=== PATIENT | female | born 1950 | race Caucasian/White ===

== ENCOUNTER 2019-03-28 09:41 | Inpatient (IN) | payer MEDICARE, BC ==
[2019-03-28] MEDS ORDERED: ENOXAPARIN SODIUM INJ 40 MG/0.4 ML DISP.SYRIN SUBCUT SCH (10:00)
[2019-03-28] MEDS ORDERED: VANCOMYCIN HCL INJ 1000 MG VIAL IV ONE (10:25)
[2019-03-28] MEDS ORDERED: AZTREONAM INJ 1 GM VIAL IV ONE (10:25)
--- NOTE | 2019-03-28 10:32 | ER Document Report ---
ED General - General Chief Complaint: Weakness Stated Complaint: WEAKNESS Time Seen by Provider: 03/28/19 10:09 Mode of Arrival: Ambulatory Information source: Patient Notes: Chief complaint: Bilateral lower leg wound History of complain:( obtained from----patient) 68 years old female who was a smoker in the past, has not seen any physicians for many many years, was steadily losing weight, and increasingly shortness of breath. 2 weeks ago was scratched her lower extremity and since then having chronic wounds over both legs associated with oozing of serosanguineous fluid. And progressive increasing lower extremity swelling. Patient denies any chest pain, headache focal weaknesses. Onset: As above Duration: Gradual Severity: Severe Quality: Unknown Context: Unknown Exacerbating factor and relieving factors: Walking REVIEW OF SYSTEMS: CONSTITUTIONAL : Denies fever, chills, or sweats. Denies recent illness. EENT: Denies eye, ear, throat, or mouth pain or symptoms. Denies nasal or sinus congestion or discharge. Denies throat, tongue, or mouth swelling or difficulty swallowing. CARDIOVASCULAR: Denies chest pain. Denies palpitations or racing or irregular heart beat. Denies ankle edema. RESPIRATORY: Denies cough, cold, GASTROINTESTINAL: Denies distention. Denies nausea, vomiting, or diarrhea. Denies blood in vomitus, stools, or per rectum. Denies black, tarry stools. Denies constipation. GENITOURINARY: Denies difficulty urinating, painful urination, burning, frequency, blood in urine, or discharge. FEMALE GENITOURINARY: Denies vaginal bleeding, heavy or abnormal periods, irregular periods. Denies vaginal discharge or odor. MUSCULOSKELETAL: D HEMATOLOGIC : Denies easy bruising or bleeding. LYMPHATIC: Denies swollen, enlarged glands. NEUROLOGICAL: Denies confusion or altered mental status. Denies passing out or loss of consciousness. Denies dizziness or lightheadedness. Denies headache. Denies weakness or paralysis or loss of use of either side. Denies problems with gait or speech. Denies sensory loss, numbness, or tingling. Denies seizures. PSYCHIATRIC: Denies anxiety or stress. Denies depression, suicidal ideation, or homicidal ideation. ALL OTHER SYSTEMS REVIEWED AND NEGATIVE. PHYSICAL EXAMINATION: GENERAL: Cachectic, mild to moderate laboring for breathing. HEAD: Atraumatic, normocephalic. EYES: Pupils equal round and reactive to light, extraocular movements intact, conjunctiva are normal. ENT: Nares patent, oropharynx clear without exudates. Moist mucous membranes. NECK: Normal range of motion, supple without lymphadenopathy LUNGS: Bilaterally decreased breath sounds, could not hear any significant wheezing or rales HEART: Regular rate and rhythm without murmurs ABDOMEN: Soft, nontender, nondistended abdomen. No guarding, no rebound. No masses appreciated. Examination of genitals-deferred Musculoskeletal: Both lower extremities are edematous 4++, with diffuse erythema, oozing ulceration on the medial side NEUROLOGICAL: Cranial nerves grossly intact. Normal speech, normal gait. Normal sensory, motor exams PSYCH: Normal mood, normal affect. SKIN: Warm, Dry, normal turgor, no rashes or lesions noted. Dictation was performed using [employer] voice recognition software TRAVEL OUTSIDE OF THE [place] IN LAST 30 DAYS: No - HPI Notes: Dictated - Related Data Allergies/Adverse Reactions: amoxicillin Allergy (Verified 03/28/19 09:50) ciprofloxacin [From Cipro] Allergy (Verified 03/28/19 09:50) Past Medical History - Social History Smoking Status: Former Smoker Cigarette use (# per day): No - Stopped smoking 4 years ago Chew tobacco use (# tins/day): No Frequency of alcohol use: Occasional Drug Abuse: None Lives with: Alone Family History: Reviewed & Not Pertinent Patient has suicidal ideation: No Patient has homicidal ideation: No Review of Systems - Review of Systems Notes: Dictated Physical Exam - Vital signs Vitals: Temp Pulse Resp BP Pulse Ox 97.7 F 94 20 178/89 H 98 03/28/19 09:51 03/28/19 09:51 03/28/19 09:51 03/28/19 09:51 03/28/19 09:51 - Notes Notes: Dictated Course - Re-evaluation Re-evalutation: 03/28/19 14:08 Patient's case was discussed with the hospitalist, he is uncomfortable admitting the patient without discussing with repairer evaporator. He requested me to speak to the repairer evaporator before he will accept the patient. 03/28/19 14:58 Patient finally was admitted to ICU after discussing with the eddy current inspector - Vital Signs Vital signs: Temp Pulse Resp BP Pulse Ox 97.8 F 94 17 148/80 H 98 03/28/19 11:01 03/28/19 09:51 03/28/19 13:01 03/28/19 13:01 03/28/19 13:01 - Laboratory Result Diagrams: 03/28/19 10:30 03/28/19 12:25 Laboratory results interpreted by me: 03/28/19 03/28/19 10:30 12:25 WBC 14.5 H RBC 3.64 L MCV 102 H MCH 35.4 H Seg Neuts % (Manual) 92 H Lymphocytes % (Manual) 4 L Abs Neuts (Manual) 13.3 H Sodium 104.6 L* Chloride 68 L Creatinine 0.23 L Glucose 136 H Calcium 8.2 L AST 91 H Albumin 3.4 L - Diagnostic Test Radiology reviewed: Reports reviewed - COPD Discharge - Discharge Clinical Impression: Hyponatremia, Hypochloremia, Severe dehydration Open wound of both legs with complication Qualifiers: Encounter type: initial encounter Qualified Code(s): S81.801A - Unspecified open wound, right lower leg, initial encounter; S81.802A - Unspecified open wound, left lower leg, initial encounter Condition: Critical Disposition: ADMITTED INPATIENT Unit Admitted: ICU
[2019-03-28 11:04] LABS: HEMOGLOBIN 12.9 g/dL (12.0-15.5); INTERNATIONAL RATION (INR) 1.03; MEAN CORPUSCULAR HEMOGLOBIN 35.4 pg (27.0-33.4); MEAN CORPUSCULAR HGB CONC 34.9 g/dL (32.0-36.0); MEAN CORPUSCULAR VOLUME 102 fl (80-97); PLATELET COUNT 324 10^3/uL (150-450); PROTHROMBIN TIME 13.5 SEC (11.4-15.4); RED BLOOD COUNT 3.64 10^6/uL (3.72-5.28); RED CELL DISTRIBUTION WIDTH 12.9 % (11.5-14.0); WHITE BLOOD COUNT 14.5 10^3/uL (4.0-10.5)
[2019-03-28 11:16] LABS: VENOUS BLOOD BASE EXCESS -0.5 mmol/L; VENOUS BLOOD HCO3 25.1 mmol/L (20-32); VENOUS BLOOD PCO2 44.7 mmHg (35-63); VENOUS BLOOD PH 7.37 (7.30-7.42)
[2019-03-28 11:28] LABS: ABSOLUTE LYMPHOCYTES# (MANUAL) 0.6 10^3/uL (0.5-4.7); ABSOLUTE MONOCYTES # (MANUAL) 0.6 10^3/uL (0.1-1.4); BASOPHILS % (MANUAL) 0 % (0-2); EOSINOPHILS % (MANUAL) 0 % (0-6); LYMPHOCYTES % (MANUAL) 4 % (13-45); MONOCYTES % (MANUAL) 4 % (3-13); SEGMENTED NEUTROPHILS % (MAN) 92 % (42-78); TOTAL CELLS COUNTED 100
[2019-03-28 11:33] LABS: PLATELET COMMENT ADEQUATE
[2019-03-28 11:35] LABS: TOXIC VACUOLATION PRESENT
[2019-03-28] MEDS ORDERED: ONDANSETRON HCL INJ/PF 4 MG/2 ML SDV IV ONE (11:47)
[2019-03-28] MEDS ORDERED: MORPHINE SULFATE 10 MG/ML INJ IV ONE ×2 (11:47→14:47)
--- NOTE | 2019-03-28 12:20 | RADIOLOGY REPORT (SQ) ---
EXAM DESCRIPTION: CHEST SINGLE VIEW COMPLETED DATE/TIME: 03/28/2019 12:08 pm REASON FOR STUDY: Shortness of breath COMPARISON: None. EXAM PARAMETERS: NUMBER OF VIEWS: One view. TECHNIQUE: Single frontal radiographic view of the chest acquired. RADIATION DOSE: NA LIMITATIONS: None. FINDINGS: LUNGS AND PLEURA: The pruning of the vasculature in the apices is suggestive of emphysema. There is no acute consolidation, pleural effusion or pneumothorax MEDIASTINUM AND HILAR STRUCTURES: No mediastinal or hilar contour abnormality. HEART AND VASCULAR STRUCTURES: No cardiomegaly. BONES: No acute findings. HARDWARE: None. OTHER: No other findings. IMPRESSION: Findings of COPD without a superimposed acute cardiopulmonary process. TECHNICAL DOCUMENTATION: JOB ID: [id number] [employer]- All Rights Reserved Reading location - IP/workstation name: [email or web address]
[2019-03-28 13:11] LABS: ALBUMIN 3.4 g/dL (3.5-5.0); ALKALINE PHOSPHATASE 65 U/L (38-126); ANION GAP 12 (5-19); ASPARTATE AMINO TRANSFERASE 91 U/L (14-36); BILIRUBIN,DIRECT 0.1 mg/dL (0.0-0.4); BLOOD UREA NITROGEN 9 mg/dL (7-20); CALCIUM 8.2 mg/dL (8.4-10.2); CARBON DIOXIDE 25 mmol/L (22-30); CHLORIDE 68 mmol/L (98-107); GLUCOSE 136 mg/dL (75-110); POTASSIUM 4.7 mmol/L (3.6-5.0); TOTAL PROTEIN 6.4 g/dL (6.3-8.2)
[2019-03-28] MEDS ORDERED: SODIUM CHLORIDE 3% 500 ML IV ONE ×2 (13:30→13:52)
[2019-03-28] MEDS ORDERED: SODIUM CHLORIDE 3% 400 ML IV ONE (14:23)
[2019-03-28 14:59] LABS: APPEARANCE,URINE SLIGHTLY-CLOUDY; BILIRUBIN,URINE NEGATIVE (NEGATIVE); COLOR,URINE YELLOW; GLUCOSE, URINE 150 mg/dL (NEGATIVE); KETONES,URINE 80 mg/dL (NEGATIVE); LEUKOCYTE ESTERASE,URINE NEGATIVE (NEGATIVE); NITRITE,URINE NEGATIVE (NEGATIVE); PROTEIN,URINE 100 mg/dL (NEGATIVE); UROBILINOGEN,URINE NEGATIVE mg/dL (<2.0)
[2019-03-28] MEDS ORDERED: MAGNESIUM HYDROXIDE SUSP 30 ML UDCUP PO PRN (15:35)
[2019-03-28] MEDS ORDERED: LEVALBUTEROL HCL NEB 1.25 MG/3 ML AMPUL NEB ONE (15:35)
[2019-03-28] MEDS ORDERED: VANCOMYCIN HCL INJ 500 MG VIAL IV SCH (16:00)
--- NOTE | 2019-03-28 16:31 | CRITICAL CARE ADMISSION REPORT ---
HPI Date:: 03/28/19 Time:: 15:00 Reason for ICU Reason:: Severe hyponatremia HPI: This patient is a 68 y/o woman who presents with a sodium of 105. She has had intermittent confusion, falls, and fatigue for 2 weeks. She has open and draining wounds on both lower legs R > L. Her sister offers that she drinks beer and practically nothing else. She is an ex-smoker and has audible wheezing consistent with COPD. No palitations. History obtained from:: Patient and sister - Diagnosis/Plan (1) Hypochloremia Is this a current diagnosis for this admission?: Yes Plan: Follows hyponatremia. Correct sodium, correct chloride (2) Hyponatremia Is this a current diagnosis for this admission?: Yes Plan: Likely due to drinking of beer and chronic dehydration. With clear lungs lung cancer less likely. Correct about 10 meq/day meaning about 2-3 days in ICU. (3) Open wound of both legs with complication Qualifiers: Encounter type: initial encounter Qualified Code(s): S81.801A - Unspecified open wound, right lower leg, initial encounter; S81.802A - Unspecified open wound, left lower leg, initial encounter Is this a current diagnosis for this admission?: Yes Plan: Cefopime and vanco and dressing changes (4) Severe dehydration Is this a current diagnosis for this admission?: Yes Plan: Hydrate with NS after sodium improves Past Medical History Past Medical History: Patient does not go to doctors. She has undiagnosed COPD, probable alcoholism and cellulitis that we know of. Medical History: None Cardiac Medical History: Reports: None Pulmonary Medical History: Reports: None Pulmonary History Note: But was a heavy smoker for years EENT Medical History: Reports: None Neurological Medical History: Reports: None Endocrine Medical History: Reports: None Renal/ Medical History: Reports: None Malignancy Medical History: Reports: None GI Medical History: Reports: None Skin History Note: Current leg cellulitis Psychiatric Medical History: Reports: None Traumatic Medical History: Reports: None Hematology: Reports: None Infectious Medical History: Reports: None Past Surgical History Past Surgical History: Reports: None Social/Family History - Social History Lives with: Family Smoking Status: Former Smoker Last Time Smoked: 6 years ago. Frequency of Alcohol Use: Heavy Amount of Alcoholic Beverages Per Day: Much beer Last Alcohol Use: 03/28/19 Hx Recreational Drug Use: No Drugs: None - Family History Family History: Reviewed & Not Pertinent - Medication/Allergies Allergies/Adverse Reactions: amoxicillin Allergy (Verified 03/28/19 09:50) ciprofloxacin [From Cipro] Allergy (Verified 03/28/19 09:50) Review of Systems Constitutional: PRESENT: as per HPI, anorexia Cardiovascular: PRESENT: as per HPI Respiratory: PRESENT: as per HPI Gastrointestinal: PRESENT: as per HPI Musculoskeletal: PRESENT: as per HPI Integumentary: PRESENT: as per HPI Neurological: PRESENT: as per HPI Psychiatric: PRESENT: as per HPI Hematologic/Lymphatic: PRESENT: as per HPI Physical Exam Vital Signs: Temp Pulse Resp BP Pulse Ox 97.8 F 94 17 161/72 H 98 03/28/19 11:01 03/28/19 09:51 03/28/19 15:00 03/28/19 15:00 03/28/19 15:00 Intake & Output 03/27/19 03/28/19 03/29/19 06:59 06:59 06:59 Weight 53.3 kg Weight/Height Weight 53.3 kg Height 5 ft 2 in General appearance: PRESENT: no acute distress, thin Head exam: PRESENT: other - Large old bruise in center of forehead Eye exam: PRESENT: EOMI Ear exam: PRESENT: normal external ear exam Mouth exam: PRESENT: dry mucosa Teeth exam: PRESENT: dental caries Respiratory exam: PRESENT: decreased breath sounds, prolonged expiratory phas, wheezes Cardiovascular exam: PRESENT: RRR, tachycardia Pulses: PRESENT: normal carotid pulses GI/Abdominal exam: PRESENT: soft Rectal exam: PRESENT: deferred Musculoskeletal exam: PRESENT: full ROM Neurological exam: PRESENT: alert, oriented to person, oriented to place, oriented to time, oriented to situation Psychiatric exam: PRESENT: flat affect Skin exam: PRESENT: erythema, vesicles Additional comments: Both legs R>L. Laboratory/Radiographs Laboratory Results: 03/28/19 10:30 03/28/19 12:25 03/28/19 03/28/19 03/28/19 10:30 10:30 10:30 WBC 14.5 H RBC 3.64 L Hgb 12.9 Hct 37.0 MCV 102 H MCH 35.4 H MCHC 34.9 RDW 12.9 Plt Count 324 Seg Neutrophils % Not Reportable VBG pH VBG pCO2 VBG HCO3 VBG Base Excess Sodium Cancelled Potassium Cancelled Chloride Cancelled Carbon Dioxide Cancelled Anion Gap Cancelled BUN Cancelled Creatinine Cancelled Est GFR ( Amer) Cancelled Est GFR (Non-Af Amer) Cancelled Glucose Cancelled Lactic Acid 1.4 Calcium Cancelled Total Bilirubin Cancelled AST Cancelled Alkaline Phosphatase Cancelled Total Protein Cancelled Albumin Cancelled Urine Color Urine Appearance Urine pH Ur Specific [place] Urine Protein Urine Glucose (UA) Urine Ketones Urine Blood Urine Nitrite Ur Leukocyte Esterase Urine WBC (Auto) Urine RBC (Auto) 03/28/19 03/28/19 03/28/19 10:30 12:25 14:20 WBC RBC Hgb Hct MCV MCH MCHC RDW Plt Count Seg Neutrophils % VBG pH 7.37 VBG pCO2 44.7 VBG HCO3 25.1 VBG Base Excess -0.5 Sodium 104.6 L* Potassium 4.7 Chloride 68 L Carbon Dioxide 25 Anion Gap 12 BUN 9 Creatinine 0.23 L Est GFR ( Amer) > 60 Est GFR (Non-Af Amer) Glucose 136 H Lactic Acid Calcium 8.2 L Total Bilirubin 1.0 AST 91 H Alkaline Phosphatase 65 Total Protein 6.4 Albumin 3.4 L Urine Color YELLOW Urine Appearance SLIGHTLY-CLOUDY Urine pH 6.0 Ur Specific [place] 1.030 Urine Protein 100 H Urine Glucose (UA) 150 H Urine Ketones 80 H Urine Blood SMALL H Urine Nitrite NEGATIVE Ur Leukocyte Esterase NEGATIVE Urine WBC (Auto) 6 Urine RBC (Auto) 7 Impressions: Chest X-Ray 03/28/19 10:27 IMPRESSION: Findings of COPD without a superimposed acute cardiopulmonary process. EKG: By Telemetry sinus tachycardia at 96. No ectopy Critical Time Critical Time (minutes): 40 -: The care of a critically ill patient is dynamic. This note represents a static moment in the admission process. orders and treatments may be given simulataneously and urgentl, and time is not outside sales representative of the treatment process. This patient requires Critical Care secondary to life threating organ or limb dysfunction. Without the need for Critical Care services, the patient is at risk for increasid mortality and morbidity.
[2019-03-28] MEDS ORDERED: ENOXAPARIN SODIUM INJ 40 MG/0.4 ML DISP.SYRIN SUBCUT ONE (17:00)
[2019-03-28] MEDS ORDERED: DIPHENHYDRAMINE HCL 50 MG CAPSULE PO ONE (18:55)
[2019-03-28] MEDS: CEFEPIME 1 GM/D5W RTU 1 GM/50 ML RTUPB IV SCH (19:01)
--- NOTE | 2019-03-28 19:42 | PDOC CONSULTATION ---
Consultation Consult Date: 03/28/19 Attending physician:: Donavon LAW Provider Consulted: Donavon LAW Consult reason:: Hyponatermia History of Present Illness Admission Date/PCP: 03/28/19 15:25 History of Present Illness: MONTEZ GREGG is a 68 year old female who has a history of smoking up until 4 years ago, drinks 4 to 5 beers a day, does not follow with any providers so there is no other history. She comes to the ER with her sister ad [id number]. She comes due to infections bilaterally in her legs, the right greater than the left. Labs were drawn and showed a sodium of 104. Patients only symptoms at the time were slight muscle weakness and feeling a little tired. Patient denied any other hyponatremia s/s. Patient denies any recent n/v or diarrhea. She has not been taking any new medications or drugs. She denies being diabetic, any increased thirst or decrease increase/decrease in urination. She denies orthopnea. Chest x-ray showed no fluid or vascular congestion in the chest. In the ER 3% saline was started at 50mL an hour per Dr. Law recommendations. Past Medical History Cardiac Medical History: Reports: None Pulmonary Medical History: Reports: None EENT Medical History: Reports: None Neurological Medical History: Reports: None Endocrine Medical History: Reports: None Complications of Diabetes: Reports: None Renal/ Medical History: Reports: None Malignancy Medical History: Reports: None GI Medical History: Reports: None Psychiatric Medical History: Reports: None Traumatic Medical History: Reports: None Infectious Medical History: Reports: None Past Surgical History Past Surgical History: Reports: None Social History Lives with: Family Smoking Status: Former Smoker Last Time Smoked: 6 years ago. Frequency of Alcohol Use: Heavy Hx Recreational Drug Use: No Drugs: None Family History Family History: DM - -prediabetes Parental Family History Reviewed: Yes Children Family History Reviewed: Yes Sibling(s) Family History Reviewed.: Yes Medication/Allergy Home Medications: Loratadine [Claritin 10 mg Tablet] 10 mg PO DAILY 03/28/19 Allergies/Adverse Reactions: amoxicillin Allergy (Verified 03/28/19 09:50) ciprofloxacin [From Cipro] Allergy (Verified 03/28/19 09:50) Review of Systems Constitutional: PRESENT: fatigue, weakness. ABSENT: anorexia, chills, fever(s), headache(s) Eyes: ABSENT: visual disturbances Nose, Mouth, and Throat: ABSENT: headache(s) Cardiovascular: PRESENT: dyspnea on exertion. ABSENT: chest pain, edema, orthropnea, palpitations Respiratory: PRESENT: cough, dyspnea. ABSENT: sputum Gastrointestinal: ABSENT: abdominal pain, constipation, diarrhea, dysphagia, nausea, vomiting Genitourinary: ABSENT: difficulty urinating, dysuria, hematuria, nocturia Musculoskeletal: PRESENT: joint swelling - -ankles, muscle weakness Neurological: PRESENT: weakness. ABSENT: confusion, dizziness, focal weakness, lack of coordination, numbness, syncope Psychiatric: ABSENT: anxiety, depression Physical Exam Vital Signs: Temp Pulse Resp BP Pulse Ox 97.8 F 94 17 138/65 H 96 03/28/19 11:01 03/28/19 09:51 03/28/19 17:00 03/28/19 17:00 03/28/19 17:00 Intake & Output 03/27/19 03/28/19 03/29/19 06:59 06:59 06:59 Weight 53.3 kg General appearance: PRESENT: cooperative, disheveled, mild distress - -due wheezing from her undiagnosed COPD. ABSENT: well-developed, well-nourished Eye exam: PRESENT: PERRLA. ABSENT: scleral icterus Mouth exam: PRESENT: dry mucosa. ABSENT: moist, neck supple Neck exam: ABSENT: JVD, tracheal deviation Respiratory exam: PRESENT: tachypnea, wheezes. ABSENT: accessory muscle use, clear to auscultation sheryl, crackles, rales, rhonchi Cardiovascular exam: PRESENT: RRR, +S1, +S2 GI/Abdominal exam: PRESENT: soft. ABSENT: tenderness Extremities exam: PRESENT: pedal edema, tenderness, other - -slight edema where the infection is on the right leg. ABSENT: +1 edema, +2 edema Musculoskeletal exam: ABSENT: normal inspection, tenderness Neurological exam: PRESENT: alert, awake, oriented to person, oriented to place, oriented to time, oriented to situation Psychiatric exam: ABSENT: anxious, depressed Skin exam: PRESENT: erythema, warm, other - -infectionious pus on the right interior portion of the leg around the ankle.. ABSENT: cyanosis, dry, intact Results Laboratory Results: 03/28/19 10:30 03/28/19 12:25 03/28/19 03/28/19 03/28/19 10:30 10:30 10:30 WBC 14.5 H RBC 3.64 L Hgb 12.9 Hct 37.0 MCV 102 H MCH 35.4 H MCHC 34.9 RDW 12.9 Plt Count 324 Seg Neutrophils % Not Reportable VBG pH VBG pCO2 VBG HCO3 VBG Base Excess Sodium Cancelled Potassium Cancelled Chloride Cancelled Carbon Dioxide Cancelled Anion Gap Cancelled BUN Cancelled Creatinine Cancelled Est GFR ( Amer) Cancelled Est GFR (Non-Af Amer) Cancelled Glucose Cancelled Lactic Acid 1.4 Calcium Cancelled Total Bilirubin Cancelled AST Cancelled Alkaline Phosphatase Cancelled Total Protein Cancelled Albumin Cancelled Urine Color Urine Appearance Urine pH Ur Specific [place] Urine Protein Urine Glucose (UA) Urine Ketones Urine Blood Urine Nitrite Ur Leukocyte Esterase Urine WBC (Auto) Urine RBC (Auto) 03/28/19 03/28/19 03/28/19 10:30 12:25 14:20 WBC RBC Hgb Hct MCV MCH MCHC RDW Plt Count Seg Neutrophils % VBG pH 7.37 VBG pCO2 44.7 VBG HCO3 25.1 VBG Base Excess -0.5 Sodium 104.6 L* Potassium 4.7 Chloride 68 L Carbon Dioxide 25 Anion Gap 12 BUN 9 Creatinine 0.23 L Est GFR ( Amer) > 60 Est GFR (Non-Af Amer) Glucose 136 H Lactic Acid Calcium 8.2 L Total Bilirubin 1.0 AST 91 H Alkaline Phosphatase 65 Total Protein 6.4 Albumin 3.4 L Urine Color YELLOW Urine Appearance SLIGHTLY-CLOUDY Urine pH 6.0 Ur Specific [place] 1.030 Urine Protein 100 H Urine Glucose (UA) 150 H Urine Ketones 80 H Urine Blood SMALL H Urine Nitrite NEGATIVE Ur Leukocyte Esterase NEGATIVE Urine WBC (Auto) 6 Urine RBC (Auto) 7 Impressions: Chest X-Ray 03/28/19 10:27 IMPRESSION: Findings of COPD without a superimposed acute cardiopulmonary process. Assessment & Plan - Diagnosis (1) Hyponatremia Is this a current diagnosis for this admission?: Yes Plan: continue with the 3% saline that was ordered. Once that is done look to retest the sodium to see how much it has improved. Aiming for 112 to 114, no more than a 10mEQ increase per 24 hours. Will look to get a serum osmolarity, urine sodium and urine osmolarity. Also will look to check sodium q6 hour over the next 24 hours. Most likely cause is from beer potomania (2) Hypochloremia Is this a current diagnosis for this admission?: Yes Plan: should improve with saline (3) Open wound of both legs with complication Qualifiers: Encounter type: initial encounter Qualified Code(s): S81.801A - Unspecified open wound, right lower leg, initial encounter; S81.802A - Unspecified open wo und, left lower leg, initial encounter Is this a current diagnosis for this admission?: Yes Plan: per critical care, no renal adjustments needed for antibiotics (4) Severe dehydration Is this a current diagnosis for this admission?: Yes Plan: continue with normal saline once sodium has been rechecked, with caution to not over correct the sodium. (5) Alcohol dependence Plan: patient may need a benzodiazepine due to the risk of alcohol withdraw since she drinks several a day for a prolonged period of time. - Notes Notes: Patient's case was discussed with Dr. Law.
[2019-03-28 21:51] LABS: ANION GAP 9 (5-19); BLOOD UREA NITROGEN 9 mg/dL (7-20); CALCIUM 8.2 mg/dL (8.4-10.2); CARBON DIOXIDE 26 mmol/L (22-30); CHLORIDE 75 mmol/L (98-107); GLUCOSE 126 mg/dL (75-110); POTASSIUM 4.1 mmol/L (3.6-5.0)
[2019-03-28] MEDS: LEVALBUTEROL HCL NEB 1.25 MG/3 ML AMPUL NEB SCH (21:58)
[2019-03-28 23:16] LABS: OSMOLALITY,URINE 805 mOsm/kg (300-900)
[2019-03-28 23:23] LABS: URINE SODIUM < 5 mmol/L (30-90)
[2019-03-28] MEDS ORDERED: NORMAL SALINE 1000 ML 1,000 ML IV PRN (23:37)
[2019-03-29] MEDS: VANCOMYCIN HCL 750 MG in DEXTROSE 5%-WATER 250 ML IV SCH ×3 (01:09→22:30)
[2019-03-29] MEDS: OXYCODONE-ACETAMINOPHEN 5-325 MG TABLET PO PRN ×3 (02:07→22:37)
[2019-03-29] MEDS: LEVALBUTEROL HCL NEB 1.25 MG/3 ML AMPUL NEB SCH ×4 (02:27→20:02)
[2019-03-29 04:18] LABS: HEMATOCRIT 33.8 % (36.0-47.0); HEMOGLOBIN 11.6 g/dL (12.0-15.5); MEAN CORPUSCULAR HEMOGLOBIN 34.9 pg (27.0-33.4); MEAN CORPUSCULAR HGB CONC 34.2 g/dL (32.0-36.0); MEAN CORPUSCULAR VOLUME 102 fl (80-97); PLATELET COUNT 262 10^3/uL (150-450); RED BLOOD COUNT 3.31 10^6/uL (3.72-5.28); RED CELL DISTRIBUTION WIDTH 12.6 % (11.5-14.0); WHITE BLOOD COUNT 18.9 10^3/uL (4.0-10.5)
[2019-03-29 04:44] LABS: ANION GAP 9 (5-19); BLOOD UREA NITROGEN 7 mg/dL (7-20); CALCIUM 7.9 mg/dL (8.4-10.2); CARBON DIOXIDE 26 mmol/L (22-30); CHLORIDE 78 mmol/L (98-107); GLUCOSE 134 mg/dL (75-110); PHOSPHORUS 2.5 mg/dL (2.5-4.5); POTASSIUM 3.8 mmol/L (3.6-5.0)
[2019-03-29 04:58] LABS: FREE T3 3.5 pg/mL (2.77-5.27); FREE T4 (FREE THYROXINE) 1.67 ng/dL (0.78-2.19)
[2019-03-29 05:12] LABS: THYROID STIMULATING HORMONE 2.93 uIU/mL (0.47-4.68)
[2019-03-29] MEDS: CEFEPIME 1 GM/D5W RTU 1 GM/50 ML RTUPB IV SCH ×2 (07:11→17:49)
[2019-03-29] MEDS: LORATADINE 10 MG TABLET PO SCH (10:09)
[2019-03-29] MEDS: ENOXAPARIN SODIUM INJ 40 MG/0.4 ML DISP.SYRIN SUBCUT SCH (10:28)
[2019-03-29 10:56] LABS: BLOOD UREA NITROGEN 5 mg/dL (7-20); CALCIUM 7.8 mg/dL (8.4-10.2); CARBON DIOXIDE 27 mmol/L (22-30); CHLORIDE 78 mmol/L (98-107); GLUCOSE 133 mg/dL (75-110); POTASSIUM 3.4 mmol/L (3.6-5.0)
[2019-03-29 10:58] LABS: ANION GAP 9 (5-19)
--- NOTE | 2019-03-29 11:21 | EKG REPORT ---
SEVERITY:- NORMAL ECG - SINUS RHYTHM : Confirmed by: Rivas Schwartz 29-Mar-2019 11:20:20
[2019-03-29 12:57] LABS: ANION GAP 9 (5-19); BLOOD UREA NITROGEN 4 mg/dL (7-20); CALCIUM 7.7 mg/dL (8.4-10.2); CARBON DIOXIDE 26 mmol/L (22-30); CHLORIDE 78 mmol/L (98-107); GLUCOSE 138 mg/dL (75-110); POTASSIUM 3.5 mmol/L (3.6-5.0)
--- NOTE | 2019-03-29 13:44 | PDOC PROGRESS REPORT ---
Subjective Progress Note for:: 03/29/19 Subjective:: Patient seems more awake and alert but having episodes of confusion. Reason For Visit: HYPONATREMIA,DEHYDRATION,CELLULITIS OF RIGHT LEG Physical Exam Vital Signs: Temp Pulse Resp BP Pulse Ox 97.1 F 97 20 133/67 H 99 03/29/19 12:00 03/29/19 12:00 03/29/19 12:00 03/29/19 12:00 03/29/19 12:00 Intake & Output 03/28/19 03/29/19 03/30/19 06:59 06:59 06:59 Intake Total 300 Balance 300 Weight 54.3 kg General appearance: PRESENT: no acute distress, cooperative Eye exam: PRESENT: EOMI, PERRLA Ear exam: PRESENT: normal external ear exam Mouth exam: PRESENT: dry mucosa Neck exam: PRESENT: full ROM Respiratory exam: PRESENT: clear to auscultation sheryl, decreased breath sounds Cardiovascular exam: PRESENT: RRR Pulses: PRESENT: normal radial pulses GI/Abdominal exam: PRESENT: soft Rectal exam: PRESENT: deferred Extremities exam: PRESENT: full ROM Additional comments: Cellulitis of legs improved, feeling a bit better Musculoskeletal exam: PRESENT: full ROM Additional comments: Still weak Neurological exam: PRESENT: alert, awake Additional comments: Occassionally confused. Psychiatric exam: PRESENT: appropriate affect Skin exam: PRESENT: normal color Results Laboratory Results: 03/29/19 03:53 03/29/19 12:19 03/28/19 03/28/19 03/28/19 14:20 14:20 21:27 WBC RBC Hgb Hct MCV MCH MCHC RDW Plt Count Sodium 109.5 L* Potassium 4.1 Chloride 75 L Carbon Dioxide 26 Anion Gap 9 BUN 9 Creatinine 0.29 L Est GFR ( Amer) > 60 Glucose 126 H Serum Osmolality Calcium 8.2 L Phosphorus Magnesium TSH Free T4 Free T3 pg/mL Urine Color YELLOW Urine Appearance SLIGHTLY-CLOUDY Urine pH 6.0 Ur Specific [place] 1.030 Urine Protein 100 H Urine Glucose (UA) 150 H Urine Ketones 80 H Urine Blood SMALL H Urine Nitrite NEGATIVE Ur Leukocyte Esterase NEGATIVE Urine WBC (Auto) 6 Urine RBC (Auto) 7 Urine Osmolality 805 03/28/19 03/29/19 03/29/19 21:27 03:53 03:53 WBC 18.9 H RBC 3.31 L Hgb 11.6 L Hct 33.8 L MCV 102 H MCH 34.9 H MCHC 34.2 RDW 12.6 Plt Count 262 Sodium 113.2 L* Potassium 3.8 Chloride 78 L Carbon Dioxide 26 Anion Gap 9 BUN 7 Creatinine 0.27 L Est GFR ( Amer) > 60 Glucose 134 H Serum Osmolality 225 L Calcium 7.9 L Phosphorus 2.5 Magnesium 1.6 TSH Free T4 Free T3 pg/mL Urine Color Urine Appearance Urine pH Ur Specific [place] Urine Protein Urine Glucose (UA) Urine Ketones Urine Blood Urine Nitrite Ur Leukocyte Esterase Urine WBC (Auto) Urine RBC (Auto) Urine Osmolality 03/29/19 03/29/19 03/29/19 03:53 10:20 12:19 WBC RBC Hgb Hct MCV MCH MCHC RDW Plt Count Sodium 113.5 L* 113.3 L* Potassium 3.4 L 3.5 L Chloride 78 L 78 L Carbon Dioxide 27 26 Anion Gap 9 9 BUN 5 L 4 L Creatinine 0.27 L 0.27 L Est GFR ( Amer) > 60 > 60 Glucose 133 H 138 H Serum Osmolality Calcium 7.8 L 7.7 L Phosphorus Magnesium TSH 2.93 Free T4 1.67 Free T3 pg/mL 3.50 Urine Color Urine Appearance Urine pH Ur Specific [place] Urine Protein Urine Glucose (UA) Urine Ketones Urine Blood Urine Nitrite Ur Leukocyte Esterase Urine WBC (Auto) Urine RBC (Auto) Urine Osmolality Impressions: Chest X-Ray 03/28/19 10:27 IMPRESSION: Findings of COPD without a superimposed acute cardiopulmonary proce ss. Assessment & Plan - Diagnosis (1) Hypochloremia Is this a current diagnosis for this admission?: Yes Plan: As sodium corrects chloride should correct. (2) Hyponatremia Is this a current diagnosis for this admission?: Yes Plan: Sodium now 113. Continue 3% saline. BMPs q6H. Correct to about 115 today. Continue no IVF (3) Open wound of both legs with complication Qualifiers: Encounter type: initial encounter Qualified Code(s): S81.801A - Unspecified open wound, right lower leg, initial encounter; S81.802A - Unspecified open wound, left lower leg, initial encounter Is this a current diagnosis for this admission?: Yes Plan: Continue antibiotics. C&S of wound. Continue dressing change. (4) Severe dehydration Is this a current diagnosis for this admission?: Yes - Time Time Spent with patient: 15-24 minutes Total Critical Time (Minutes): 20 Medications reviewed and adjusted accordingly: Yes Anticipated discharge: Home with Homehealth Within: within 72 hours
[2019-03-29] MEDS ORDERED: NORMAL SALINE 1000 ML 1,000 ML IV PRN (17:55)
--- NOTE | 2019-03-29 17:57 | PDOC PROGRESS REPORT ---
Subjective Progress Note for:: 03/29/19 Reason For Visit: Patient seen today in the ICU. Patient is awake and responsive but she has intermittent brief periods of confusion and disorientation. However she denies any history of headaches,chest pain or shortness of breath. No complaints of any focal deficits. She denies any history of fever or chills. Further history was taken. She admits to drinking at least 4-5 beers and sometimes more on a daily basis for a long period of time. She has not had any health issues for a long period of time and has had no physician visits, does not have a primary care physician nor has she visited any urgent care or ER for the last many many years. She also admits to taking 2-3 Advil's a day for various aches and pains. She does not drink any other fluids but for a little amount of coffee. Denies any recreational drugs. Labs and medications were reviewed with the miah penny.Discussions were done with the treating nurse Merary as well as the research laboratory manager Physical Exam Vital Signs: Temp Pulse Resp BP Pulse Ox 97.8 F 89 14 132/69 H 100 03/29/19 16:00 03/29/19 16:00 03/29/19 16:00 03/29/19 16:00 03/29/19 16:00 Intake & Output 03/28/19 03/29/19 03/30/19 06:59 06:59 06:59 Intake Total 300 Balance 300 Weight 54.3 kg General appearance: PRESENT: no acute distress Respiratory exam: PRESENT: clear to auscultation sheryl. ABSENT: crackles Cardiovascular exam: PRESENT: RRR, +S1, +S2 GI/Abdominal exam: PRESENT: normal bowel sounds, soft. ABSENT: organomegaly, t enderness Extremities exam: ABSENT: pedal edema Neurological exam: PRESENT: alert, altered, awake, oriented to person, oriented to place. ABSENT: oriented to time Psychiatric exam: PRESENT: appropriate affect Skin exam: PRESENT: erythema - Of both lower extremities with signs suggestive of cellulitis.. ABSENT: mottled, rash Results Laboratory Results: 03/29/19 03:53 03/29/19 12:19 03/28/19 03/28/19 03/28/19 14:20 21:27 21:27 WBC RBC Hgb Hct MCV MCH MCHC RDW Plt Count Sodium 109.5 L* Potassium 4.1 Chloride 75 L Carbon Dioxide 26 Anion Gap 9 BUN 9 Creatinine 0.29 L Est GFR ( Amer) > 60 Glucose 126 H Serum Osmolality 225 L Calcium 8.2 L Phosphorus Magnesium TSH Free T4 Free T3 pg/mL Urine Osmolality 805 03/29/19 03/29/19 03/29/19 03:53 03:53 03:53 WBC 18.9 H RBC 3.31 L Hgb 11.6 L Hct 33.8 L MCV 102 H MCH 34.9 H MCHC 34.2 RDW 12.6 Plt Count 262 Sodium 113.2 L* Potassium 3.8 Chloride 78 L Carbon Dioxide 26 Anion Gap 9 BUN 7 Creatinine 0.27 L Est GFR ( Amer) > 60 Glucose 134 H Serum Osmolality Calcium 7.9 L Phosphorus 2.5 Magnesium 1.6 TSH 2.93 Free T4 1.67 Free T3 pg/mL 3.50 Urine Osmolality 03/29/19 03/29/19 10:20 12:19 WBC RBC Hgb Hct MCV MCH MCHC RDW Plt Count Sodium 113.5 L* 113.3 L* Potassium 3.4 L 3.5 L Chloride 78 L 78 L Carbon Dioxide 27 26 Anion Gap 9 9 BUN 5 L 4 L Creatinine 0.27 L 0.27 L Est GFR ( Amer) > 60 > 60 Glucose 133 H 138 H Serum Osmolality Calcium 7.8 L 7.7 L Phosphorus Magnesium TSH Free T4 Free T3 pg/mL Urine Osmolality Impressions: Chest X-Ray 03/28/19 10:27 IMPRESSION: Findings of COPD without a superimposed acute cardiopulmonary process. Assessment & Plan - Diagnosis (2) Hyponatremia Is this a current diagnosis for this admission?: Yes Plan: Presenting sodium of 104 and now 113. Low serum osmolality with low urine sodium below 5 with a high urine osmolality. This could be a combination of features including dehydration/excessive beer intake with the possibility of underlying SIADH as well. See response to osmoles with IV fluids. Will place an order for repeating urine sodium and osmolality. Meanwhile cut back on IV fluids to 50 cc an hour because of overcorrection of sodium in the setting of malnutrition/dehydration would increase risk of CPM. Continue gentle hydration. Keep on fluid restriction of thousand cc per 24 hour orally. (3) Open wound of both legs with complication Qualifiers: Encounter type: initial encounter Qualified Code(s): S81.801A - Unspecified open wound, right lower leg, initial encounter; S81.802A - Unspecified open w ound, left lower leg, initial encounter Is this a current diagnosis for this admission?: Yes Plan: On antibiotics and being treated as cellulitis. (4) Severe dehydration Is this a current diagnosis for this admission?: Yes Plan: Continue gentle hydration. (5) Altered mental status Plan: Looks like she is going through early alcohol withdrawal. Discussed with research laboratory manager of treating her for that based on her symptoms.
[2019-03-29 18:37] LABS: ANION GAP 8 (5-19); BLOOD UREA NITROGEN 4 mg/dL (7-20); CALCIUM 7.8 mg/dL (8.4-10.2); CARBON DIOXIDE 27 mmol/L (22-30); CHLORIDE 78 mmol/L (98-107); GLUCOSE 150 mg/dL (75-110); POTASSIUM 3.4 mmol/L (3.6-5.0)
[2019-03-29] MEDS: MAGNESIUM OXIDE 400 MG TABLET PO SCH (18:46)
[2019-03-30] MEDS: LEVALBUTEROL HCL NEB 1.25 MG/3 ML AMPUL NEB SCH ×4 (02:07→20:01)
[2019-03-30] MEDS: OXYCODONE-ACETAMINOPHEN 5-325 MG TABLET PO PRN ×3 (03:38→21:30)
[2019-03-30] MEDS ORDERED: NORMAL SALINE 1000 ML 1,000 ML IV ONE (07:00)
[2019-03-30] MEDS: CEFEPIME 1 GM/D5W RTU 1 GM/50 ML RTUPB IV SCH ×2 (07:02→18:20)
[2019-03-30 07:30] LABS: ANION GAP 7 (5-19); BLOOD UREA NITROGEN 4 mg/dL (7-20); CALCIUM 7.6 mg/dL (8.4-10.2); CARBON DIOXIDE 27 mmol/L (22-30); CHLORIDE 78 mmol/L (98-107); GLUCOSE 101 mg/dL (75-110); POTASSIUM 3.3 mmol/L (3.6-5.0)
[2019-03-30] MEDS ORDERED: POTASSIUM CHLORIDE 10 MEQ CAPSULE.ER PO SCH (10:00)
[2019-03-30] MEDS: ENOXAPARIN SODIUM INJ 40 MG/0.4 ML DISP.SYRIN SUBCUT SCH (10:32)
[2019-03-30] MEDS: MAGNESIUM OXIDE 400 MG TABLET PO SCH ×2 (10:32→18:21)
[2019-03-30] MEDS: LORATADINE 10 MG TABLET PO SCH (10:33)
[2019-03-30] MEDS: LINEZOLID 600 MG TABLET PO SCH ×2 (10:33→21:31)
[2019-03-30 11:57] LABS: OSMOLALITY,URINE 470 mOsm/kg (300-900)
--- NOTE | 2019-03-30 12:11 | PDOC PROGRESS REPORT ---
Subjective Progress Note for:: 03/30/19 Reason For Visit: Patient seen this morning in the ICU.She is more awake and alert. She is able to answer appropriately point of questions unlike yesterday. She denies any acute symptoms of chest pain or shortness of breath or abdominal pains. No complaints of any fever or chills. Unable to urinate and the nurses are in the process of trying to help her and if not will have to [place] her. Labs and medications were reviewed with the patient and the staff. Current sodium today is static at 112.Urine sodium and osmolality asked yesterday was not done because she was unable to urinate. Physical Exam Vital Signs: Temp Pulse Resp BP Pulse Ox 97.9 F 95 19 156/67 H 96 03/30/19 08:00 03/30/19 10:00 03/30/19 10:00 03/30/19 10:00 03/30/19 10:00 Intake & Output 03/29/19 03/30/19 03/31/19 06:59 06:59 06:59 Intake Total 300 350 50 Output Total 0 0 Balance 300 350 50 Weight 54.3 kg 55.1 kg General appearance: PRESENT: no acute distress Respiratory exam: PRESENT: clear to auscultation sheryl. ABSENT: crackles Cardiovascular exam: PRESENT: RRR, +S1, +S2 GI/Abdominal exam: PRESENT: normal bowel sounds, soft. ABSENT: organomegaly, tenderness Extremities exam: ABSENT: pedal edema Neurological exam: PRESENT: alert, awake, oriented to person, oriented to place, oriented to time Psychiatric exam: PRESENT: appropriate affect Skin exam: PRESENT: erythema - Both lower extremities. Some better from earlier.. ABSENT: cyanosis, jaundice, mottled Results Laboratory Results: 03/29/19 03:53 03/30/19 07:03 03/29/19 03/29/19 03/30/19 12:19 18:05 07:03 Sodium 113.3 L* 113.0 L* 112.0 L* Potassium 3.5 L 3.4 L 3.3 L Chloride 78 L 78 L 78 L Carbon Dioxide 26 27 27 Anion Gap 9 8 7 BUN 4 L 4 L 4 L Creatinine 0.27 L 0.34 L 0.26 L Est GFR ( Amer) > 60 > 60 > 60 Glucose 138 H 150 H 101 Calcium 7.7 L 7.8 L 7.6 L Urine Osmolality 03/30/19 11:01 Sodium Potassium Chloride Carbon Dioxide Anion Gap BUN Creatinine Est GFR ( Amer) Glucose Calcium Urine Osmolality 470 03/28/19 14:20 Clean Catch Midstream Urine Culture - Final 6,000 col/ml Impressions: Chest X-Ray 03/28/19 10:27 IMPRESSION: Findings of COPD without a superimposed acute cardiopulmonary process. Assessment & Plan - Diagnosis (1) Hyponatremia Is this a current diagnosis for this admission?: Yes Plan: Presenting sodium of 104 and now static at 112. Follow-up on the urine osmolality and sodium when she is able to urinate. Further adjustments and treatments based on those values. In the meanwhile continue gentle hydration. Keep on fluid restriction of thousand cc per 24 hour orally. (2) Alcohol dependence Plan: Monitor for alcohol withdrawal. Looks like symptom obando she is better than yesterday. (3) Open wound of both legs with complication Qualifiers: Encounter type: initial encounter Qualified Code(s): S81.801A - Unspecified open wound, right lower leg, initial encounter; S81.802A - Unspecified open wound, left lower leg, initial encounter Is this a current diagnosis for this admission?: Yes Plan: On antibiotics and being treated as cellulitis. (4) Severe dehydration Is this a current diagnosis for this admission?: Yes Plan: Continue gentle hydration. (5) Altered mental status Plan: Improved as compared to yesterday.
[2019-03-30 12:31] LABS: URINE SODIUM < 5 mmol/L (30-90)
[2019-03-30] MEDS: POTASSIUM CHLORIDE 20 MEQ PACKET PO SCH (12:45)
--- NOTE | 2019-03-30 14:44 | PDOC PROGRESS REPORT ---
Subjective Progress Note for:: 03/30/19 Subjective:: Pt is awake, alert without complaints. Wants to get out of ICU quickly. Does complain of pain in leg when manipulated Reason For Visit: HYPONATREMIA,DEHYDRATION,CELLULITIS OF RIGHT LEG Physical Exam Vital Signs: Temp Pulse Resp BP Pulse Ox 98.0 F 99 20 134/73 H 96 03/30/19 12:00 03/30/19 14:00 03/30/19 14:08 03/30/19 14:08 03/30/19 14:08 Intake & Output 03/29/19 03/30/19 03/31/19 06:59 06:59 06:59 Intake Total 300 350 50 Output Total 0 0 Balance 300 350 50 Weight 54.3 kg 55.1 kg General appearance: PRESENT: no acute distress, cooperative Additional Comments: Bruise on forehead nearly resolved. Eye exam: PRESENT: EOMI, PERRLA Ear exam: PRESENT: normal external ear exam Mouth exam: PRESENT: dry mucosa Respiratory exam: PRESENT: clear to auscultation sheryl Cardiovascular exam: PRESENT: RRR Pulses: PRESENT: normal radial pulses Vascular exam: PRESENT: normal capillary refill GI/Abdominal exam: PRESENT: soft Rectal exam: PRESENT: deferred Additional comments: Leg wound improved with developing eschar in mid section. Swelling less. Rednesss less intense Musculoskeletal exam: PRESENT: full ROM Neurological exam: PRESENT: alert, awake, oriented to person, oriented to place, oriented to time, oriented to situation Skin exam: PRESENT: erythema Additional comments: As described in extremity exam. Results Laboratory Results: 03/29/19 03:53 03/30/19 07:03 03/29/19 03/30/19 03/30/19 18:05 07:03 11:01 Sodium 113.0 L* 112.0 L* Potassium 3.4 L 3.3 L Chloride 78 L 78 L Carbon Dioxide 27 27 Anion Gap 8 7 BUN 4 L 4 L Creatinine 0.34 L 0.26 L Est GFR ( Amer) > 60 > 60 Glucose 150 H 101 Calcium 7.8 L 7.6 L Urine Osmolality 470 03/28/19 14:20 Clean Catch Midstream Urine Culture - Final 6,000 col/ml Impressions: Chest X-Ray 03/28/19 10:27 IMPRESSION: Findings of COPD without a superimposed acute cardiopulmonary process. Assessment & Plan - Diagnosis (1) Hypochloremia Is this a current diagnosis for this admission?: Yes (2) Hyponatremia Is this a current diagnosis for this admission?: Yes Plan: Unchaged. Asymptomatic. On fluid restriction. Consider transfer out of ICU tomorrow. (3) Open wound of both legs with complication Qualifiers: Encounter type: initial encounter Qualified Code(s): S81.801A - Unspecified open wound, right lower leg, initial encounter; S81.802A - Unspecified open w ound, left lower leg, initial encounter Is this a current diagnosis for this admission?: Yes Plan: Culture preliminary showing GPC and GNR final pending. Given her low U/O and potential for renal damage, Vanco changed to PO Linezolid. May need debridement. Arterial dopplers when wounds improve. (4) Severe dehydration Is this a current diagnosis for this admission?: Yes - Time Time Spent with patient: 35 or more minutes Total Critical Time (Minutes): 35 Medications reviewed and adjusted accordingly: Yes
[2019-03-31] MEDS: NORMAL SALINE 1000 ML 1,000 ML IV PRN ×2 (00:16→21:02)
[2019-03-31] MEDS: LEVALBUTEROL HCL NEB 1.25 MG/3 ML AMPUL NEB SCH ×4 (02:11→20:41)
[2019-03-31 04:19] LABS: ANION GAP 9 (5-19); BLOOD UREA NITROGEN 3 mg/dL (7-20); CALCIUM 8.1 mg/dL (8.4-10.2); CARBON DIOXIDE 27 mmol/L (22-30); CHLORIDE 83 mmol/L (98-107); GLUCOSE 104 mg/dL (75-110); POTASSIUM 3.9 mmol/L (3.6-5.0)
[2019-03-31] MEDS: CEFEPIME 1 GM/D5W RTU 1 GM/50 ML RTUPB IV SCH ×2 (06:57→17:26)
[2019-03-31] MEDS: ENOXAPARIN SODIUM INJ 40 MG/0.4 ML DISP.SYRIN SUBCUT SCH (09:21)
--- NOTE | 2019-03-31 09:22 | PDOC PROGRESS REPORT ---
Subjective Progress Note for:: 03/31/19 Subjective:: Patient remains awake and alert. Complains of SOB. Audibly wheezing according to nursing staff. Reason For Visit: HYPONATREMIA,DEHYDRATION,CELLULITIS OF RIGHT LEG Physical Exam Vital Signs: Temp Pulse Resp BP Pulse Ox 97.8 F 100 20 148/89 H 98 03/31/19 08:00 03/31/19 08:00 03/31/19 08:00 03/31/19 08:00 03/31/19 08:00 Intake & Output 03/30/19 03/31/19 04/01/19 06:59 06:59 06:59 Intake Total 350 100 Output Total 0 1250 Balance 350 -1150 Weight 55.1 kg 57.6 kg Results Laboratory Results: 03/29/19 03:53 03/31/19 03:41 03/30/19 03/31/19 11:01 03:41 Sodium 118.9 L* Potassium 3.9 Chloride 83 L Carbon Dioxide 27 Anion Gap 9 BUN 3 L Creatinine 0.28 L Est GFR ( Amer) > 60 Glucose 104 Calcium 8.1 L Urine Osmolality 470 03/28/19 14:20 Clean Catch Midstream Urine Culture - Final 6,000 col/ml Impressions: Chest X-Ray 03/28/19 10:27 IMPRESSION: Findings of COPD without a superimposed acute cardiopulmonary process. Assessment & Plan - Diagnosis (1) Hypochloremia Is this a current diagnosis for this admission?: Yes (2) Hyponatremia Is this a current diagnosis for this admission?: Yes Plan: Improved with fluid restriction alone. No symptoms. Will continue this treatment plan. Stable clinically to be transferred but would like to see sodium get into 120s first. (3) Open wound of both legs with complication Qualifiers: Encounter type: initial encounter Qualified Code(s): S81.801A - Unspecified open wound, right lower leg, initial encounter; S81.802A - Unspecified open wound, left lower leg, initial encounter Is this a current diagnosis for this admission?: Yes Plan: Feels and looks better. To painful to get arterial dopplers yet. Continue antibiotics and dressing changes. Culture preliminary still. (4) Severe dehydration Is this a current diagnosis for this admission?: Yes Plan: Improved. On fluid restriction. Kidneys without change but muscle mass is small and may be deceiving. (5) COPD (chronic obstructive pulmonary disease) Qualifiers: COPD type: emphysema Emphysema type: centrilobular Qualified Code(s): J43.2 - Centrilobular emphysema Is this a current diagnosis for this admission?: Yes Plan: This is new to her. Stopped smoking 6 years ago. Audible wheezing this AM. Lungs clear on exam. Continue nebulizers and add prednisone. - Time Time Spent with patient: 35 or more minutes Total Critical Time (Minutes): 35 Medications reviewed and adjusted accordingly: Yes Anticipated discharge: Home Within: within 72 hours - Inpatient Certification Medical Necessity: Significant Comorbidiites Make Outpatient Treatment Too Risky, Need Close Monitoring Due to Risk of Patient Decompensation, Need for Nebulizer Therapy and Monitoring of Response
[2019-03-31] MEDS: PREDNISONE 20 MG TABLET PO SCH (09:23)
[2019-03-31] MEDS: OXYCODONE-ACETAMINOPHEN 5-325 MG TABLET PO PRN (09:23)
[2019-03-31] MEDS: LORATADINE 10 MG TABLET PO SCH (09:23)
[2019-03-31] MEDS: MAGNESIUM OXIDE 400 MG TABLET PO SCH ×2 (09:25→17:20)
[2019-03-31] MEDS: POTASSIUM CHLORIDE 20 MEQ PACKET PO SCH (09:25)
--- NOTE | 2019-03-31 13:00 | PDOC PROGRESS REPORT ---
Subjective Progress Note for:: 03/31/19 Reason For Visit: Patient seen in the ICU. She is sitting on a recliner surrounded by family members. She generally looks better from the last 2 days, that I have been watching her closely. She denies any specific complaints of chest pain or shortness of breath or fever or chills. Labs and medications were reviewed with her and her family. Her sodium is gently improved to 118 from the 112-114 of yesterday on current treatment principles. She has a reasonably good appetite and has been eating better though she is on the fluid restrictions as well. Physical Exam Vital Signs: Temp Pulse Resp BP Pulse Ox 98.6 F 102 H 14 127/63 H 97 03/31/19 12:00 03/31/19 12:00 03/31/19 12:00 03/31/19 12:00 03/31/19 12:00 Intake & Output 03/30/19 03/31/19 04/01/19 06:59 06:59 06:59 Intake Total 350 100 300 Output Total 0 1250 Balance 350 -1150 300 Weight 55.1 kg 57.6 kg General appearance: PRESENT: no acute distress Respiratory exam: PRESENT: clear to auscultation sheryl. ABSENT: crackles Cardiovascular exam: PRESENT: RRR, +S1, +S2 GI/Abdominal exam: PRESENT: normal bowel sounds, soft. ABSENT: organomegaly, tenderness Extremities exam: ABSENT: pedal edema Neurological exam: PRESENT: alert, awake, oriented to person, oriented to place, oriented to time Psychiatric exam: PRESENT: appropriate affect Results Laboratory Results: 03/29/19 03:53 03/31/19 03:41 03/31/19 03:41 Sodium 118.9 L* Potassium 3.9 Chloride 83 L Carbon Dioxide 27 Anion Gap 9 BUN 3 L Creatinine 0.28 L Est GFR ( Amer) > 60 Glucose 104 Calcium 8.1 L 03/29/19 14:02 Leg - Cellulitis Gram Stain - Final 03/28/19 14:20 Clean Catch Midstream Urine Culture - Final 6,000 col/ml Impressions: Chest X-Ray 03/28/19 10:27 IMPRESSION: Findings of COPD without a superimposed acute cardiopulmonary process. Assessment & Plan - Diagnosis (1) Hyponatremia Is this a current diagnosis for this admission?: Yes Plan: Current sodium is 118 and shows a nice and gradual increase. I would continue current treatment principles. When she gets into the 120s she could be transferred to the floor and monitored. As mentioned earlier I would not allow a rise of more than 6-8 mEq per 24 hours to prevent central pontine myelinolysis. I am off for the weekend and will be back on Wednesday. Discussed with the social services counselor. (2) Alcohol dependence Plan: Monitor for alcohol withdrawal. Looks like symptom obando she is better than yesterday. (3) Open wound of both legs with complication Qualifiers: Encounter type: initial encounter Qualified Code(s): S81.801A - Unspecified open wound, right lower leg, initial encounter; S81.802A - Unspecified open wound, left lower leg, initial encounter Is this a current diagnosis for this admission?: Yes Plan: On antibiotics and being treated as cellulitis. (4) Severe dehydration Is this a current diagnosis for this admission?: Yes Plan: Continue gentle hydration. (5) Altered mental status Plan: Looks like she is at baseline. Family happy with the progress she is making.
[2019-03-31 15:00] LABS: ANION GAP 9 (5-19); BLOOD UREA NITROGEN 3 mg/dL (7-20); CALCIUM 8.4 mg/dL (8.4-10.2); CARBON DIOXIDE 25 mmol/L (22-30); CHLORIDE 88 mmol/L (98-107); GLUCOSE 116 mg/dL (75-110)
[2019-03-31 15:11] LABS: POTASSIUM 5.2 mmol/L (3.6-5.0)
[2019-03-31] MEDS: LORAZEPAM INJ 2 MG/1 ML VIAL IV PRN (21:09)
[2019-03-31] MEDS: CEPHALEXIN 500 MG CAPSULE PO SCH (21:09)
[2019-04-01] MEDS: LEVALBUTEROL HCL NEB 1.25 MG/3 ML AMPUL NEB SCH ×4 (02:55→20:04)
[2019-04-01 04:03] LABS: ABSOLUTE LYMPHOCYTES (AUTO) 1.3 10^3/uL (0.5-4.7); ABSOLUTE MONOCYTES (AUTO) 1.5 10^3/uL (0.1-1.4); ABSOLUTE NEUT (AUTO) 7.2 10^3/uL (1.7-8.2); BASOPHILS % (AUTO) 0.3 % (0-2); EOSINOPHILS % (AUTO) 0.3 % (0-6); HEMATOCRIT 32.9 % (36.0-47.0); HEMOGLOBIN 11.2 g/dL (12.0-15.5); LYMPHOCYTES % (AUTO) 12.5 % (13-45); MEAN CORPUSCULAR HEMOGLOBIN 35.3 pg (27.0-33.4); MEAN CORPUSCULAR HGB CONC 34.1 g/dL (32.0-36.0); MEAN CORPUSCULAR VOLUME 104 fl (80-97); MONOCYTES % (AUTO) 14.8 % (3-13); PLATELET COUNT 300 10^3/uL (150-450); RED BLOOD COUNT 3.17 10^6/uL (3.72-5.28); RED CELL DISTRIBUTION WIDTH 12.9 % (11.5-14.0); SEGMENTED NEUTROPHILS % (AUTO) 72.1 % (42-78); TOTAL CELLS COUNTED % (AUTO) 100 %
[2019-04-01 04:29] LABS: ANION GAP 5 (5-19); BLOOD UREA NITROGEN 4 mg/dL (7-20); CALCIUM 8.4 mg/dL (8.4-10.2); CARBON DIOXIDE 29 mmol/L (22-30); CHLORIDE 90 mmol/L (98-107); GLUCOSE 92 mg/dL (75-110); POTASSIUM 4.4 mmol/L (3.6-5.0)
[2019-04-01] MEDS: CEFEPIME 1 GM/D5W RTU 1 GM/50 ML RTUPB IV SCH ×2 (06:30→18:13)
--- NOTE | 2019-04-01 10:09 | PDOC PROGRESS REPORT ---
Subjective Progress Note for:: 04/01/19 Subjective:: Looks and feels a bit better. Reason For Visit: HYPONATREMIA,DEHYDRATION,CELLULITIS OF RIGHT LEG Physical Exam Vital Signs: Temp Pulse Resp BP Pulse Ox 97.7 F 99 16 170/103 H 96 04/01/19 08:00 04/01/19 08:12 04/01/19 08:12 04/01/19 08:00 04/01/19 08:12 Intake & Output 03/31/19 04/01/19 04/02/19 06:59 06:59 06:59 Intake Total 100 1883 Output Total 1250 800 400 Balance -1150 1083 -400 Weight 57.6 kg 63 kg General appearance: PRESENT: no acute distress, cooperative, thin Eye exam: PRESENT: EOMI, PERRLA Ear exam: PRESENT: normal external ear exam Mouth exam: PRESENT: dry mucosa, tongue midline Neck exam: PRESENT: full ROM Respiratory exam: PRESENT: clear to auscultation sheryl Cardiovascular exam: PRESENT: irregular rhythm GI/Abdominal exam: PRESENT: soft Rectal exam: PRESENT: deferred Results Laboratory Results: 04/01/19 03:56 04/01/19 03:56 03/31/19 04/01/19 04/01/19 14:25 03:56 03:56 WBC 10.0 RBC 3.17 L Hgb 11.2 L Hct 32.9 L MCV 104 H MCH 35.3 H MCHC 34.1 RDW 12.9 Plt Count 300 Seg Neutrophils % 72.1 Sodium 122.2 L 124.1 L Potassium 5.2 H D 4.4 Chloride 88 L 90 L Carbon Dioxide 25 29 Anion Gap 9 5 BUN 3 L 4 L Creatinine 0.25 L 0.32 L Est GFR ( Amer) > 60 > 60 Glucose 116 H 92 Calcium 8.4 8.4 03/29/19 14:02 Leg - Cellulitis Gram Stain - Final Impressions: Chest X-Ray 03/28/19 10:27 IMPRESSION: Findings of COPD without a superimposed acute cardiopulmonary process. Assessment & Plan - Diagnosis (1) Hypochloremia Is this a current diagnosis for this admission?: Yes (2) Hyponatremia Is this a current diagnosis for this admission?: Yes (3) Open wound of both legs with complication Qualifiers: Encounter type: initial encounter Qualified Code(s): S81.801A - Unspecified open wound, right lower leg, initial encounter; S81.802A - Unspecified open wound, left lower leg, initial encounter Is this a current diagnosis for this admission?: Yes (4) Severe dehydration Is this a current diagnosis for this admission?: Yes (5) COPD (chronic obstructive pulmonary disease) Qualifiers: COPD type: emphysema Emphysema type: centrilobular Qualified Code(s): J43.2 - Centrilobular emphysema Is this a current diagnosis for this admission?: Yes
[2019-04-01] MEDS: MAGNESIUM OXIDE 400 MG TABLET PO SCH ×2 (10:20→18:13)
[2019-04-01] MEDS: LORATADINE 10 MG TABLET PO SCH (10:57)
[2019-04-01] MEDS: PREDNISONE 20 MG TABLET PO SCH (10:57)
[2019-04-01] MEDS: POTASSIUM CHLORIDE 20 MEQ PACKET PO SCH (10:58)
[2019-04-01] MEDS: CEPHALEXIN 500 MG CAPSULE PO SCH ×2 (10:58→21:48)
[2019-04-01] MEDS: ENOXAPARIN SODIUM INJ 40 MG/0.4 ML DISP.SYRIN SUBCUT SCH (10:59)
[2019-04-01] MEDS: OXYCODONE-ACETAMINOPHEN 5-325 MG TABLET PO PRN (13:16)
--- NOTE | 2019-04-01 20:20 | RADIOLOGY REPORT (SQ) ---
EXAM DESCRIPTION: [facility]: XR CHEST 1 VIEW CLINICAL HISTORY: 68 years Female, wheezing FINDINGS: Since 03/28/2019, lungs remain clear but somewhat hyperinflated as on prior study. Mediastinum is within normal limits for positioning. No pneumothorax or pleural effusion. IMPRESSION: 1. No acute pulmonary findings.
[2019-04-02] MEDS: LEVALBUTEROL HCL NEB 1.25 MG/3 ML AMPUL NEB SCH ×3 (02:02→14:19)
[2019-04-02] MEDS: LORAZEPAM INJ 2 MG/1 ML VIAL IV PRN (03:09)
[2019-04-02] MEDS: CEFEPIME 1 GM/D5W RTU 1 GM/50 ML RTUPB IV SCH (05:23)
[2019-04-02 06:30] LABS: ANION GAP 5 (5-19); BLOOD UREA NITROGEN 3 mg/dL (7-20); CALCIUM 8.8 mg/dL (8.4-10.2); CARBON DIOXIDE 36 mmol/L (22-30); CHLORIDE 88 mmol/L (98-107); GLUCOSE 95 mg/dL (75-110); POTASSIUM 4.1 mmol/L (3.6-5.0)
[2019-04-02] MEDS: PREDNISONE 20 MG TABLET PO SCH ×2 (10:34→17:12)
[2019-04-02] MEDS: LORATADINE 10 MG TABLET PO SCH (10:34)
[2019-04-02] MEDS: ENOXAPARIN SODIUM INJ 40 MG/0.4 ML DISP.SYRIN SUBCUT SCH ×2 (10:35→12:07)
[2019-04-02] MEDS: MAGNESIUM OXIDE 400 MG TABLET PO SCH ×2 (10:35→17:12)
[2019-04-02] MEDS: POTASSIUM CHLORIDE 20 MEQ PACKET PO SCH (10:35)
[2019-04-02] MEDS: CEPHALEXIN 500 MG CAPSULE PO SCH (10:35)
--- NOTE | 2019-04-02 12:12 | PDOC CONSULTATION ---
Consultation Consult Date: 04/02/19 Attending physician:: SHARRI FUNEZ Provider Consulted: LOU LEONARD Consult reason:: venous stasis ulcer bilat lower extremities History of Present Illness Admission Date/PCP: 03/28/19 15:25 History of Present Illness: MONTEZ GREGG is a 68 year old female with chronic venous stasis ulcers bilat lower extremities recently discharged from icu for hyponatremia and chf. now improving on the medical floor. physician noted bilat venous ulcer lower extremities and area of necrosis right medial calf no purulent drainage. Past Medical History Cardiac Medical History: Reports: None Pulmonary Medical History: Reports: None, Chronic Obstructive Pulmonary Disease (COPD) EENT Medical History: Reports: None Neurological Medical History: Reports: None Endocrine Medical History: Reports: None Renal/ Medical History: Reports: None, Other - hyponatremia Malignancy Medical History: Reports: None GI Medical History: Reports: None Psychiatric Medical History: Reports: None Traumatic Medical History: Reports: None Hematology: Reports: None Infectious Medical History: Reports: None Past Surgical History Past Surgical History: Reports: None Social History Lives with: Family Smoking Status: Former Smoker Last Time Smoked: 6 years ago. Frequency of Alcohol Use: Heavy Hx Recreational Drug Use: No Drugs: None Hx Prescription Drug Abuse: No Family History Family History: Reviewed & Not Pertinent Parental Family History Reviewed: No Children Family History Reviewed: NA Sibling(s) Family History Reviewed.: NA Medication/Allergy Home Medications: Loratadine [Claritin 10 mg Tablet] 10 mg PO DAILY 03/28/19 Allergies/Adverse Reactions: amoxicillin Allergy (Verified 03/28/19 09:50) ciprofloxacin [From Cipro] Allergy (Verified 03/28/19 09:50) Review of Systems Constitutional: PRESENT: fatigue, weakness Eyes: ABSENT: visual disturbances Ears: ABSENT: hearing changes Nose, Mouth, and Throat: ABSENT: as per HPI, headache(s), mouth pain, sore throat, vertigo, other Breasts: ABSENT: as per HPI, other Cardiovascular: ABSENT: as per HPI, chest pain, dyspnea on exertion, edema, orthropnea, palpitations, other Respiratory: ABSENT: as per HPI, cough, dyspnea, hemoptysis, sputum, other Gastrointestinal: ABSENT: as per HPI, abdominal pain, bloating, coffee ground emesis, constipation, diarrhea, dysphagia, heartburn, hematemesis, hematochezia, melena, nausea, vomiting, other Genitourinary: ABSENT: as per HPI, difficulty urinating, dysuria, hematuria, n octuria, other Musculoskeletal: ABSENT: as per HPI, back pain, deformity, joint swelling, muscle weakness, other Integumentary: PRESENT: other - chronic lymphedema both lower legs iwth chronic drainage for a few years. Neurological: ABSENT: as per HPI, abnormal gait, abnormal movements, abnormal speech, confusion, convulsions, dizziness, focal weakness, frequent falls, lack of coordination, memory loss, numbness, paresthesias, restless legs, syncope, tingling, tremor(s), vertigo, weakness, other Psychiatric: ABSENT: as per HPI, anxiety, depression, hallucinations, homidical ideation, suicidal ideation, other Endocrine: ABSENT: as per HPI, cold intolerance, flushing, heat intolerance, menstrual abnormalities, polydipsia, polyphagia, polyuria, other Physical Exam Vital Signs: Temp Pulse Resp BP Pulse Ox 98.0 F 115 H 20 176/82 H 97 04/02/19 08:00 04/02/19 08:46 04/02/19 08:46 04/02/19 08:00 04/02/19 08:46 Intake & Output 04/01/19 04/02/19 04/03/19 06:59 06:59 06:59 Intake Total 1883 1540 50 Output Total 800 1400 Balance 1083 140 50 Weight 63 kg 56.5 kg Neck exam: PRESENT: full ROM Respiratory exam: PRESENT: clear to auscultation sheryl Cardiovascular exam: PRESENT: RRR Pulses: PRESENT: +1 pedal pulses bilateral GI/Abdominal exam: PRESENT: soft Rectal exam: PRESENT: deferred Extremities exam: PRESENT: calf tenderness, +2 edema - Bilateral lower extremities exhibit venous stasis ulcers with areas of excoriation on both lower extremities with erythema but no obvious cellulitis on the right lower extremity in the medial aspect of the calf about 4 cm above the medial malleolus there is an area of about 4 cm x 6 cm wide skin necrosis. There is no evidence of any eschar separation or drainage of pus from the surrounding edges of the eschar. Musculoskeletal exam: PRESENT: full ROM Results Laboratory Results: 04/01/19 03:56 04/02/19 05:20 04/02/19 05:20 Sodium 129.2 L Potassium 4.1 Chloride 88 L Carbon Dioxide 36 H Anion Gap 5 BUN 3 L Creatinine 0.32 L Est GFR ( Amer) > 60 Glucose 95 Calcium 8.8 03/28/19 10:30 Blood Blood Culture - Final NO GROWTH IN 5 DAYS 03/29/19 14:02 Leg - Cellulitis Gram Stain - Final Impressions: Chest X-Ray 04/01/19 00:00 IMPRESSION: 1. No acute pulmonary findings. Assessment & Plan - Diagnosis (1) Open wound of both legs with complication Qualifiers: Encounter type: initial encounter Qualified Code(s): S81.801A - Unspecified open wound, right lower leg, initial encounter; S81.802A - Unspecified open wound, left lower leg, initial encounter Is this a current diagnosis for this admission?: Yes - Plan Summary Plan Summary: Impression bilateral lower extremities venous stasis ulcers some skin necrosis on the medial aspect of the right calf At this point I do not feel that debridement of the necrotic skin would aid her healing of these ulcers and in fact would necessitate an open wound and serial dressing changes. At this point I would treat the lower extremity venous stasis ulcers traditionally with Xeroform gauze and compression style stockings or odor boots that are changed little more frequently than usual because of the area of skin necrosis. Should there develop some purulence at the edges of the eschar then I would consider a debridement.
[2019-04-02] MEDS: OXYCODONE-ACETAMINOPHEN 5-325 MG TABLET PO PRN ×2 (12:20→21:02)
[2019-04-02] MEDS ORDERED: LEVOFLOXACIN 250 MG TABLET PO ONE (12:30)
[2019-04-02] MEDS ORDERED: NORMAL SALINE 500 ML IV ONE (13:30)
[2019-04-02 13:35] LABS: ARTERIAL BLOOD BASE EXCESS 9.9 mmol/L; ARTERIAL BLOOD FIO2 30%; ARTERIAL BLOOD H2CO3 1.73 mmol/L (1.05-1.35); ARTERIAL BLOOD HCO3 36.2 mmol/L (20-24); ARTERIAL BLOOD O2 SATURATION 96.9 % (94-98); ARTERIAL BLOOD PCO2 57.6 mmHg (35-45); ARTERIAL BLOOD PH 7.42 (7.35-7.45); ARTERIAL BLOOD PO2 91.8 mmHg (80-100)
--- NOTE | 2019-04-02 16:00 | PDOC PROGRESS REPORT ---
Subjective Progress Note for:: 04/02/19 Subjective:: Assumed care. Discussed case with wealth management advisor. Is a 68-year-old female with severe chronic alcohol dependence and abuse and COPD who was admitted to severe hyponatremia. She was treated with hypertonic saline in the ICU. She was also evaluated by nephrology and hyponatremia was deemed to be secondary to be reported jessica. Patient complained of significant anxiety and was medicated with Ativan last night. Upon encounter, she is a little drowsy but remains oriented to person and place. She denies chest pain or shortness of breath. She has noticeable chronic wounds on both legs which appear to be venous stasis ulcers. Reason For Visit: HYPONATREMIA,DEHYDRATION,CELLULITIS OF RIGHT LEG Physical Exam Vital Signs: Temp Pulse Resp BP Pulse Ox 98.2 F 112 H 20 153/76 H 96 04/02/19 12:00 04/02/19 14:21 04/02/19 14:21 04/02/19 12:00 04/02/19 14:21 Intake & Output 04/01/19 04/02/19 04/03/19 06:59 06:59 06:59 Intake Total 1883 1540 430 Output Total 800 1400 Balance 1083 140 430 Weight 138 lb 14.259 oz 124 lb 8.979 oz General appearance: PRESENT: no acute distress, well-developed, well-nourished Head exam: PRESENT: atraumatic, normocephalic Eye exam: PRESENT: conjunctiva pink, EOMI, PERRLA. ABSENT: scleral icterus Ear exam: PRESENT: normal external ear exam Mouth exam: PRESENT: moist, tongue midline Neck exam: ABSENT: carotid bruit, JVD, lymphadenopathy, thyromegaly Respiratory exam: PRESENT: wheezes. ABSENT: rales, rhonchi Cardiovascular exam: PRESENT: RRR. ABSENT: diastolic murmur, rubs, systolic murmur Pulses: PRESENT: normal dorsalis pedis pul GI/Abdominal exam: PRESENT: normal bowel sounds, soft. ABSENT: distended, guarding, mass, organolmegaly, rebound, tenderness Rectal exam: PRESENT: deferred Extremities exam: PRESENT: other - venous stasis ulcers on both legs Neurological exam: PRESENT: alert, awake, oriented to person, oriented to place, CN II-XII grossly intact. ABSENT: motor sensory deficit Results Laboratory Results: 04/01/19 03:56 04/02/19 05:20 04/02/19 04/02/19 05:20 12:07 Carbonic Acid 1.73 H HCO3/H2CO3 Ratio 20:1 ABG pH 7.42 ABG pCO2 57.6 H ABG pO2 91.8 ABG HCO3 36.2 H ABG O2 Saturation 96.9 ABG Base Excess 9.9 FiO2 30% Sodium 129.2 L Potassium 4.1 Chloride 88 L Carbon Dioxide 36 H Anion Gap 5 BUN 3 L Creatinine 0.32 L Est GFR ( Amer) > 60 Glucose 95 Calcium 8.8 03/28/19 12:41 Blood Blood Culture - Final NO GROWTH IN 5 DAYS 03/29/19 14:02 Leg - Cellulitis Gram Stain - Final 03/28/19 10:30 Blood Blood Culture - Final NO GROWTH IN 5 DAYS Impressions: Chest X-Ray 04/01/19 00:00 IMPRESSION: 1. No acute pulmonary findings. Assessment and Plan - Diagnosis (1) Hyponatremia Is this a current diagnosis for this admission?: Yes Plan: Improved. Deemed likely from beer potomania. She was treated with hypertonic saline in the ICU. (2) Bilateral leg ulcer Is this a current diagnosis for this admission?: Yes Plan: Will consult surgery. Wound cultures grew MSSA and Pseudomonas. Reviewed sensitivity. She says she had itching from ciprofloxacin before but did not have rashes or SOB. Will challenge with PO Levaquin to try to use monotherapy for both bacterial growth. (3) Alcohol dependence Is this a current diagnosis for this admission?: Yes Plan: Counseled on cessation. (4) COPD (chronic obstructive pulmonary disease) Qualifiers: COPD type: emphysema Emphysema type: centrilobular Qualified Code(s): J43.2 - Centrilobular emphysema Is this a current diagnosis for this admission?: Yes Plan: She has bilateral wheezes. Will add prednisone. Continue breathing treatments.
[2019-04-02] MEDS ORDERED: METOPROLOL TARTRATE PF/INJ 5 MG/5 ML SDV IV PRN (18:50)
[2019-04-02] MEDS ORDERED: METOPROLOL TARTRATE PF/INJ 5 MG/5 ML SDV IV ONE (18:53)
[2019-04-02] MEDS: IPRATROPIUM/ALBUTEROL 0.5-2.5 MG/3 ML AMPUL NEB SCH (20:30)
--- NOTE | 2019-04-03 00:50 | EKG REPORT ---
SEVERITY:- OTHERWISE NORMAL ECG - SINUS TACHYCARDIA : Confirmed by: Rivas Schwartz 03-Apr-2019 00:49:11
[2019-04-03] MEDS: IPRATROPIUM/ALBUTEROL 0.5-2.5 MG/3 ML AMPUL NEB SCH ×4 (02:46→19:51)
[2019-04-03] MEDS: LEVOFLOXACIN 500 MG/D5W RTU 500 MG/100 ML RTUPB IV SCH (09:57)
[2019-04-03] MEDS: POTASSIUM CHLORIDE 20 MEQ PACKET PO SCH (09:58)
[2019-04-03] MEDS: ENOXAPARIN SODIUM INJ 40 MG/0.4 ML DISP.SYRIN SUBCUT SCH (09:58)
[2019-04-03] MEDS: LORATADINE 10 MG TABLET PO SCH (09:58)
[2019-04-03] MEDS: MAGNESIUM OXIDE 400 MG TABLET PO SCH ×2 (09:58→17:15)
[2019-04-03] MEDS: PREDNISONE 20 MG TABLET PO SCH ×2 (10:00→17:15)
[2019-04-03] MEDS: OXYCODONE-ACETAMINOPHEN 5-325 MG TABLET PO PRN ×2 (11:12→15:12)
[2019-04-03 11:25] LABS: ANION GAP 5 (5-19); BLOOD UREA NITROGEN 5 mg/dL (7-20); CALCIUM 8.8 mg/dL (8.4-10.2); CARBON DIOXIDE 36 mmol/L (22-30); CHLORIDE 87 mmol/L (98-107); GLUCOSE 99 mg/dL (75-110); POTASSIUM 4.9 mmol/L (3.6-5.0)
--- NOTE | 2019-04-03 14:17 | PDOC PROGRESS REPORT ---
Subjective Progress Note for:: 04/03/19 Reason For Visit: Patient seen today. Generally feeling better. Reviewed notes over the weekend. She may have had some anxiety/possible alcohol withdrawal symptoms over the weekend and was appropriately treated. She currently denies any history of chest pain or shortness of breath. No history of any fever or chills. Leg wounds are healing. Labs and medications reviewed with the patient. Current sodium is 127. Physical Exam Vital Signs: Temp Pulse Resp BP Pulse Ox 99.0 F 105 H 17 134/56 H 98 04/03/19 08:44 04/03/19 14:00 04/03/19 14:00 04/03/19 08:44 04/03/19 14:00 Intake & Output 04/02/19 04/03/19 04/04/19 06:59 06:59 06:59 Intake Total 1540 1190 Output Total 1400 850 Balance 140 340 Weight 56.5 kg 55.1 kg General appearance: PRESENT: no acute distress. ABSENT: disheveled Respiratory exam: PRESENT: clear to auscultation sheryl. ABSENT: crackles Cardiovascular exam: PRESENT: RRR, +S1, +S2 GI/Abdominal exam: PRESENT: normal bowel sounds, soft. ABSENT: organomegaly, tenderness Extremities exam: ABSENT: pedal edema Neurological exam: PRESENT: alert, awake, oriented to person, oriented to place Psychiatric exam: PRESENT: appropriate affect Results Laboratory Results: 04/01/19 03:56 04/03/19 10:35 04/03/19 10:35 Sodium 127.9 L Potassium 4.9 Chloride 87 L Carbon Dioxide 36 H Anion Gap 5 BUN 5 L Creatinine 0.31 L Est GFR ( Amer) > 60 Glucose 99 Calcium 8.8 03/29/19 14:02 Leg - Cellulitis Gram Stain - Final 03/29/19 14:02 Leg - Cellulitis Wound Culture - Final Staphylococcus Aureus Pseudomonas Aeruginosa Enterococcus Casseliflavus Skin Laly 03/28/19 12:41 Blood Blood Culture - Final NO GROWTH IN 5 DAYS 03/28/19 10:30 Blood Blood Culture - Final NO GROWTH IN 5 DAYS Impressions: Chest X-Ray 04/01/19 00:00 IMPRESSION: 1. No acute pulmonary findings. Assessment & Plan - Diagnosis (1) Hyponatremia Is this a current diagnosis for this admission?: Yes Plan: Current sodium is 127. We will check for the labs and adjust medications. I am happy with the progress she has made over the weekend to get herself into the high 120s (2) Alcohol dependence Is this a current diagnosis for this admission?: Yes Plan: Monitor for alcohol withdrawal. Looks like symptom obando she is better than over the weekend. (3) Open wound of both legs with complication Qualifiers: Encounter type: initial encounter Qualified Code(s): S81.801A - Unspecified open wound, right lower leg, initial encounter; S81.802A - Unspecified open wound, left lower leg, initial encounter Is this a current diagnosis for this admission?: Yes Plan: On antibiotics and being treated as cellulitis. (4) Severe dehydration Is this a current diagnosis for this admission?: Yes Plan: Continue gentle hydration. (5) Altered mental status Plan: But for her possible alcohol withdrawal over the weekend she looks like she is almost back to her baseline.
--- NOTE | 2019-04-03 15:23 | PDOC PROGRESS REPORT ---
Subjective Progress Note for:: 04/03/19 Subjective:: Assumed care. Discussed case with mechanical project engineer. Is a 68-year-old female with severe chronic alcohol dependence and abuse and COPD who was admitted to severe hyponatremia. She was treated with hypertonic saline in the ICU. She was also evaluated by nephrology and hyponatremia was deemed to be secondary to be reported jessica. 04/02: Patient complained of significant anxiety and was medicated with Ativan last night. Upon encounter, she is a little drowsy but remains oriented to person and place. She denies chest pain or shortness of breath. She has noticeable chronic wounds on both legs which appear to be venous stasis ulcers. 04/03: No acute event overnight. No wheezing today after adding prednisone. She appears to be at her baseline mentation this morning and is AO x3. Bilateral leg wounds have been evaluated by surgery team debridement as needed at this point. Sodium is 127 today. Nephrology recommends repeating sodium and osmolarity studies tomorrow morning. If her sodium remains stable, anticipate discharge in the next 24 hours. Reason For Visit: HYPONATREMIA,DEHYDRATION,CELLULITIS OF RIGHT LEG Physical Exam Vital Signs: Temp Pulse Resp BP Pulse Ox 99.0 F 105 H 17 134/56 H 98 04/03/19 08:44 04/03/19 14:00 04/03/19 14:00 04/03/19 08:44 04/03/19 14:00 Intake & Output 04/02/19 04/03/19 04/04/19 06:59 06:59 06:59 Intake Total 1540 1190 Output Total 1400 850 Balance 140 340 Weight 124 lb 8.979 oz 121 lb 7.595 oz General appearance: PRESENT: no acute distress, well-developed, well-nourished Head exam: PRESENT: atraumatic, normocephalic Eye exam: PRESENT: conjunctiva pink, EOMI, PERRLA. ABSENT: scleral icterus Ear exam: PRESENT: normal external ear exam Mouth exam: PRESENT: moist, tongue midline Neck exam: ABSENT: carotid bruit, JVD, lymphadenopathy, thyromegaly Respiratory exam: PRESENT: clear to auscultation sheryl. ABSENT: rales, rhonchi, wheezes Cardiovascular exam: PRESENT: RRR, tachycardia. ABSENT: diastolic murmur, rubs, systolic murmur Pulses: PRESENT: normal dorsalis pedis pul GI/Abdominal exam: PRESENT: normal bowel sounds, soft. ABSENT: distended, guarding, mass, organolmegaly, rebound, tenderness Rectal exam: PRESENT: deferred Musculoskeletal exam: PRESENT: other - chronic leg wounds Neurological exam: PRESENT: alert, awake, oriented to person, oriented to place, oriented to time, oriented to situation, CN II-XII grossly intact. ABSENT: motor sensory deficit Results Laboratory Results: 04/01/19 03:56 04/03/19 10:35 04/03/19 10:35 Sodium 127.9 L Potassium 4.9 Chloride 87 L Carbon Dioxide 36 H Anion Gap 5 BUN 5 L Creatinine 0.31 L Est GFR ( Amer) > 60 Glucose 99 Calcium 8.8 03/29/19 14:02 Leg - Cellulitis Gram Stain - Final 03/29/19 14:02 Leg - Cellulitis Wound Culture - Final Staphylococcus Aureus Pseudomonas Aeruginosa Enterococcus Casseliflavus Skin Laly 03/28/19 12:41 Blood Blood Culture - Final NO GROWTH IN 5 DAYS Impressions: Chest X-Ray 04/01/19 00:00 IMPRESSION: 1. No acute pulmonary findings. Assessment and Plan - Diagnosis (1) Hyponatremia Is this a current diagnosis for this admission?: Yes Plan: Improved. Deemed likely from beer potomania. She was treated with hypertonic saline in the ICU. 04/03: She appears to be at her baseline mentation this morning and is AO x3. Sodium is 127 today. Nephrology recommends repeating sodium and osmolarity studies tomorrow morning. If her sodium remains stable, anticipate discharge in the next 24 hours. (2) Bilateral leg ulcer Is this a current diagnosis for this admission?: Yes Plan: 04/02: Wound cultures grew MSSA and Pseudomonas. Reviewed sensitivity. She says she had itching from ciprofloxacin before but did not have rashes or SOB. Will challenge with PO Levaquin to try to use monotherapy for both bacterial growth. 04/03: Bilateral leg wounds have been evaluated by surgery team debridement as needed at this point. Challenge with Levaquin was successful and she did not have any allergic reactions. (3) Alcohol dependence Is this a current diagnosis for this admission?: Yes Plan: Counseled on cessation. (4) COPD (chronic obstructive pulmonary disease) Qualifiers: COPD type: emphysema Emphysema type: centrilobular Qualified Code(s): J43.2 - Centrilobular emphysema Is this a current diagnosis for this admission?: Yes Plan: Improved after adding prednisone. Continue breathing treatments.
[2019-04-04] MEDS: IPRATROPIUM/ALBUTEROL 0.5-2.5 MG/3 ML AMPUL NEB SCH ×4 (02:18→20:34)
[2019-04-04] MEDS: OXYCODONE-ACETAMINOPHEN 5-325 MG TABLET PO PRN ×3 (06:23→16:57)
[2019-04-04 06:35] LABS: BLOOD UREA NITROGEN 6 mg/dL (7-20); CALCIUM 8.7 mg/dL (8.4-10.2); GLUCOSE 94 mg/dL (75-110); POTASSIUM 4.4 mmol/L (3.6-5.0)
[2019-04-04 06:40] LABS: CARBON DIOXIDE 32 mmol/L (22-30); CHLORIDE 93 mmol/L (98-107)
[2019-04-04 06:47] LABS: ANION GAP 5 (5-19)
[2019-04-04 09:09] LABS: ABSOLUTE BASOPHILS # (AUTO) 0.1 10^3/uL (0.0-0.2); ABSOLUTE LYMPHOCYTES (AUTO) 1.5 10^3/uL (0.5-4.7); ABSOLUTE MONOCYTES (AUTO) 1.4 10^3/uL (0.1-1.4); EOSINOPHILS % (AUTO) 0.1 % (0-6); HEMATOCRIT 30.2 % (36.0-47.0); HEMOGLOBIN 10.2 g/dL (12.0-15.5); LYMPHOCYTES % (AUTO) 16.3 % (13-45); MEAN CORPUSCULAR HEMOGLOBIN 35.2 pg (27.0-33.4); MEAN CORPUSCULAR VOLUME 104 fl (80-97); MONOCYTES % (AUTO) 15.4 % (3-13); PLATELET COUNT 331 10^3/uL (150-450); RED BLOOD COUNT 2.91 10^6/uL (3.72-5.28); RED CELL DISTRIBUTION WIDTH 13.6 % (11.5-14.0); SEGMENTED NEUTROPHILS % (AUTO) 67.2 % (42-78); TOTAL CELLS COUNTED % (AUTO) 100 %
[2019-04-04] MEDS ORDERED: LORAZEPAM 1 MG TABLET PO PRN (10:06)
[2019-04-04] MEDS: PREDNISONE 20 MG TABLET PO SCH ×2 (10:40→17:29)
[2019-04-04] MEDS: LORATADINE 10 MG TABLET PO SCH (10:40)
[2019-04-04] MEDS: LEVOFLOXACIN 500 MG/D5W RTU 500 MG/100 ML RTUPB IV SCH (10:40)
[2019-04-04] MEDS: POTASSIUM CHLORIDE 20 MEQ PACKET PO SCH (10:40)
[2019-04-04] MEDS: MAGNESIUM OXIDE 400 MG TABLET PO SCH ×2 (10:40→17:29)
[2019-04-04] MEDS: ENOXAPARIN SODIUM INJ 40 MG/0.4 ML DISP.SYRIN SUBCUT SCH (10:41)
--- NOTE | 2019-04-04 11:22 | PDOC PROGRESS REPORT ---
Subjective Progress Note for:: 04/04/19 Subjective:: 04/04/2019 patient was admitted with a sodium of 105 however today it was 129. Serum osmolality today is normal to 267 Reason For Visit: HYPONATREMIA,DEHYDRATION,CELLULITIS OF RIGHT LEG Physical Exam Vital Signs: Temp Pulse Resp BP Pulse Ox 98.6 F 114 H 16 143/64 H 96 04/04/19 07:52 04/04/19 08:21 04/04/19 08:21 04/04/19 07:52 04/04/19 08:21 Intake & Output 04/03/19 04/04/19 04/05/19 06:59 06:59 06:59 Intake Total 1190 820 Output Total 850 Balance 340 820 Weight 55.1 kg 57.7 kg General appearance: PRESENT: no acute distress, other - Sitting up in bed complaining of being weak needing another day of hospitalization to get stronger, she states she lives at home with her and son Respiratory exam: PRESENT: clear to auscultation sheryl. ABSENT: rales, rhonchi, wheezes Cardiovascular exam: PRESENT: RRR. ABSENT: diastolic murmur, rubs, systolic murmur Neurological exam: PRESENT: alert, awake, oriented to person, oriented to place, oriented to time, oriented to situation, CN II-XII grossly intact. ABSENT: motor sensory deficit Psychiatric exam: PRESENT: appropriate affect, normal mood, other - Patient showing no signs of DTs patient states she drinks 2-4 beers daily. ABSENT: homicidal ideation, suicidal ideation Results Laboratory Results: 04/04/19 05:45 04/04/19 05:45 04/03/19 04/04/19 04/04/19 10:35 05:45 05:45 WBC RBC Hgb Hct MCV MCH MCHC RDW Plt Count Seg Neutrophils % Sodium 127.9 L 129.6 L Potassium 4.9 4.4 Chloride 87 L 93 L Carbon Dioxide 36 H 32 H Anion Gap 5 5 BUN 5 L 6 L Creatinine 0.31 L 0.32 L Est GFR ( Amer) > 60 > 60 Glucose 99 94 Serum Osmolality 267 L Calcium 8.8 8.7 Urine Osmolality 04/04/19 04/04/19 05:45 06:27 WBC 9.0 RBC 2.91 L Hgb 10.2 L Hct 30.2 L MCV 104 H MCH 35.2 H MCHC 34.0 RDW 13.6 Plt Count 331 Seg Neutrophils % 67.2 Sodium Potassium Chloride Carbon Dioxide Anion Gap BUN Creatinine Est GFR ( Amer) Glucose Serum Osmolality Calcium Urine Osmolality 424 03/29/19 14:02 Leg - Cellulitis Gram Stain - Final 03/29/19 14:02 Leg - Cellulitis Wound Culture - Final Staphylococcus Aureus Pseudomonas Aeruginosa Enterococcus Casseliflavus Skin Laly Impressions: Chest X-Ray 04/01/19 00:00 IMPRESSION: 1. No acute pulmonary findings. Assessment and Plan - Diagnosis (1) Alcohol dependence Is this a current diagnosis for this admission?: Yes Plan: Counseled on cessation. 04/04/2019 patient states she drinks 2-4 beers daily. Patient states she is having no agitation or anxiety although she did upon admission. Patient has Ativan ordered as needed (2) Altered mental status Is this a current diagnosis for this admission?: Yes Plan: 04/04/2019 she is awake alert and oriented x3. She is able to carry on a conversation normally (3) Hyponatremia Is this a current diagnosis for this admission?: Yes Plan: Improved. Deemed likely from beer potomania. She was treated with hypertonic saline in the ICU. 04/03: She appears to be at her baseline mentation this morning and is AO x3. Sodium is 127 today. Nephrology recommends repeating sodium and osmolarity studies tomorrow morning. If her sodium remains stable, anticipate discharge in the next 24 hours. 04/04/2019 sodium today is 129 serum osmolality 267. Patient states she feels weak and would like 1 more day before discharge. (4) Open wound of both legs with complication Qualifiers: Encounter type: initial encounter Qualified Code(s): S81.801A - Unspecified open wound, right lower leg, initial encounter; S81.802A - Unspecified open wound, left lower leg, initial encounter Is this a current diagnosis for this admission?: Yes (5) Severe dehydration Is this a current diagnosis for this admission?: Yes Plan: 04/04/2019 sodium 129.6 potassium 4.4 BUN is 6 creatinine 0.32 glucose 94 patient is taking p.o.'s well now - Time Time Spent with patient: 35 or more minutes
--- NOTE | 2019-04-04 19:43 | PDOC PROGRESS REPORT ---
Subjective Progress Note for:: 04/04/19 Reason For Visit: Patient seen today. She is not feeling the greatest today. She is unable to quantify more. However she admits to being orthostatic especially this morning. She says she is feels very weak and deconditioned. No history to indicate any seizures. Appetite is much improved. No complaints of any fever or chills. She denies any history of chest pain or shortness of breath. Labs and medications were reviewed with her. Current sodium is 129. Continues on fluid restriction. Physical Exam Vital Signs: Temp Pulse Resp BP Pulse Ox 98.4 F 110 H 17 146/66 H 99 04/04/19 16:30 04/04/19 16:30 04/04/19 16:30 04/04/19 16:30 04/04/19 16:30 Intake & Output 04/03/19 04/04/19 04/05/19 06:59 06:59 06:59 Intake Total 1190 820 923 Output Total 850 1100 Balance 340 820 -177 Weight 55.1 kg 57.7 kg General appearance: PRESENT: no acute distress Respiratory exam: PRESENT: clear to auscultation sheryl. ABSENT: crackles Cardiovascular exam: PRESENT: RRR, +S1, +S2 GI/Abdominal exam: PRESENT: normal bowel sounds, soft. ABSENT: organomegaly, tenderness Extremities exam: ABSENT: pedal edema Neurological exam: PRESENT: alert, awake, oriented to person, oriented to place Psychiatric exam: PRESENT: appropriate affect Results Laboratory Results: 04/04/19 05:45 04/04/19 05:45 04/04/19 04/04/19 04/04/19 05:45 05:45 05:45 WBC 9.0 RBC 2.91 L Hgb 10.2 L Hct 30.2 L MCV 104 H MCH 35.2 H MCHC 34.0 RDW 13.6 Plt Count 331 Seg Neutrophils % 67.2 Sodium 129.6 L Potassium 4.4 Chloride 93 L Carbon Dioxide 32 H Anion Gap 5 BUN 6 L Creatinine 0.32 L Est GFR ( Amer) > 60 Glucose 94 Serum Osmolality 267 L Calcium 8.7 Urine Osmolality 04/04/19 06:27 WBC RBC Hgb Hct MCV MCH MCHC RDW Plt Count Seg Neutrophils % Sodium Potassium Chloride Carbon Dioxide Anion Gap BUN Creatinine Est GFR ( Amer) Glucose Serum Osmolality Calcium Urine Osmolality 424 Impressions: Chest X-Ray 04/01/19 00:00 IMPRESSION: 1. No acute pulmonary findings. Assessment & Plan - Diagnosis (1) Hyponatremia Is this a current diagnosis for this admission?: Yes Plan: Current sodium is 129. We will check for the labs and adjust medications. I am happy with the progress she has made so far.She is still dry and will restart her on IV normal saline and will have to adjust medications later. (2) Alcohol dependence Is this a current diagnosis for this admission?: Yes Plan: Monitor for alcohol withdrawal. Looks like symptom obando she is better than over the weekend. (3) Open wound of both legs with complication Qualifiers: Encounter type: initial encounter Qualified Code(s): S81.801A - Unspecified open wound, right lower leg, initial encounter; S81.802A - Unspecified open wound, left lower leg, initial encounter Is this a current diagnosis for this admission?: Yes Plan: On antibiotics and being treated as cellulitis. (4) Severe dehydration Is this a current diagnosis for this admission?: Yes Plan: Continue gentle hydration. (5) Altered mental status Is this a current diagnosis for this admission?: Yes Plan: But for her possible alcohol withdrawal over the weekend she looks like she is almost back to her baseline.
[2019-04-04 22:45] LABS: APPEARANCE,URINE CLEAR; BILIRUBIN,URINE NEGATIVE (NEGATIVE); COLOR,URINE STRAW; GLUCOSE, URINE NEGATIVE (NEGATIVE); KETONES,URINE NEGATIVE (NEGATIVE); LEUKOCYTE ESTERASE,URINE NEGATIVE (NEGATIVE); NITRITE,URINE NEGATIVE (NEGATIVE); PROTEIN,URINE NEGATIVE (NEGATIVE); URINE SPECIFIC GRAVITY 1.008; UROBILINOGEN,URINE NEGATIVE mg/dL (<2.0)
[2019-04-05] MEDS: IPRATROPIUM/ALBUTEROL 0.5-2.5 MG/3 ML AMPUL NEB SCH ×3 (02:29→13:18)
[2019-04-05] MEDS: OXYCODONE-ACETAMINOPHEN 5-325 MG TABLET PO PRN ×2 (03:26→08:54)
[2019-04-05] MEDS ORDERED: INFLUENZA QUAD (6MOS+) 2019-20 VAC 0.5 ML SYR IM ONE (08:00)
[2019-04-05 08:01] LABS: ANION GAP 9 (5-19); BLOOD UREA NITROGEN 8 mg/dL (7-20); CALCIUM 9.1 mg/dL (8.4-10.2); CARBON DIOXIDE 26 mmol/L (22-30); CHLORIDE 95 mmol/L (98-107); GLUCOSE 89 mg/dL (75-110)
--- NOTE | 2019-04-05 10:23 | PDOC PROGRESS REPORT ---
Subjective Progress Note for:: 04/05/19 Subjective:: 04/04/2019 patient was admitted with a sodium of 105 however today it was 129. Serum osmolality today is normal to 267 04-05-19 patient states that yesterday "emotional" day for her. She saw to friends that she had seen for years patient states she still feels weak and she is not ready to go home. I think some of her problems is anxiety and going to start her today on BuSpar. is in the room and he states that she needs to be "more active". Reason For Visit: HYPONATREMIA,DEHYDRATION,CELLULITIS OF RIGHT LEG Physical Exam Vital Signs: Temp Pulse Resp BP Pulse Ox 98.2 F 106 H 16 143/70 H 94 04/04/19 23:44 04/05/19 08:17 04/05/19 08:17 04/04/19 23:44 04/05/19 08:17 Intake & Output 04/04/19 04/05/19 04/06/19 06:59 06:59 06:59 Intake Total 820 923 Output Total 2300 Balance 820 -1377 Weight 57.7 kg 53.5 kg General appearance: PRESENT: no acute distress, well-developed, well-nourished Respiratory exam: PRESENT: clear to auscultation sheryl. ABSENT: rales, rhonchi, wheezes Cardiovascular exam: PRESENT: RRR. ABSENT: diastolic murmur, rubs, systolic murmur Neurological exam: PRESENT: alert, awake, oriented to person, oriented to place, oriented to time, oriented to situation, CN II-XII grossly intact. ABSENT: motor sensory deficit Psychiatric exam: PRESENT: anxious Results Laboratory Results: 04/04/19 05:45 04/05/19 06:55 04/04/19 04/05/19 22:30 06:55 Sodium 130.0 L Potassium 4.0 Chloride 95 L Carbon Dioxide 26 Anion Gap 9 BUN 8 Creatinine 0.34 L Est GFR ( Amer) > 60 Glucose 89 Calcium 9.1 Urine Color STRAW Urine Appearance CLEAR Urine pH 9.0 Ur Specific Gleason 1.008 Urine Protein NEGATIVE Urine Glucose (UA) NEGATIVE Urine Ketones NEGATIVE Urine Blood NEGATIVE Urine Nitrite NEGATIVE Ur Leukocyte Esterase NEGATIVE Urine WBC (Auto) 1 Urine RBC (Auto) 1 Impressions: Chest X-Ray 04/01/19 00:00 IMPRESSION: 1. No acute pulmonary findings. Assessment and Plan - Diagnosis (1) Alcohol dependence Is this a current diagnosis for this admission?: Yes (2) Altered mental status Is this a current diagnosis for this admission?: Yes (3) Hyponatremia Is this a current diagnosis for this admission?: Yes (4) Open wound of both legs with complication Qualifiers: Encounter type: initial encounter Qualified Code(s): S81.801A - Unspecified open wound, right lower leg, initial encounter; S81.802A - Unspecified open wound, left lower leg, initial encounter Is this a current diagnosis for this admission?: Yes (5) Severe dehydration Is this a current diagnosis for this admission?: Yes - Plan Summary Summary: 04-05-19 patient's hyponatremia is stable today sodium 130, serum osmolality was 267 urine osmolality was 424, urine sodium has gone up to 173, will DC fluid restriction. BUN of 8 creatinine 0.34. Urinalysis from yesterday was all clear The patient's anxiety will start her on BuSpar 5 mg every 12 hours discharge planning has made arrangements for her walker and other home needs. Patient will be discharged home tomorrow, was in the room today during the discussion She is currently on IV Levaquin we will change this over to 500 mg p.o. the next 7 days which will complete a 10-day course.. Patient was growing out Pseudomonas as well as staph from her wound culture on her leg - Time Time Spent with patient: 25-34 minutes
[2019-04-05] MEDS: MAGNESIUM OXIDE 400 MG TABLET PO SCH ×2 (11:33→21:10)
[2019-04-05] MEDS: PREDNISONE 20 MG TABLET PO SCH ×2 (11:33→21:10)
[2019-04-05] MEDS ORDERED: LEVOFLOXACIN 500 MG/D5W RTU 500 MG/100 ML RTUPB IV ONE (11:33)
[2019-04-05] MEDS: LORATADINE 10 MG TABLET PO SCH (11:33)
[2019-04-05] MEDS: LEVOFLOXACIN 500 MG/D5W RTU 500 MG/100 ML RTUPB IV SCH (11:34)
[2019-04-05] MEDS: ENOXAPARIN SODIUM INJ 40 MG/0.4 ML DISP.SYRIN SUBCUT SCH (11:34)
[2019-04-05] MEDS: POTASSIUM CHLORIDE 20 MEQ PACKET PO SCH (11:35)
[2019-04-05] MEDS ORDERED: ONDANSETRON 4 MG TAB.RAPDIS PO PRN (13:33)
[2019-04-05] MEDS: NORMAL SALINE 1000 ML 1,000 ML IV PRN ×2 (13:47→20:01)
[2019-04-05] MEDS: ONDANSETRON HCL INJ/PF 4 MG/2 ML SDV IV PRN (14:20)
[2019-04-05] MEDS ORDERED: DILTIAZEM HCL INJ 25 MG/5 ML VIAL IV ONE ×2 (14:30→15:15)
--- NOTE | 2019-04-05 15:03 | RADIOLOGY REPORT (SQ) ---
EXAM DESCRIPTION: CHEST SINGLE VIEW COMPLETED DATE/TIME: 04/05/2019 2:51 pm REASON FOR STUDY: SOB. CHest tightness. COMPARISON: 04/01/2019 NUMBER OF VIEWS: One view. TECHNIQUE: Single frontal radiographic view of the chest acquired. LIMITATIONS: None. FINDINGS: LUNGS AND PLEURA: There is extensive bibasilar airspace disease. This could represent pne umonia or asymmetric edema left greater than right. There is hyperexpansion. MEDIASTINUM AND HILAR STRUCTURES: No masses. Contour normal. HEART AND VASCULAR STRUCTURES: Heart size is stable there is central vascular prominence. BONES: No acute findings. HARDWARE: None in the chest. OTHER: No other significant finding. IMPRESSION: Bilateral basilar airspace disease left greater than right. Differential includes asymm etric edema in the setting of COPD versus pneumonia. TECHNICAL DOCUMENTATION: JOB ID: [id number] [employer]- All Rights Reserved Reading location - IP/workstation name: [email or web address]
--- NOTE | 2019-04-05 16:04 | PDOC PROGRESS REPORT ---
Subjective Progress Note for:: 04/05/19 Reason For Visit: Patient seen today in conjunction with Mr. oliver DAVID. Apparently she had some runs of supraventricular arrhythmias which has made her feel drained and not feeling well. She denies history of chest pains or palpitations. Labs and medications reviews shows sodium at 130 with normal potassium.Last magnesium was checked a couple of days earlier which was 1.6 Physical Exam Vital Signs: Temp Pulse Resp BP Pulse Ox 98.6 F 149 H 26 H 139/60 H 97 04/05/19 08:37 04/05/19 14:00 04/05/19 13:18 04/05/19 08:37 04/05/19 13:18 Intake & Output 04/04/19 04/05/19 04/06/19 06:59 06:59 06:59 Intake Total 820 1023 Output Total 2300 Balance 820 -1277 Weight 57.7 kg 53.5 kg General appearance: PRESENT: mild distress Respiratory exam: PRESENT: clear to auscultation sheryl. ABSENT: crackles Cardiovascular exam: PRESENT: RRR, +S1, +S2 GI/Abdominal exam: PRESENT: normal bowel sounds, soft. ABSENT: organomegaly, tenderness Results Laboratory Results: 04/04/19 05:45 04/05/19 06:55 04/04/19 04/05/19 22:30 06:55 Sodium 130.0 L Potassium 4.0 Chloride 95 L Carbon Dioxide 26 Anion Gap 9 BUN 8 Creatinine 0.34 L Est GFR ( Amer) > 60 Glucose 89 Calcium 9.1 Urine Color STRAW Urine Appearance CLEAR Urine pH 9.0 Ur Specific [place] 1.008 Urine Protein NEGATIVE Urine Glucose (UA) NEGATIVE Urine Ketones NEGATIVE Urine Blood NEGATIVE Urine Nitrite NEGATIVE Ur Leukocyte Esterase NEGATIVE Urine WBC (Auto) 1 Urine RBC (Auto) 1 Impressions: Chest X-Ray 04/05/19 00:00 IMPRESSION: Bilateral basilar airspace disease left greater than right. Differential includes asymmetric edema in the setting of COPD versus pneumonia. Assessment & Plan - Diagnosis (1) Hyponatremia Is this a current diagnosis for this admission?: Yes Plan: Current sodium 130. Continue present lines of management including gentle fluid hydration. Monitor with labs again in the morning. (2) Alcohol dependence Is this a current diagnosis for this admission?: Yes Plan: Monitor for alcohol withdrawal. Some of her symptoms could be from alcohol withdrawal. Especially check for magnesium losses.Will ask for stat magnesium. (3) Open wound of both legs with complication Qualifiers: Encounter type: initial encounter Qualified Code(s): S81.801A - Unspecified open wound, right lower leg, initial encounter; S81.802A - Unspecified open wound, left lower leg, initial encounter Is this a current diagnosis for this admission?: Yes Plan: On antibiotics and being treated as cellulitis. (4) Severe dehydration Is this a current diagnosis for this admission?: Yes Plan: Continue gentle hydration. (5) Altered mental status Is this a current diagnosis for this admission?: Yes Plan: But for her possible alcohol withdrawal over the weekend she looks like she is a lmost back to her baseline. (6) Supraventricular arrhythmia Plan: Check stat magnesium and potassium. (7) Anxiety Plan: Alcohol withdrawal may be playing a role. As per hospitalist.
[2019-04-05 16:44] LABS: POTASSIUM 5.5 mmol/L (3.6-5.0)
--- NOTE | 2019-04-05 18:58 | RADIOLOGY REPORT (SQ) ---
EXAM DESCRIPTION: CTA CHEST COMPLETED DATE/TIME: 04/05/2019 6:21 pm REASON FOR STUDY: DDimer elevated, SOB COMPARISON: None. TECHNIQUE: CT scan of the chest performed using helical scanning technique with dynamic intravenous contrast injection. Images reviewed with lung, soft tissue and bone windows. Reconstructed coronal and sagittal MPR images reviewed. Additional 3 dimensional post-processing performed to develop Maximal Intensity Projection images (ND P). All images stored on PACS. All CT scanners at this facility use dose modulation, iterative reconstruction, and/or weight based d osing when appropriate to reduce radiation dose to as low as reasonably achievable (ALARA). [facility]: Dose Right [facility]: CareDose [facility]: Dose Right [facility]: Teradose 4D [facility]: Aquapharm [employer] CONTRAST TYPE AND DOSE: Contrast/concentration: Isovue 350.00 mg/ml; Total Contrast Delivered: 49.0 ml; Total Saline Delivered: 75.0 ml Contrast bolus optimized for the pulmonary arteries. Not diagnostic for the aorta. RENAL FUNCTION: Creatinine 2.13 mg / dL RADIATION DOSE: CT Rad equipment meets quality standard of care and radiation dose reduction techniq ues were employed. CTDIvol: 3.3 - 14.3 mGy. DLP: 503 mGy-cm. . LIMITATIONS: None. FINDINGS: LUNGS AND PLEURA: The trachea and main bronchi are patent. There is mild diffuse bronchia l wall thickening with areas of subsegmental mucous plugging in the lower lobes. There is severe diffuse centrilobular and paraseptal emphysema and there are areas of consolidation i n the dependent portion of the lower lobes. There is no pneumothorax or pleural effusion. There is no pulmonary nodule or mass. AORTA AND GREAT VESSELS: No thoracic aortic aneurysm or dissection. HEART: No cardiomegaly or pericardial effusion. PULMONARY ARTERIES: No pulmonary embolus. HILAR AND MEDIASTINAL STRUCTURES: No enlarged mediastinal or hilar lymph nodes. HARDWARE: None in the chest. UPPER ABDOMEN: Geographic area of hypoattenuation along the falciform ligament is nonspecific and cou ld represent an area of hepatic steatosis. THYROID AND OTHER SOFT TISSUES: No masses or adenopathy. BONES: No acute finding. 3D MIPS: Confirm above findings. OTHER: No other finding. IMPRESSION: 1. No pulmonary embolus. 2. Areas of consolidation in the dependent portion of the lower lobes; correlate with clinical findi ngs to exclude pneumonia. COMMENT: Quality ID # [id number]: Final reports with documentation of one or more dose reduction techniques (e.g., Automated exposure control, adjustment of the mA and/or kV according to patient size, use of iterative reconstruction technique) TECHNICAL DOCUMENTATION: JOB ID: [id number] [employer]- All Rights Reserved Reading location - IP/workstation name: [email or web address]
--- NOTE | 2019-04-05 19:55 | EKG REPORT ---
SEVERITY:- DEFECTIVE ECG - SINUS TACHYCARDIA BASELINE ARTIFACT.REPEAT EKG : Confirmed by: Danii Looney MD 05-Apr-2019 19:54:28
--- NOTE | 2019-04-05 19:55 | EKG REPORT ---
SEVERITY:- ABNORMAL ECG - SINUS TACHYCARDIA NONSPECIFIC INTRAVENTRICULAR CONDUCTION DELAY CONSIDER ANTEROSEPTAL INFARCT ST DEPRESSION, PROBABLY RATE RELATED BASELINE ATRIFACT : Confirmed by: Danii Looney MD 05-Apr-2019 19:55:04
[2019-04-05] MEDS: BUSPIRONE HCL 10 MG TABLET PO SCH (21:11)
[2019-04-06] MEDS: OXYCODONE-ACETAMINOPHEN 5-325 MG TABLET PO PRN ×2 (00:32→10:50)
[2019-04-06 06:07] LABS: ANION GAP 8 (5-19); BLOOD UREA NITROGEN 13 mg/dL (7-20); CARBON DIOXIDE 29 mmol/L (22-30); CHLORIDE 96 mmol/L (98-107); GLUCOSE 94 mg/dL (75-110); POTASSIUM 5.3 mmol/L (3.6-5.0)
--- NOTE | 2019-04-06 08:39 | PDOC PROGRESS REPORT ---
Subjective Progress Note for:: 04/06/19 Subjective:: 04/06/2019-immobility Reason For Visit: HYPONATREMIA,DEHYDRATION,CELLULITIS OF RIGHT LEG Physical Exam Vital Signs: Temp Pulse Resp BP Pulse Ox 97.3 F 102 H 16 143/92 H 100 04/06/19 03:03 04/06/19 07:00 04/06/19 03:03 04/06/19 03:03 04/06/19 03:03 Intake & Output 04/05/19 04/06/19 04/07/19 06:59 06:59 06:59 Intake Total 1023 567 Output Total 2300 0 Balance -1277 567 Weight 53.5 kg 52.7 kg General appearance: PRESENT: no acute distress, well-developed, well-nourished Neck exam: ABSENT: carotid bruit, JVD, lymphadenopathy, thyromegaly Respiratory exam: PRESENT: clear to auscultation sheryl. ABSENT: rales, rhonchi, wheezes Cardiovascular exam: PRESENT: RRR. ABSENT: diastolic murmur, rubs, systolic murmur Pulses: PRESENT: +1 pedal pulses bilateral Vascular exam: PRESENT: normal capillary refill GI/Abdominal exam: PRESENT: normal bowel sounds, soft. ABSENT: distended, guarding, mass, organolmegaly, rebound, tenderness Extremities exam: PRESENT: full ROM. ABSENT: clubbing, pedal edema Neurological exam: PRESENT: alert, awake, oriented to person, oriented to place, oriented to time, oriented to situation, CN II-XII grossly intact. ABSENT: motor sensory deficit Psychiatric exam: PRESENT: appropriate affect, normal mood. ABSENT: homicidal ideation, suicidal ideation Skin exam: PRESENT: dry, intact, warm. ABSENT: cyanosis, rash Results Laboratory Results: 04/04/19 05:45 04/06/19 05:17 04/05/19 04/06/19 14:55 05:17 Sodium 132.6 L Potassium 5.5 H D 5.3 H Chloride 96 L Carbon Dioxide 29 Anion Gap 8 BUN 13 Creatinine 0.40 L Est GFR ( Amer) > 60 Glucose 94 Calcium 9.0 Magnesium 2.1 Impressions: Chest X-Ray 04/05/19 00:00 IMPRESSION: Bilateral basilar airspace disease left greater than right. Differential includes asymmetric edema in the setting of COPD versus pneumonia. Chest/Abdomen CTA 04/05/19 00:00 IMPRESSION: 1. No pulmonary embolus. 2. Areas of consolidation in the dependent portion of the lower lobes; correlate with clinical findings to exclude pneumonia. Assessment and Plan - Plan Summary Summary: 04-05-19 patient's hyponatremia is stable today sodium 130, serum osmolality was 267 urine osmolality was 424, urine sodium has gone up to 173, will DC fluid restriction. BUN of 8 creatinine 0.34. Urinalysis from yesterday was all clear The patient's anxiety will start her on BuSpar 5 mg every 12 hours discharge planning has made arrangements for her walker and other home needs. Patient will be discharged home tomorrow, was in the room today during the discussion She is currently on IV Levaquin we will change this over to 500 mg p.o. the next 7 days which will complete a 10-day course.. Patient was growing out Pseudomonas as well as staph from her wound culture on her leg 04/06/2019- Hyponatremia-stable continue to follow daily BMPs Anemia-macrocytic in nature. Will obtain iron studies and a methylmalonic acid. Make change plan of care based on future findings. Anxiety-stable continue BuSpar at this time Leg wound-patient is growing Staphylococcus aureus, pseudomonas aeruginosa, enterococcus vasseliflavus. Staph aureus and pseudomonas aeruginosa is susceptible to Levaquin which patient remains on at this time. Enterococcus vasseliflavus will initiate ampicillin 2 g IV every 8 hours. - Time Time Spent with patient: 15-24 minutes - Inpatient Certification Based on my medical assessment, after consideration of the patient's comorbidities, presenting symptoms, or acuity I expect that the services needed warrant INPATIENT care.: Yes I certify that my determination is in accordance with my understanding of Medicare's requirements for reasonable and necessary INPATIENT services [42 CFR 412.3e].: Yes Medical Necessity: Other - IV antibiotics
[2019-04-06 08:45] LABS: ABSOLUTE RETICS # 0.131 10^6/uL (0.028-0.122); RETICULOCYTE COUNT (AUTO) 3.67 % (0.66-2.85)
[2019-04-06] MEDS ORDERED: SODIUM POLYSTYRENE SULFONATE 15 GM/60 ML PO ONE (08:45)
[2019-04-06 09:25] LABS: IRON(TIBC) 65.8 ug/dL (37-170)
[2019-04-06] MEDS ORDERED: DAPTOMYCIN INJ 500 MG VIAL IV SCH (10:00)
[2019-04-06] MEDS: ENOXAPARIN SODIUM INJ 40 MG/0.4 ML DISP.SYRIN SUBCUT SCH (10:02)
[2019-04-06] MEDS: DAPTOMYCIN 500 MG in NORMAL SALINE 50 ML IV SCH (10:02)
[2019-04-06] MEDS: LEVOFLOXACIN 500 MG TABLET PO SCH (10:07)
[2019-04-06] MEDS: PREDNISONE 20 MG TABLET PO SCH ×2 (10:08→20:38)
[2019-04-06] MEDS: LORATADINE 10 MG TABLET PO SCH (10:08)
[2019-04-06] MEDS: MAGNESIUM OXIDE 400 MG TABLET PO SCH ×2 (10:09→20:38)
[2019-04-06] MEDS: BUSPIRONE HCL 10 MG TABLET PO SCH ×2 (10:09→21:17)
[2019-04-06 10:32] LABS: FOLATE 5.35 ng/mL (>2.76)
--- NOTE | 2019-04-06 12:12 | RADIOLOGY REPORT (SQ) ---
EXAM DESCRIPTION: PICC INSERTION; FLUORO/CV PLACEMENT; U/S GUIDE FOR VASCULAR ACCESS COMPLETED DATE/TIME: 04/06/2019 12:03 pm REASON FOR STUDY: Medication @home antibiotics ; IV ABX; IV ACCESS COMPARISON: Chest film 04/05/2019 FLUOROSCOPY TIME: 32 seconds 1 digital fluoroscopic and 1 ultrasound images saved to PACS. TECHNIQUE: Fluoroscopic and ultrasound guided PICC placement. LIMITATIONS: None. PROCEDURE: After written consent and assessment were obtained, the patient was brought into the fluo roscopy room and placed supine on the table. Ultrasound evaluation of potential access sites were per formed. After successfully identifying a patent left basilic vein, the left arm was prepped and drape d in a sterile fashion along with the ultrasound probe. The entry site was anesthetized with 1% lidoc tolu. A 21 gauge 7 cm needle was advanced through the skin and into the basilic vein under live ultra sound guidance. An ultrasound image was saved to PACS confirming access site. A .018 guide wire was then inserted through the needle and into the venous system. The needle was then removed and an 11 b lade scalpel was used to make a 1cm skin incision. A 5 fr peel-away sheath was advanced over the wir e and into the venous system. A measurement was then made using the existing wire and live fluoroscop ic guidance. The wire was then removed and trimmed. The PICC was advanced through the peel-away sheat h and into the venous system. The peel-away sheath was removed and the catheter was adhered to the pa tients arm with a stat lock. The catheter was then aspirated and flushed and a sterile bandage was pl aced over the access site. A fluoroscopic spot image was saved to PACS confirming the catheter tip w ithin the superior vena cava. IMPRESSION: SUCCESSFUL PLACEMENT OF A 5 FR DUAL LUMEN 40 CM PICC IN THE LEFT BASILIC VEIN. COMMENT: Patient medication list reviewed: Yes- Quality ID# 130:Eligible professional attests to doc umenting in the medical record they obtained, updated, or reviewed the patient's current medications. . Quality ID 145: Final reports for procedures using fluoroscopy that document radiation exposure gisele leydi, or exposure time and number of fluorographic images (if radiation exposure indices are not avail able) Quality ID #76: The patient was prepped and draped using maximum sterile barrier technique including cap, mask, sterile gown, sterile gloves, a large sterile sheet, hand hygiene, and 2% Chlorhexidine fo r cutaneous antisepsis. When ultrasound is used, sterile ultrasound techniques are followed requiring sterile gel and sterile probes. TECHNICAL DOCUMENTATION: JOB ID: [id number] [employer] All Rights Reserved rev-11/19 Reading location - IP/workstation name: [email or web address]
[2019-04-06] MEDS ORDERED: FUROSEMIDE INJ/PF 40 MG/4 ML SDV ONE (12:24)
[2019-04-06] MEDS ORDERED: LORAZEPAM INJ 2 MG/1 ML VIAL ONE (12:27)
[2019-04-06] MEDS ORDERED: NITROGLYCERIN 2% OINTMENT 1 GM PACKET ONE (12:30)
--- NOTE | 2019-04-06 14:14 | Progress Note ---
Provider Note Provider Note: [facility] Infectious Disease Consultation Note HPI Chart reviewed This is 68-year-old woman with multiple comorbid conditions including peripheral vascular disease with chronic venous stasis ulcers, CHF and alcohol dependence. Patient was admitted to the hospital on 03/28 due to weakness, AMS, multiple falls and fatigue for 2 weeks prior to admission. On admission she was afebrile and stable but she was found with severe hyponatremia and leukocytosis. She also had bilateral lower extremities ulcers. She was started on vancomycin and cefepime. Wound evaluation per notes demonstrated a 4 x 6 cm ulcer with necrotic tissue in the medial aspect of the right leg close to the ankle. No purulent drainage described. At that time debridement was not recommended as there was no pus. Other notes describe some purulent drainage, but not clear how the ulcer looks now. She had a superficial swab for cultures that grew MSSA, Pseudomonas and Enterococcus. She has been on levofloxacin with some improvement in the appearance of the ulcer per notes. ID consulted for antibiotic recommendations and duration of therapy. PMH: Alcohol abuse PVD COPD Allergies: Ciprofloxacin Amoxicillin Home Medications Loratadine Current Medications Buspirone HCl (Buspar 10 Mg Tablet) 5 mg PO Q12 BHAVANI Enoxaparin Sodium (Lovenox Inj 40 Mg/0.4 Ml Disp.Syrin) 40 mg SUBCUT DAILY BHAVANI Daptomycin 500 mg/ Sodium (Chloride) 50 mls @ 100 mls/hr IV DAILY BHAVANI Levofloxacin (Levaquin 500 Mg Tablet) 500 mg PO DAILY BHAVANI Loratadine (Claritin 10 Mg Tablet) 10 mg PO DAILY BHAVANI Magnesium Hydroxide (Milk Of Magnesia 30 Ml Udcup) 30 ml PO DAILYP PRN Magnesium Oxide (Mag-Ox 400 Mg Tablet) 400 mg PO BID BHAVANI Metoprolol Tartrate (Lopressor Inj/Pf 5 Mg/5 Ml Sdv) 2.5 mg IV Q6HP PRN Ondansetron HCl (Zofran Inj/Pf 4 Mg/2 Ml Sdv) 4 mg IV Q6HP PRN Oxycodone/Acetaminophen (Percocet 5-325 Mg Tablet) 1 tab PO Q4HP PRN Prednisone (Deltasone 20 Mg Tablet) 20 mg PO BID BHAVANI Sodium Chloride (Saline Flush 2.5 Ml Monoject Prefil Syrin) 2.5 ml IV Q8 BHAVANI Vital Signs: Temp Pulse Resp BP Pulse Ox 98.2 F 108 H 22 H 117/67 100 10/03/19 08:44 04/06/19 08:44 04/06/19 08:44 04/06/19 08:44 04/06/19 08:44 Intake & Output 04/05/19 04/06/19 04/07/19 06:59 06:59 06:59 Intake Total 8239 193 8751 Output Total 2300 0 Balance -6830 609 7343 Weight 53.5 kg 52.7 kg Weight/Height Weight 52.7 kg Height 5 ft 2 in Laboratories: Labs- All tests 24 hr 04/05/19 04/05/19 04/06/19 14:55 14:55 05:17 Reticulocyte # Retic Count (auto) D-Dimer 2.13 H Sodium 132.6 L Potassium 5.5 H D 5.3 H Chloride 96 L Carbon Dioxide 29 Anion Gap 8 BUN 13 Creatinine 0.40 L Est GFR ( Amer) > 60 Est GFR (MDRD) Non-Af > 60 Glucose 94 Calcium 9.0 Magnesium 2.1 Iron TIBC % Saturation Ferritin Vitamin B12 Folate 04/06/19 04/06/19 05:17 05:47 Reticulocyte # 0.131 H Retic Count (auto) 3.67 H D-Dimer Sodium Potassium Chloride Carbon Dioxide Anion Gap BUN Creatinine Est GFR ( Amer) Est GFR (MDRD) Non-Af Glucose Calcium Magnesium Iron 65.8 TIBC 256 % Saturation 26 Ferritin 271.00 H Vitamin B12 483.0 Folate 5.35 Microbiology: Blood culture - negative Wound Culture - MSSA, PSeudomonas, Enterococcus Radiology Chest X-Ray 04/05/19 00:00 IMPRESSION: Bilateral basilar airspace disease left greater than right. Differential includes asymmetric edema in the setting of COPD versus pneumonia. Chest/Abdomen CTA 04/05/19 00:00 IMPRESSION: 1. No pulmonary embolus. 2. Areas of consolidation in the dependent portion of the lower lobes; correlate with clinical findings to exclude pneumonia. Guidance Fluoroscopy 04/06/19 00:00 IMPRESSION: SUCCESSFUL PLACEMENT OF A 5 FR DUAL LUMEN 40 CM PICC IN THE LEFT BASILI Assessment and Recommendations: Patient evaluated for right leg chronic stasis ulcer secondarily infected with MSSA, Enterococcus and Pseudomonas. It is not clear the significance of this culture as it was a superficial swab. No imaging to determine how deep this infection is, but per notes it doesn't seem to be deep as there is an area of necrosis where debridement was not recommended by surgery. There has been significant clinical improvement. Patient is currently on daptomycin and levofloxacin which will cover these organisms. She has received 9 days of antibiotics which is adequate for complicated skin and soft tissue infection, however if there hasn't been resolution of cellulitis, can consider treating for 5 more days for a total of 14 days. Linezolid 600 mg po bid (would have to hold Buspar due to theoretical risk of serotonin syndrome) and levofloxacin 500 mg po daily would be an oral combination to be considered. Not clear why she was on high dose prednisone recently (if due to COPD exacerbation or another immunosuppression). This might have complicated the picture. Please call if any questions. Iram Harry MD [facility] Infectious Disease [phone]
--- NOTE | 2019-04-06 14:33 | RADIOLOGY REPORT (SQ) ---
EXAM DESCRIPTION: CHEST SINGLE VIEW COMPLETED DATE/TIME: 04/06/2019 1:45 pm REASON FOR STUDY: SOB COMPARISON: Chest films 03/28/2019, 04/01/2019 CT angio chest 04/05/2019 EXAM PARAMETERS: NUMBER OF VIEWS: One view. TECHNIQUE: Single frontal radiographic view of the chest acquired. RADIATION DOSE: NA LIMITATIONS: None. FINDINGS: LUNGS AND PLEURA: Wanda lines at both lung bases this from mild interstitial edema. Lungs are hyperlucent and hyperinflated otherwise. No pleural effusions. No alveolar perihilar sheila a. No pneumothorax. MEDIASTINUM AND HILAR STRUCTURES: No masses. Contour normal. HEART AND VASCULAR STRUCTURES: No cardiomegaly BONES: No acute findings. HARDWARE: Left-sided PICC line tip superior vena cava OTHER: No other significant finding. IMPRESSION: Wanda lines from interstitial pulmonary edema. TECHNICAL DOCUMENTATION: JOB ID: [id number] [employer]- All Rights Reserved Reading location - IP/workstation name: [email or web address]
--- NOTE | 2019-04-06 14:52 | PDOC PROGRESS REPORT ---
Subjective Progress Note for:: 04/06/19 Reason For Visit: She is not doing well today. She has had some anxiety attacks as well as some difficulty in breathing. She has had a revision of antibiotics. She has had a PICC line placed earlier today. Chest x-ray had been done and was reviewed.Currently she is sedated and is on a BiPAP. Her sister is at the bedside. Labs and medications were reviewed. Discussions were done with the treating nurse. Physical Exam Vital Signs: Temp Pulse Resp BP Pulse Ox 98.2 F 104 H 22 H 117/67 100 04/06/19 08:44 04/06/19 14:00 04/06/19 08:44 04/06/19 08:44 04/06/19 08:44 Intake & Output 04/05/19 04/06/19 04/07/19 06:59 06:59 06:59 Intake Total 5460 566 3633 Output Total 2300 0 Balance -0812 394 6812 Weight 53.5 kg 52.7 kg Exam: Patient sedated. Currently on BiPAP. Respiratory exam: PRESENT: clear to auscultation sheryl, decreased breath sounds. ABSENT: crackles Cardiovascular exam: PRESENT: RRR, +S1, +S2 GI/Abdominal exam: PRESENT: normal bowel sounds, soft. ABSENT: organomegaly, tenderness Extremities exam: PRESENT: pedal edema Neurological exam: PRESENT: altered Results Laboratory Results: 04/04/19 05:45 04/06/19 05:17 04/05/19 04/06/19 04/06/19 14:55 05:17 05:17 Retic Count (auto) 3.67 H Sodium 132.6 L Potassium 5.5 H D 5.3 H Chloride 96 L Carbon Dioxide 29 Anion Gap 8 BUN 13 Creatinine 0.40 L Est GFR ( Amer) > 60 Glucose 94 Calcium 9.0 Magnesium 2.1 Iron TIBC % Saturation Ferritin Vitamin B12 Folate 04/06/19 05:47 Retic Count (auto) Sodium Potassium Chloride Carbon Dioxide Anion Gap BUN Creatinine Est GFR ( Amer) Glucose Calcium Magnesium Iron 65.8 TIBC 256 % Saturation 26 Ferritin 271.00 H Vitamin B12 483.0 Folate 5.35 Impressions: Chest/Abdomen CTA 04/05/19 00:00 IMPRESSION: 1. No pulmonary embolus. 2. Areas of consolidation in the dependent portion of the lower lobes; correlate with clinical findings to exclude pneumonia. Chest X-Ray 04/06/19 00:00 IMPRESSION: Wanda lines from interstitial pulmonary edema. Guidance Fluoroscopy 04/06/19 00:00 IMPRESSION: SUCCESSFUL PLACEMENT OF A 5 FR DUAL LUMEN 40 CM PICC IN THE LEFT BASILIC VEIN. Interventional Vascular Procedure 04/06/19 00:00 IMPRESSION: SUCCESSFUL PLACEMENT OF A 5 FR DUAL LUMEN 40 CM PICC IN THE LEFT BASILIC VEIN. PICC Line Insertion 04/06/19 00:00 IMPRESSION: SUCCESSFUL PLACEMENT OF A 5 FR DUAL LUMEN 40 CM PICC IN THE LEFT BASILIC VEIN. Assessment & Plan - Diagnosis (1) Hyponatremia Is this a current diagnosis for this admission?: Yes Plan: From a electrolyte point of view she is doing very well as sodium today is 132. She is showing some signs of early central and peripheral fluid overload. So I am going to give her 1 dose of IV Lasix. Her IV fluids has been discontinued earlier this morning.Potassium is slightly high and so needs to be monitored. (2) Alcohol dependence Is this a current diagnosis for this admission?: Yes Plan: Wonder if some of this could be a cause of her anxiety attacks and other issues. As per hospitalist. (3) Open wound of both legs with complication Qualifiers: Encounter type: initial encounter Qualified Code(s): S81.801A - Unspecified open wound, right lower leg, initial encounter; S81.802A - Unspecified open wound, left lower leg, initial encounter Is this a current diagnosis for this admission?: Yes Plan: Polymicrobial. Revision of antibiotics has been done under the supervision of [facility] infectious disease physicians.White count has improved nicely. (4) Severe dehydration Is this a current diagnosis for this admission?: Yes Plan: Resolved. No need for further IV fluids from that point of view. (5) Altered mental status Is this a current diagnosis for this admission?: Yes Plan: As per hospitalist. (6) Supraventricular arrhythmia Plan: As per hospitalist. (7) Anxiety Plan: Alcohol withdrawal may be playing a role. As per hospitalist.
[2019-04-06] MEDS ORDERED: FUROSEMIDE INJ/PF 20 MG/2 ML SDV IV ONE (15:30)
[2019-04-06] MEDS: MORPHINE SULFATE 10 MG/ML INJ IV PRN (22:29)
[2019-04-07] MEDS: MORPHINE SULFATE 10 MG/ML INJ IV PRN ×2 (04:46→21:42)
[2019-04-07 05:55] LABS: ANION GAP 6 (5-19); BLOOD UREA NITROGEN 13 mg/dL (7-20); CALCIUM 8.4 mg/dL (8.4-10.2); CARBON DIOXIDE 36 mmol/L (22-30); CHLORIDE 91 mmol/L (98-107); GLUCOSE 89 mg/dL (75-110)
[2019-04-07 06:04] LABS: POTASSIUM 3.7 mmol/L (3.6-5.0)
--- NOTE | 2019-04-07 08:37 | PDOC PROGRESS REPORT ---
Subjective Progress Note for:: 04/07/19 Subjective:: 04/06/2019-immobility 04/07/2019-no complaints this a.m. Reason For Visit: HYPONATREMIA,DEHYDRATION,CELLULITIS OF RIGHT LEG Physical Exam Vital Signs: Temp Pulse Resp BP Pulse Ox 98.1 F 104 H 20 142/69 H 100 04/07/19 07:22 04/07/19 07:22 04/07/19 07:22 04/07/19 07:22 04/07/19 07:22 Pulse Oximeter Continuous Start: 04/06/19 17:14 Freq: RTQ4 Status: Active Protocol: Document 04/07/19 04:09 CMI (Rec: 04/07/19 04:09 CMI [email or web address]) Pulse Oximetry Assessment Oxygen Saturation (92-100) 99 Oxygen Flow Rate (L/min) 4 Oxygen Delivery Method Nasal Cannula Fraction of Inspired Oxygen (FIO2) 36 Equipment Usage Equipment in Use Continuous SpO2 Machine # 1 Intake & Output 04/06/19 04/07/19 04/08/19 06:59 06:59 06:59 Intake Total 567 1410 Output Total 0 1855 Balance 567 -445 Weight 52.7 kg 53.9 kg General appearance: PRESENT: no acute distress, well-developed, well-nourished Neck exam: ABSENT: carotid bruit, JVD, lymphadenopathy, thyromegaly Respiratory exam: PRESENT: decreased breath sounds. ABSENT: rales, rhonchi, wheezes Cardiovascular exam: PRESENT: RRR. ABSENT: diastolic murmur, rubs, systolic murmur Pulses: PRESENT: +1 pedal pulses bilateral Vascular exam: PRESENT: normal capillary refill GI/Abdominal exam: PRESENT: normal bowel sounds, soft. ABSENT: distended, guarding, mass, organolmegaly, rebound, tenderness Extremities exam: PRESENT: full ROM, other - Right lower extremity wound. ABSENT: calf tenderness, clubbing, pedal edema Neurological exam: PRESENT: alert, awake, oriented to person, oriented to place, oriented to time, oriented to situation, CN II-XII grossly intact. ABSENT: motor sensory deficit Psychiatric exam: PRESENT: appropriate affect, normal mood. ABSENT: homicidal ideation, suicidal ideation Skin exam: PRESENT: dry, intact, warm. ABSENT: cyanosis, rash Results Laboratory Results: 04/04/19 05:45 04/07/19 04:45 04/06/19 04/06/19 04/07/19 05:17 05:47 04:45 Retic Count (auto) 3.67 H Sodium 133.2 L Potassium 3.7 D Chloride 91 L Carbon Dioxide 36 H Anion Gap 6 BUN 13 Creatinine 0.40 L Est GFR ( Amer) > 60 Glucose 89 Calcium 8.4 Iron 65.8 TIBC 256 % Saturation 26 Ferritin 271.00 H Vitamin B12 483.0 Folate 5.35 Impressions: Chest/Abdomen CTA 04/05/19 00:00 IMPRESSION: 1. No pulmonary embolus. 2. Areas of consolidation in the dependent portion of the lower lobes; correlate with clinical findings to exclude pneumonia. Chest X-Ray 04/06/19 00:00 IMPRESSION: Wanda lines from interstitial pulmonary edema. Guidance Fluoroscopy 04/06/19 00:00 IMPRESSION: SUCCESSFUL PLACEMENT OF A 5 FR DUAL LUMEN 40 CM PICC IN THE LEFT BA SILIC VEIN. Interventional Vascular Procedure 04/06/19 00:00 IMPRESSION: SUCCESSFUL PLACEMENT OF A 5 FR DUAL LUMEN 40 CM PICC IN THE LEFT BASILIC VEIN. PICC Line Insertion 04/06/19 00:00 IMPRESSION: SUCCESSFUL PLACEMENT OF A 5 FR DUAL LUMEN 40 CM PICC IN THE LEFT BASILIC VEIN. Assessment and Plan - Plan Summary Summary: 04-05-19 patient's hyponatremia is stable today sodium 130, serum osmolality was 267 urine osmolality was 424, urine sodium has gone up to 173, will DC fluid restriction. BUN of 8 creatinine 0.34. Urinalysis from yesterday was all clear The patient's anxiety will start her on BuSpar 5 mg every 12 hours discharge planning has made arrangements for her walker and other home needs. Patient will be discharged home tomorrow, was in the room today during the discussion She is currently on IV Levaquin we will change this over to 500 mg p.o. the next 7 days which will complete a 10-day course.. Patient was growing out Pseudomonas as well as staph from her wound culture on her leg 04/06/2019- Hyponatremia-stable continue to follow daily BMPs Anemia-macrocytic in nature. Will obtain iron studies and a methylmalonic acid. Make change plan of care based on future findings. Anxiety-stable continue BuSpar at this time Leg wound-patient is growing Staphylococcus aureus, pseudomonas aeruginosa, enterococcus vasseliflavus. Staph aureus and pseudomonas aeruginosa is susceptible to Levaquin which patient remains on at this time. Enterococcus vasseliflavus will initiate ampicillin 2 g IV every 8 hours. 04/06/2019- Hyponatremia stable Anemia-stable awaiting iron studies Anxiety continue BuSpar at this time Leg wound-at this time patient remains on daptomycin and Levaquin. Patient is only had 2 doses of daptomycin recommendations are for a total of 14 days if wound not showing improvement. We will watch over the weekend and determine what treatment modality obesity patient at home. Recommendations per ID if goes home would be linezolid 600 g p.o. twice daily. Will follow - Time Time Spent with patient: 15-24 minutes - Inpatient Certification Based on my medical assessment, after consideration of the patient's comorbidities, presenting symptoms, or acuity I expect that the services needed warrant INPATIENT care.: Yes I certify that my determination is in accordance with my understanding of Medicare's requirements for reasonable and necessary INPATIENT services [42 CFR 412.3e].: Yes Medical Necessity: Other - IV antibiotics
[2019-04-07] MEDS: LEVOFLOXACIN 500 MG TABLET PO SCH (10:17)
[2019-04-07] MEDS: LORATADINE 10 MG TABLET PO SCH (10:17)
[2019-04-07] MEDS: PREDNISONE 20 MG TABLET PO SCH ×2 (10:17→17:13)
[2019-04-07] MEDS: MAGNESIUM OXIDE 400 MG TABLET PO SCH ×2 (10:17→17:13)
[2019-04-07] MEDS: BUSPIRONE HCL 10 MG TABLET PO SCH ×3 (10:18→21:42)
[2019-04-07] MEDS: DAPTOMYCIN 500 MG in NORMAL SALINE 50 ML IV SCH (10:18)
[2019-04-07] MEDS: ENOXAPARIN SODIUM INJ 40 MG/0.4 ML DISP.SYRIN SUBCUT SCH (10:19)
[2019-04-07] MEDS: METOPROLOL SUCCINATE 25 MG TAB.SR.24H PO SCH ×2 (13:23→22:00)
[2019-04-07 15:01] LABS: APPEARANCE,URINE SLIGHTLY-CLOUDY; BILIRUBIN,URINE NEGATIVE (NEGATIVE); COLOR,URINE YELLOW; GLUCOSE, URINE 150 mg/dL (NEGATIVE); KETONES,URINE NEGATIVE (NEGATIVE); LEUKOCYTE ESTERASE,URINE SMALL (NEGATIVE); NITRITE,URINE NEGATIVE (NEGATIVE); PROTEIN,URINE 30 mg/dL (NEGATIVE); URINE SPECIFIC GRAVITY 1.025; UROBILINOGEN,URINE NEGATIVE mg/dL (<2.0)
[2019-04-08] MEDS: LORAZEPAM INJ 2 MG/1 ML VIAL IV PRN (00:08)
[2019-04-08] MEDS: MORPHINE SULFATE 10 MG/ML INJ IV PRN ×3 (00:58→12:00)
--- NOTE | 2019-04-08 08:48 | PDOC PROGRESS REPORT ---
Subjective Progress Note for:: 04/08/19 Subjective:: 04/06/2019-immobility 04/07/2019-no complaints this a.m. 04/08/2019-patient states feeling much better this morning Reason For Visit: HYPONATREMIA,DEHYDRATION,CELLULITIS OF RIGHT LEG Physical Exam Vital Signs: Temp Pulse Resp BP Pulse Ox 98.3 F 78 17 121/63 99 04/08/19 03:11 04/08/19 03:11 04/08/19 03:11 04/08/19 03:11 04/08/19 04:00 Pulse Oximeter Continuous Start: 04/06/19 17:14 Freq: RTQ4 Status: Active Protocol: Document 04/08/19 04:00 PMU (Rec: 04/08/19 05:23 PMU [email or web address]) Pulse Oximetry Assessment Oxygen Saturation (92-100) 99 Oxygen Flow Rate (L/min) 4 Oxygen Delivery Method Nasal Cannula Fraction of Inspired Oxygen (FIO2) 36 Equipment Usage Equipment Standby Continuous SpO2 Machine # N1 Intake & Output 04/07/19 04/08/19 04/09/19 06:59 06:59 06:59 Intake Total 1410 560 Output Total 1855 425 Balance -445 135 Weight 53.9 kg 52.8 kg General appearance: PRESENT: no acute distress, well-developed, well-nourished Neck exam: ABSENT: carotid bruit, JVD, lymphadenopathy, thyromegaly Respiratory exam: PRESENT: clear to auscultation sheryl. ABSENT: rales, rhonchi, wheezes Cardiovascular exam: PRESENT: RRR. ABSENT: diastolic murmur, rubs, systolic murmur Pulses: PRESENT: normal dorsalis pedis pul Vascular exam: PRESENT: normal capillary refill GI/Abdominal exam: PRESENT: normal bowel sounds, soft. ABSENT: distended, guarding, mass, organolmegaly, rebound, tenderness Extremities exam: PRESENT: full ROM. ABSENT: calf tenderness, clubbing, pedal edema Neurological exam: PRESENT: alert, awake, oriented to person, oriented to place, oriented to time, oriented to situation, CN II-XII grossly intact. ABSENT: motor sensory deficit Psychiatric exam: PRESENT: appropriate affect, normal mood. ABSENT: homicidal ideation, suicidal ideation Skin exam: PRESENT: other - Right lower extremity wound Results Laboratory Results: 04/04/19 05:45 04/07/19 04:45 04/07/19 14:19 Urine Color YELLOW Urine Appearance SLIGHTLY-CLOUDY Urine pH 5.0 Ur Specific [place] 1.025 Urine Protein 30 H Urine Glucose (UA) 150 H Urine Ketones NEGATIVE Urine Blood LARGE H Urine Nitrite NEGATIVE Ur Leukocyte Esterase SMALL H Urine WBC (Auto) 30 Urine RBC (Auto) 36 Impressions: Chest/Abdomen CTA 04/05/19 00:00 IMPRESSION: 1. No pulmonary embolus. 2. Areas of consolidation in the dependent portion of the lower lobes; correlate with clinical findings to exclude pneumonia. Chest X-Ray 04/06/19 00:00 IMPRESSION: Wanda lines from interstitial pulmonary edema. Guidance Fluoroscopy 04/06/19 00:00 IMPRESSION: SUCCESSFUL PLACEMENT OF A 5 FR DUAL LUMEN 40 CM PICC IN THE LEFT BASILIC VEIN. Interventional Vascular Procedure 04/06/19 00:00 IMPRESSION: SUCCESSFUL PLACEMENT OF A 5 FR DUAL LUMEN 40 CM PICC IN THE LEFT BASILIC VEIN. PICC Line Insertion 04/06/19 00:00 IMPRESSION: SUCCESSFUL PLACEMENT OF A 5 FR DUAL LUMEN 40 CM PICC IN THE LEFT BASILIC VEIN. Assessment and Plan - Plan Summary Summary: 04-05-19 patient's hyponatremia is stable today sodium 130, serum osmolality was 267 urine osmolality was 424, urine sodium has gone up to 173, will DC fluid restriction. BUN of 8 creatinine 0.34. Urinalysis from yesterday was all clear The patient's anxiety will start her on BuSpar 5 mg every 12 hours discharge planning has made arrangements for her walker and other home needs. Patient will be discharged home tomorrow, was in the room today during the discussion She is currently on IV Levaquin we will change this over to 500 mg p.o. the next 7 days which will complete a 10-day course.. Patient was growing out Pseudomonas as well as staph from her wound culture on her leg 04/06/2019- Hyponatremia-stable continue to follow daily BMPs Anemia-macrocytic in nature. Will obtain iron studies and a methylmalonic acid. Make change plan of care based on future findings. Anxiety-stable continue BuSpar at this time Leg wound-patient is growing Staphylococcus aureus, pseudomonas aeruginosa, enterococcus vasseliflavus. Staph aureus and pseudomonas aeruginosa is susceptible to Levaquin which patient remains on at this time. Enterococcus vasseliflavus will initiate ampicillin 2 g IV every 8 hours. 04/07/2019- Hyponatremia stable Anemia-stable awaiting iron studies Anxiety continue BuSpar at this time Leg wound-at this time patient remains on daptomycin and Levaquin. Patient is only had 2 doses of daptomycin recommendations are for a total of 14 days if wound not showing improvement. We will watch over the weekend and determine what treatment modality obesity patient at home. Recommendations per ID if goes home would be linezolid 600 g p.o. twice daily. Will follow [id number] Anemia-iron studies return. Ferritin elevated awaiting methylmalonic acid. Leg wound continue daptomycin and Levaquin at this time. Plan is to send her home on Wednesday with linezolid 600 mg p.o. twice daily x5 days. Anxiety-continue BuSpar and Ativan as needed - Time Time Spent with patient: 15-24 minutes - Inpatient Certification Based on my medical assessment, after consideration of the patient's comorbidities, presenting symptoms, or acuity I expect that the services needed warrant INPATIENT care.: Yes I certify that my determination is in accordance with my understanding of Medicare's requirements for reasonable and necessary INPATIENT services [42 CFR 412.3e].: Yes Medical Necessity: Other - IV antibiotic
--- NOTE | 2019-04-08 09:36 | XCELERA REPORT ---
[address] [address] Lower Extremity Arterial Evaluation Name: MONTEZ GREGG Age: 68 yrs Gender: Female : 1950 Patient Status: Inpatient Patient Location: [address] [place], [place] [address]A Study Date: 04/03/2019 02:42 PM Procedure: A color flow and duplex scan of the lower extremity arteries was performed bilaterally with velocity and waveform anaylsis. Reason For Study: chronic leg ulcers Ordering Physician: SHARRI FUNEZ Performed By: Azul Tiwari Measurements and Calculations Right Left SOCIAL SCIENTIST PSV 188.6 176.8 cm/sec Prox PFA PSV -139.1 -138.8cm/sec Prox SFA PSV 146.1 154.2 cm/sec Mid SFA PSV -115.2 -125.7cm/sec Dist SFA PSV -98.5 -144.6cm/sec Prox Pop A PSV 109.4 105.5 cm/sec Dist DANNA PSV -141.8 111.9 cm/sec Dist Tia A 58.4 58.9 cm/sec PSV Fabiano Pedis PSV -47.5 -180.7cm/sec Right Side Arterial Evaluation Normal velocity and biphasic waveforms, mild spectral broadening noted from the Common Femoral artery to the infrageniculate vessels . Occluded Posterior Tibial artery. Ankle Brachial index not done due to open weeping wounds. Left Side Arterial Evaluation Normal velocity and triphasic waveforms noted in the Common Femoral artery. Biphasic, Brodened waveform with normal velocity in the Femoral to Anterior Tibial artery. Occluded Posterior Tibial. Ankle Brachial index not obtained due to edema. Interpretation Summary Mild hemodynamically significant lesions in the right lower extremity only, on duplex imaging, at rest. Moderate hemodynamically significant lesions in the left lower extremity only, on duplex imaging, at rest. Duplex findings indicating mild inflow disease on the right, likely inflow, no focal stenosis identified. Posterior Tibial occluded. Duplex findings indicating moderate disease on the left, likely Femoral, no focal stenosis identified. Posterior Tibial occluded. : SHARRI FUNEZ > Will Smith
[2019-04-08] MEDS: METOPROLOL SUCCINATE 25 MG TAB.SR.24H PO SCH ×2 (11:00→22:26)
[2019-04-08] MEDS: BUSPIRONE HCL 10 MG TABLET PO SCH ×2 (11:00→22:27)
[2019-04-08] MEDS: ENOXAPARIN SODIUM INJ 40 MG/0.4 ML DISP.SYRIN SUBCUT SCH (11:01)
[2019-04-08] MEDS: LORATADINE 10 MG TABLET PO SCH (11:01)
[2019-04-08] MEDS: MAGNESIUM OXIDE 400 MG TABLET PO SCH ×2 (11:01→18:11)
[2019-04-08] MEDS: LEVOFLOXACIN 500 MG TABLET PO SCH (11:01)
[2019-04-08] MEDS: DAPTOMYCIN 500 MG in NORMAL SALINE 50 ML IV SCH (11:01)
[2019-04-08] MEDS: PREDNISONE 20 MG TABLET PO SCH ×2 (11:01→18:11)
[2019-04-08 14:09] LABS: BLOOD UREA NITROGEN 18 mg/dL (7-20); CALCIUM 8.9 mg/dL (8.4-10.2); CHLORIDE 88 mmol/L (98-107); GLUCOSE 139 mg/dL (75-110); POTASSIUM 3.9 mmol/L (3.6-5.0)
[2019-04-08 14:27] LABS: ANION GAP 6 (5-19)
[2019-04-08 14:31] LABS: CARBON DIOXIDE 40 mmol/L (22-30)
[2019-04-08] MEDS: HYDROMORPHONE HCL INJ/PF 2 MG/ML AMPULE IV PRN ×2 (15:55→22:28)
[2019-04-09] MEDS: HYDROMORPHONE HCL INJ/PF 2 MG/ML AMPULE IV PRN ×2 (07:07→20:51)
--- NOTE | 2019-04-09 08:15 | PDOC PROGRESS REPORT ---
Subjective Progress Note for:: 04/09/19 Subjective:: 04/06/2019-immobility 04/07/2019-no complaints this a.m. 04/08/2019-patient states feeling much better this morning 04/09/2019-continues to feel improvement. Able to ambulate around the room and get out of bed. Reason For Visit: HYPONATREMIA,DEHYDRATION,CELLULITIS OF RIGHT LEG Physical Exam Vital Signs: Temp Pulse Resp BP Pulse Ox 98.0 F 77 16 126/67 H 98 04/09/19 03:13 04/09/19 03:13 04/09/19 03:13 04/09/19 03:13 04/09/19 04:28 Pulse Oximeter Continuous Start: 04/06/19 17:14 Freq: RTQ4 Status: Active Protocol: Document 04/09/19 04:28 CMI (Rec: 04/09/19 04:28 CMI [email or web address]) Pulse Oximetry Assessment Oxygen Saturation (92-100) 98 Oxygen Flow Rate (L/min) 2.5 Oxygen Delivery Method Nasal Cannula Fraction of Inspired Oxygen (FIO2) 30 Equipment Usage Equipment Standby Continuous SpO2 Machine # 1 Intake & Output 04/08/19 04/09/19 04/10/19 06:59 06:59 06:59 Intake Total 560 780 Output Total 425 500 Balance 135 280 Weight 52.8 kg 52 kg General appearance: PRESENT: no acute distress, well-developed, well-nourished Neck exam: ABSENT: carotid bruit, JVD, lymphadenopathy, thyromegaly Respiratory exam: PRESENT: clear to auscultation sheryl. ABSENT: rales, rhonchi, wheezes Cardiovascular exam: PRESENT: RRR. ABSENT: diastolic murmur, rubs, systolic murmur Pulses: PRESENT: +1 pedal pulses bilateral Vascular exam: PRESENT: normal capillary refill GI/Abdominal exam: PRESENT: normal bowel sounds, soft. ABSENT: distended, guarding, mass, organolmegaly, rebound, tenderness Extremities exam: PRESENT: full ROM. ABSENT: calf tenderness, clubbing, pedal edema Neurological exam: PRESENT: alert, awake, oriented to person, oriented to place, oriented to time, oriented to situation, CN II-XII grossly intact. ABSENT: motor sensory deficit Psychiatric exam: PRESENT: appropriate affect, normal mood. ABSENT: homicidal ideation, suicidal ideation Skin exam: PRESENT: other - Right lower extremity wound Results Laboratory Results: 04/04/19 05:45 04/08/19 13:30 04/08/19 13:30 Sodium 133.7 L Potassium 3.9 Chloride 88 L Carbon Dioxide 40 H* Anion Gap 6 BUN 18 Creatinine 0.42 L Est GFR ( Amer) > 60 Glucose 139 H Calcium 8.9 Impressions: Chest/Abdomen CTA 04/05/19 00:00 IMPRESSION: 1. No pulmonary embolus. 2. Areas of consolidation in the dependent portion of the lower lobes; co rrelate with clinical findings to exclude pneumonia. Chest X-Ray 04/06/19 00:00 IMPRESSION: Wanda lines from interstitial pulmonary edema. Guidance Fluoroscopy 04/06/19 00:00 IMPRESSION: SUCCESSFUL PLACEMENT OF A 5 FR DUAL LUMEN 40 CM PICC IN THE LEFT BASILIC VEIN. Interventional Vascular Procedure 04/06/19 00:00 IMPRESSION: SUCCESSFUL PLACEMENT OF A 5 FR DUAL LUMEN 40 CM PICC IN THE LEFT BASILIC VEIN. PICC Line Insertion 04/06/19 00:00 IMPRESSION: SUCCESSFUL PLACEMENT OF A 5 FR DUAL LUMEN 40 CM PICC IN THE LEFT BASILIC VEIN. Assessment and Plan - Plan Summary Summary: 04-05-19 patient's hyponatremia is stable today sodium 130, serum osmolality was 267 urine osmolality was 424, urine sodium has gone up to 173, will DC fluid restriction. BUN of 8 creatinine 0.34. Urinalysis from yesterday was all clear The patient's anxiety will start her on BuSpar 5 mg every 12 hours discharge planning has made arrangements for her walker and other home needs. Patient will be discharged home tomorrow, was in the room today during the discussion She is currently on IV Levaquin we will change this over to 500 mg p.o. the next 7 days which will complete a 10-day course.. Patient was growing out Pseudomonas as well as staph from her wound culture on her leg 04/06/2019- Hyponatremia-stable continue to follow daily BMPs Anemia-macrocytic in nature. Will obtain iron studies and a methylmalonic acid. Make change plan of care based on future findings. Anxiety-stable continue BuSpar at this time Leg wound-patient is growing Staphylococcus aureus, pseudomonas aeruginosa, enterococcus vasseliflavus. Staph aureus and pseudomonas aeruginosa is susceptible to Levaquin which patient remains on at this time. Enterococcus vasseliflavus will initiate ampicillin 2 g IV every 8 hours. 04/07/2019- Hyponatremia stable Anemia-stable awaiting iron studies Anxiety continue BuSpar at this time Leg wound-at this time patient remains on daptomycin and Levaquin. Patient is only had 2 doses of daptomycin recommendations are for a total of 14 days if wound not showing improvement. We will watch over the weekend and determine what treatment modality obesity patient at home. Recommendations per ID if goes home would be linezolid 600 g p.o. twice daily. Will follow [id number] Anemia-iron studies return. Ferritin elevated awaiting methylmalonic acid. Leg wound continue daptomycin and Levaquin at this time. Plan is to send her home on Wednesday with linezolid 600 mg p.o. twice daily x5 days. Anxiety-continue BuSpar and Ativan as needed 04/09/2019 Hyponatremia-stable Anemia-methylmalonic acid pending Leg wound-continue daptomycin and Levaquin. Home in a.m. with linezolid. Anxiety-continue BuSpar and Ativan as needed - Time Time Spent with patient: 15-24 minutes - Inpatient Certification Based on my medical assessment, after consideration of the patient's comorbidities, presenting symptoms, or acuity I expect that the services needed warrant INPATIENT care.: Yes I certify that my determination is in accordance with my understanding of Medicare's requirements for reasonable and necessary INPATIENT services [42 CFR 412.3e].: Yes Medical Necessity: Other - IV antibiotics
[2019-04-09] MEDS: LEVOFLOXACIN 500 MG TABLET PO SCH (09:24)
[2019-04-09] MEDS: METOPROLOL SUCCINATE 25 MG TAB.SR.24H PO SCH ×2 (09:24→23:04)
[2019-04-09] MEDS: BUSPIRONE HCL 10 MG TABLET PO SCH ×2 (09:24→23:04)
[2019-04-09] MEDS: LORATADINE 10 MG TABLET PO SCH (09:24)
[2019-04-09] MEDS: DAPTOMYCIN 500 MG in NORMAL SALINE 50 ML IV SCH (09:24)
[2019-04-09] MEDS: PREDNISONE 20 MG TABLET PO SCH ×2 (09:24→17:08)
[2019-04-09] MEDS: MAGNESIUM OXIDE 400 MG TABLET PO SCH ×2 (09:24→17:08)
[2019-04-09] MEDS: ENOXAPARIN SODIUM INJ 40 MG/0.4 ML DISP.SYRIN SUBCUT SCH (09:26)
[2019-04-09] MEDS: ONDANSETRON HCL INJ/PF 4 MG/2 ML SDV IV PRN (19:55)
[2019-04-10] MEDS: LORAZEPAM INJ 2 MG/1 ML VIAL IV PRN (01:32)
[2019-04-10] MEDS: HYDROMORPHONE HCL INJ/PF 2 MG/ML AMPULE IV PRN ×2 (01:33→08:39)
--- NOTE | 2019-04-10 08:19 | PDOC DISCHARGE SUMMARY ---
Impression - Admit/DC Date/PCP Admission Date/Primary Care Provider: 03/28/19 15:25 Discharge Date: 04/10/19 - Assessment Summary: 04-05-19 patient's hyponatremia is stable today sodium 130, serum osmolality was 267 urine osmolality was 424, urine sodium has gone up to 173, will DC fluid restriction. BUN of 8 creatinine 0.34. Urinalysis from yesterday was all clear The patient's anxiety will start her on BuSpar 5 mg every 12 hours discharge planning has made arrangements for her walker and other home needs. Patient will be discharged home tomorrow, was in the room today during the discussion She is currently on IV Levaquin we will change this over to 500 mg p.o. the next 7 days which will complete a 10-day course.. Patient was growing out Pseudomonas as well as staph from her wound culture on her leg 04/06/2019- Hyponatremia-stable continue to follow daily BMPs Anemia-macrocytic in nature. Will obtain iron studies and a methylmalonic acid. Make change plan of care based on future findings. Anxiety-stable continue BuSpar at this time Leg wound-patient is growing Staphylococcus aureus, pseudomonas aeruginosa, enterococcus vasseliflavus. Staph aureus and pseudomonas aeruginosa is suscepti ble to Levaquin which patient remains on at this time. Enterococcus vasseliflavus will initiate ampicillin 2 g IV every 8 hours. 04/07/2019- Hyponatremia stable Anemia-stable awaiting iron studies Anxiety continue BuSpar at this time Leg wound-at this time patient remains on daptomycin and Levaquin. Patient is only had 2 doses of daptomycin recommendations are for a total of 14 days if wound not showing improvement. We will watch over the weekend and determine what treatment modality obesity patient at home. Recommendations per ID if goes home would be linezolid 600 g p.o. twice daily. Will follow [id number] Anemia-iron studies return. Ferritin elevated awaiting methylmalonic acid. Leg wound continue daptomycin and Levaquin at this time. Plan is to send her home on Wednesday with linezolid 600 mg p.o. twice daily x5 days. Anxiety-continue BuSpar and Ativan as needed 04/09/2019 Hyponatremia-stable Anemia-methylmalonic acid pending Leg wound-continue daptomycin and Levaquin. Home in a.m. with linezolid. Anxiety-continue BuSpar and Ativan as needed - Additional Information Discharge Diet: As Tolerated Discharge Activity: Activity As Tolerated Prescriptions: Buspirone HCl [Buspar 10 mg Tablet] 5 mg PO Q12 #60 tablet Levofloxacin [Levaquin 500 mg Tablet] 500 mg PO DAILY #5 tablet Ondansetron HCl [Zofran 4 mg Tablet] 1 - 2 tab PO Q4H PRN #20 tablet PRN Reason: Linezolid [Zyvox 600 mg Tablet] 600 mg PO BID #10 tablet Home Medications: Loratadine [Claritin 10 mg Tablet] 10 mg PO DAILY 03/28/19 Buspirone HCl [Buspar 10 mg Tablet] 5 mg PO Q12 #60 tablet 04/10/19 Levofloxacin [Levaquin 500 mg Tablet] 500 mg PO DAILY #5 tablet 04/10/19 Linezolid [Zyvox 600 mg Tablet] 600 mg PO BID #10 tablet 04/10/19 Ondansetron HCl [Zofran 4 mg Tablet] 1 - 2 tab PO Q4H PRN #20 tablet 04/10/19 History of Present Illiness History of Present Illness: MONTEZ GREGG is a 68 year old female who presented to the ER with a sodium of 105. She has had intermittent confusion, falls and fatigue for 2 weeks. Apparently patient sits in front of TV and drinks beer daily. She is an ex- smoker and has audible wheezing with consistent with COPD on admission. Patient also has open draining wounds on bilateral extremities with right being greater than her left. Blood culture showed staph aureus, pseudomonas aeruginosa and enterococcus cassiloflavus. She was sent home on Levaquin 500 mg p.o. daily x5 more days and Zyvox 6 mg p.o. twice daily for 5 more days. Patient will follow- up with her primary care practitioner within 1 week. Patient will return to ER if she has any further concerns or complaints. Hospital Course Hospital Course: MONTEZ GREGG is a 68 year old female who presented to the ER with a sodium of 105. She has had intermittent confusion, falls and fatigue for 2 weeks. Apparently patient sits in front of TV and drinks beer daily. She is an ex- smoker and has audible wheezing with consistent with COPD on admission. Patient also has open draining wounds on bilateral extremities with right being greater than her left. Blood culture showed staph aureus, pseudomonas aeruginosa and enterococcus cassiloflavus. She was sent home on Levaquin 500 mg p.o. daily x5 more days and Zyvox 6 mg p.o. twice daily for 5 more days. Patient will follow- up with her primary care practitioner within 1 week. Patient will return to ER if she has any further concerns or complaints. Physical Exam Vital Signs: Temp Pulse Resp BP Pulse Ox 97.9 F 76 20 118/59 L 98 04/10/19 03:20 04/10/19 03:20 04/10/19 03:20 04/10/19 03:20 04/10/19 04:00 Pulse Oximeter Continuous Start: 04/06/19 17:14 Freq: RTQ4 Status: Active Protocol: Document 04/10/19 04:00 CMI (Rec: 04/10/19 04:17 [email or web address] [id number]) Pulse Oximetry Assessment Oxygen Saturation (92-100) 98 Oxygen Flow Rate (L/min) 2.5 Oxygen Delivery Method Nasal Cannula Fraction of Inspired Oxygen (FIO2) 30 Equipment Usage Equipment Standby Continuous SpO2 Machine # 1 Intake & Output 04/09/19 04/10/19 04/11/19 06:59 06:59 06:59 Intake Total 780 1212 Output Total 500 650 Balance 280 562 Weight 52 kg 53.5 kg General appearance: PRESENT: no acute distress, well-developed, well-nourished Head exam: PRESENT: atraumatic, normocephalic Eye exam: PRESENT: conjunctiva pink, EOMI, PERRLA. ABSENT: scleral icterus Ear exam: PRESENT: normal external ear exam Mouth exam: PRESENT: moist, tongue midline Neck exam: ABSENT: carotid bruit, JVD, lymphadenopathy, thyromegaly Respiratory exam: PRESENT: clear to auscultation sheryl. ABSENT: rales, rhonchi, wheezes Cardiovascular exam: PRESENT: RRR. ABSENT: diastolic murmur, rubs, systolic murmur Pulses: PRESENT: normal dorsalis pedis pul Vascular exam: PRESENT: normal capillary refill GI/Abdominal exam: PRESENT: normal bowel sounds, soft. ABSENT: distended, guarding, mass, organolmegaly, rebound, tenderness Rectal exam: PRESENT: deferred Extremities exam: PRESENT: full ROM. ABSENT: calf tenderness, clubbing, pedal edema Neurological exam: PRESENT: alert, awake, oriented to person, oriented to place, oriented to time, oriented to situation, CN II-XII grossly intact. ABSENT: motor sensory deficit Psychiatric exam: PRESENT: appropriate affect, normal mood. ABSENT: homicidal ideation, suicidal ideation Skin exam: PRESENT: dry, intact, warm, other - Bilateral leg wound with clean dry intact dressings. ABSENT: cyanosis, rash Results Laboratory Results: WBC 9.0 10^3/uL (4.0-10.5) 04/04/19 05:45 RBC 2.91 10^6/uL (3.72-5.28) L 04/04/19 05:45 Hgb 10.2 g/dL (12.0-15.5) L 04/04/19 05:45 Hct 30.2 % (36.0-47.0) L 04/04/19 05:45 MCV 104 fl (80-97) H 04/04/19 05:45 MCH 35.2 pg (27.0-33.4) H 04/04/19 05:45 MCHC 34.0 g/dL (32.0-36.0) 04/04/19 05:45 RDW 13.6 % (11.5-14.0) 04/04/19 05:45 Plt Count 331 10^3/uL (150-450) 04/04/19 05:45 Lymph % (Auto) 16.3 % (13-45) 04/04/19 05:45 Mcintosh % (Auto) 15.4 % (3-13) H 04/04/19 05:45 Eos % (Auto) 0.1 % (0-6) 04/04/19 05:45 Baso % (Auto) 1.0 % (0-2) 04/04/19 05:45 Reticulocyte # 0.131 10^6/uL (0.028-0.122) H 04/06/19 05:17 Absolute Neuts (auto) 6.0 10^3/uL (1.7-8.2) 04/04/19 05:45 Absolute Lymphs (auto) 1.5 10^3/uL (0.5-4.7) 04/04/19 05:45 Absolute Monos (auto) 1.4 10^3/uL (0.1-1.4) 04/04/19 05:45 Absolute Eos (auto) 0.0 10^3/uL (0.0-0.6) 04/04/19 05:45 Absolute Basos (auto) 0.1 10^3/uL (0.0-0.2) 04/04/19 05:45 Total Counted 100 03/28/19 10:30 Seg Neutrophils % 67.2 % (42-78) 04/04/19 05:45 Seg Neuts % (Manual) 92 % (42-78) H 03/28/19 10:30 Lymphocytes % (Manual) 4 % (13-45) L 03/28/19 10:30 Monocytes % (Manual) 4 % (3-13) 03/28/19 10:30 Eosinophils % (Manual) 0 % (0-6) 03/28/19 10:30 Basophils % (Manual) 0 % (0-2) 03/28/19 10:30 Abs Neuts (Manual) 13.3 10^3/uL (1.7-8.2) H 03/28/19 10:30 Abs Lymphs (Manual) 0.6 10^3/uL (0.5-4.7) 03/28/19 10:30 Abs Monocytes (Manual) 0.6 10^3/uL (0.1-1.4) 03/28/19 10:30 Absolute Eos (Manual) 0.0 10^3/uL (0.0-0.6) 03/28/19 10:30 Abs Basophils (Manual) 0.0 10^3/uL (0.0-0.2) 03/28/19 10:30 Toxic Vacuolation PRESENT 03/28/19 10:30 Platelet Comment ADEQUATE 03/28/19 10:30 Macrocytosis 2+ 03/28/19 10:30 Retic Count (auto) 3.67 % (0.66-2.85) H 04/06/19 05:17 PT 13.5 SEC (11.4-15.4) 03/28/19 10:30 INR 1.03 03/28/19 10:30 D-Dimer 2.13 ug/mL (0.00-0.50) H 04/05/19 14:55 Carbonic Acid 1.73 mmol/L (1.05-1.35) H 04/02/19 12:07 HCO3/H2CO3 Ratio 20:1 04/02/19 12:07 ABG pH 7.42 (7.35-7.45) 04/02/19 12:07 ABG pCO2 57.6 mmHg (35-45) H 04/02/19 12:07 ABG pO2 91.8 mmHg (80-100) 04/02/19 12:07 ABG HCO3 36.2 mmol/L (20-24) H 04/02/19 12:07 ABG Total CO2 38.0 mmol/L (21-25) H 04/02/19 12:07 ABG O2 Saturation 96.9 % (94-98) 04/02/19 12:07 ABG Base Excess 9.9 mmol/L 04/02/19 12:07 VBG pH 7.37 (7.30-7.42) 03/28/19 10:30 VBG pCO2 44.7 mmHg (35-63) 03/28/19 10:30 VBG HCO3 25.1 mmol/L (20-32) 03/28/19 10:30 VBG Base Excess -0.5 mmol/L 03/28/19 10:30 FiO2 30% 04/02/19 12:07 Sodium 133.7 mmol/L (137-145) L 04/08/19 13:30 Potassium 3.9 mmol/L (3.6-5.0) 04/08/19 13:30 Chloride 88 mmol/L (98-107) L 04/08/19 13:30 Carbon Dioxide 40 mmol/L (22-30) H* 04/08/19 13:30 Anion Gap 6 (5-19) 04/08/19 13:30 BUN 18 mg/dL (7-20) 04/08/19 13:30 Creatinine 0.42 mg/dL (0.52-1.25) L 04/08/19 13:30 Est GFR ( Amer) > 60 (>60) 04/08/19 13:30 Est GFR (Non-Af Amer) Cancelled 03/28/19 10:30 Est GFR (MDRD) Non-Af > 60 (>60) 04/08/19 13:30 Glucose 139 mg/dL (75-110) H 04/08/19 13:30 Serum Osmolality 267 mOsm/kg (275-301) L 04/04/19 05:45 Lactic Acid 1.4 mmol/L (0.7-2.1) 03/28/19 10:30 Calcium 8.9 mg/dL (8.4-10.2) 04/08/19 13:30 Phosphorus 2.5 mg/dL (2.5-4.5) 03/29/19 03:53 Magnesium 2.1 mg/dL (1.6-2.3) 04/05/19 14:55 Iron 65.8 ug/dL (37-170) 04/06/19 05:47 TIBC 256 ug/dL (250-450) 04/06/19 05:47 % Saturation 26 % 04/06/19 05:47 Ferritin 271.00 ng/mL (11.1-264.0) H 04/06/19 05:47 Total Bilirubin 1.0 mg/dL (0.2-1.3) 03/28/19 12:25 Direct Bilirubin 0.1 mg/dL (0.0-0.4) 03/28/19 12:25 Neonat Total Bilirubin Not Reportable 03/28/19 12:25 Neonat Direct Bilirubin Not Reportable 03/28/19 12:25 Neonat Indirect Bili Not Reportable 03/28/19 12:25 AST 91 U/L (14-36) H 03/28/19 12:25 ALT 33 U/L (<35) 03/28/19 12:25 Alkaline Phosphatase 65 U/L (38-126) 03/28/19 12:25 Total Protein 6.4 g/dL (6.3-8.2) 03/28/19 12:25 Albumin 3.4 g/dL (3.5-5.0) L 03/28/19 12:25 EGFR Cancelled 03/28/19 10:30 Vitamin B12 483.0 pg/mL (239-931) 04/06/19 05:47 Folate 5.35 ng/mL (>2.76) 04/06/19 05:47 TSH 2.93 uIU/mL (0.47-4.68) 03/29/19 03:53 Free T4 1.67 ng/dL (0.78-2.19) 03/29/19 03:53 Free T3 pg/mL 3.50 pg/mL (2.77-5.27) 03/29/19 03:53 Urine Color YELLOW 04/07/19 14:19 Urine Appearance SLIGHTLY-CLOUDY 04/07/19 14:19 Urine pH 5.0 (5.0-9.0) 04/07/19 14:19 Ur Specific [place] 1.025 04/07/19 14:19 Urine Protein 30 mg/dL (NEGATIVE) H 04/07/19 14:19 Urine Glucose (UA) 150 mg/dL (NEGATIVE) H 04/07/19 14:19 Urine Ketones NEGATIVE mg/dL (NEGATIVE) 04/07/19 14:19 Urine Blood LARGE (NEGATIVE) H 04/07/19 14:19 Urine Nitrite NEGATIVE (NEGATIVE) 04/07/19 14:19 Urine Bilirubin NEGATIVE (NEGATIVE) 04/07/19 14:19 Urine Urobilinogen NEGATIVE mg/dL (<2.0) 04/07/19 14:19 Ur Leukocyte Esterase SMALL (NEGATIVE) H 04/07/19 14:19 Urine WBC (Auto) 30 /HPF 04/07/19 14:19 Urine RBC (Auto) 36 /HPF 04/07/19 14:19 U Hyaline Cast (Auto) 3 /LPF 04/07/19 14:19 Urine Bacteria (Auto) TRACE /HPF 04/07/19 14:19 Squamous Epi Cells Auto 3 /HPF 04/07/19 14:19 U Non-Squamous Epis Auto 1 /HPF 04/07/19 14:19 Urine Mucus (Auto) MANY /LPF 04/07/19 14:19 Urine Osmolality 424 mOsm/kg (300-900) 04/04/19 06:27 Urine Sodium 173 mmol/L (30-90) H 04/04/19 06:27 Urine Ascorbic Acid NEGATIVE (NEGATIVE) 04/07/19 14:19 Time Trough Drawn 0957 03/30/19 09:57 Vancomycin Trough 6.0 ug/mL (5.0-20.0) 03/30/19 09:57 Impressions: Chest X-Ray 03/28/19 10:27 IMPRESSION: Findings of COPD without a superimposed acute cardiopulmonary process. Chest X-Ray 04/01/19 00:00 IMPRESSION: 1. No acute pulmonary findings. Chest X-Ray 04/05/19 00:00 IMPRESSION: Bilateral basilar airspace disease left greater than right. Differential includes asymmetric edema in the setting of COPD versus pneumonia. Chest/Abdomen CTA 04/05/19 00:00 IMPRESSION: 1. No pulmonary embolus. 2. Areas of consolidation in the dependent portion of the lower lobes; correlate with clinical findings to exclude pneumonia. Chest X-Ray 04/06/19 00:00 IMPRESSION: Wanda lines from interstitial pulmonary edema. Guidance Fluoroscopy 04/06/19 00:00 IMPRESSION: SUCCESSFUL PLACEMENT OF A 5 FR DUAL LUMEN 40 CM PICC IN THE LEFT BASILIC VEIN. Interventional Vascular Procedure 04/06/19 00:00 IMPRESSION: SUCCESSFUL PLACEMENT OF A 5 FR DUAL LUMEN 40 CM PICC IN THE LEFT BASILIC VEIN. PICC Line Insertion 04/06/19 00:00 IMPRESSION: SUCCESSFUL PLACEMENT OF A 5 FR DUAL LUMEN 40 CM PICC IN THE LEFT BASILIC VEIN. Plan Time Spent: Greater than 30 Minutes Stroke Is this a Stroke Patient?: No Acute Heart Failure - Is this a Heart Failure Patient?: No
[2019-04-10] MEDS: LEVOFLOXACIN 500 MG TABLET PO SCH (10:53)
[2019-04-10] MEDS: MAGNESIUM OXIDE 400 MG TABLET PO SCH (10:53)
[2019-04-10] MEDS: METOPROLOL SUCCINATE 25 MG TAB.SR.24H PO SCH (10:54)
[2019-04-10] MEDS: LORATADINE 10 MG TABLET PO SCH (10:55)
[2019-04-10] MEDS: BUSPIRONE HCL 10 MG TABLET PO SCH (10:55)
[2019-04-10] MEDS: PREDNISONE 20 MG TABLET PO SCH (10:55)
[2019-04-10] MEDS: ENOXAPARIN SODIUM INJ 40 MG/0.4 ML DISP.SYRIN SUBCUT SCH (10:56)
[2019-04-10] MEDS: DAPTOMYCIN 500 MG in NORMAL SALINE 50 ML IV SCH (10:56)
[2019-04-10 15:01] VITALS: BP 105/59
== END 2019-04-10 17:10 | DRG 641 ==
LOC: ER 09:41 → EH 15:25 → ICU 20:34 → 4N 04-01 16:11 → 4W 04-03 13:02 → 3W 04-05 17:03
PROVIDERS: ADMIT Anesthesiology; ATTEND Internal Medicine
PROC: 02HV33Z Insertion of Infusion Device into Superior Vena Cava, Percutaneous Approach (ICD-10-PCS; principal; 2019-04-06)
PROC: B518ZZA Fluoroscopy of Superior Vena Cava, Guidance (ICD-10-PCS; 2019-04-06)
PROC: B548ZZA Ultrasonography of Superior Vena Cava, Guidance (ICD-10-PCS; 2019-04-06)
DX: E87.1 Hypo-osmolality and hyponatremia (principal); L97.211 Non-pressure chronic ulcer of right calf limited to breakdown of skin; L97.221 Non-pressure chronic ulcer of left calf limited to breakdown of skin; I47.1 Supraventricular tachycardia; I83.012 Varicose veins of right lower extremity with ulcer of calf; I83.022 Varicose veins of left lower extremity with ulcer of calf; E86.0 Dehydration; D64.9 Anemia, unspecified; J43.2 Centrilobular emphysema; E87.8 Other disorders of electrolyte and fluid balance, not elsewhere classified; B95.61 Methicillin susceptible Staphylococcus aureus infection as the cause of diseases classified elsewhere; B96.5 Pseudomonas (aeruginosa) (mallei) (pseudomallei) as the cause of diseases classified elsewhere; B95.2 Enterococcus as the cause of diseases classified elsewhere; F10.20 Alcohol dependence, uncomplicated; Y90.9 Presence of alcohol in blood, level not specified; Z60.2 Problems related to living alone
CPT/HCPCS: 36415; 36569; 36600; 71045; 71275; 76937; 77001; 80048; 80053; 80202; 81001; 82607; 82728; 82746; 82803; 83540; 83550; 83605; 83735; 83921; 83930; 83935; 84100; 84132; 84300; 84439; 84443; 84481; 85025; 85027; 85045; 85379; 85610; 87040; 87070; 87077; 87086; 87186; 87205; 93005; 93010; 93925; 94640; 94660; 94762; 96365; 96366; 96367; 96375; 96376; 99285; J0692; J0878; J1170; J1642; J1650; J1940; J1956; J2060; J2270; J2405; J3370; J3490; J7030; J7040; J7060; J7512; J7620; S0119

== ENCOUNTER → 2019-06-26 | Outpatient (CLI) | payer MEDICARE, BC ==
[2019-06-26 12:32] LABS: ABSOLUTE BASOPHILS # (AUTO) 0.1 10^3/uL (0.0-0.2); ABSOLUTE EOSINOPHILS # (AUTO) 0.3 10^3/uL (0.0-0.6); ABSOLUTE LYMPHOCYTES (AUTO) 0.9 10^3/uL (0.5-4.7); ABSOLUTE MONOCYTES (AUTO) 1.1 10^3/uL (0.1-1.4); ABSOLUTE NEUT (AUTO) 8.7 10^3/uL (1.7-8.2); BASOPHILS % (AUTO) 0.6 % (0-2); EOSINOPHILS % (AUTO) 2.7 % (0-6); HEMATOCRIT 34.4 % (36.0-47.0); HEMOGLOBIN 11.4 g/dL (12.0-15.5); LYMPHOCYTES % (AUTO) 8.5 % (13-45); MEAN CORPUSCULAR HEMOGLOBIN 34.2 pg (27.0-33.4); MEAN CORPUSCULAR VOLUME 104 fl (80-97); MONOCYTES % (AUTO) 10.3 % (3-13); PLATELET COUNT 391 10^3/uL (150-450); RED BLOOD COUNT 3.33 10^6/uL (3.72-5.28); RED CELL DISTRIBUTION WIDTH 14.8 % (11.5-14.0); SEGMENTED NEUTROPHILS % (AUTO) 77.9 % (42-78); TOTAL CELLS COUNTED % (AUTO) 100 %; WHITE BLOOD COUNT 11.1 10^3/uL (4.0-10.5)
[2019-06-26 13:02] LABS: ALBUMIN 3.7 g/dL (3.5-5.0); ALKALINE PHOSPHATASE 80 U/L (38-126); ANION GAP 6 (5-19); ASPARTATE AMINO TRANSFERASE 24 U/L (14-36); BILIRUBIN,DIRECT 0.2 mg/dL (0.0-0.4); BILIRUBIN,TOTAL 0.3 mg/dL (0.2-1.3); BLOOD UREA NITROGEN 24 mg/dL (7-20); C-REACTIVE PROTEIN 26.4 mg/L (<10.0); CALCIUM 9.3 mg/dL (8.4-10.2); CARBON DIOXIDE 35 mmol/L (22-30); CHLORIDE 101 mmol/L (98-107); GLUCOSE 92 mg/dL (75-110); POTASSIUM 5.4 mmol/L (3.6-5.0); TOTAL PROTEIN 6.9 g/dL (6.3-8.2)
--- NOTE | 2019-06-26 13:10 | RADIOLOGY REPORT (SQ) ---
EXAM DESCRIPTION: TIBIA FIBULA RIGHT COMPLETED DATE/TIME: 06/26/2019 12:08 pm REASON FOR STUDY: NON-PRESSURE CHRONIC ULCER OF RIGHT CALF W FAT LAYER EXPOSED L97.212 NON-PRESSURE CHRONIC ULCER OF RIGHT CALF W FAT LAYER I73.9 PERIPHERAL VASCULAR DISEASE, UNSPECIFIED COMPARISON: None. NUMBER OF VIEWS: Two views. TECHNIQUE: Two radiographic images acquired of the right tibia and fibula to include the knee and an kle in at least one projection. LIMITATIONS: None. FINDINGS: MINERALIZATION: Normal. BONES: No acute fracture or dislocation. No worrisome bone lesions. SOFT TISSUES: No obvious swelling or foreign body. OTHER: No other significant finding. IMPRESSION: NEGATIVE STUDY OF THE RIGHT TIBIA AND FIBULA. NO RADIOGRAPHIC EVIDENCE OF ACUTE INJURY. TECHNICAL DOCUMENTATION: JOB ID: [id number] [employer]- All Rights Reserved Reading location - IP/workstation name: [email or web address]
[2019-06-26 13:19] LABS: ERYTHROCYTE SEDIMENTATION RATE 47 mm/hr (0-30)
== END ==
LOC: WC 11:35
PROVIDERS: ATTEND Nurse Practitioner Family
DX: I73.9 Peripheral vascular disease, unspecified (principal); L97.212 Non-pressure chronic ulcer of right calf with fat layer exposed
CPT/HCPCS: 36415; 80053; 85025; 85652; 86140

== ENCOUNTER 2019-07-06 13:58 | Inpatient (IN) | payer MEDICARE, BC ==
[2019-07-06] MEDS ORDERED: IPRATROPIUM/ALBUTEROL 0.5-2.5 MG/3 ML AMPUL NEB ONE ×2 (14:19→15:26)
[2019-07-06] MEDS ORDERED: METHYLPREDNISOLONE INJ 125 MG/2 ML SDV IV ONE (14:19)
[2019-07-06] MEDS ORDERED: MAGNESIUM SULFATE/D5W 1 GM/100 ML RTUPB IV ONE ×2 (14:19)
--- NOTE | 2019-07-06 14:21 | ER Document Report ---
ED Medical Screen (RME) - General Chief Complaint: Leg Pain Stated Complaint: OPEN SORES/LEFT LEG PAIN Time Seen by Provider: 07/06/19 14:15 Primary Care Provider: KRYSTYNA URBINA NP, [employer]ER [Primary Care Provider] - Follow up as needed TRAVEL OUTSIDE OF THE [place] IN LAST 30 DAYS: No - HPI Notes: 07/06/19 14:20 Patient is a 68-year-old female with a history of chronic right lower leg wound, hypertension, COPD (non-oxygen dependent) who presents complaining of shortness of breath and cough for the past 4 days. Her home health nurse also monitor wound reevaluated as well. No fever or chest pain. No abdominal pain. I have treated and performed a rapid initial assessment of this patient. A comprehensive ED assessment and evaluation of the patient, analysis of test results and completion of medical decision making process will be conducted by additional ED providers. PHYSICAL EXAMINATION: GENERAL: Well-appearing, well-nourished and in no acute distress. A&Ox4. Answers questions appropriately. Lungs: Wheezing bilaterally. No retractions. Diminished at the base bilaterally. - Related Data Allergies/Adverse Reactions: amoxicillin Allergy (Verified 07/06/19 14:16) ciprofloxacin [From Cipro] Allergy (Verified 07/06/19 14:16) Pruritis oxycodone [From Percocet] Adverse Reaction (Verified 07/06/19 14:16) Flushing Past Medical History Pulmonary Medical History: Reports: Hx COPD Physical Exam - Vital signs Vitals: Temp Pulse Resp BP Pulse Ox 97.5 F 99 20 141/79 H 88 L 07/06/19 14:05 07/06/19 14:05 07/06/19 14:05 07/06/19 14:05 07/06/19 14:05 Course - Vital Signs Vital signs: Temp Pulse Resp BP Pulse Ox 97.5 F 99 20 141/79 H 88 L 07/06/19 14:05 07/06/19 14:05 07/06/19 14:05 07/06/19 14:05 07/06/19 14:05 Doctor's Discharge - Discharge Referrals: KRYSTYNA URBINA NP, [employer] [Primary Care Provider] - Follow up as needed
--- NOTE | 2019-07-06 15:08 | RADIOLOGY REPORT (SQ) ---
EXAM DESCRIPTION: TIBIA FIBULA RIGHT COMPLETED DATE/TIME: 07/06/2019 2:52 pm REASON FOR STUDY: lower leg chronic wound COMPARISON: 06/26/2019 NUMBER OF VIEWS: Two views. TECHNIQUE: Two radiographic images acquired of the right tibia and fibula to include the knee and an kle in at least one projection. LIMITATIONS: None. FINDINGS: MINERALIZATION: Normal. BONES: No acute fracture or dislocation. No worrisome bone lesions. SOFT TISSUES: Skin ulcer medial aspect distal tibia. No foreign body. OTHER: No other significant finding. IMPRESSION: No evidence of osteomyelitis. TECHNICAL DOCUMENTATION: JOB ID: [id number] [employer]- All Rights Reserved Reading location - IP/workstation name: [email or web address]
[2019-07-06 15:21] LABS: ABSOLUTE BASOPHILS # (AUTO) 0.1 10^3/uL (0.0-0.2); ABSOLUTE LYMPHOCYTES (AUTO) 1.1 10^3/uL (0.5-4.7); ABSOLUTE MONOCYTES (AUTO) 1.8 10^3/uL (0.1-1.4); BASOPHILS % (AUTO) 0.5 % (0-2); EOSINOPHILS % (AUTO) 0.1 % (0-6); HEMATOCRIT 36.9 % (36.0-47.0); HEMOGLOBIN 12.4 g/dL (12.0-15.5); LYMPHOCYTES % (AUTO) 7.8 % (13-45); MEAN CORPUSCULAR HEMOGLOBIN 34.4 pg (27.0-33.4); MEAN CORPUSCULAR HGB CONC 33.6 g/dL (32.0-36.0); MEAN CORPUSCULAR VOLUME 102 fl (80-97); PLATELET COUNT 363 10^3/uL (150-450); RED BLOOD COUNT 3.61 10^6/uL (3.72-5.28); RED CELL DISTRIBUTION WIDTH 14.2 % (11.5-14.0); SEGMENTED NEUTROPHILS % (AUTO) 78.6 % (42-78); TOTAL CELLS COUNTED % (AUTO) 100 %
[2019-07-06 15:24] LABS: VENOUS BLOOD HCO3 34.4 mmol/L (20-32); VENOUS BLOOD PCO2 61.3 mmHg (35-63); VENOUS BLOOD PH 7.37 (7.30-7.42)
[2019-07-06] MEDS ORDERED: BUDESONIDE NEB 0.5 MG/2 ML AMPUL NEB ONE (15:25)
--- NOTE | 2019-07-06 15:26 | RADIOLOGY REPORT (SQ) ---
EXAM DESCRIPTION: CHEST 2 VIEWS COMPLETED DATE/TIME: 07/06/2019 2:52 pm REASON FOR STUDY: SOB COMPARISON: 04/06/2019 NUMBER OF VIEWS: Two view. TECHNIQUE: Frontal and lateral radiographic views of the chest acquired. LIMITATIONS: None. FINDINGS: LUNGS AND PLEURA: No opacities, masses or pneumothorax. No pleural effusion. Attenuated bl ood vessels and flattened hannah-diaphragms. MEDIASTINUM AND HILAR STRUCTURES: No masses. No contour abnormalities. HEART AND VASCULAR STRUCTURES: Heart normal in size and contour. No evidence for failure. BONES: No acute findings. HARDWARE: None in the chest. OTHER: No other significant finding. IMPRESSION: COPD. NO ACUTE RADIOGRAPHIC FINDING IN THE CHEST. TECHNICAL DOCUMENTATION: JOB ID: [id number] [employer]- All Rights Reserved Reading location - IP/workstation name: [email or web address]
[2019-07-06 15:42] LABS: ALBUMIN 3.5 g/dL (3.5-5.0); ALKALINE PHOSPHATASE 71 U/L (38-126); ANION GAP 10 (5-19); ASPARTATE AMINO TRANSFERASE 35 U/L (14-36); BILIRUBIN,DIRECT 0.2 mg/dL (0.0-0.4); BILIRUBIN,TOTAL 0.4 mg/dL (0.2-1.3); BLOOD UREA NITROGEN 20 mg/dL (7-20); CALCIUM 8.9 mg/dL (8.4-10.2); CARBON DIOXIDE 33 mmol/L (22-30); CHLORIDE 94 mmol/L (98-107); GLUCOSE 110 mg/dL (75-110); POTASSIUM 4.6 mmol/L (3.6-5.0)
[2019-07-06] MEDS ORDERED: NORMAL SALINE 500 ML IV ONE (15:43)
[2019-07-06] MEDS ORDERED: NORMAL SALINE 1000 ML 1,000 ML IV ONE ×2 (15:44→16:56)
[2019-07-06] MEDS ORDERED: VANCOMYCIN HCL INJ 1000 MG VIAL IV ONE (15:45)
[2019-07-06] MEDS ORDERED: LEVOFLOXACIN 750 MG/D5W RTU 750 MG/150 ML RTUPB IV ONE (15:46)
[2019-07-06] MEDS ORDERED: DIPH/PERTUSS(ACELL)/TETANUS VAC/PF 0.5 ML SYR (>=10YO) IM ONE (15:47)
[2019-07-06 15:51] LABS: NT PRO BNP 90 pg/mL (<125); TROPONIN I < 0.012 ng/mL
--- NOTE | 2019-07-06 15:55 | ER Document Report ---
ED General - General Chief Complaint: Shortness Of Breath Stated Complaint: OPEN SORES/LEFT LEG PAIN Time Seen by Provider: 07/06/19 14:15 TRAVEL OUTSIDE OF THE [place] IN LAST 30 DAYS: No - Related Data Allergies/Adverse Reactions: amoxicillin Allergy (Verified 07/06/19 14:16) ciprofloxacin [From Cipro] Allergy (Verified 07/06/19 14:16) Pruritis oxycodone [From Percocet] Adverse Reaction (Verified 07/06/19 14:16) Flushing Past Medical History - Social History Smoking Status: Former Smoker Chew tobacco use (# tins/day): No Frequency of alcohol use: None Drug Abuse: None Family History: Reviewed & Not Pertinent Patient has suicidal ideation: No Patient has homicidal ideation: No Pulmonary Medical History: Reports: Hx COPD Physical Exam - Vital signs Vitals: Temp Pulse Resp BP Pulse Ox 97.5 F 99 20 141/79 H 88 L 07/06/19 14:05 07/06/19 14:05 07/06/19 14:05 07/06/19 14:05 07/06/19 14:05 - Notes Notes: Patient presents emerged department planing of shortness of breath this been going on for several days. Nonproductive cough associated with this but no fevers chest pain nausea vomiting or abdominal pain chronic ulcer on her right leg which says is not getting any better. To be followed in wound clinic and was last seen last week Medical history is significant for hypertension COPD chronic right leg ulcer no diabetes or heart disease patient was admitted in early April for hyponatremia and a right leg ulcer that grew out Pseudomonas staph and enterococcus. She was discharged to rehab on Levaquin and Zyvox finished in mid April Social history smoker but quit. History of alcohol abuse Tetanus status unknown Review of systems pertinent positives and negatives in HPI otherwise all the sy stems were reviewed and acutely negative however unclear how reliable they are as patient seems somewhat confused PHYSICIAN EXAM -vital signs are noted triage note and note from triage reviewed GENERAL: Patient appears chronically ill. Moderate respiratory distress is not able to talk in full sentences____ HEAD: Atraumatic, normocephalic. EYES: Pupils equal round and reactive to light, extraocular movements intact, sclera anicteric, conjunctiva are normal. ENT: nares patent, oropharynx clear without exudates. Dry mucous membranes. NECK: supple without lymphadenopathy LUNGS: Decreased breath sounds throughout with some scattered wheezes and moderate respiratory distress HEART: Rapid rate regular rhythm ABDOMEN: Soft, nontender, normoactive bowel sounds. EXTREMITIES: No deformity, no edema. NEUROLOGICAL: She is awake and alert somewhat confused but can answer questions briefly but appears confused at times. She is got good motor strength throughout PSYCH: Normal mood, normal affect. SKIN: Warm, Dry, and the right lower extremity she is got a large excoriated ulcerated lesion anterior and lateral aspect of the tibia. Clear drainage from the area with some surrounding redness. Isolated lesions on the back of the leg also do not appreciate a palpable cords. Cannot palpate a pulse but she does have a Doppler pulse in the foot. She does have good movement of the foot BACK-nontender in the midline Differential diagnosis includes COPD pneumonia dehydration cellulitis sepsis Addendum I talked to the about intubation she does have a living well but the would want her intubated for an acute event advised that we will try BiPAP first Course - Re-evaluation Re-evalutation: 07/06/19 16:26 ED patient was given 1 DuoNeb treatment. Her mental status started to de teriorate she was placed on BiPAP. She became more unresponsive and labored respirations felt that patient would be indicated. Please see procedure note 07/06/19 17:21 Addendum patient was placed on the ventilator 1 dose of fentanyl and then propofol for sedation. Blood pressures been stable with good O2 sats. He was given IV fluids blood cultures were obtained he was started on Levaquin and Merrem for broad-spectrum coverage. ABGs is pending also started on propofol for sedation Medical decision making patient presents with respiratory failure underlying COPD and will need admission to the hospital have consulted the ICU doctor 07/06/19 18:01 - Vital Signs Vital signs: Temp Pulse Resp BP Pulse Ox 97.5 F 99 12 150/77 H 100 07/06/19 14:05 07/06/19 14:05 07/06/19 17:01 07/06/19 17:00 07/06/19 17:01 - Laboratory Result Diagrams: 07/06/19 14:59 07/06/19 14:59 Laboratory results interpreted by me: 07/06/19 07/06/19 07/06/19 14:59 14:59 14:59 WBC 14.0 H RBC 3.61 L MCV 102 H MCH 34.4 H RDW 14.2 H Lymph % (Auto) 7.8 L Absolute Neuts (auto) 11.0 H Absolute Monos (auto) 1.8 H Seg Neutrophils % 78.6 H VBG HCO3 34.4 H Chloride 94 L Carbon Dioxide 33 H Creatinine 0.36 L 07/06/19 17:20 Her venous ABG was 7.37 and PCO2 of 61 consistent with only very mild respiratory acidosis 07/06/19 18:01 Arterial ABGs discussed pH 7.32 PCO2 42 PO2 of 346 consistent with a mild respir atory acidosis. Patient is will have respiratory decreased O2 - Diagnostic Test Radiology reviewed: Reports reviewed Radiology results interpreted by me: 07/06/19 17:20 X-ray was read by radiology as negative. However my review the patient with some haziness in the right base 07/06/19 18:01 Repeat chest x-ray read by me shows a right lower lobe infiltrate. Endotracheal tube in place - EKG Interpretation by Me Additional EKG results interpreted by me: 07/06/19 15:55 EKG read by me shows a sinus tachycardia with some baseline artifact there is some nonspecific ST wave changes probably rate related Procedures - Intubation Orotracheal Airway evaluation: Normal anatomy Mallampati Classification: Class 3 Medications: Etomidate, Vecuronium Intubation method: Orotracheal Blade type: Other Equipment used: Glidescope ETT size: 7.0 Breath Sounds after Intubation: Equal End tidal CO2 confirmed: Yes Intubation Complications: No complications Notes: 07/06/19 16:28 Some difficulty passing a 7.5 tube so a 7 oh was used Critical Care Note - Critical Care Note Total time excluding time spent on procedures (mins): 35 Discharge - Discharge Clinical Impression: Cellulitis of right leg Respiratory failure Qualifiers: Chronicity: acute Condition: Stable Disposition: ADMITTED INPATIENT Admitting Provider: Abundio (Veneer Matcher) Unit Admitted: ICU
[2019-07-06] MEDS ORDERED: FENTANYL CITRATE INJ/PF 100 MCG/2 ML AMPUL ONE (16:01)
[2019-07-06] MEDS ORDERED: ETOMIDATE INJ/PF 20 MG/10 ML SDV IV ONE ×2 (16:05→16:14)
[2019-07-06] MEDS ORDERED: ROCURONIUM BROMIDE INJ 50 MG/5 ML VIAL IV ONE ×2 (16:14→20:40)
[2019-07-06] MEDS ORDERED: FENTANYL CITRATE INJ/PF 100 MCG/2 ML AMPUL IV ONE (16:15)
[2019-07-06] MEDS ORDERED: MEROPENEM 1 GM VIAL IV ONE (16:48)
[2019-07-06] MEDS ORDERED: ONDANSETRON HCL INJ/PF 4 MG/2 ML SDV IV PRN (17:06)
--- NOTE | 2019-07-06 17:33 | CRITICAL CARE ADMISSION REPORT ---
HPI Date:: 07/06/19 Time:: 17:00 Reason for ICU Reason:: Intubated for presumed COPD exacerbation HPI: This patient is a 68 yo woman, sick for at least a few days, who developed cough, some increased WOB and came to the ED at first for wound care to her L lower leg. Her says the wounds have been getting worse even with wound care. Admits she doesn't always do what is asked. Wound has become larger. While in the ED she became more SOB. Placed on bipap and got no better and was finally intubated. Clinicaly she looks very dehydrated, thin and nearly emaciated and older than chronological age. She has had no N/V and no hx aspiration. Not eating or drinking well. History obtained from:: , ED MD - Diagnosis/Plan (1) COPD exacerbation Is this a current diagnosis for this admission?: Yes Plan: She has a COPD pattern on CXR, wide angle to angle of [place] and states she has COPD. WIll treat with steroids, breathing treatments. (2) Acute respiratory failure Qualifiers: Respiratory failure complication: unspecified whether with hypoxia or hypercapnia Qualified Code(s): J96.00 - Acute respiratory failure, unspecified whether with hypoxia or hypercapnia Is this a current diagnosis for this admission?: Yes Plan: There is no ABG only a VBG and it seems as though her WOB is prime factor in her intubation. Hope to get extubated soon. (3) Sepsis Is this a current diagnosis for this admission?: No Plan: This has been suggested in the ED. However, she has HR 90 WBC 14. Two SIRS criteria with the confounding findings of severe dehydration. I do not believe at this time she is septic. (4) Open wound, lower leg Qualifiers: Encounter type: initial encounter Laterality: left Qualified Code(s): S81.802A - Unspecified open wound, left lower leg, initial encounter Is this a current diagnosis for this admission?: Yes Plan: She will need surgical input eventually. May need surgical debridement. Antibiotics for now. (5) Severe dehydration Is this a current diagnosis for this admission?: Yes Plan: Volume load with NS. - . Plan Summary: Treat with steroids, nebulizers and extubate hopefully soon. Past Medical History Pulmonary Medical History: Reports: Chronic Obstructive Pulmonary Disease (COPD) Social/Family History - Social History Smoking Status: Former Smoker Frequency of Alcohol Use: Heavy Hx Recreational Drug Use: No Drugs: None Hx Prescription Drug Abuse: No - Medication/Allergies Home Medications: Loratadine [Claritin 10 mg Tablet] 10 mg PO DAILY 03/28/19 Buspirone HCl [Buspar 10 mg Tablet] 5 mg PO Q12 #60 tablet 04/10/19 Levofloxacin [Levaquin 500 mg Tablet] 500 mg PO DAILY #5 tablet 04/10/19 Linezolid [Zyvox 600 mg Tablet] 600 mg PO BID #10 tablet 04/10/19 Ondansetron HCl [Zofran 4 mg Tablet] 1 - 2 tab PO Q4H PRN #20 tablet 04/10/19 Allergies/Adverse Reactions: amoxicillin Allergy (Verified 07/06/19 14:16) ciprofloxacin [From Cipro] Allergy (Verified 07/06/19 14:16) Pruritis oxycodone [From Percocet] Adverse Reaction (Verified 07/06/19 14:16) Flushing Review of Systems ROS unobtainable: Due to endotracheal tube Physical Exam Vital Signs: Temp Pulse Resp BP Pulse Ox 97.5 F 99 20 141/79 H 99 07/06/19 14:05 07/06/19 14:05 07/06/19 14:05 07/06/19 14:05 07/06/19 15:18 Intake & Output 07/05/19 07/06/19 07/07/19 06:59 06:59 06:59 Intake Total 700 Balance 700 Weight 50 kg Weight/Height Weight 50 kg Height 5 ft 2 in General appearance: PRESENT: disheveled, thin Head exam: PRESENT: atraumatic, normocephalic Eye exam: PRESENT: conjunctiva pink, EOMI, PERRLA. ABSENT: scleral icterus Ear exam: PRESENT: normal external ear exam Mouth exam: PRESENT: dry mucosa Neck exam: ABSENT: carotid bruit, JVD, lymphadenopathy, thyromegaly Respiratory exam: PRESENT: clear to auscultation sheryl, decreased breath sounds, prolonged expiratory phas Cardiovascular exam: PRESENT: tachycardia GI/Abdominal exam: PRESENT: normal bowel sounds, soft. ABSENT: distended, guarding, mass, organolmegaly, rebound, tenderness Rectal exam: PRESENT: deferred Gentrourinary exam: PRESENT: indwelling catheter Extremities exam: PRESENT: other - Lower L leg has open wound. Not draining but looks deep with some ferdinand of necrotic tissue. Neurological exam: PRESENT: other - Sedated. Tubes/Lines: PRESENT: Endotracheal Tube, Nasogastic Tube Laboratory/Radiographs Laboratory Results: 07/06/19 14:59 07/06/19 14:59 07/06/19 07/06/19 07/06/19 14:59 14:59 14:59 WBC 14.0 H RBC 3.61 L Hgb 12.4 Hct 36.9 MCV 102 H MCH 34.4 H MCHC 33.6 RDW 14.2 H Plt Count 363 Seg Neutrophils % 78.6 H VBG pH 7.37 VBG pCO2 61.3 VBG HCO3 34.4 H VBG Base Excess 7.0 Sodium 137.2 Potassium 4.6 Chloride 94 L Carbon Dioxide 33 H Anion Gap 10 BUN 20 Creatinine 0.36 L Est GFR ( Amer) > 60 Glucose 110 Calcium 8.9 Total Bilirubin 0.4 AST 35 Alkaline Phosphatase 71 Total Protein 7.0 Albumin 3.5 07/06/19 14:59 Troponin I < 0.012 NT-Pro-B Natriuret Pep 90 Impressions: Chest X-Ray 07/06/19 14:18 IMPRESSION: COPD. NO ACUTE RADIOGRAPHIC FINDING IN THE CHEST. Tibia/Fibula X-Ray 07/06/19 14:19 IMPRESSION: No evidence of osteomyelitis. All labs, radiographs, diagnostic studies and EKGs were personally reviewed: Yes In addition, reports of radiographic and diagnostic studies were read: Yes Critical Time Critical Time (minutes): 40 -: The care of a critically ill patient is dynamic. This note represents a static moment in the admission process. Orders and treatments may be given simultaneously and urgently, and time is not union contract representative of the treatment process. This patient requires Critical Care secondary to life threatening organ or limb dysfunction. Without Critical Care services, the patient is at risk for increased mortality and morbidity.
[2019-07-06 17:55] LABS: APPEARANCE,URINE CLOUDY; BILIRUBIN,URINE NEGATIVE (NEGATIVE); COLOR,URINE YELLOW; GLUCOSE, URINE >=500 mg/dL (NEGATIVE); KETONES,URINE TRACE mg/dL (NEGATIVE); PROTEIN,URINE 100 mg/dL (NEGATIVE); URINE SPECIFIC GRAVITY 1.016; UROBILINOGEN,URINE NEGATIVE mg/dL (<2.0)
[2019-07-06 17:57] LABS: ARTERIAL BLOOD BASE EXCESS -3.1 mmol/L; ARTERIAL BLOOD H2CO3 1.38 mmol/L (1.05-1.35); ARTERIAL BLOOD HCO3 23.1 mmol/L (20-24); ARTERIAL BLOOD O2 SATURATION 99.7 % (94-98); ARTERIAL BLOOD PCO2 45.8 mmHg (35-45); ARTERIAL BLOOD PH 7.32 (7.35-7.45); ARTERIAL BLOOD PO2 346.7 mmHg (80-100); ARTERIAL BLOOD TOTAL CO2 24.5 mmol/L (21-25)
[2019-07-06 18:00] LABS: ARTERIAL BLOOD FIO2 100%
[2019-07-06] MEDS: PROPOFOL 1,000 MG/100 ML INFUS..BTL IV PRN (18:04)
--- NOTE | 2019-07-06 18:06 | RADIOLOGY REPORT (SQ) ---
EXAM DESCRIPTION: CHEST SINGLE VIEW COMPLETED DATE/TIME: 07/06/2019 5:37 pm REASON FOR STUDY: bed 3 post intubation COMPARISON: 07/06/2019 0400 hours TECHNIQUE: Single frontal radiographic view of the chest acquired. NUMBER OF VIEWS: One view. LIMITATIONS: None. FINDINGS: LUNGS AND PLEURA: No pneumothorax. Right basilar patchy consolidation. No significant pl eural effusion. MEDIASTINUM AND HILAR STRUCTURES: Stable. HEART AND VASCULAR STRUCTURES: Stable. BONES: No acute findings. HARDWARE: Endotracheal tube tip overlies the lower 3rd of the trachea approximately 2 cm above the le wilma of the sofya. NG tube is present with side port overlying the body of the stomach. OTHER: No other significant finding. IMPRESSION: Right basilar patchy consolidation. Endotracheal tube tip overlies the lower 3rd of the trachea approximately 2 cm above the level of the sofya. NG tube is present with side port overlyin g the body of the stomach. TECHNICAL DOCUMENTATION: JOB ID: [id number] [id number] 2010 [employer]- All Rights Reserved Reading location - IP/workstation name: [email or web address]
[2019-07-06] MEDS ORDERED: INFLUENZA QUAD (6MOS+) 2019-20 VAC 0.5 ML SYR IM ONE (19:00)
[2019-07-06] MEDS: NORMAL SALINE 1000 ML 1,000 ML IV PRN (19:15)
--- NOTE | 2019-07-06 19:28 | EKG REPORT ---
SEVERITY:- ABNORMAL ECG - ATRIAL FLUTTER/FIBRILLATION, A-RATE 231 NONSPECIFIC T ABNORMALITIES, LATERAL LEADS : Confirmed by: Ras Meadows MD 06-Jul-2019 19:26:45
[2019-07-06] MEDS ORDERED: LEVOFLOXACIN 500 MG/D5W RTU 500 MG/100 ML RTUPB IV SCH (20:00)
[2019-07-06 20:26] LABS: HEMATOCRIT 39.1 % (36.0-47.0); HEMOGLOBIN 12.8 g/dL (12.0-15.5); MEAN CORPUSCULAR HEMOGLOBIN 33.9 pg (27.0-33.4); MEAN CORPUSCULAR HGB CONC 32.8 g/dL (32.0-36.0); MEAN CORPUSCULAR VOLUME 103 fl (80-97); PLATELET COUNT 365 10^3/uL (150-450); RED BLOOD COUNT 3.79 10^6/uL (3.72-5.28); RED CELL DISTRIBUTION WIDTH 14.8 % (11.5-14.0); WHITE BLOOD COUNT 26.7 10^3/uL (4.0-10.5)
[2019-07-06 20:32] LABS: ANION GAP 10 (5-19); BLOOD UREA NITROGEN 19 mg/dL (7-20); CARBON DIOXIDE 29 mmol/L (22-30); CHLORIDE 94 mmol/L (98-107); GLUCOSE 245 mg/dL (75-110); POTASSIUM 4.3 mmol/L (3.6-5.0)
[2019-07-06] MEDS: LINEZOLID 600 MG TABLET PO SCH (20:50)
[2019-07-06] MEDS: IPRATROPIUM/ALBUTEROL 0.5-2.5 MG/3 ML AMPUL NEB SCH (20:53)
[2019-07-06] MEDS: METHYLPREDNISOLONE INJ 40 MG/1 ML SDV IV SCH (21:13)
[2019-07-06] MEDS: FAMOTIDINE 20 MG TABLET PO SCH (21:13)
[2019-07-06] MEDS: ENOXAPARIN SODIUM INJ 30 MG/0.3 ML DISP.SYRIN SUBCUT SCH (23:50)
[2019-07-07] MEDS: DEXMEDETOMIDINE IN 0.9 % NACL 400 MCG/100 ML RTUPB IV PRN ×2 (00:44→09:07)
[2019-07-07] MEDS: PROPOFOL 1,000 MG/100 ML INFUS..BTL IV PRN (00:55)
[2019-07-07] MEDS: NORMAL SALINE 1000 ML 1,000 ML IV PRN ×2 (02:00→09:07)
[2019-07-07] MEDS: IPRATROPIUM/ALBUTEROL 0.5-2.5 MG/3 ML AMPUL NEB SCH ×4 (02:20→20:01)
[2019-07-07 04:23] LABS: HEMOGLOBIN 11.4 g/dL (12.0-15.5); MEAN CORPUSCULAR HEMOGLOBIN 33.9 pg (27.0-33.4); MEAN CORPUSCULAR HGB CONC 33.5 g/dL (32.0-36.0); MEAN CORPUSCULAR VOLUME 102 fl (80-97); PLATELET COUNT 298 10^3/uL (150-450); RED BLOOD COUNT 3.35 10^6/uL (3.72-5.28); RED CELL DISTRIBUTION WIDTH 14.4 % (11.5-14.0); WHITE BLOOD COUNT 16.5 10^3/uL (4.0-10.5)
[2019-07-07 04:39] LABS: ANION GAP 7 (5-19); BLOOD UREA NITROGEN 15 mg/dL (7-20); CALCIUM 7.7 mg/dL (8.4-10.2); CARBON DIOXIDE 27 mmol/L (22-30); CHLORIDE 99 mmol/L (98-107); GLUCOSE 164 mg/dL (75-110); POTASSIUM 4.2 mmol/L (3.6-5.0)
[2019-07-07 04:55] LABS: ABSOLUTE LYMPHOCYTES# (MANUAL) 0.3 10^3/uL (0.5-4.7); ABSOLUTE MONOCYTES # (MANUAL) 0.2 10^3/uL (0.1-1.4); BAND NEUTROPHILS % (MANUAL) 2 % (3-5); BASOPHILS % (MANUAL) 0 % (0-2); EOSINOPHILS % (MANUAL) 0 % (0-6); LYMPHOCYTES % (MANUAL) 2 % (13-45); MONOCYTES % (MANUAL) 1 % (3-13); SEGMENTED NEUTROPHILS % (MAN) 95 % (42-78); TOTAL CELLS COUNTED 100
[2019-07-07 04:56] LABS: PLATELET COMMENT ADEQUATE; RBC MORPHOLOGY COMMENT NORMO-CYTIC/CHROMIC
[2019-07-07] MEDS: LINEZOLID 600 MG TABLET PO SCH (08:34)
[2019-07-07] MEDS: METHYLPREDNISOLONE INJ 40 MG/1 ML SDV IV SCH ×2 (10:20→21:16)
[2019-07-07] MEDS: FAMOTIDINE 20 MG TABLET PO SCH (10:20)
[2019-07-07] MEDS: ENOXAPARIN SODIUM INJ 30 MG/0.3 ML DISP.SYRIN SUBCUT SCH (10:21)
--- NOTE | 2019-07-07 12:05 | PDOC CRITICAL CARE PROG REPORT ---
General Date:: 07/07/19 ICU Day:: 2 Ventilator Day:: 2 Hospital Day:: 2 Resuscitation Status: Full Code Events in the past 12 to 24 Hours:: Extubated Review of systems relevant to events:: Respiratory Reason for ICU Addmission:: Intubated for presumed COPD exacerbation - Medications: Medications reviewed and adjusted accordingly: Yes Vasopressors:: None Sedation:: None Physical Exam Vital Signs: Temp Pulse Resp BP Pulse Ox 98.8 F 69 20 118/68 94 07/07/19 10:00 07/07/19 10:00 07/07/19 10:00 07/07/19 10:00 07/07/19 10:00 Intake & Output 07/06/19 07/07/19 07/08/19 06:59 06:59 06:59 Intake Total 1834 1090 Output Total 265 75 Balance 1569 1015 Weight 53.9 kg Weight/Height Weight 53.9 kg Height 5 ft 2 in General appearance: PRESENT: no acute distress Exam: Still sleepy from propofol Eye exam: PRESENT: conjunctiva pink, EOMI, PERRLA. ABSENT: scleral icterus Ear exam: PRESENT: normal external ear exam Mouth exam: PRESENT: moist, tongue midline Respiratory exam: PRESENT: clear to auscultation sheryl, decreased breath sounds, prolonged expiratory phas Cardiovascular exam: PRESENT: RRR. ABSENT: diastolic murmur, rubs, systolic murmur GI/Abdominal exam: PRESENT: normal bowel sounds, soft. ABSENT: distended, guarding, mass, organolmegaly, rebound, tenderness Rectal exam: PRESENT: deferred Gentrourinary exam: PRESENT: indwelling catheter Extremities exam: PRESENT: full ROM, other - R leg wound clean not draining, unchanged. Neurological exam: PRESENT: altered, awake Skin exam: PRESENT: dry, intact, warm. ABSENT: cyanosis, rash Laboratory/Radiographs Laboratory Results: 07/07/19 04:04 07/07/19 04:04 07/06/19 07/06/19 07/06/19 14:59 14:59 14:59 WBC 14.0 H RBC 3.61 L Hgb 12.4 Hct 36.9 MCV 102 H MCH 34.4 H MCHC 33.6 RDW 14.2 H Plt Count 363 Seg Neutrophils % 78.6 H Carbonic Acid HCO3/H2CO3 Ratio ABG pH ABG pCO2 ABG pO2 ABG HCO3 ABG O2 Saturation ABG Base Excess VBG pH 7.37 VBG pCO2 61.3 VBG HCO3 34.4 H VBG Base Excess 7.0 FiO2 Sodium 137.2 Potassium 4.6 Chloride 94 L Carbon Dioxide 33 H Anion Gap 10 BUN 20 Creatinine 0.36 L Est GFR ( Amer) > 60 Glucose 110 Lactic Acid Calcium 8.9 Total Bilirubin 0.4 AST 35 Alkaline Phosphatase 71 Total Protein 7.0 Albumin 3.5 Triglycerides Urine Color Urine Appearance Urine pH Ur Specific [place] Urine Protein Urine Glucose (UA) Urine Ketones Urine Blood Urine RBC (Auto) 07/06/19 07/06/19 07/06/19 16:56 17:15 17:40 WBC RBC Hgb Hct MCV MCH MCHC RDW Plt Count Seg Neutrophils % Carbonic Acid 1.38 H HCO3/H2CO3 Ratio 16:1 ABG pH 7.32 L ABG pCO2 45.8 H ABG pO2 346.7 H ABG HCO3 23.1 ABG O2 Saturation 99.7 H ABG Base Excess -3.1 VBG pH VBG pCO2 VBG HCO3 VBG Base Excess FiO2 100% Sodium Potassium Chloride Carbon Dioxide Anion Gap BUN Creatinine Est GFR ( Amer) Glucose Lactic Acid 2.1 Calcium Total Bilirubin AST Alkaline Phosphatase Total Protein Albumin Triglycerides Urine Color YELLOW Urine Appearance CLOUDY Urine pH 5.0 Ur Specific [place] 1.016 Urine Protein 100 H Urine Glucose (UA) >=500 H Urine Ketones TRACE H Urine Blood NEGATIVE Urine RBC (Auto) 6 07/06/19 07/06/19 07/06/19 19:28 19:28 19:28 WBC 26.7 H RBC 3.79 Hgb 12.8 Hct 39.1 MCV 103 H MCH 33.9 H MCHC 32.8 RDW 14.8 H Plt Count 365 Seg Neutrophils % Carbonic Acid HCO3/H2CO3 Ratio ABG pH ABG pCO2 ABG pO2 ABG HCO3 ABG O2 Saturation ABG Base Excess VBG pH VBG pCO2 VBG HCO3 VBG Base Excess FiO2 Sodium 132.7 L Potassium 4.3 Chloride 94 L Carbon Dioxide 29 Anion Gap 10 BUN 19 Creatinine 0.38 L Est GFR ( Amer) > 60 Glucose 245 H Lactic Acid Calcium 8.0 L Total Bilirubin AST Alkaline Phosphatase Total Protein Albumin Triglycerides 90 Urine Color Urine Appearance Urine pH Ur Specific [place] Urine Protein Urine Glucose (UA) Urine Ketones Urine Blood Urine RBC (Auto) 07/07/19 07/07/19 04:04 04:04 WBC 16.5 H RBC 3.35 L Hgb 11.4 L Hct 34.0 L MCV 102 H MCH 33.9 H MCHC 33.5 RDW 14.4 H Plt Count 298 Seg Neutrophils % Not Reportable Carbonic Acid HCO3/H2CO3 Ratio ABG pH ABG pCO2 ABG pO2 ABG HCO3 ABG O2 Saturation ABG Base Excess VBG pH VBG pCO2 VBG HCO3 VBG Base Excess FiO2 Sodium 133.3 L Potassium 4.2 Chloride 99 Carbon Dioxide 27 Anion Gap 7 BUN 15 Creatinine 0.26 L Est GFR ( Amer) > 60 Glucose 164 H Lactic Acid Calcium 7.7 L Total Bilirubin AST Alkaline Phosphatase Total Protein Albumin Triglycerides Urine Color Urine Appearance Urine pH Ur Specific [place] Urine Protein Urine Glucose (UA) Urine Ketones Urine Blood Urine RBC (Auto) 07/06/19 14:59 Troponin I < 0.012 NT-Pro-B Natriuret Pep 90 Impressions: Chest X-Ray 07/06/19 14:18 IMPRESSION: COPD. NO ACUTE RADIOGRAPHIC FINDING IN THE CHEST. Tibia/Fibula X-Ray 07/06/19 14:19 IMPRESSION: No evidence of osteomyelitis. All labs, radiographs, diagnostic studies and EKGs were personally reviewed: Yes In addition, reports of radiographic and diagnostic studies were read: Yes Assessment and Plan - Diagnosis (1) COPD exacerbation Is this a current diagnosis for this admission?: Yes (2) Acute respiratory failure Qualifiers: Respiratory failure complication: unspecified whether with hypoxia or hypercapnia Qualified Code(s): J96.00 - Acute respiratory failure, unspecified whether with hypoxia or hypercapnia Is this a current diagnosis for this admission?: Yes Plan: Resolved (3) Sepsis Is this a current diagnosis for this admission?: No Plan: Not septic (4) Open wound, lower leg Qualifiers: Encounter type: initial encounter Laterality: left Qualified Code(s): S81.802A - Unspecified open wound, left lower leg, initial encounter Is this a current diagnosis for this admission?: Yes Plan: To get local care and surgical consult now that she is extubated. (5) Severe dehydration Is this a current diagnosis for this admission?: Yes Plan: Resolved Plan Summary: When fully awake plan to downgrade. Critical Time Critical Time (minutes): 40 Level of Care: ICU Anticipated discharge: Home Within: within 72 hours -: 1. The care of a critical patient is a dynamic process. This note is a outbound telemarketing representative synopsis but static in nature. The timeframe for treatments giv en in order is not necessarily the actual time these treatments may have been done. 2. This patient requires critical care secondary to ongoing requirements for therapy not offered or safe outside the critical care environment. Transfer to a lower level of care will result in altered life or limb morbidity and mortality. 3. Multidisciplinary rounds completed. 4. ABCDE bundle addressed.
[2019-07-07] MEDS: ACETAMINOPHEN 325 MG TABLET PO PRN (12:29)
--- NOTE | 2019-07-07 14:02 | Progress Note ---
Provider Note Provider Note: Patient is comfortable, breathing well. Needs to have surgical input to wounds. Will downgrade to medical today. Consulting Dr. Dangelo.
[2019-07-07] MEDS ORDERED: FLUOXETINE HCL 20 MG/5 ML UDCUP PO ONE (15:00)
[2019-07-07] MEDS ORDERED: HYDROCODONE/ACETAMINOPHEN 10-325 MG TABLET PO PRN (16:02)
[2019-07-07] MEDS ORDERED: HYDROCODONE/ACETAMINOPHEN 5-325 MG TABLET ONE (16:07)
[2019-07-07] MEDS ORDERED: HYDROCODONE/ACETAMINOPHEN 10-325 MG TABLET ONE (16:09)
--- NOTE | 2019-07-07 16:40 | PDOC CONSULTATION ---
Consultation Consult Date: 07/07/19 Attending physician:: LYNN CHATMAN Provider Consulted: LOU LEONARD Consult reason:: venous stasis wound rt lower ext History of Present Illness Admission Date/PCP: 07/06/19 17:07 KRYSTYNA URBINA NP History of Present Illness: MONTEZ GREGG is a 68 year old femaleT, sick for at least a few days, who developed cough, some increased WOB and came to the ED at first for wound care to her rt lower leg. Her says the wounds have been getting worse even with wound care. Admits she doesn't always do what is asked. Wound has become larger. While in the ED she became more SOB. Placed on bipap and got no better and was finally intubated. Clinicaly she was very dehydrated, thin and nearly emaciated and older than chronological age. She has had no N/V and no hx aspiration. Not eating or drinking well. She was intubated and managed in the intensive care unit. She has been suffering for this chronic right lower extremity venous stasis wound she has chronic lymphedema in both lower extremities. She was just extubated recently and Dr. Myers asked for surgical consultation for help with the lower extremity wound. She has been followed in wound clinic. The wound is been there for over a year and she has had some discussions prior with other providers regarding possible amputation to her right lower extremity. Past Medical History Pulmonary Medical History: Reports: Chronic Obstructive Pulmonary Disease (COPD) EENT Medical History: Denies: None, Cataracts, Eyes, Ears, Nose, Throat, Other Neurological Medical History: Denies: None, Hemorrhagic CVA, Ischemic CVA, Migraine, Multiple Sclerosis, Seizures, Other Endocrine Medical History: Denies: None, Diabetes Mellitus Type 1, Diabetes Mellitus Type 2, Gestational Diabetes, Hyperthyroidism, Hypothyroidism, Obesity, Other Renal/ Medical History: Denies: None, Chronic Kidney Disease, End Stage Renal Disease, Nephrolith iasis, Other Malignancy Medical History: Denies: None, Bone Cancer, Brain Cancer, Breast Cancer, Cervical Cancer, Colorectal Cancer, Leukemia, Liver Cancer, Lung Cancer, Lymphoma, Ovarian Cancer, Pancreatic Cancer, Renal (Kidney) Cancer, Skin Cancer, Other GI Medical History: Denies: None, Cirrhosis, Crohn's Disease, Diverticulitis, Gastroesophageal Reflux Disease, Hepatitis, Hiatal Hernia, Peptic Ulcer Disease, Ulcerative Colitis, Other Musculoskeltal Medical History: Denies: None, Arthritis, Fibromyalgia, Gout, Other Skin Medical History: Denies: None, Eczema, Psoriasis, Other Psychiatric Medical History: Denies: None, Alcohol Dependency, Attention Deficit Hyperactivity Disorder, Bipolar Disorder, Dementia, Depression, General Anxiety Disorder, Personality Disorder, Post Traumatic Stress Disorder, Schizoaffective Disorder, Substance Abuse, Tobacco Dependency, Other Hematology: Denies: None, Anemia, Hemophilia, Sickle Cell Disease, Bleeding Tendencies, Heparin Induced Thrombocytopenia, Neutropenia, Other Infectious Medical History: Denies: None, Clostridium Difficile, Hepatitis B, Hepatitis C, HIV, Methicillin-Resistant Staph Aureus, Vancomycin-Resistant Enterococci, Other Social History Smoking Status: Unknown if Ever Smoked Electronic Cigarette use?: No Frequency of Alcohol Use: Heavy Hx Recreational Drug Use: No Drugs: None Hx Prescription Drug Abuse: No - Advance Directive Resuscitation Status: Full Code Family History Family History: Reviewed & Not Pertinent Parental Family History Reviewed: No Children Family History Reviewed: No Sibling(s) Family History Reviewed.: No Medication/Allergy Home Medications: Clindamycin HCl [Cleocin 300 mg Capsule] 300 mg PO Q6 07/07/19 Fluoxetine HCl [Prozac] 10 mg PO DAILY 07/07/19 Gabapentin [Neurontin 100 mg Capsule] 100 mg PO TIDP PRN 07/07/19 Prednisone [Sterapred Ds] 1 pkg PO ASDIR PRN 07/07/19 Allergies/Adverse Reactions: amoxicillin Allergy (Verified 07/06/19 14:16) ciprofloxacin [From Cipro] Allergy (Verified 07/06/19 14:16) Pruritis oxycodone [From Percocet] Adverse Reaction (Verified 07/06/19 14:16) Flushing Review of Systems Constitutional: PRESENT: anorexia, fatigue, weight loss Eyes: ABSENT: as per HPI, visual disturbances, other Ears: ABSENT: hearing changes Nose, Mouth, and Throat: ABSENT: as per HPI, headache(s), mouth pain, sore throat, vertigo, other Breasts: ABSENT: as per HPI, other Cardiovascular: ABSENT: as per HPI, chest pain, dyspnea on exertion, edema, orthropnea, palpitations, other Respiratory: PRESENT: cough, dyspnea Gastrointestinal: ABSENT: as per HPI, abdominal pain, bloating, coffee ground emesis, constipation, diarrhea, dysphagia, heartburn, hematemesis, hematochezia, melena, nausea, vomiting, other Genitourinary: ABSENT: as per HPI, difficulty urinating, dysuria, hematuria, nocturia, other Musculoskeletal: ABSENT: as per HPI, back pain, deformity, joint swelling, muscle weakness, other Integumentary: PRESENT: other - Chronic lymphedema bilateral lower extremities with venous stasis ulcer in the right lower extremity below the knee extending to the ankle Neurological: ABSENT: as per HPI, abnormal gait, abnormal movements, abnormal speech, confusion, convulsions, dizziness, focal weakness, frequent falls, lack of coordination, memory loss, numbness, paresthesias, restless legs, syncope, tingling, tremor(s), vertigo, weakness, other Psychiatric: ABSENT: as per HPI, anxiety, depression, hallucinations, homidical ideation, suicidal ideation, other Endocrine: ABSENT: as per HPI, cold intolerance, flushing, heat intolerance, menstrual abnormalities, polydipsia, polyphagia, polyuria, other Allergic/Immunologic: ABSENT: as per HPI, seasonal rhinorrhea, other Physical Exam Vital Signs: Temp Pulse Resp BP Pulse Ox 98.8 F 85 20 127/70 H 100 07/07/19 12:00 07/07/19 14:10 07/07/19 14:10 07/07/19 13:55 07/07/19 14:10 Intake & Output 07/06/19 07/07/19 07/08/19 06:59 06:59 06:59 Intake Total 1934 1090 Output Total 265 130 Balance 1669 960 Weight 53.9 kg General appearance: PRESENT: cooperative, mild distress, thin Head exam: PRESENT: atraumatic Eye exam: PRESENT: EOMI Ear exam: PRESENT: normal external ear exam Mouth exam: PRESENT: moist Respiratory exam: PRESENT: decreased breath sounds Cardiovascular exam: PRESENT: RRR, tachycardia Pulses: PRESENT: +1 pedal pulses bilateral Breast: PRESENT: Normal GI/Abdominal exam: PRESENT: soft Rectal exam: PRESENT: deferred Extremities exam: PRESENT: other - Bilateral lower extremity edema now improved since her admission to the ICU the right lower extremity with large venous stasis ulcers anterior and extending to both sides for approximately 270 degrees around the calf deep ulcerations areas of healing and other areas of some mild soft tissue necrosis but no evidence of any abscess or deep tissue infection other than the skin ulcerations Musculoskeletal exam: PRESENT: ambulatory Neurological exam: PRESENT: alert, awake, oriented to person, oriented to place Psychiatric exam: PRESENT: anxious Skin exam: PRESENT: dry Results Laboratory Results: 07/07/19 04:04 07/07/19 04:04 07/06/19 07/06/19 07/06/19 16:56 17:15 17:40 WBC RBC Hgb Hct MCV MCH MCHC RDW Plt Count Seg Neutrophils % Carbonic Acid 1.38 H HCO3/H2CO3 Ratio 16:1 ABG pH 7.32 L ABG pCO2 45.8 H ABG pO2 346.7 H ABG HCO3 23.1 ABG O2 Saturation 99.7 H ABG Base Excess -3.1 FiO2 100% Sodium Potassium Chloride Carbon Dioxide Anion Gap BUN Creatinine Est GFR ( Amer) Glucose Lactic Acid 2.1 Calcium Triglycerides Urine Color YELLOW Urine Appearance CLOUDY Urine pH 5.0 Ur Specific [place] 1.016 Urine Protein 100 H Urine Glucose (UA) >=500 H Urine Ketones TRACE H Urine Blood NEGATIVE Urine RBC (Auto) 6 07/06/19 07/06/19 07/06/19 19:28 19:28 19:28 WBC 26.7 H RBC 3.79 Hgb 12.8 Hct 39.1 MCV 103 H MCH 33.9 H MCHC 32.8 RDW 14.8 H Plt Count 365 Seg Neutrophils % Carbonic Acid HCO3/H2CO3 Ratio ABG pH ABG pCO2 ABG pO2 ABG HCO3 ABG O2 Saturation ABG Base Excess FiO2 Sodium 132.7 L Potassium 4.3 Chloride 94 L Carbon Dioxide 29 Anion Gap 10 BUN 19 Creatinine 0.38 L Est GFR ( Amer) > 60 Glucose 245 H Lactic Acid Calcium 8.0 L Triglycerides 90 Urine Color Urine Appearance Urine pH Ur Specific [place] Urine Protein Urine Glucose (UA) Urine Ketones Urine Blood Urine RBC (Auto) 07/07/19 07/07/19 04:04 04:04 WBC 16.5 H RBC 3.35 L Hgb 11.4 L Hct 34.0 L MCV 102 H MCH 33.9 H MCHC 33.5 RDW 14.4 H Plt Count 298 Seg Neutrophils % Not Reportable Carbonic Acid HCO3/H2CO3 Ratio ABG pH ABG pCO2 ABG pO2 ABG HCO3 ABG O2 Saturation ABG Base Excess FiO2 Sodium 133.3 L Potassium 4.2 Chloride 99 Carbon Dioxide 27 Anion Gap 7 BUN 15 Creatinine 0.26 L Est GFR ( Amer) > 60 Glucose 164 H Lactic Acid Calcium 7.7 L Triglycerides Urine Color Urine Appearance Urine pH Ur Specific [place] Urine Protein Urine Glucose (UA) Urine Ketones Urine Blood Urine RBC (Auto) 07/06/19 14:59 Troponin I < 0.012 NT-Pro-B Natriuret Pep 90 Impressions: Chest X-Ray 07/06/19 14:18 IMPRESSION: COPD. NO ACUTE RADIOGRAPHIC FINDING IN THE CHEST. Tibia/Fibula X-Ray 07/06/19 14:19 IMPRESSION: No evidence of osteomyelitis. Assessment & Plan - Plan Summary Plan Summary: Impression is lower extremity lymphedema bilaterally with venous stasis ulcer on the right lower extremity below the knee extending to the ankle approximately 270 degrees of the lower calf is involved the lateral aspect has areas of healing and epithelialization however the medial aspect is punched out ulc erations with skin bridges. Impression is bilateral lower extremity lymphedema with venous stasis ulcer in the right lower extremity calf At this point her lymphedema has been improved since her hospital stay. We will start Unna boot treatment. And maintain control of the lymphedema. Debridement of the wound at this point will lead to large open wounds are probably it would not heal. There is no undrained pus or abscess associated with the leg wound. If the patient's nutritional status is improved and her medical status improves there could be consideration for wide debridement and immediate skin grafting however I do not think her current medical status would allow for that.
[2019-07-07] MEDS: MEROPENEM 500 MG in NORMAL SALINE 50 ML IV SCH (18:32)
[2019-07-07] MEDS ORDERED: LORAZEPAM 1 MG TABLET PO PRN (18:43)
--- NOTE | 2019-07-07 18:45 | Progress Note ---
Provider Note Provider Note: The patient is a 68-year-old female with a past medical history of COPD, anemia, severe bilateral lower extremity lymphedema and a chronic right lower extremity wound, alcohol dependence, anxiety with panic disorder who was admitted to the manager of project management service 07/06/2019 for acute respiratory failure secondary to COPD exacerbation. The patient was extubated early 07/07/2019 and has done well on supplemental oxygen by nasal cannula. She has been downgraded to the medical floor and transferred to the hospitalist service. Overnight events, vital signs, laboratory evaluation, imaging results, surgical consultation, and orders reviewed. Agree with plan of care as established by the previous provider. Patient continues on IV meropenem. Wound culture demonstrates gram-negative rods, blood cultures are negative at 24 hours. We will continue scheduled and as needed nebulizer treatments, IV Solu-Medrol, Mucinex, and pulmonary toilet for COPD exacerbation. Appreciate surgery's evaluation and recommendations; plans for Unaboot placement and outpatient follow-up. Dr. Velez does warn that the patient has significant anxiety with panic disorder. He witnessed the patient have a panic attack this morning during surgical evaluation of her wound; patient became tachycardic, hypertensive, tachypneic, hypoxic requiring brief BiPAP support. He advises that panic disorder may have precipitated her initial COPD exacerbation and intubation. We will continue patient's home dose Prozac. We will have p.o. Ativan available for wound care.
[2019-07-07] MEDS: GUAIFENESIN 600 MG TABLET.SA PO SCH (21:16)
[2019-07-08] MEDS: IBUPROFEN 400 MG TABLET PO PRN ×3 (01:31→23:45)
[2019-07-08] MEDS: IPRATROPIUM/ALBUTEROL 0.5-2.5 MG/3 ML AMPUL NEB SCH ×4 (01:32→19:25)
[2019-07-08 06:34] LABS: HEMATOCRIT 36.5 % (36.0-47.0); HEMOGLOBIN 12.1 g/dL (12.0-15.5); MEAN CORPUSCULAR HEMOGLOBIN 33.8 pg (27.0-33.4); MEAN CORPUSCULAR HGB CONC 33.1 g/dL (32.0-36.0); MEAN CORPUSCULAR VOLUME 102 fl (80-97); PLATELET COUNT 370 10^3/uL (150-450); RED BLOOD COUNT 3.57 10^6/uL (3.72-5.28); RED CELL DISTRIBUTION WIDTH 14.1 % (11.5-14.0); WHITE BLOOD COUNT 24.1 10^3/uL (4.0-10.5)
[2019-07-08 07:42] LABS: ABSOLUTE LYMPHOCYTES# (MANUAL) 0.5 10^3/uL (0.5-4.7); ABSOLUTE MONOCYTES # (MANUAL) 0.2 10^3/uL (0.1-1.4); BASOPHILS % (MANUAL) 0 % (0-2); EOSINOPHILS % (MANUAL) 0 % (0-6); LYMPHOCYTES % (MANUAL) 2 % (13-45); MONOCYTES % (MANUAL) 1 % (3-13); SEGMENTED NEUTROPHILS % (MAN) 97 % (42-78); TOTAL CELLS COUNTED 100
[2019-07-08 07:43] LABS: ANISOCYTOSIS SLIGHT; PLATELET COMMENT ADEQUATE
[2019-07-08] MEDS: FLUOXETINE HCL 20 MG/5 ML UDCUP PO SCH (09:22)
[2019-07-08] MEDS: GUAIFENESIN 600 MG TABLET.SA PO SCH ×2 (09:22→21:33)
[2019-07-08] MEDS: ENOXAPARIN SODIUM INJ 30 MG/0.3 ML DISP.SYRIN SUBCUT SCH (09:22)
[2019-07-08] MEDS: METHYLPREDNISOLONE INJ 40 MG/1 ML SDV IV SCH (09:22)
--- NOTE | 2019-07-08 15:38 | PDOC PROGRESS REPORT ---
Subjective Progress Note for:: 07/08/19 Subjective:: The patient is a 68-year-old female with a past medical history of COPD, anemia, severe bilateral lower extremity lymphedema and a chronic right lower extremity wound, alcohol dependence, anxiety with panic disorder who was admitted to the community program assistant service 07/06/2019 for acute respiratory failure secondary to COPD exacerbation. The patient was extubated early 07/07/2019 and has done well on supplemental oxygen by nasal cannula. The patient was seen on morning rounds. She was found lying in bed, comfortably, on room air. She is not home O2 dependent. She reports she is feeling much better today; decreased dyspnea and productive cough. Has not yet been ambulatory. She does have continued discomfort to her right lower extremity. She tells me that she is set up with the wound care clinic in [place]; first appointment next week. She is uncertain whether or not she wants to follow-up with [facility] for Unna boot as was recommended by Dr. Dangelo. She tells me she will discuss this with her and let me know. Otherwise, she denies fever, chills, chest pain, palpitations, orthopnea, abdominal pain, nausea vomiting and diarrhea. She has no other questions or concerns at this time. No concerns per nursing. Reason For Visit: SEPSIS, COPD EXACERBATION, INTUBATED Physical Exam Vital Signs: Temp Pulse Resp BP Pulse Ox 98.4 F 115 H 16 140/73 H 95 07/08/19 12:06 07/08/19 14:05 07/08/19 14:05 07/08/19 12:06 07/08/19 14:05 Intake & Output 07/07/19 07/08/19 07/09/19 06:59 06:59 06:59 Intake Total 1934 2190 360 Output Total 265 530 Balance 1669 1660 360 Weight 53.9 kg 56.2 kg General appearance: PRESENT: no acute distress, cooperative, well-developed, well-nourished Head exam: PRESENT: atraumatic, normocephalic Eye exam: PRESENT: conjunctiva pink, EOMI, PERRLA. ABSENT: scleral icterus Ear exam: PRESENT: normal external ear exam Mouth exam: PRESENT: moist, tongue midline Respiratory exam: PRESENT: clear to auscultation sheryl, symmetrical, unlabored, other - Supplemental oxygen via nasal cannula. ABSENT: rales, rhonchi, wheezes Cardiovascular exam: PRESENT: RRR, +S1, +S2. ABSENT: diastolic murmur, rubs, systolic murmur Vascular exam: PRESENT: normal capillary refill GI/Abdominal exam: PRESENT: normal bowel sounds, soft. ABSENT: distended, guarding, mass, organolmegaly, rebound, tenderness Rectal exam: PRESENT: deferred Extremities exam: PRESENT: full ROM, +2 edema - BLE. ABSENT: calf tenderness, clubbing, pedal edema Neurological exam: PRESENT: alert, awake, oriented to person, oriented to place, oriented to time, oriented to situation, CN II-XII grossly intact. ABSENT: mot or sensory deficit Psychiatric exam: PRESENT: appropriate affect, normal mood. ABSENT: homicidal ideation, suicidal ideation Skin exam: PRESENT: dry, warm, other - Chronic wound to right lower extremity; Ric wrap in place. ABSENT: cyanosis, intact, rash Results Laboratory Results: 07/08/19 05:42 07/07/19 04:04 07/08/19 05:42 WBC 24.1 H RBC 3.57 L Hgb 12.1 Hct 36.5 MCV 102 H MCH 33.8 H MCHC 33.1 RDW 14.1 H Plt Count 370 Seg Neutrophils % Not Reportable 07/06/19 17:15 Mccarthy Catheter Urine Culture - Final NO GROWTH 2 DAYS 07/06/19 15:45 Leg - Right Gram Stain - Final 07/06/19 14:59 Troponin I < 0.012 NT-Pro-B Natriuret Pep 90 Impressions: Chest X-Ray 07/06/19 14:18 IMPRESSION: COPD. NO ACUTE RADIOGRAPHIC FINDING IN THE CHEST. Tibia/Fibula X-Ray 07/06/19 14:19 IMPRESSION: No evidence of osteomyelitis. Assessment and Plan - Diagnosis (1) COPD exacerbation Is this a current diagnosis for this admission?: Yes Plan: The patient is admitted to the medical floor on continuous cardiac telemetry. She is provided supplemental oxygen as needed to maintain saturations greater than 89%. Have asked nurses to attempt weaning. Patient is not home O2 dependent. She is provided scheduled and as needed nebulizer treatments. We will begin weaning IV Solu-Medrol today. Mucinex twice daily. Pulmonary toilet. (2) Acute respiratory failure Qualifiers: Respiratory failure complication: unspecified whether with hypoxia or hypercapnia Qualified Code(s): J96.00 - Acute respiratory failure, unspecified whether with hypoxia or hypercapnia Is this a current diagnosis for this admission?: Yes Plan: Significantly improved. Patient has been extubated; now stable on supplemental oxygen by nasal cannula. Treatment of COPD exacerbation as above. (3) Open wound, lower leg Qualifiers: Encounter type: initial encounter Laterality: left Qualified Code(s): S81.802A - Unspecified open wound, left lower leg, initial encounter Is this a current diagnosis for this admission?: Yes Plan: Surgery has been consulted; recommends Unna boot placement. Blood cultures are negative at 24 hours. Wound culture shows Pseudomonas, gram-positive cocci in clusters. Will adjust antibiotics when sensitivities result. We will continue IV meropenem. Wound care per surgery's recommendations. (4) Sepsis Is this a current diagnosis for this admission?: No Plan: Resolved. (5) Anxiety Is this a current diagnosis for this admission?: Yes Plan: PRN Ativan for wound care and dressing changes. Continue home dose Prozac. - Time Time Spent with patient: 15-24 minutes Medications reviewed and adjusted accordingly: Yes Anticipated discharge: Home with Homehealth Within: within 48 hours
[2019-07-08] MEDS: MEROPENEM 500 MG in NORMAL SALINE 50 ML IV SCH (17:14)
[2019-07-08] MEDS ORDERED: METHYLPREDNISOLONE INJ 40 MG/1 ML SDV IV SCH (22:00)
[2019-07-09] MEDS: IPRATROPIUM/ALBUTEROL 0.5-2.5 MG/3 ML AMPUL NEB SCH ×3 (01:59→15:03)
[2019-07-09 06:05] LABS: HEMATOCRIT 33.5 % (36.0-47.0); MEAN CORPUSCULAR HEMOGLOBIN 33.5 pg (27.0-33.4); MEAN CORPUSCULAR HGB CONC 32.8 g/dL (32.0-36.0); MEAN CORPUSCULAR VOLUME 102 fl (80-97); PLATELET COUNT 360 10^3/uL (150-450); RED BLOOD COUNT 3.27 10^6/uL (3.72-5.28); RED CELL DISTRIBUTION WIDTH 14.7 % (11.5-14.0); WHITE BLOOD COUNT 21.1 10^3/uL (4.0-10.5)
[2019-07-09 07:04] LABS: ABSOLUTE LYMPHOCYTES# (MANUAL) 1.1 10^3/uL (0.5-4.7); ABSOLUTE MONOCYTES # (MANUAL) 1.3 10^3/uL (0.1-1.4); BASOPHILS % (MANUAL) 0 % (0-2); EOSINOPHILS % (MANUAL) 0 % (0-6); LYMPHOCYTES % (MANUAL) 5 % (13-45); MONOCYTES % (MANUAL) 6 % (3-13); SEGMENTED NEUTROPHILS % (MAN) 89 % (42-78); TOTAL CELLS COUNTED 100
[2019-07-09 07:11] LABS: ANISOCYTOSIS SLIGHT; OVALOCYTES 2+; POIKILOCYTOSIS SLIGHT
[2019-07-09 07:12] LABS: PLATELET COMMENT ADEQUATE; SCHISTOCYTES SLIGHT; TEAR DROP CELLS SLIGHT
[2019-07-09] MEDS: GUAIFENESIN 600 MG TABLET.SA PO SCH ×2 (11:19→21:34)
[2019-07-09] MEDS: ENOXAPARIN SODIUM INJ 30 MG/0.3 ML DISP.SYRIN SUBCUT SCH (11:19)
[2019-07-09] MEDS: PREDNISONE 20 MG TABLET PO SCH (11:19)
[2019-07-09] MEDS: FLUOXETINE HCL 20 MG/5 ML UDCUP PO SCH (11:20)
[2019-07-09] MEDS: LORAZEPAM 1 MG TABLET PO PRN (13:16)
[2019-07-09] MEDS ORDERED: LORAZEPAM INJ 2 MG/1 ML VIAL IV ONE (13:19)
[2019-07-09] MEDS ORDERED: LORAZEPAM INJ 2 MG/1 ML VIAL ONE (13:22)
[2019-07-09] MEDS: ALBUTEROL SULFATE 0.083% NEB 2.5 MG/3 ML AMPUL NEB PRN (13:30)
[2019-07-09 15:06] LABS: ARTERIAL BLOOD BASE EXCESS 4.1 mmol/L; ARTERIAL BLOOD FIO2 2L; ARTERIAL BLOOD H2CO3 1.89 mmol/L (1.05-1.35); ARTERIAL BLOOD PCO2 62.9 mmHg (35-45); ARTERIAL BLOOD PH 7.33 (7.35-7.45); ARTERIAL BLOOD PO2 61.1 mmHg (80-100)
--- NOTE | 2019-07-09 16:09 | RADIOLOGY REPORT (SQ) ---
EXAM DESCRIPTION: CHEST SINGLE VIEW COMPLETED DATE/TIME: 07/09/2019 3:49 pm REASON FOR STUDY: tachypnea COMPARISON: AP chest 07/06/2019, AP chest 04/06/2019 EXAM PARAMETERS: NUMBER OF VIEWS: One view. TECHNIQUE: Single frontal radiographic view of the chest acquired. RADIATION DOSE: NA LIMITATIONS: None. FINDINGS: LUNGS AND PLEURA: Upper lobes are hyperlucent and hyperinflated from obstructive disease. In the mid and lower lungs bilaterally there is diffuse airspace disease worrisome for pulmonary sheila a. No pneumothorax. No pleural effusion. MEDIASTINUM AND HILAR STRUCTURES: No masses. Contour normal. HEART AND VASCULAR STRUCTURES: No cardiomegaly BONES: No acute findings. HARDWARE: None in the chest. OTHER: No other significant finding. IMPRESSION: Pulmonary edema superimposed on end-stage obstructive lung disease. TECHNICAL DOCUMENTATION: JOB ID: [id number] [employer]- All Rights Reserved Reading location - IP/workstation name: [email or web address]
--- NOTE | 2019-07-09 16:59 | PDOC PROGRESS REPORT ---
Subjective Progress Note for:: 07/09/19 Subjective:: The patient is a 68-year-old female with a past medical history of COPD, anemia, severe bilateral lower extremity lymphedema and a chronic right lower extremity wound, alcohol dependence, anxiety with panic disorder who was admitted to the platform beater service 07/06/2019 for acute respiratory failure secondary to COPD exacerbation. The patient was extubated early 07/07/2019 and has done well on supplemental oxygen by nasal cannula. The patient was seen on morning rounds. She was found sitting up in bed, comfortably, on room air. She is not home O2 dependent. She reports she is feeling much better today; decreased dyspnea and productive cough. Patient reports that she wants to keep her previously established wound care appointment in [place]. She is looking forward to possible discharge today or tomorrow. Otherwise, she denies fever, chills, chest pain, palpitations, orthopnea, abdominal pain, nausea vomiting and diarrhea. She has no other questions or concerns at this time. This afternoon, nursing reports increased RR, HR, HTN, and anxiety. Unresp onsive to prn anxiety medications. ABG revealed acute on chronic respiratory acidosis with hypercapnia and hypoxia. Chest x-ray demonstrated pulmonary edema. She is placed on BiPAP and is administered IV furosemide. Patient is now resting comfortably. Reason For Visit: SEPSIS, COPD EXACERBATION, INTUBATED Physical Exam Vital Signs: Temp Pulse Resp BP Pulse Ox 97.6 F 116 H 28 H 150/81 H 99 07/09/19 15:30 07/09/19 15:30 07/09/19 15:30 07/09/19 15:30 07/09/19 15:30 Intake & Output 07/08/19 07/09/19 07/10/19 06:59 06:59 06:59 Intake Total 2190 1250 360 Output Total 530 500 Balance 1660 750 360 Weight 56.2 kg 56.4 kg General appearance: PRESENT: no acute distress, cooperative, well-developed, well-nourished Head exam: PRESENT: atraumatic, normocephalic Eye exam: PRESENT: conjunctiva pink, EOMI, PERRLA. ABSENT: scleral icterus Ear exam: PRESENT: normal external ear exam Mouth exam: PRESENT: moist, tongue midline Neck exam: ABSENT: carotid bruit, JVD, lymphadenopathy, thyromegaly Respiratory exam: PRESENT: prolonged expiratory phas, rhonchi, symmetrical, unlabored, other - supplemental oxygen via NC. ABSENT: rales, wheezes Cardiovascular exam: PRESENT: RRR, +S1, +S2. ABSENT: diastolic murmur, rubs, systolic murmur Pulses: PRESENT: normal dorsalis pedis pul Vascular exam: PRESENT: normal capillary refill GI/Abdominal exam: PRESENT: normal bowel sounds, soft. ABSENT: distended, guarding, mass, organolmegaly, rebound, tenderness Rectal exam: PRESENT: deferred Extremities exam: PRESENT: full ROM, +2 edema - BLE. ABSENT: calf tenderness, clubbing, pedal edema Neurological exam: PRESENT: alert, awake, oriented to person, oriented to place, oriented to time, oriented to situation, CN II-XII grossly intact. ABSENT: motor sensory deficit Psychiatric exam: PRESENT: appropriate affect, normal mood. ABSENT: homicidal ideation, suicidal ideation Skin exam: PRESENT: dry, intact, warm. ABSENT: cyanosis, rash Results Laboratory Results: 07/09/19 05:29 07/07/19 04:04 07/09/19 07/09/19 05:29 14:49 WBC 21.1 H RBC 3.27 L Hgb 11.0 L Hct 33.5 L MCV 102 H MCH 33.5 H MCHC 32.8 RDW 14.7 H Plt Count 360 Seg Neutrophils % Not Reportable Carbonic Acid 1.89 H HCO3/H2CO3 Ratio 16:1 ABG pH 7.33 L ABG pCO2 62.9 H ABG pO2 61.1 L ABG HCO3 32.0 H ABG O2 Saturation 89.0 L ABG Base Excess 4.1 FiO2 2L 07/06/19 15:45 Leg - Right Gram Stain - Final 07/06/19 15:45 Leg - Right Wound Culture - Final Pseudomonas Aeruginosa Mrsa (Meth Resis Staph Aureus) Skin Laly 07/06/19 14:59 Troponin I < 0.012 NT-Pro-B Natriuret Pep 90 Impressions: Tibia/Fibula X-Ray 07/06/19 14:19 IMPRESSION: No evidence of osteomyelitis. Chest X-Ray 07/09/19 00:00 IMPRESSION: Pulmonary edema superimposed on end-stage obstructive lung disease. Assessment and Plan - Diagnosis (1) COPD exacerbation Is this a current diagnosis for this admission?: Yes Plan: The patient is admitted to the medical floor on continuous cardiac telemetry. CXR shows pulmonary edema. ABG shows respiratory acidosis with hypercapnia and hypoxia. She is provided supplemental oxygen as needed to maintain saturations greater than 89%. BiPAP as needed She is provided scheduled and as needed nebulizer treatments. Transition to p.o. prednisone. Mucinex twice daily. Pulmonary toilet. (2) Acute respiratory failure Qualifiers: Respiratory failure complication: unspecified whether with hypoxia or hypercapnia Qualified Code(s): J96.00 - Acute respiratory failure, unspecified whether with hypoxia or hypercapnia Is this a current diagnosis for this admission?: Yes Plan: Reoccurred today r/t pulmonary edema. Improved with IV furosemide 20 mg x1 and BiPAP Treatment of COPD exacerbation as above. (3) Open wound, lower leg Qualifiers: Encounter type: initial encounter Laterality: left Qualified Code(s): S81.802A - Unspecified open wound, left lower leg, initial encounter Is this a current diagnosis for this admission?: Yes Plan: Surgery has been consulted; recommends Unna boot placement. Blood cultures are negative at 48 hours. Wound culture shows Pseudomonas, and MRSA Discontinue meropenem. Start p.o. linezolid x5 days Wound care per surgery's recommendations. Outpatient follow-up with wound care clinic. (4) Sepsis Is this a current diagnosis for this admission?: No Plan: Resolved. (5) Anxiety Is this a current diagnosis for this admission?: Yes Plan: PRN Ativan for wound care and dressing changes. Continue home dose Prozac. - Time Time Spent with patient: 35 or more minutes Medications reviewed and adjusted accordingly: Yes Anticipated discharge: Home Within: within 48 hours
[2019-07-09] MEDS ORDERED: FUROSEMIDE INJ/PF 20 MG/2 ML SDV IV ONE (17:15)
[2019-07-09] MEDS: LINEZOLID 600 MG TABLET PO SCH (21:34)
[2019-07-09] MEDS: IBUPROFEN 400 MG TABLET PO PRN (23:48)
[2019-07-10] MEDS: IPRATROPIUM/ALBUTEROL 0.5-2.5 MG/3 ML AMPUL NEB SCH ×4 (00:40→23:41)
[2019-07-10 06:01] LABS: HEMATOCRIT 34.4 % (36.0-47.0); HEMOGLOBIN 11.6 g/dL (12.0-15.5); MEAN CORPUSCULAR HEMOGLOBIN 34.3 pg (27.0-33.4); MEAN CORPUSCULAR HGB CONC 33.8 g/dL (32.0-36.0); MEAN CORPUSCULAR VOLUME 101 fl (80-97); PLATELET COUNT 382 10^3/uL (150-450); RED CELL DISTRIBUTION WIDTH 14.6 % (11.5-14.0); WHITE BLOOD COUNT 16.8 10^3/uL (4.0-10.5)
[2019-07-10 06:21] LABS: BLOOD UREA NITROGEN 19 mg/dL (7-20); CALCIUM 8.5 mg/dL (8.4-10.2); GLUCOSE 89 mg/dL (75-110)
[2019-07-10 06:27] LABS: CARBON DIOXIDE 38 mmol/L (22-30); CHLORIDE 94 mmol/L (98-107)
[2019-07-10 06:40] LABS: ANION GAP 4 (5-19)
[2019-07-10] MEDS: GUAIFENESIN 600 MG TABLET.SA PO SCH ×2 (09:12→22:20)
[2019-07-10] MEDS: PREDNISONE 20 MG TABLET PO SCH (09:12)
[2019-07-10] MEDS: LINEZOLID 600 MG TABLET PO SCH ×2 (09:12→23:38)
[2019-07-10] MEDS: ENOXAPARIN SODIUM INJ 30 MG/0.3 ML DISP.SYRIN SUBCUT SCH (09:13)
--- NOTE | 2019-07-10 14:34 | PDOC PROGRESS REPORT ---
Subjective Progress Note for:: 07/10/19 Subjective:: The patient is a 68-year-old female with a past medical history of COPD, anemia, severe bilateral lower extremity lymphedema and a chronic right lower extremity wound, alcohol dependence, anxiety with panic disorder who was admitted to the food and beverage controller service 07/06/2019 for acute respiratory failure secondary to COPD exacerbation. The patient was extubated early 07/07/2019 and has done well on supplemental oxygen by nasal cannula. The patient was seen on morning rounds. She was found resting up in bed, comfortably, supplemental oxygen by nasal cannula. She reports that she wore the BiPAP overnight and feels like she rested well. However, she continues to have significant fatigue, slight wheezing, and a nonproductive cough. She is not established with a cafeteria table attendant. Does not have home O2 or CPAP/BiPAP She denies fever, chills, chest pain, palpitations, orthopnea, abdominal pain, nausea vomiting and diarrhea. She has no other questions or concerns at this time. No concerns per nursing Reason For Visit: SEPSIS, COPD EXACERBATION, INTUBATED Physical Exam Vital Signs: Temp Pulse Resp BP Pulse Ox 98.7 F 107 H 22 H 153/68 H 93 07/10/19 09:07 07/10/19 09:07 07/10/19 09:07 07/10/19 09:07 07/10/19 09:07 Intake & Output 07/09/19 07/10/19 07/11/19 06:59 06:59 06:59 Intake Total 1250 480 240 Output Total 500 400 Balance 750 480 -160 Weight 56.4 kg 52.2 kg 52.2 kg General appearance: PRESENT: no acute distress, cooperative, well-developed, well-nourished Head exam: PRESENT: atraumatic, normocephalic Eye exam: PRESENT: conjunctiva pink, EOMI, PERRLA. ABSENT: scleral icterus Ear exam: PRESENT: normal external ear exam Mouth exam: PRESENT: moist, tongue midline Respiratory exam: PRESENT: symmetrical, unlabored, wheezes - Scant, other - Supplemental oxygen via nasal cannula. ABSENT: rales, rhonchi Cardiovascular exam: PRESENT: RRR. ABSENT: diastolic murmur, rubs, systolic murmur Vascular exam: PRESENT: normal capillary refill GI/Abdominal exam: PRESENT: normal bowel sounds, soft. ABSENT: distended, guarding, mass, organolmegaly, rebound, tenderness Rectal exam: PRESENT: deferred Extremities exam: PRESENT: full ROM. ABSENT: calf tenderness, clubbing, pedal edema Neurological exam: PRESENT: alert, awake, oriented to person, oriented to place, oriented to time, oriented to situation, CN II-XII grossly intact. ABSENT: motor sensory deficit Psychiatric exam: PRESENT: anxious, appropriate affect, normal mood. ABSENT: homicidal ideation, suicidal ideation Skin exam: PRESENT: dry, warm. ABSENT: cyanosis, rash Results Laboratory Results: 07/10/19 05:32 07/10/19 05:32 07/09/19 07/10/19 07/10/19 14:49 05:32 05:32 WBC 16.8 H RBC 3.40 L Hgb 11.6 L Hct 34.4 L MCV 101 H MCH 34.3 H MCHC 33.8 RDW 14.6 H Plt Count 382 Carbonic Acid 1.89 H HCO3/H2CO3 Ratio 16:1 ABG pH 7.33 L ABG pCO2 62.9 H ABG pO2 61.1 L ABG HCO3 32.0 H ABG O2 Saturation 89.0 L ABG Base Excess 4.1 FiO2 2L Sodium 136.0 L Potassium 4.0 Chloride 94 L Carbon Dioxide 38 H Anion Gap 4 L BUN 19 Creatinine 0.38 L Est GFR ( Amer) > 60 Glucose 89 Calcium 8.5 07/06/19 15:45 Leg - Right Gram Stain - Final 07/06/19 15:45 Leg - Right Wound Culture - Final Pseudomonas Aeruginosa Mrsa (Meth Resis Staph Aureus) Skin Laly 07/06/19 14:59 Troponin I < 0.012 NT-Pro-B Natriuret Pep 90 Impressions: Tibia/Fibula X-Ray 07/06/19 14:19 IMPRESSION: No evidence of osteomyelitis. Chest X-Ray 07/09/19 00:00 IMPRESSION: Pulmonary edema superimposed on end-stage obstructive lung disease. Assessment and Plan - Diagnosis (1) COPD exacerbation Is this a current diagnosis for this admission?: Yes Plan: Improved today; off BiPAP, continues on NC. Scant wheezing bilaterally. The patient is admitted to the medical floor on continuous cardiac telemetry. CXR showed pulmonary edema. ABG showed respiratory acidosis with hypercapnia and hypoxia. She is provided supplemental oxygen as needed to maintain saturations greater than 89%. BiPAP as needed She is provided scheduled and as needed nebulizer treatments. Continue p.o. prednisone. Mucinex twice daily. Pulmonary toilet. (2) Acute respiratory failure Qualifiers: Respiratory failure complication: unspecified whether with hypoxia or hypercapnia Qualified Code(s): J96.00 - Acute respiratory failure, unspecified whether with hypoxia or hypercapnia Is this a current diagnosis for this admission?: Yes Plan: Reoccurred yesterday r/t pulmonary edema. Improved with IV furosemide 20 mg x1 and BiPAP Treatment of COPD exacerbation as above. (3) Open wound, lower leg Qualifiers: Encounter type: initial encounter Laterality: left Qualified Code(s): S81.802A - Unspecified open wound, left lower leg, initial encounter Is this a current diagnosis for this admission?: Yes Plan: Surgery has been consulted; recommends Unna boot placement. Blood cultures are negative at 48 hours. Wound culture shows Pseudomonas, and MRSA Discontinue meropenem. Start p.o. linezolid x5 days; Day #2 Wound care per surgery's recommendations. Outpatient follow-up with wound care clinic. (4) Sepsis Is this a current diagnosis for this admission?: No Plan: Resolved. (5) Anxiety Is this a current diagnosis for this admission?: Yes Plan: PRN Ativan for wound care and dressing changes. Continue home dose Prozac. Start twice daily BuSpar
[2019-07-10] MEDS: ACETAMINOPHEN 325 MG TABLET PO PRN ×2 (15:25→22:20)
[2019-07-10] MEDS: GABAPENTIN 100 MG CAPSULE PO PRN (15:25)
[2019-07-10] MEDS: ALBUTEROL SULFATE 0.083% NEB 2.5 MG/3 ML AMPUL NEB PRN (19:21)
[2019-07-10] MEDS: IBUPROFEN 400 MG TABLET PO PRN (20:15)
[2019-07-10] MEDS: BUSPIRONE HCL 10 MG TABLET PO SCH (22:20)
[2019-07-10] MEDS ORDERED: LINEZOLID 600 MG TABLET ONE (22:50)
[2019-07-11] MEDS: IBUPROFEN 400 MG TABLET PO PRN ×3 (05:46→19:54)
[2019-07-11] MEDS: GABAPENTIN 100 MG CAPSULE PO PRN ×2 (05:47→21:19)
[2019-07-11 07:25] LABS: HEMATOCRIT 36.9 % (36.0-47.0); HEMOGLOBIN 12.3 g/dL (12.0-15.5); MEAN CORPUSCULAR HEMOGLOBIN 33.7 pg (27.0-33.4); MEAN CORPUSCULAR HGB CONC 33.4 g/dL (32.0-36.0); MEAN CORPUSCULAR VOLUME 101 fl (80-97); PLATELET COUNT 502 10^3/uL (150-450); RED BLOOD COUNT 3.65 10^6/uL (3.72-5.28); RED CELL DISTRIBUTION WIDTH 14.2 % (11.5-14.0)
[2019-07-11] MEDS: IPRATROPIUM/ALBUTEROL 0.5-2.5 MG/3 ML AMPUL NEB SCH ×3 (07:49→23:52)
[2019-07-11 07:50] LABS: ANION GAP 6 (5-19); BLOOD UREA NITROGEN 15 mg/dL (7-20); CALCIUM 8.7 mg/dL (8.4-10.2); CARBON DIOXIDE 36 mmol/L (22-30); CHLORIDE 89 mmol/L (98-107); GLUCOSE 82 mg/dL (75-110); POTASSIUM 4.3 mmol/L (3.6-5.0)
[2019-07-11] MEDS: ENOXAPARIN SODIUM INJ 30 MG/0.3 ML DISP.SYRIN SUBCUT SCH (10:39)
[2019-07-11] MEDS: PREDNISONE 20 MG TABLET PO SCH (10:40)
[2019-07-11] MEDS: ACETAMINOPHEN 325 MG TABLET PO PRN ×2 (10:41→17:10)
[2019-07-11] MEDS: GUAIFENESIN 600 MG TABLET.SA PO SCH ×2 (10:41→21:09)
[2019-07-11] MEDS: BUSPIRONE HCL 10 MG TABLET PO SCH ×2 (10:41→21:09)
[2019-07-11] MEDS: LINEZOLID 600 MG TABLET PO SCH ×2 (10:44→21:09)
[2019-07-11] MEDS: FUROSEMIDE 20 MG TABLET PO SCH (12:16)
--- NOTE | 2019-07-11 19:41 | PDOC PROGRESS REPORT ---
Subjective Progress Note for:: 07/11/19 Subjective:: 68-year-old white female here for severe COPD exacerbation and right foot wound. Has some mild right foot pain around her wounds but overall she states this is getting better. States her breathing is still quite difficult and is very slow to improve. Reason For Visit: SEPSIS, COPD EXACERBATION, INTUBATED Physical Exam Vital Signs: Temp Pulse Resp BP Pulse Ox 98.4 F 105 H 18 151/81 H 99 07/11/19 16:00 07/11/19 16:00 07/11/19 16:00 07/11/19 16:00 07/11/19 16:00 Intake & Output 07/10/19 07/11/19 07/12/19 06:59 06:59 06:59 Intake Total 269 405 3690 Output Total 400 600 Balance 480 -160 628 Weight 52.2 kg 52.2 kg General appearance: PRESENT: no acute distress, cooperative Head exam: PRESENT: atraumatic, normocephalic Eye exam: PRESENT: conjunctiva pink Mouth exam: PRESENT: moist Respiratory exam: PRESENT: crackles - mild, decreased breath sounds. ABSENT: accessory muscle use Cardiovascular exam: PRESENT: RRR, +S1, +S2 GI/Abdominal exam: PRESENT: normal bowel sounds, soft. ABSENT: tenderness Extremities exam: PRESENT: tenderness Neurological exam: PRESENT: alert, awake, oriented to person, oriented to place, oriented to time, oriented to situation Psychiatric exam: PRESENT: appropriate affect, normal mood Skin exam: PRESENT: other - Ulcerations along medial right ankle and lower leg Results Laboratory Results: 07/11/19 05:38 07/11/19 05:38 07/11/19 07/11/19 05:38 05:38 WBC 15.0 H RBC 3.65 L Hgb 12.3 Hct 36.9 MCV 101 H MCH 33.7 H MCHC 33.4 RDW 14.2 H Plt Count 502 H Sodium 131.1 L Potassium 4.3 Chloride 89 L Carbon Dioxide 36 H Anion Gap 6 BUN 15 Creatinine 0.38 L Est GFR ( Amer) > 60 Glucose 82 Calcium 8.7 07/06/19 16:56 Blood Blood Culture - Final NO GROWTH IN 5 DAYS 07/06/19 14:59 Troponin I < 0.012 NT-Pro-B Natriuret Pep 90 Impressions: Tibia/Fibula X-Ray 07/06/19 14:19 IMPRESSION: No evidence of osteomyelitis. Chest X-Ray 07/09/19 00:00 IMPRESSION: Pulmonary edema superimposed on end-stage obstructive lung disease. Assessment and Plan - Diagnosis (1) Acute respiratory failure Qualifiers: Respiratory failure complication: unspecified whether with hypoxia or hype rcapnia Qualified Code(s): J96.00 - Acute respiratory failure, unspecified whether with hypoxia or hypercapnia Is this a current diagnosis for this admission?: Yes Plan: Reoccurred yesterday r/t pulmonary edema. Improved with IV furosemide 20 mg x1 and BiPAP Treatment of COPD exacerbation as above. 07/11: Appears to be quite slow to improve though patient states her breathing is somewhat less labored. Continue breathing treatments, bronchial hygiene, and sinus parameter. IV Lasix given which patient states notably improved her edema today. (2) COPD exacerbation Is this a current diagnosis for this admission?: Yes Plan: Improved today; off BiPAP, continues on NC. Scant wheezing bilaterally. The patient is admitted to the medical floor on continuous cardiac telemetry. CXR showed pulmonary edema. ABG showed respiratory acidosis with hypercapnia and hypoxia. She is provided supplemental oxygen as needed to maintain saturations greater than 89%. BiPAP as needed She is provided scheduled and as needed nebulizer treatments. Continue p.o. prednisone. Mucinex twice daily. Pulmonary toilet. 07/11: Still slowly improving requiring supplemental oxygen. Continue pulmonary support as above. Mucolytics. (3) Cellulitis of right leg Is this a current diagnosis for this admission?: Yes Plan: Highly suspect this wound might be pyoderma gangrenosum given the progression in appearance. Recommended the patient and her that they follow-up with a bomb technician after discharge. May benefit from a biopsy. (4) Respiratory failure Qualifiers: Chronicity: acute Respiratory failure complication: hypoxia Qualified Code(s): J96.01 - Acute respiratory failure with hypoxia Is this a current diagnosis for this admission?: Yes (5) Sepsis Qualifiers: Sepsis type: sepsis due to unspecified organism Sepsis acute organ dysfunction status: with acute organ dysfunction Severe sepsis acute organ dysfunction type: acute respiratory failure Acute respiratory failure type: with hypoxia Severe sepsis shock status: without septic shock Qualified Code(s): A41.9 - Sepsis, unspecified organism; R65.20 - Severe sepsis without septic shock; J96.01 - Acute respiratory failure with hypoxia Is this a current diagnosis for this admission?: No Plan: Resolved. (6) Anxiety Is this a current diagnosis for this admission?: Yes Plan: PRN Ativan for wound care and dressing changes. Continue home dose Prozac. Start twice daily BuSpar 07/11: Continue psychiatric medications. Seems stable today. (7) COPD (chronic obstructive pulmonary disease) Qualifiers: COPD type: emphysema Emphysema type: centrilobular Qualified Code(s): J43.2 - Centrilobular emphysema Is this a current diagnosis for this admission?: Yes - Time Time Spent with patient: 25-34 minutes - Inpatient Certification I certify that my determination is in accordance with my understanding of Medicare's requirements for reasonable and necessary INPATIENT services [42 CFR 412.3e].: Yes Medical Necessity: Need Close Monitoring Due to Risk of Patient Decompensation
[2019-07-12] MEDS: IBUPROFEN 400 MG TABLET PO PRN ×3 (03:56→23:29)
[2019-07-12] MEDS: IPRATROPIUM/ALBUTEROL 0.5-2.5 MG/3 ML AMPUL NEB SCH ×3 (08:42→23:36)
[2019-07-12] MEDS: GABAPENTIN 100 MG CAPSULE PO PRN ×2 (08:58→18:36)
[2019-07-12] MEDS ORDERED: LEVOFLOXACIN 500 MG TABLET PO SCH (12:00)
[2019-07-12] MEDS: GUAIFENESIN 600 MG TABLET.SA PO SCH ×2 (12:59→21:47)
[2019-07-12] MEDS: PREDNISONE 20 MG TABLET PO SCH (12:59)
[2019-07-12] MEDS: BUSPIRONE HCL 10 MG TABLET PO SCH ×2 (12:59→21:47)
[2019-07-12] MEDS: FUROSEMIDE 20 MG TABLET PO SCH (12:59)
[2019-07-12] MEDS: LINEZOLID 600 MG TABLET PO SCH ×2 (13:00→23:29)
[2019-07-12] MEDS: ENOXAPARIN SODIUM INJ 30 MG/0.3 ML DISP.SYRIN SUBCUT SCH (13:00)
[2019-07-12] MEDS ORDERED: MEROPENEM 1 GM VIAL IV SCH (14:00)
[2019-07-12] MEDS: MEROPENEM 1 GM in NORMAL SALINE 50 ML IV SCH ×2 (14:22→21:47)
--- NOTE | 2019-07-12 15:08 | PDOC PROGRESS REPORT ---
Subjective Progress Note for:: 07/12/19 Subjective:: 68-year-old white female here for severe COPD exacerbation and right foot wound. Has some mild right foot pain around her wounds but overall she states this is getting better. States her breathing is still quite difficult and is very slow to improve. 07/12: Very slow to improve from a respiratory standpoint. She is also extremely weak and seems to be debilitated at this point, very likely would be a good candidate for SNF. She would like PT nikki, stating she has benefited from SNF in the past. She states she has been referred to [facility] but was unable to go to her appointment due to current admission. Discussed with her that she would be potentially a very good candidate for hyperbaric treatment for her nonhealing ulcers of her legs. She denies any fever/chills/chest pain/nausea/vomiting/abdominal pain. Reason For Visit: SEPSIS, COPD EXACERBATION, INTUBATED Physical Exam Vital Signs: Temp Pulse Resp BP Pulse Ox 98.3 F 108 H 18 119/57 L 98 07/12/19 11:36 07/12/19 14:00 07/12/19 11:36 07/12/19 11:36 07/12/19 11:36 Intake & Output 07/11/19 07/12/19 07/13/19 06:59 06:59 06:59 Intake Total 240 1658 540 Output Total 400 600 Balance -160 1058 540 Weight 52.2 kg 52.5 kg General appearance: PRESENT: no acute distress, well-developed, well-nourished Head exam: PRESENT: atraumatic, normocephalic Eye exam: PRESENT: conjunctiva pink Respiratory exam: PRESENT: crackles - Mild, unlabored. ABSENT: rhonchi, wheezes Cardiovascular exam: PRESENT: RRR. ABSENT: diastolic murmur, rubs, systolic murmur GI/Abdominal exam: PRESENT: normal bowel sounds, soft. ABSENT: distended, guarding, mass, organolmegaly, rebound, tenderness Neurological exam: PRESENT: alert, awake Psychiatric exam: PRESENT: appropriate affect, normal mood Skin exam: PRESENT: intact, normal color, warm Results Laboratory Results: 07/11/19 05:38 07/11/19 05:38 07/06/19 19:28 Blood Blood Culture - Final NO GROWTH IN 5 DAYS 07/06/19 16:56 Blood Blood Culture - Final NO GROWTH IN 5 DAYS 07/06/19 14:59 Troponin I < 0.012 NT-Pro-B Natriuret Pep 90 Impressions: Tibia/Fibula X-Ray 07/06/19 14:19 IMPRESSION: No evidence of osteomyelitis. Chest X-Ray 07/09/19 00:00 IMPRESSION: Pulmonary edema superimposed on end-stage obstructive lung disease. Assessment and Plan - Diagnosis (1) Acute respiratory failure Qualifiers: Respiratory failure complication: unspecified whether with hypoxia or hypercapnia Qualified Code(s): J96.00 - Acute respiratory failure, unspecified whether with hypoxia or hypercapnia Is this a current diagnosis for this admission?: Yes (2) COPD exacerbation Is this a current diagnosis for this admission?: Yes Plan: Improved today; off BiPAP, continues on NC. Scant wheezing bilaterally. The patient is admitted to the medical floor on continuous cardiac telemetry. CXR showed pulmonary edema. ABG showed respiratory acidosis with hypercapnia and hypoxia. She is provided supplemental oxygen as needed to maintain saturations greater than 89%. BiPAP as needed She is provided scheduled and as needed nebulizer treatments. Continue p.o. prednisone. Mucinex twice daily. Pulmonary toilet. 07/11: Still slowly improving requiring supplemental oxygen. Continue pulmonary support as above. Mucolytics. Prednisone taper DuoNeb's Bronchial hygiene Very slow to improve Wean oxygen to goal of 89 to 94% (3) Cellulitis of right leg Is this a current diagnosis for this admission?: Yes Plan: Highly suspect this wound might be pyoderma gangrenosum given the progression in appearance. Recommended the patient and her that they follow-up with a trimmer meat after discharge. May benefit from a biopsy. Suspect pyoderma gangrenosum Needs dermatology follow-up outpatient Has follow-up appointment with [facility], recommend she be evaluated for hyperbarics Wound culture has grown Pseudomonas and MRSA Was on Merrem earlier in the admission but this was discontinued for unknown reason; restarted this, no biotic options as she allergic to penicillins and fluoroquinolones which I personally confirmed with patient (she has severe itching and tongue swelling with these) Consulted ID for antibiotic recommendations, suspect patient will need PICC line and long-term IV antibiotics outpatient (4) Respiratory failure Qualifiers: Chronicity: acute Respiratory failure complication: hypoxia Qualified Code(s): J96.01 - Acute respiratory failure with hypoxia Is this a current diagnosis for this admission?: Yes (5) Sepsis Qualifiers: Sepsis type: sepsis due to unspecified organism Sepsis acute organ dysfunction status: with acute organ dysfunction Severe sepsis acute organ dysfunction type: acute respiratory failure Acute respiratory failure type: with hypoxia Severe sepsis shock status: without septic shock Qualified Code(s): A41.9 - Sepsis, unspecified organism; R65.20 - Severe sepsis without septic shock; J96.01 - Acute respiratory failure with hypoxia Is this a current diagnosis for this admission?: No (6) Anxiety Is this a current diagnosis for this admission?: Yes (7) COPD (chronic obstructive pulmonary disease) Qualifiers: COPD type: emphysema Emphysema type: centrilobular Qualified Code(s): J43.2 - Centrilobular emphysema Is this a current diagnosis for this admission?: Yes - Time Time Spent with patient: 15-24 minutes Within: within 48 hours - Inpatient Certification Medical Necessity: Need for IV Antibiotics
[2019-07-12] MEDS: ACETAMINOPHEN 325 MG TABLET PO PRN (19:41)
--- NOTE | 2019-07-12 20:24 | Progress Note ---
Provider Note Provider Note: [facility] ID Telephone Advice Consultation: Chart reviewed. This is a 68-year-old woman with COPD and venous insufficiency with chronic lymphedema and stasis ulcers x 3 years who was admitted on 07/06 due to worsening shortness of breath and cough. She didn't respond to BiPAP initially for which she required intubation. She was extubated next day. She was evaluated by surgery for her lower extremities ulcers. Unna boot was recommended but not surgical debridement due to the extent of the wounds. There was a suspicion for pyoderma gangrenosum as well. She has been afebrile, leukocytosis improved - although she has been receiving steroids. A superficial wound culture was positive for skin jacklyn, MRSA and Pseudomonas. ID consulted for recommendations. PMH: COPD Venous Stasis - dermatitis with ulcers Anxiety Disorder Allergies: amoxicillin Allergy (Verified 07/06/19 14:16) ciprofloxacin [From Cipro] Allergy (Verified 07/06/19 14:16) Pruritis oxycodone [From Percocet] Adverse Reaction (Verified 07/06/19 14:16) Flushing Medications: Fluoxetine HCl [Prozac] 10 mg PO DAILY 07/07/19 Gabapentin [Neurontin 100 mg Capsule] 100 mg PO TIDP PRN 07/07/19 Vital Signs: Temp Pulse Resp BP Pulse Ox 98.4 F 96 18 140/84 H 95 07/12/19 16:00 07/12/19 16:22 07/12/19 16:22 07/12/19 16:00 07/12/19 16:22 Intake & Output 07/11/19 07/12/19 07/13/19 06:59 06:59 06:59 Intake Total 240 1658 830 Output Total 400 600 Balance -160 1058 830 Weight 52.2 kg 52.5 kg Weight/Height Weight 52.5 kg Height 5 ft 2 in Laboratories: 07/11/19 05:38 07/11/19 05:38 MCV 101 fl (80-97) H 07/11/19 05:38 MCH 33.7 pg (27.0-33.4) H 07/11/19 05:38 MCHC 33.4 g/dL (32.0-36.0) 07/11/19 05:38 RDW 14.2 % (11.5-14.0) H 07/11/19 05:38 Seg Neutrophils % Not Reportable 07/09/19 05:29 Carbonic Acid 1.89 mmol/L (1.05-1.35) H 07/09/19 14:49 HCO3/H2CO3 Ratio 16:1 07/09/19 14:49 ABG pH 7.33 (7.35-7.45) L 07/09/19 14:49 ABG pCO2 62.9 mmHg (35-45) H 07/09/19 14:49 ABG pO2 61.1 mmHg (80-100) L 07/09/19 14:49 ABG HCO3 32.0 mmol/L (20-24) H 07/09/19 14:49 ABG O2 Saturation 89.0 % (94-98) L 07/09/19 14:49 ABG Base Excess 4.1 mmol/L 07/09/19 14:49 VBG pH 7.37 (7.30-7.42) 07/06/19 14:59 VBG pCO2 61.3 mmHg (35-63) 07/06/19 14:59 VBG HCO3 34.4 mmol/L (20-32) H 07/06/19 14:59 VBG Base Excess 7.0 mmol/L 07/06/19 14:59 FiO2 2L 07/09/19 14:49 Chloride 89 mmol/L (98-107) L 07/11/19 05:38 Carbon Dioxide 36 mmol/L (22-30) H 07/11/19 05:38 Anion Gap 6 (5-19) 07/11/19 05:38 Est GFR ( Amer) > 60 (>60) 07/11/19 05:38 Glucose 82 mg/dL (75-110) 07/11/19 05:38 Lactic Acid 2.1 mmol/L (0.7-2.1) 07/06/19 16:56 Calcium 8.7 mg/dL (8.4-10.2) 07/11/19 05:38 Total Bilirubin 0.4 mg/dL (0.2-1.3) 07/06/19 14:59 AST 35 U/L (14-36) 07/06/19 14:59 Alkaline Phosphatase 71 U/L (38-126) 07/06/19 14:59 Total Protein 7.0 g/dL (6.3-8.2) 07/06/19 14:59 Albumin 3.5 g/dL (3.5-5.0) 07/06/19 14:59 Triglycerides 90 mg/dL (<150) 07/06/19 19:28 Urine Color YELLOW 07/06/19 17:15 Urine Appearance CLOUDY 07/06/19 17:15 Urine pH 5.0 (5.0-9.0) 07/06/19 17:15 Ur Specific [place] 1.016 07/06/19 17:15 Urine Protein 100 mg/dL (NEGATIVE) H 07/06/19 17:15 Urine Glucose (UA) >=500 mg/dL (NEGATIVE) H 07/06/19 17:15 Urine Ketones TRACE mg/dL (NEGATIVE) H 07/06/19 17:15 Urine Blood NEGATIVE (NEGATIVE) 07/06/19 17:15 Urine RBC (Auto) 6 /HPF 07/06/19 17:15 07/06/19 14:59 Troponin I < 0.012 NT-Pro-B Natriuret Pep 90 Microbiology: 07/06/19 19:28 Blood Blood Culture - Final NO GROWTH IN 5 DAYS 07/06/19 16:56 Blood Blood Culture - Final NO GROWTH IN 5 DAYS 07/06/19 Wound Culture Pseudomonas, MRSA Radiology: Tibia/Fibula X-Ray 07/06/19 14:19 IMPRESSION: No evidence of osteomyelitis. Chest X-Ray 07/09/19 00:00 IMPRESSION: Pulmonary edema superimposed on end-stage obstructive lung disease. Assessment and Recommendations: Patient admitted with COPD exacerbation and respiratory failure - resolved. She has venous insufficiency with chronic ulcers x 3 years, non compliant. She gets wound care, but again, non compliant. There are concerns of pyoderma gangrenosum, which if it's the case, surgery is contraindicated due to pathergy. Superficial swab from the wound culture grew mixed skin jacklyn with MRSA and Pseudomonas. These can be colonizers or contaminants in a superficial swab culture. She would need deep tissue cultures if this was infection. Without dermatology evaluation for biopsy it is really difficult to diagnose and differentiate if PG or polymicrobial infection. For this reason, will not recommend a long course of antibiotics. X ray didn't show bony changes suggestive of osteomyelitis. A total course of 7-10 days total is recommended. She already has had at least 5 days, will recommend up to 5 more days. After completion of therapy, should see a resistor winder for biopsy and determine if PG. If not, debridement of infected tissue/wound care would be recommended. Due to comorbidities and nutritional status, these are difficult to heal. Meropenem or cefepime + vancomycin or cefepime + Bactrim DS BID as linezolid may increase the risk of serotonin syndrome. Five more days recommended. Please call if questions. Iram Harry MD [facility] ID [phone]
[2019-07-13] MEDS: GABAPENTIN 100 MG CAPSULE PO PRN ×2 (06:51→17:10)
[2019-07-13] MEDS: MEROPENEM 1 GM in NORMAL SALINE 50 ML IV SCH (06:51)
[2019-07-13] MEDS: IPRATROPIUM/ALBUTEROL 0.5-2.5 MG/3 ML AMPUL NEB SCH ×2 (07:07→16:58)
[2019-07-13] MEDS ORDERED: CEFEPIME 2 GM/D5W RTU 2 GM/50 ML RTUPB IV SCH (10:00)
[2019-07-13] MEDS: SULFAMETHOXAZOLE/TRIMETHOPRIM 800-160 MG TABLET PO SCH ×2 (10:16→21:10)
[2019-07-13] MEDS: FUROSEMIDE 20 MG TABLET PO SCH (10:17)
[2019-07-13] MEDS: PREDNISONE 20 MG TABLET PO SCH (10:17)
[2019-07-13] MEDS: GUAIFENESIN 600 MG TABLET.SA PO SCH ×2 (10:17→21:10)
[2019-07-13] MEDS: BUSPIRONE HCL 10 MG TABLET PO SCH ×2 (10:17→21:10)
[2019-07-13] MEDS: ENOXAPARIN SODIUM INJ 30 MG/0.3 ML DISP.SYRIN SUBCUT SCH (10:17)
[2019-07-13] MEDS: CEFEPIME HCL 2 GM in DEXTROSE 5%-WATER 50 ML IV SCH ×2 (10:18→21:09)
[2019-07-13 11:06] LABS: ANION GAP 5 (5-19); BLOOD UREA NITROGEN 21 mg/dL (7-20); CALCIUM 9.3 mg/dL (8.4-10.2); CARBON DIOXIDE 38 mmol/L (22-30); CHLORIDE 92 mmol/L (98-107); GLUCOSE 101 mg/dL (75-110); POTASSIUM 4.5 mmol/L (3.6-5.0)
[2019-07-13] MEDS: IBUPROFEN 400 MG TABLET PO PRN ×2 (11:18→20:19)
--- NOTE | 2019-07-13 15:52 | PDOC PROGRESS REPORT ---
Subjective Progress Note for:: 07/13/19 Subjective:: 68-year-old white female here for severe COPD exacerbation and right foot wound. Has some mild right foot pain around her wounds but overall she states this is getting better. States her breathing is still quite difficult and is very slow to improve. 07/12: Very slow to improve from a respiratory standpoint. She is also extremely weak and seems to be debilitated at this point, very likely would be a good candidate for SNF. She would like PT nikki, stating she has benefited from SNF in the past. She states she has been referred to [facility] but was unable to go to her appointment due to current admission. Discussed with her that she would be potentially a very good candidate for hyperbaric treatment for her nonhealing ulcers of her legs. She denies any fever/chills/chest pain/nausea/vomiting/abdominal pain. 07/13: Breathing seems to be coming along nicely and patient is becoming more ambulatory. Physical therapy consulted to see her today. Infectious disease reviewed her chart and made recommendations to change antibiotics to cefepime and Bactrim to avoid serotonin syndrome given patient takes antidepressants at home. Discussed with social work patient will need IV antibiotics and a PICC line. No new complaints other than ongoing RLE pain per patient Reason For Visit: SEPSIS, COPD EXACERBATION, INTUBATED Physical Exam Vital Signs: Temp Pulse Resp BP Pulse Ox 98.7 F 114 H 18 135/51 H 99 07/13/19 11:18 07/13/19 11:18 07/13/19 11:18 07/13/19 11:18 07/13/19 11:18 Intake & Output 07/12/19 07/13/19 07/14/19 06:59 06:59 06:59 Intake Total 1658 1500 50 Output Total 600 Balance 1058 1500 50 Weight 52.5 kg 52.3 kg General appearance: PRESENT: no acute distress, well-developed, well-nourished Head exam: PRESENT: atraumatic, normocephalic Eye exam: PRESENT: conjunctiva pink Respiratory exam: PRESENT: wheezes - Scant. ABSENT: crackles, rales, rhonchi Cardiovascular exam: PRESENT: RRR. ABSENT: diastolic murmur, rubs, systolic murmur GI/Abdominal exam: PRESENT: normal bowel sounds, soft. ABSENT: distended, guarding, mass, organolmegaly, rebound, tenderness Musculoskeletal exam: PRESENT: ambulatory Neurological exam: PRESENT: alert, awake Psychiatric exam: PRESENT: appropriate affect, normal mood Skin exam: PRESENT: warm, other - Acute and chronic ulcers of RLE essentially unchanged from before, some mild serosanguineous drainage onto bandages but not much Results Laboratory Results: 07/11/19 05:38 07/13/19 10:27 07/13/19 10:27 Sodium 134.8 L Potassium 4.5 Chloride 92 L Carbon Dioxide 38 H Anion Gap 5 BUN 21 H Creatinine 0.45 L Est GFR ( Amer) > 60 Glucose 101 Calcium 9.3 07/06/19 14:59 Troponin I < 0.012 NT-Pro-B Natriuret Pep 90 Impressions: Tibia/Fibula X-Ray 07/06/19 14:19 IMPRESSION: No evidence of osteomyelitis. Chest X-Ray 07/09/19 00:00 IMPRESSION: Pulmonary edema superimposed on end-stage obstructive lung disease. Assessment and Plan - Diagnosis (1) Acute respiratory failure Qualifiers: Respiratory failure complication: unspecified whether with hypoxia or hypercapnia Qualified Code(s): J96.00 - Acute respiratory failure, unspecified whether with hypoxia or hypercapnia Is this a current diagnosis for this admission?: Yes Plan: Reoccurred yesterday r/t pulmonary edema. Improved with IV furosemide 20 mg x1 and BiPAP Treatment of COPD exacerbation as above. 07/11: Appears to be quite slow to improve though patient states her breathing is somewhat less labored. Continue breathing treatments, bronchial hygiene, and sinus parameter. IV Lasix given which patient states notably improved her edema today. Resolving gradually, RN to continue downward titration of supplemental oxygen until this is off completely if possible (2) COPD exacerbation Is this a current diagnosis for this admission?: Yes Plan: Improved today; off BiPAP, continues on NC. Scant wheezing bilaterally. The patient is admitted to the medical floor on continuous cardiac telemetry. CXR showed pulmonary edema. ABG showed respiratory acidosis with hypercapnia and hypoxia. She is provided supplemental oxygen as needed to maintain saturations greater than 89%. BiPAP as needed She is provided scheduled and as needed nebulizer treatments. Continue p.o. prednisone. Mucinex twice daily. Pulmonary toilet. 07/11: Still slowly improving requiring supplemental oxygen. Continue pulmonary support as above. Mucolytics. Prednisone taper DuoNeb's Bronchial hygiene Gradually improving Wean oxygen to goal of 89 to 94% (3) Cellulitis of right leg Is this a current diagnosis for this admission?: Yes Plan: Highly suspect this wound might be pyoderma gangrenosum given the progression in appearance. Recommended the patient and her that they follow-up with a netting weaver after discharge. May benefit from a biopsy. Suspect pyoderma gangrenosum Needs dermatology follow-up outpatient Discussed the case with local wound care videotape sales representative who stated patient has been noncompliant with oral antibiotics because she was concerned about side effects and they stated she does not meet criteria for hyperbaric treatment at this time Wound culture has grown Pseudomonas and MRSA Was on Merrem earlier in the admission but this was discontinued for unknown reason; restarted this, no biotic options as she allergic to penicillins and fluoroquinolones which I personally confirmed with patient (she has severe itching and tongue swelling with these) Consulted ID for antibiotic recommendations, suspect patient will need PICC line and long-term IV antibiotics outpatient; they recommended IV cefepime and oral Bactrim for 5 additional days from 07/13/2019 (4) Respiratory failure Qualifiers: Chronicity: acute Respiratory failure complication: hypoxia Qualified Code(s): J96.01 - Acute respiratory failure with hypoxia Is this a current diagnosis for this admission?: Yes (5) Sepsis Qualifiers: Sepsis type: sepsis due to unspecified organism Sepsis acute organ dysfunction status: with acute organ dysfunction Severe sepsis acute organ dysfunction type: acute respiratory failure Acute respiratory failure type: with hypoxia Severe sepsis shock status: without septic shock Qualified Code(s): A41.9 - Sepsis, unspecified organism; R65.20 - Severe sepsis without septic shock; J96.01 - Acute respiratory failure with hypoxia Is this a current diagnosis for this admission?: No (6) Anxiety Is this a current diagnosis for this admission?: Yes Plan: PRN Ativan for wound care and dressing changes. Continue home dose Prozac. Start twice daily BuSpar 07/11: Continue psychiatric medications. Seems stable today. There is speculation that patient may continue to abuse alcohol at home as she initially denied this year. Counseled her extensively on the risks of continuing alcohol abuse. (7) COPD (chronic obstructive pulmonary disease) Qualifiers: COPD type: emphysema Emphysema type: centrilobular Qualified Code(s): J43.2 - Centrilobular emphysema Is this a current diagnosis for this admission?: Yes - Time Time Spent with patient: 25-34 minutes - Inpatient Certification Medical Necessity: Need for IV Antibiotics
[2019-07-13] MEDS: ACETAMINOPHEN 325 MG TABLET PO PRN (17:10)
[2019-07-14] MEDS: IPRATROPIUM/ALBUTEROL 0.5-2.5 MG/3 ML AMPUL NEB SCH ×3 (00:58→17:11)
[2019-07-14] MEDS: GABAPENTIN 100 MG CAPSULE PO PRN (01:55)
[2019-07-14] MEDS: IBUPROFEN 400 MG TABLET PO PRN ×2 (04:47→15:54)
[2019-07-14] MEDS: PREDNISONE 20 MG TABLET PO SCH (09:31)
[2019-07-14] MEDS: METOPROLOL TARTRATE 25 MG TABLET PO SCH ×2 (09:31→23:06)
[2019-07-14] MEDS: GUAIFENESIN 600 MG TABLET.SA PO SCH ×2 (09:31→22:30)
[2019-07-14] MEDS: SULFAMETHOXAZOLE/TRIMETHOPRIM 800-160 MG TABLET PO SCH ×2 (09:32→22:58)
[2019-07-14] MEDS: BUSPIRONE HCL 10 MG TABLET PO SCH ×2 (09:32→22:58)
[2019-07-14] MEDS: FUROSEMIDE 20 MG TABLET PO SCH (09:32)
[2019-07-14] MEDS: CEFEPIME HCL 2 GM in DEXTROSE 5%-WATER 50 ML IV SCH ×2 (09:33→22:50)
[2019-07-14] MEDS: ENOXAPARIN SODIUM INJ 30 MG/0.3 ML DISP.SYRIN SUBCUT SCH (09:33)
[2019-07-14] MEDS: GABAPENTIN 100 MG CAPSULE PO SCH ×2 (15:54→22:50)
--- NOTE | 2019-07-14 17:02 | RADIOLOGY REPORT (SQ) ---
EXAM DESCRIPTION: PICC INSERTION; FLUORO/CV PLACEMENT; U/S GUIDE FOR VASCULAR ACCESS COMPLETED DATE/TIME: 07/14/2019 2:52 pm REASON FOR STUDY: IV abx; IV ABX COMPARISON: None. FLUOROSCOPY TIME: 0.59 seconds. 2 images submitted to PACS. TECHNIQUE: Refer to the Procedure. LIMITATIONS: None. PROCEDURE: The procedure, risks, benefits, and alternatives were discussed with the patient in the p reprocedural area, and all questions were answered. Informed consent was obtained verbally and in wri ting. The patient was then brought to the procedural suite, positioned supine on the fluoroscopy table, and a time-out was performed. At first the left upper extremity was evaluated with ultrasound and the brachial vein was found to be patent and compressible. The left upper extremity was then prepped and draped with 2% chlorhexidine utilizing standard sterile technique. After the skin over the brachial vein was anesthetized with 1% lidocaine, ultrasound guidance was used to access the vessel with a 21-gauge needle - a sonographic i mage was stored for documentation. A 0.018 inch guidewire was then inserted through the needle and ad vanced under fluoroscopic guidance into the SVC. After that, the needle was exchanged over the guidew lynette for a peel-away sheath. A 5 Lithuanian double -lumen PICC was then cut to the appropriate length of 3 5 cm, inserted through the sheath and advanced under fluoroscopic guidance into the SVC. After that, the peel-away sheath was removed and a fluoroscopic image of the chest was obtained to confirm proper position of the catheter tip within SVC. The lumens of the PICC were then aspirated, flushed with sterile saline and heparinized. At the end of the procedure the PICC was secured in place and a sterile dressing applied over it. The patient tolerated the procedure well without immediate complication. At the end of the procedure the patient's condition was unchanged from the preprocedural baseline. No IV conscious sedation was administered. Physiologic monitoring was provided before, during, and after the procedure. Documentation of [id number] time performing proceduralist spent monitoring the patient: 15 minutes. IMPRESSION: Successful placement of a 5 Lithuanian double lumen PICC via the left brachial vein utilizin g fluoroscopic and sonographic guidance. COMMENT: Patient medication list reviewed: Yes- Quality ID# [id number]:Eligible professional attests to doc umenting in the medical record they obtained, updated, or reviewed the patient's current medications. . Quality ID 145: Final reports for procedures using fluoroscopy that document radiation exposure gisele leydi, or exposure time and number of fluorographic images (if radiation exposure indices are not avail able) Quality ID #[id number]: The patient was prepped and draped using maximum sterile barrier technique including cap, mask, sterile gown, sterile gloves, a large sterile sheet, hand hygiene, and 2% Chlorhexidine fo r cutaneous antisepsis. When ultrasound is used, sterile ultrasound techniques are followed requiring sterile gel and sterile probes. TECHNICAL DOCUMENTATION: JOB ID: [id number] [employer]- All Rights Reserved rev Reading location - IP/workstation name: [email or web address]
--- NOTE | 2019-07-14 17:59 | PDOC PROGRESS REPORT ---
Subjective Progress Note for:: 07/14/19 Subjective:: 68-year-old white female here for severe COPD exacerbation and right foot wound. Has some mild right foot pain around her wounds but overall she states this is getting better. States her breathing is still quite difficult and is very slow to improve. 07/12: Very slow to improve from a respiratory standpoint. She is also extremely weak and seems to be debilitated at this point, very likely would be a good candidate for SNF. She would like PT nikki, stating she has benefited from SNF in the past. She states she has been referred to [place] [facility] but was unable to go to her appointment due to current admission. Discussed with her that she would be potentially a very good candidate for hyperbaric treatment for her nonhealing ulcers of her legs. She denies any fever/chills/chest pain/nausea/vomiting/abdominal pain. 07/13: Breathing seems to be coming along nicely and patient is becoming more ambulatory. Physical therapy consulted to see her today. Infectious disease reviewed her chart and made recommendations to change antibiotics to cefepime and Bactrim to avoid serotonin syndrome given patient takes antidepressants at home. Discussed with social work patient will need IV antibiotics and a PICC line. No new complaints other than ongoing RLE pain per patient Reason For Visit: SEPSIS, COPD EXACERBATION, INTUBATED Physical Exam Vital Signs: Temp Pulse Resp BP Pulse Ox 98.2 F 106 H 18 134/68 H 95 07/14/19 16:27 07/14/19 17:11 07/14/19 17:11 07/14/19 16:27 07/14/19 17:11 Intake & Output 07/13/19 07/14/19 07/15/19 06:59 06:59 06:59 Intake Total 1500 1430 50 Balance 1500 1430 50 Weight 52.3 kg 52.8 kg 52.8 kg General appearance: PRESENT: no acute distress, well-developed, well-nourished Head exam: PRESENT: atraumatic, normocephalic Eye exam: PRESENT: conjunctiva pink Mouth exam: PRESENT: moist Respiratory exam: PRESENT: clear to auscultation sheryl. ABSENT: rales, rhonchi, wheezes Cardiovascular exam: PRESENT: RRR. ABSENT: diastolic murmur, rubs, systolic murmur GI/Abdominal exam: PRESENT: normal bowel sounds, soft. ABSENT: distended, guarding, mass, organolmegaly, rebound, tenderness Musculoskeletal exam: PRESENT: ambulatory Neurological exam: PRESENT: alert, awake Psychiatric exam: PRESENT: appropriate affect, normal mood Skin exam: PRESENT: dry, intact, warm Results Laboratory Results: 07/11/19 05:38 07/13/19 10:27 07/06/19 14:59 Troponin I < 0.012 NT-Pro-B Natriuret Pep 90 Impressions: Tibia/Fibula X-Ray 07/06/19 14:19 IMPRESSION: No evidence of osteomyelitis. Chest X-Ray 07/09/19 00:00 IMPRESSION: Pulmonary edema superimposed on end-stage obstructive lung disease. Guidance Fluoroscopy 07/14/19 00:00 IMPRESSION: Successful placement of a 5 Malian double lumen PICC via the left brachial vein utilizing fluoroscopic and sonographic guidance. Interventional Vascular Procedure 07/14/19 00:00 IMPRESSION: Successful placement of a 5 Malian double lumen PICC via the left brachial vein utilizing fluoroscopic and sonographic guidance. PICC Line Insertion 07/14/19 00:00 IMPRESSION: Successful placement of a 5 Malian double lumen PICC via the left brachial vein utilizing fluoroscopic and sonographic guidance. Assessment and Plan - Diagnosis (1) Cellulitis of right leg Is this a current diagnosis for this admission?: Yes Plan: Highly suspect this wound might be pyoderma gangrenosum given the progression in appearance. Recommended the patient and her that they follow-up with a packer dried beef after discharge. May benefit from a biopsy. Suspect pyoderma gangrenosum Needs dermatology follow-up outpatient Discussed the case with local wound care school admissions representative who stated patient has been noncompliant with oral antibiotics because she was concerned about side effects and they stated she does not meet criteria for hyperbaric treatment at this time Wound culture has grown Pseudomonas and MRSA Was on Merrem earlier in the admission but this was discontinued for unknown reason; restarted this, no biotic options as she allergic to penicillins and fluoroquinolones which I personally confirmed with patient (she has severe itching and tongue swelling with these) Consulted ID for antibiotic recommendations, suspect patient will need PICC line and long-term IV antibiotics outpatient; they recommended IV cefepime and oral Bactrim for 5 additional days from 07/13/2019 Spoke with ID again on 07/14 and discussed the fact that patient had missed a few days of pseudomonal coverage for unknown reason. They recommended patient getting another 7 days of both cefepime and Bactrim to complete the course. PICC line placed 07/14 (2) Acute respiratory failure Qualifiers: Respiratory failure complication: unspecified whether with hypoxia or hypercapnia Qualified Code(s): J96.00 - Acute respiratory failure, unspecified whether with hypoxia or hypercapnia Is this a current diagnosis for this admission?: Yes (3) COPD exacerbation Is this a current diagnosis for this admission?: Yes (4) Respiratory failure Qualifiers: Chronicity: acute Respiratory failure complication: hypoxia Qualified Code(s): J96.01 - Acute respiratory failure with hypoxia Is this a current diagnosis for this admission?: Yes (5) Sepsis Qualifiers: Sepsis type: sepsis due to unspecified organism Sepsis acute organ dysfunction status: with acute organ dysfunction Severe sepsis acute organ dysfunction type: acute respiratory failure Acute respiratory failure type: with hypoxia Severe sepsis shock status: without septic shock Qualified Code(s): A41.9 - Sepsis, unspecified organism; R65.20 - Severe sepsis without septic shock; J96.01 - Acute respiratory failure with hypoxia Is this a current diagnosis for this admission?: No (6) Anxiety Is this a current diagnosis for this admission?: Yes Plan: PRN Ativan for wound care and dressing changes. Continue home dose Prozac. Start twice daily BuSpar 07/11: Continue psychiatric medications. Seems stable today. There is speculation that patient may continue to abuse alcohol at home as she initially denied this year. Counseled her extensively on the risks of continuing alcohol abuse. Added metoprolol to help with anxiety induced tachycardia (7) COPD (chronic obstructive pulmonary disease) Qualifiers: COPD type: emphysema Emphysema type: centrilobular Qualified Code(s): J43.2 - Centrilobular emphysema Is this a current diagnosis for this admission?: Yes (8) Neuropathic pain Is this a current diagnosis for this admission?: Yes Plan: Scheduled gabapentin - Time Time Spent with patient: 25-34 minutes - Inpatient Certification Medical Necessity: Need for IV Antibiotics
[2019-07-14] MEDS: ACETAMINOPHEN 325 MG TABLET PO PRN (23:05)
[2019-07-15] MEDS: IPRATROPIUM/ALBUTEROL 0.5-2.5 MG/3 ML AMPUL NEB SCH ×3 (00:49→15:43)
[2019-07-15] MEDS: GABAPENTIN 100 MG CAPSULE PO PRN (06:44)
[2019-07-15] MEDS: IBUPROFEN 400 MG TABLET PO PRN ×3 (06:50→22:34)
[2019-07-15] MEDS: GABAPENTIN 100 MG CAPSULE PO SCH ×3 (08:35→21:02)
[2019-07-15] MEDS ORDERED: VITAMIN B COMPLEX TABLET PO ONE (09:00)
[2019-07-15] MEDS: BUSPIRONE HCL 10 MG TABLET PO SCH ×2 (10:09→21:03)
[2019-07-15] MEDS: FUROSEMIDE 20 MG TABLET PO SCH (10:09)
[2019-07-15] MEDS: ENOXAPARIN SODIUM INJ 30 MG/0.3 ML DISP.SYRIN SUBCUT SCH (10:09)
[2019-07-15] MEDS: CEFEPIME HCL 2 GM in DEXTROSE 5%-WATER 50 ML IV SCH ×2 (10:09→21:05)
[2019-07-15] MEDS: METOPROLOL TARTRATE 25 MG TABLET PO SCH ×2 (10:09→21:03)
[2019-07-15] MEDS: GUAIFENESIN 600 MG TABLET.SA PO SCH ×2 (10:09→21:03)
[2019-07-15] MEDS: PREDNISONE 20 MG TABLET PO SCH (10:09)
[2019-07-15] MEDS: SULFAMETHOXAZOLE/TRIMETHOPRIM 800-160 MG TABLET PO SCH ×2 (10:09→21:04)
--- NOTE | 2019-07-15 13:30 | PDOC PROGRESS REPORT ---
Subjective Subjective:: 68-year-old white female here for severe COPD exacerbation and right foot wound. Has some mild right foot pain around her wounds but overall she states this is getting better. States her breathing is still quite difficult and is very slow to improve. 07/12: Very slow to improve from a respiratory standpoint. She is also extremely weak and seems to be debilitated at this point, very likely would be a good candidate for SNF. She would like PT eval, stating she has benefited from SNF in the past. She states she has been referred to [place] [facility] but was unable to go to her appointment due to current admission. Discussed with her that she would be potentially a very good candidate for hyperbaric treatment for her nonhealing ulcers of her legs. She denies any fever/chills/chest pain/nausea/vomiting/abdominal pain. 07/13: Breathing seems to be coming along nicely and patient is becoming more ambulatory. Physical therapy consulted to see her today. Infectious disease reviewed her chart and made recommendations to change antibiotics to cefepime and Bactrim to avoid serotonin syndrome given patient takes antidepressants at home. Discussed with social work patient will need IV antibiotics and a PICC line. No new complaints other than ongoing RLE pain per patient 07/15: Patient notes her pain is significantly less and she is breathing well off of supplemental oxygen as of this morning. Her IV antibiotics are being arranged by social work and she already has her PICC line in place. No new complaints. Reason For Visit: SEPSIS, COPD EXACERBATION, INTUBATED Physical Exam Vital Signs: Temp Pulse Resp BP Pulse Ox 97.9 F 106 H 18 129/52 H 95 07/15/19 08:21 07/15/19 08:24 07/15/19 08:24 07/15/19 08:21 07/15/19 08:24 Intake & Output 07/14/19 07/15/19 07/16/19 06:59 06:59 06:59 Intake Total 1430 1240 50 Balance 1430 1240 50 Weight 52.8 kg 52.6 kg General appearance: PRESENT: no acute distress, well-developed, well-nourished Head exam: PRESENT: atraumatic, normocephalic Eye exam: PRESENT: conjunctiva pink Mouth exam: PRESENT: moist Respiratory exam: PRESENT: clear to auscultation shreyl. ABSENT: rales, rhonchi, wheezes Cardiovascular exam: PRESENT: RRR. ABSENT: diastolic murmur, rubs, systolic murmur GI/Abdominal exam: PRESENT: normal bowel sounds, soft. ABSENT: distended, g uarding, mass, organolmegaly, rebound, tenderness Psychiatric exam: PRESENT: appropriate affect, normal mood Skin exam: PRESENT: dry, warm, other - Chronic leg wounds healing, edema seems to be a bit less today Results Laboratory Results: 07/11/19 05:38 07/13/19 10:27 07/06/19 14:59 Troponin I < 0.012 NT-Pro-B Natriuret Pep 90 Impressions: Tibia/Fibula X-Ray 07/06/19 14:19 IMPRESSION: No evidence of osteomyelitis. Chest X-Ray 07/09/19 00:00 IMPRESSION: Pulmonary edema superimposed on end-stage obstructive lung disease. Guidance Fluoroscopy 07/14/19 00:00 IMPRESSION: Successful placement of a 5 Ecuadorean double lumen PICC via the left brachial vein utilizing fluoroscopic and sonographic guidance. Interventional Vascular Procedure 07/14/19 00:00 IMPRESSION: Successful placement of a 5 Ecuadorean double lumen PICC via the left brachial vein utilizing fluoroscopic and sonographic guidance. PICC Line Insertion 07/14/19 00:00 IMPRESSION: Successful placement of a 5 Ecuadorean double lumen PICC via the left brachial vein utilizing fluoroscopic and sonographic guidance. Assessment and Plan - Diagnosis (1) Cellulitis of right leg Is this a current diagnosis for this admission?: Yes Plan: Highly suspect this wound might be pyoderma gangrenosum given the progression in appearance. Recommended the patient and her that they follow-up with a licensed marine engineer after discharge. May benefit from a biopsy. Suspect pyoderma gangrenosum Needs dermatology follow-up outpatient Discussed the case with local wound care administrative representative who stated patient has been noncompliant with oral antibiotics because she was concerned about side effects and they stated she does not meet criteria for hyperbaric treatment at this time Wound culture has grown Pseudomonas and MRSA Was on Merrem earlier in the admission but this was discontinued for unknown reason; restarted this, no biotic options as she allergic to penicillins and fluoroquinolones which I personally confirmed with patient (she has severe itching and tongue swelling with these) Consulted ID for antibiotic recommendations, suspect patient will need PICC line and long-term IV antibiotics outpatient; they recommended IV cefepime and oral Bactrim for 5 additional days from 07/13/2019 Spoke with ID again on 07/14 and discussed the fact that patient had missed a few days of pseudomonal coverage for unknown reason. They recommended patient getting another 7 days of both cefepime and Bactrim to complete the course. PICC line placed 07/14 Will need home IV antibiotics arranged by social work end date will be 07/20 (2) Acute respiratory failure Qualifiers: Respiratory failure complication: unspecified whether with hypoxia or hypercapnia Qualified Code(s): J96.00 - Acute respiratory failure, unspecified whether with hypoxia or hypercapnia Is this a current diagnosis for this admission?: Yes Plan: Reoccurred yesterday r/t pulmonary edema. Improved with IV furosemide 20 mg x1 and BiPAP Treatment of COPD exacerbation as above. 07/11: Appears to be quite slow to improve though patient states her breathing is somewhat less labored. Continue breathing treatments, bronchial hygiene, and sinus parameter. IV Lasix given which patient states notably improved her edema today. Resolving gradually, RN to continue downward titration of supplemental oxygen until this is off completely if possible Weaned completely off supplemental oxygen as of 07/15 (3) COPD exacerbation Is this a current diagnosis for this admission?: Yes (4) Respiratory failure Qualifiers: Chronicity: acute Respiratory failure complication: hypoxia Qualified Code(s): J96.01 - Acute respiratory failure with hypoxia Is this a current diagnosis for this admission?: Yes (5) Sepsis Qualifiers: Sepsis type: sepsis due to unspecified organism Sepsis acute organ dysfunction status: with acute organ dysfunction Severe sepsis acute organ dysfunction type: acute respiratory failure Acute respiratory failure type: with hypoxia Severe sepsis shock status: without septic shock Qualified Code(s): A41.9 - Sepsis, unspecified organism; R65.20 - Severe sepsis without septic shock; J96.01 - Acute respiratory failure with hypoxia Is this a current diagnosis for this admission?: No (6) Anxiety Is this a current diagnosis for this admission?: Yes (7) COPD (chronic obstructive pulmonary disease) Qualifiers: COPD type: emphysema Emphysema type: centrilobular Qualified Code(s): J43.2 - Centrilobular emphysema Is this a current diagnosis for this admission?: Yes (8) Neuropathic pain Is this a current diagnosis for this admission?: Yes Plan: Scheduled gabapentin - Time Time Spent with patient: 15-24 minutes Anticipated discharge: Home with Homehealth Within: within 48 hours
[2019-07-15] MEDS: ACETAMINOPHEN 325 MG TABLET PO PRN ×2 (15:01→21:02)
[2019-07-16] MEDS: LORAZEPAM 1 MG TABLET PO PRN ×3 (00:30→22:32)
[2019-07-16] MEDS: IPRATROPIUM/ALBUTEROL 0.5-2.5 MG/3 ML AMPUL NEB SCH ×3 (00:57→17:28)
[2019-07-16] MEDS: GABAPENTIN 100 MG CAPSULE PO SCH ×3 (05:19→22:31)
[2019-07-16] MEDS: IBUPROFEN 400 MG TABLET PO PRN ×2 (05:19→20:02)
[2019-07-16] MEDS: CEFEPIME HCL 2 GM in DEXTROSE 5%-WATER 50 ML IV SCH ×2 (10:18→22:30)
[2019-07-16] MEDS: PREDNISONE 20 MG TABLET PO SCH (10:19)
[2019-07-16] MEDS: ENOXAPARIN SODIUM INJ 30 MG/0.3 ML DISP.SYRIN SUBCUT SCH (10:19)
[2019-07-16] MEDS: GUAIFENESIN 600 MG TABLET.SA PO SCH ×2 (10:19→22:31)
[2019-07-16] MEDS: SULFAMETHOXAZOLE/TRIMETHOPRIM 800-160 MG TABLET PO SCH ×2 (10:19→22:32)
[2019-07-16] MEDS: FUROSEMIDE 20 MG TABLET PO SCH (10:19)
[2019-07-16] MEDS: BUSPIRONE HCL 10 MG TABLET PO SCH ×2 (10:19→22:31)
[2019-07-16] MEDS: METOPROLOL TARTRATE 25 MG TABLET PO SCH ×2 (10:19→22:32)
[2019-07-16] MEDS ORDERED: LORAZEPAM 1 MG TABLET PO PRN (11:43)
--- NOTE | 2019-07-16 14:51 | PDOC PROGRESS REPORT ---
Subjective Subjective:: 68-year-old white female here for severe COPD exacerbation and right foot wound. Has some mild right foot pain around her wounds but overall she states this is getting better. States her breathing is still quite difficult and is very slow to improve. 07/12: Very slow to improve from a respiratory standpoint. She is also extremely weak and seems to be debilitated at this point, very likely would be a good candidate for SNF. She would like PT nikki, stating she has benefited from SNF in the past. She states she has been referred [facility] but was unable to go to her appointment due to current admission. Discussed with her that she would be potentially a very good candidate for hyperbaric treatment for her nonhealing ulcers of her legs. She denies any fever/chills/chest pain/nausea/vomiting/abdominal pain. 07/13: Breathing seems to be coming along nicely and patient is becoming more ambulatory. Physical therapy consulted to see her today. Infectious disease reviewed her chart and made recommendations to change antibiotics to cefepime and Bactrim to avoid serotonin syndrome given patient takes antidepressants at home. Discussed with social work patient will need IV antibiotics and a PICC line. No new complaints other than ongoing RLE pain per patient 07/15: Patient notes her pain is significantly less and she is breathing well off of supplemental oxygen as of this morning. Her IV antibiotics are being arranged by social work and she already has her PICC line in place. No new complaints. 07/16: Completely off supplemental oxygen again as this was started overnight when she became briefly short of breath but her saturations were normal. Pain intermittently worse but overall improved per patient. No new complaints, just waiting on IV antibiotics for home health to be set up this week. Reason For Visit: SEPSIS, COPD EXACERBATION, INTUBATED Physical Exam Vital Signs: Temp Pulse Resp BP Pulse Ox 98.3 F 96 18 135/64 H 93 07/16/19 13:00 07/16/19 13:00 07/16/19 13:00 07/16/19 13:07/16/19 13:00 Intake & Output 07/15/19 07/16/19 07/17/19 06:59 06:59 06:59 Intake Total 1240 820 50 Output Total 800 Balance 1240 20 50 Weight 52.6 kg General appearance: PRESENT: no acute distress, well-developed, well-nourished Eye exam: PRESENT: conjunctiva pink Mouth exam: PRESENT: moist Respiratory exam: PRESENT: clear to auscultation sheryl. ABSENT: rales, rhonchi, wheezes Cardiovascular exam: PRESENT: RRR. ABSENT: diastolic murmur, rubs, systolic murmur GI/Abdominal exam: PRESENT: normal bowel sounds, soft. ABSENT: distended, guarding, mass, organolmegaly, rebound, tenderness Extremities exam: PRESENT: other - Wound is gradually healing, mild drainage on bandages Musculoskeletal exam: PRESENT: ambulatory Neurological exam: PRESENT: alert, awake Psychiatric exam: PRESENT: appropriate affect, normal mood Skin exam: PRESENT: dry, intact, warm Results Laboratory Results: 07/11/19 05:38 07/13/19 10:27 07/06/19 14:59 Troponin I < 0.012 NT-Pro-B Natriuret Pep 90 Impressions: Tibia/Fibula X-Ray 07/06/19 14:19 IMPRESSION: No evidence of osteomyelitis. Chest X-Ray 07/09/19 00:00 IMPRESSION: Pulmonary edema superimposed on end-stage obstructive lung disease. Guidance Fluoroscopy 07/14/19 00:00 IMPRESSION: Successful placement of a 5 Canadian double lumen PICC via the left brachial vein utilizing fluoroscopic and sonographic guidance. Interventional Vascular Procedure 07/14/19 00:00 IMPRESSION: Successful placement of a 5 Canadian double lumen PICC via the left brachial vein utilizing fluoroscopic and sonographic guidance. PICC Line Insertion 07/14/19 00:00 IMPRESSION: Successful placement of a 5 Canadian double lumen PICC via the left brachial vein utilizing fluoroscopic and sonographic guidance. Assessment and Plan - Diagnosis (1) Cellulitis of right leg Is this a current diagnosis for this admission?: Yes Plan: Highly suspect this wound might be pyoderma gangrenosum given the progression in appearance. Recommended the patient and her that they follow-up with a gasfitter after discharge. May benefit from a biopsy. Suspect pyoderma gangrenosum Needs dermatology follow-up outpatient Discussed the case with local wound care guest services representative who stated patient has been noncompliant with oral antibiotics because she was concerned about side effects and they stated she does not meet criteria for hyperbaric treatment at this time Wound culture has grown Pseudomonas and MRSA Was on Merrem earlier in the admission but this was discontinued for unknown reason; restarted this, no biotic options as she allergic to penicillins and fluoroquinolones which I personally confirmed with patient (she has severe itching and tongue swelling with these) Consulted ID for antibiotic recommendations, suspect patient will need PICC line and long-term IV antibiotics outpatient; they recommended IV cefepime and oral Bactrim for 5 additional days from 07/13/2019 Spoke with ID again on 07/14 and discussed the fact that patient had missed a few days of pseudomonal coverage for unknown reason. They recommended patient getting another 7 days of both cefepime and Bactrim to complete the course. PICC line placed 07/14 Will need home IV antibiotics arranged by social work end date will be 07/20 Social work will be arranging home antibiotics this week and patient can be discharged at that point (2) Acute respiratory failure Qualifiers: Respiratory failure complication: unspecified whether with hypoxia or hypercapnia Qualified Code(s): J96.00 - Acute respiratory failure, unspecified whether with hypoxia or hypercapnia Is this a current diagnosis for this admission?: Yes (3) COPD exacerbation Is this a current diagnosis for this admission?: Yes (4) Respiratory failure Qualifiers: Chronicity: acute Respiratory failure complication: hypoxia Qualified Code(s): J96.01 - Acute respiratory failure with hypoxia Is this a current diagnosis for this admission?: Yes (5) Sepsis Qualifiers: Sepsis type: sepsis due to unspecified organism Sepsis acute organ dysfunction status: with acute organ dysfunction Severe sepsis acute organ dysfunction type: acute respiratory failure Acute respiratory failure type: with hypoxia Severe sepsis shock status: without septic shock Qualified Code(s): A41.9 - Sepsis, unspecified organism; R65.20 - Severe sepsis without septic shock; J96.01 - Acute respiratory failure with hypoxia Is this a current diagnosis for this admission?: No (6) Anxiety Is this a current diagnosis for this admission?: Yes (7) COPD (chronic obstructive pulmonary disease) Qualifiers: COPD type: emphysema Emphysema type: centrilobular Qualified Code(s): J43.2 - Centrilobular emphysema Is this a current diagnosis for this admission?: Yes (8) Neuropathic pain Is this a current diagnosis for this admission?: Yes - Time Time Spent with patient: 15-24 minutes Anticipated discharge: Home Within: within 48 hours - Await IV antibiotics being set up for home health by social work
[2019-07-16] MEDS: ACETAMINOPHEN 325 MG TABLET PO PRN (22:31)
[2019-07-17] MEDS: IPRATROPIUM/ALBUTEROL 0.5-2.5 MG/3 ML AMPUL NEB SCH ×3 (00:50→15:44)
[2019-07-17] MEDS: GABAPENTIN 100 MG CAPSULE PO SCH ×3 (05:22→22:05)
[2019-07-17] MEDS: IBUPROFEN 400 MG TABLET PO PRN (05:22)
[2019-07-17] MEDS: FUROSEMIDE 20 MG TABLET PO SCH (09:28)
[2019-07-17] MEDS: CEFEPIME HCL 2 GM in DEXTROSE 5%-WATER 50 ML IV SCH ×2 (09:29→22:07)
[2019-07-17] MEDS: SULFAMETHOXAZOLE/TRIMETHOPRIM 800-160 MG TABLET PO SCH ×2 (09:29→22:05)
[2019-07-17] MEDS: ENOXAPARIN SODIUM INJ 30 MG/0.3 ML DISP.SYRIN SUBCUT SCH (09:29)
[2019-07-17] MEDS: METOPROLOL TARTRATE 25 MG TABLET PO SCH ×2 (09:29→22:05)
[2019-07-17] MEDS: BUSPIRONE HCL 10 MG TABLET PO SCH ×2 (09:29→22:07)
[2019-07-17] MEDS: GUAIFENESIN 600 MG TABLET.SA PO SCH ×2 (09:37→22:07)
[2019-07-17 10:54] LABS: ANION GAP 9 (5-19); BLOOD UREA NITROGEN 32 mg/dL (7-20); CALCIUM 9.3 mg/dL (8.4-10.2); CARBON DIOXIDE 30 mmol/L (22-30); CHLORIDE 92 mmol/L (98-107); GLUCOSE 110 mg/dL (75-110); POTASSIUM 4.4 mmol/L (3.6-5.0)
[2019-07-17 10:58] LABS: ABSOLUTE BASOPHILS # (AUTO) 0.1 10^3/uL (0.0-0.2); ABSOLUTE LYMPHOCYTES (AUTO) 2.2 10^3/uL (0.5-4.7); ABSOLUTE MONOCYTES (AUTO) 1.7 10^3/uL (0.1-1.4); ABSOLUTE NEUT (AUTO) 13.2 10^3/uL (1.7-8.2); BASOPHILS % (AUTO) 0.5 % (0-2); EOSINOPHILS % (AUTO) 0.3 % (0-6); HEMATOCRIT 35.7 % (36.0-47.0); HEMOGLOBIN 11.8 g/dL (12.0-15.5); LYMPHOCYTES % (AUTO) 12.6 % (13-45); MEAN CORPUSCULAR HEMOGLOBIN 33.9 pg (27.0-33.4); MEAN CORPUSCULAR HGB CONC 33.2 g/dL (32.0-36.0); MEAN CORPUSCULAR VOLUME 102 fl (80-97); MONOCYTES % (AUTO) 9.9 % (3-13); PLATELET COUNT 269 10^3/uL (150-450); RED BLOOD COUNT 3.48 10^6/uL (3.72-5.28); RED CELL DISTRIBUTION WIDTH 15.2 % (11.5-14.0); SEGMENTED NEUTROPHILS % (AUTO) 76.7 % (42-78); TOTAL CELLS COUNTED % (AUTO) 100 %; WHITE BLOOD COUNT 17.2 10^3/uL (4.0-10.5)
--- NOTE | 2019-07-17 12:58 | PDOC DISCHARGE SUMMARY ---
Impression - Admit/DC Date/PCP Admission Date/Primary Care Provider: 07/06/19 17:07 KRYSTYNA URBINA NP Discharge Date: 07/17/19 - Discharge Diagnosis (1) Acute respiratory failure Is this a current diagnosis for this admission?: Yes (2) COPD exacerbation Is this a current diagnosis for this admission?: Yes (3) Infected open wound Is this a current diagnosis for this admission?: Yes (4) Cellulitis of right leg Is this a current diagnosis for this admission?: Yes (5) Sepsis Is this a current diagnosis for this admission?: Yes (6) Anxiety Is this a current diagnosis for this admission?: Yes - Assessment Summary: Patient initially presented in poor state with complaints of numbness of breath and worsening lower extremity wound. Patient was found to have significant work of breathing in the emergency department requiring intubation. Patient was subsequently taken to the ICU and on mechanical ventilation. Patient's acute respiratory failure was thought to be secondary to COPD exacerbation. Of note, patient has not been officially diagnosed with COPD as she does not had a pulmonary function test both upon admission, she was presumed to have COPD given her significance smoking history and noted physical examination findings. Patient was later extubated in the ICU and required BiPAP occasionally due to tachypnea. Per prior documentation, it was also believed anxiety was playing a role as well and patient's tachypnea. Patient was subsequently started on buspirone to augment the Prozac which she was already on. She was later transferred to the medical floor under hospitalist service where she was continued on treatment for COPD exacerbation with frequent nebulizer treatments and steroids. Patient symptoms have continued to improve significantly. Given that patient has been on high dose of steroids for over 10 days now, I will discharge patient with prednisone taper. I will also discharge patient with albuterol inhalers and budesonide inhalers and urged patient to follow-up with her primary care provider to have an official pulmonary function test to see if she truly does have underlying COPD. Bernie hospitalization, patient was also noted to have infected lower extremity wound involving her right leg. Wound cultures grew Pseudomonas and MRSA. Given patient's multiple allergies, there was no tolerable oral antibiotics for Pseudomonas coverage and patient had to be treated with IV antibiotics. She was treated initially with vancomycin and cefepime. PICC line was placed after consultation with infectious disease, and patient is to complete antibiotic therapy on 07/20/2019. Vancomycin has been discontinued and patient is on Bactrim for MRSA coverage I will continue cefepime 2 g every 12 hours on serial 07/20/19 after which the PICC line will be removed. discharge planner has set patient up for home infusions. - Additional Information Resuscitation Status: Full Code Discharge Diet: Regular Discharge Activity: Activity As Tolerated, Balance Activity w/Rest, Keep Legs Elevated Referrals: [place], PHYSICIAN [Other] (PT'S HAS MADE A FOLLOW UP IN [place] ) [facility] [Outside] [facility] [Outside] Prescriptions: Buspirone HCl [Buspar 10 mg Tablet] 10 mg PO Q12 30 Days tablet Prednisone [Deltasone 5 mg Tablet] 5 mg PO BID #40 tablet Cefepime 2 gm/D5w RTU [Maxipime RTU 2 gm-D5w 50 ml Premix Bag] 2 gm IV Q12 3 Days #6 rtupb Guaifenesin [Mucinex Sr 600 mg Tablet.sa] 600 mg PO Q12 #14 tablet.sa Albuterol Sulfate [Proair Digihaler] 90 mcg IH QIDP PRN #2 inhaler PRN Reason: Budesonide [Pulmicort 90 mcg Flexhaler] 1 inh IH DAILY #2 inhaler Sulfamethoxazole/Trimethoprim [Septra-Ds 800-160 mg Tablet] 1 tab PO Q12 3 Days tablet Home Medications: Fluoxetine HCl [Prozac] 10 mg PO DAILY 07/07/19 Gabapentin [Neurontin 100 mg Capsule] 100 mg PO TIDP PRN 07/07/19 Guaifenesin [Mucinex Sr 600 mg Tablet.sa] 600 mg PO Q12 #14 tablet.sa 07/09/19 Albuterol Sulfate [Proair Digihaler] 90 mcg IH QIDP PRN #2 inhaler 07/17/19 Budesonide [Pulmicort 90 mcg Flexhaler] 1 inh IH DAILY #2 inhaler 07/17/19 Buspirone HCl [Buspar 10 mg Tablet] 10 mg PO Q12 30 Days tablet 07/17/19 Cefepime 2 gm/D5w RTU [Maxipime RTU 2 gm-D5w 50 ml Premix Bag] 2 gm IV Q12 3 Days #6 rtupb 07/17/19 Prednisone [Deltasone 5 mg Tablet] 5 mg PO BID #40 tablet 07/17/19 Sulfamethoxazole/Trimethoprim [Septra-Ds 800-160 mg Tablet] 1 tab PO Q12 3 Days tablet 07/17/19 History of Present Illiness History of Present Illness: MONTEZ GREGG is a 68 year old female, sick for at least a few days, who developed cough, some increased WOB and came to the ED at first for wound care to her L lower leg. Her says the wounds have been getting worse even with wound care. Admits she doesn't always do what is asked. Wound has become larger. While in the ED she became more SOB. Placed on bipap and got no better and was finally intubated. Clinicaly she looks very dehydrated, thin and nearly emaciated and older than chronological age. She has had no N/V and no hx aspiration. Not eating or drinking well. Physical Exam Vital Signs: Temp Pulse Resp BP Pulse Ox 98.1 F 108 H 16 150/67 H 94 07/17/19 08:00 07/17/19 08:23 07/17/19 08:23 07/17/19 08:00 07/17/19 08:23 Intake & Output 07/16/19 07/17/19 07/18/19 06:59 06:59 06:59 Intake Total 820 100 50 Output Total 800 Balance 20 100 50 General appearance: PRESENT: no acute distress, cooperative Respiratory exam: PRESENT: clear to auscultation sheryl Cardiovascular exam: PRESENT: +S1, +S2 GI/Abdominal exam: PRESENT: soft. ABSENT: rebound, rigid, tenderness Neurological exam: PRESENT: alert, awake, oriented to person, oriented to place, oriented to time, oriented to situation Results Laboratory Results: WBC 17.2 10^3/uL (4.0-10.5) H 07/17/19 09:58 RBC 3.48 10^6/uL (3.72-5.28) L 07/17/19 09:58 Hgb 11.8 g/dL (12.0-15.5) L 07/17/19 09:58 Hct 35.7 % (36.0-47.0) L 07/17/19 09:58 MCV 102 fl (80-97) H 07/17/19 09:58 MCH 33.9 pg (27.0-33.4) H 07/17/19 09:58 MCHC 33.2 g/dL (32.0-36.0) 07/17/19 09:58 RDW 15.2 % (11.5-14.0) H 07/17/19 09:58 Plt Count 269 10^3/uL (150-450) 07/17/19 09:58 Lymph % (Auto) 12.6 % (13-45) L 07/17/19 09:58 Wilkin % (Auto) 9.9 % (3-13) 07/17/19 09:58 Eos % (Auto) 0.3 % (0-6) 07/17/19 09:58 Baso % (Auto) 0.5 % (0-2) 07/17/19 09:58 Absolute Neuts (auto) 13.2 10^3/uL (1.7-8.2) H 07/17/19 09:58 Absolute Lymphs (auto) 2.2 10^3/uL (0.5-4.7) 07/17/19 09:58 Absolute Monos (auto) 1.7 10^3/uL (0.1-1.4) H 07/17/19 09:58 Absolute Eos (auto) 0.0 10^3/uL (0.0-0.6) 07/17/19 09:58 Absolute Basos (auto) 0.1 10^3/uL (0.0-0.2) 07/17/19 09:58 Total Counted 100 07/09/19 05:29 Seg Neutrophils % 76.7 % (42-78) 07/17/19 09:58 Seg Neuts % (Manual) 89 % (42-78) H 07/09/19 05:29 Band Neutrophils % 2 % (3-5) L 07/07/19 04:04 Lymphocytes % (Manual) 5 % (13-45) L 07/09/19 05:29 Monocytes % (Manual) 6 % (3-13) 07/09/19 05:29 Eosinophils % (Manual) 0 % (0-6) 07/09/19 05:29 Basophils % (Manual) 0 % (0-2) 07/09/19 05:29 Abs Neuts (Manual) 18.8 10^3/uL (1.7-8.2) H 07/09/19 05:29 Abs Lymphs (Manual) 1.1 10^3/uL (0.5-4.7) 07/09/19 05:29 Abs Monocytes (Manual) 1.3 10^3/uL (0.1-1.4) 07/09/19 05:29 Absolute Eos (Manual) 0.0 10^3/uL (0.0-0.6) 07/09/19 05:29 Abs Basophils (Manual) 0.0 10^3/uL (0.0-0.2) 07/09/19 05:29 Platelet Comment ADEQUATE 07/09/19 05:29 Poikilocytosis SLIGHT 07/09/19 05:29 Anisocytosis SLIGHT 07/09/19 05:29 Macrocytosis 1+ 07/08/19 05:42 Tear Drop Cells SLIGHT 07/09/19 05:29 Ovalocytes 2+ 07/09/19 05:29 Schistocytes SLIGHT 07/09/19 05:29 RBC Morph Comment NORMO-CYTIC/CHROMIC 07/07/19 04:04 Carbonic Acid 1.89 mmol/L (1.05-1.35) H 07/09/19 14:49 HCO3/H2CO3 Ratio 16:1 07/09/19 14:49 ABG pH 7.33 (7.35-7.45) L 07/09/19 14:49 ABG pCO2 62.9 mmHg (35-45) H 07/09/19 14:49 ABG pO2 61.1 mmHg (80-100) L 07/09/19 14:49 ABG HCO3 32.0 mmol/L (20-24) H 07/09/19 14:49 ABG Total CO2 34.0 mmol/L (21-25) H 07/09/19 14:49 ABG O2 Saturation 89.0 % (94-98) L 07/09/19 14:49 ABG Base Excess 4.1 mmol/L 07/09/19 14:49 VBG pH 7.37 (7.30-7.42) 07/06/19 14:59 VBG pCO2 61.3 mmHg (35-63) 07/06/19 14:59 VBG HCO3 34.4 mmol/L (20-32) H 07/06/19 14:59 VBG Base Excess 7.0 mmol/L 07/06/19 14:59 FiO2 2L 07/09/19 14:49 Sodium 131.3 mmol/L (137-145) L 07/17/19 09:58 Potassium 4.4 mmol/L (3.6-5.0) 07/17/19 09:58 Chloride 92 mmol/L (98-107) L 07/17/19 09:58 Carbon Dioxide 30 mmol/L (22-30) 07/17/19 09:58 Anion Gap 9 (5-19) 07/17/19 09:58 BUN 32 mg/dL (7-20) H 07/17/19 09:58 Creatinine 0.39 mg/dL (0.52-1.25) L 07/17/19 09:58 Est GFR ( Amer) > 60 (>60) 07/17/19 09:58 Est GFR (MDRD) Non-Af > 60 (>60) 07/17/19 09:58 Glucose 110 mg/dL (75-110) 07/17/19 09:58 POC Glucose 158 mg/dL (70-110) H 07/07/19 11:40 Lactic Acid 2.1 mmol/L (0.7-2.1) 07/06/19 16:56 Calcium 9.3 mg/dL (8.4-10.2) 07/17/19 09:58 Total Bilirubin 0.4 mg/dL (0.2-1.3) 07/06/19 14:59 Direct Bilirubin 0.2 mg/dL (0.0-0.4) 07/06/19 14:59 Neonat Total Bilirubin Not Reportable 07/06/19 14:59 Neonat Direct Bilirubin Not Reportable 07/06/19 14:59 Neonat Indirect Bili Not Reportable 07/06/19 14:59 AST 35 U/L (14-36) 07/06/19 14:59 ALT 22 U/L (<35) 07/06/19 14:59 Alkaline Phosphatase 71 U/L (38-126) 07/06/19 14:59 Troponin I < 0.012 ng/mL 07/06/19 14:59 NT-Pro-B Natriuret Pep 90 pg/mL (<125) 07/06/19 14:59 Total Protein 7.0 g/dL (6.3-8.2) 07/06/19 14:59 Albumin 3.5 g/dL (3.5-5.0) 07/06/19 14:59 Triglycerides 90 mg/dL (<150) 07/06/19 19:28 Urine Color YELLOW 07/06/19 17:15 Urine Appearance CLOUDY 07/06/19 17:15 Urine pH 5.0 (5.0-9.0) 07/06/19 17:15 Ur Specific [place] 1.016 07/06/19 17:15 Urine Protein 100 mg/dL (NEGATIVE) H 07/06/19 17:15 Urine Glucose (UA) >=500 mg/dL (NEGATIVE) H 07/06/19 17:15 Urine Ketones TRACE mg/dL (NEGATIVE) H 07/06/19 17:15 Urine Blood NEGATIVE (NEGATIVE) 07/06/19 17:15 Urine Nitrite (Reflex) NEGATIVE (NEGATIVE) 07/06/19 17:15 Urine Bilirubin NEGATIVE (NEGATIVE) 07/06/19 17:15 Urine Urobilinogen NEGATIVE mg/dL (<2.0) 07/06/19 17:15 Leukocyte Esterase Rfl NEGATIVE (NEGATIVE) 07/06/19 17:15 Urine RBC (Auto) 6 /HPF 07/06/19 17:15 U Hyaline Cast (Auto) 111 /LPF 07/06/19 17:15 Urine WBC (Reflex) 11 /HPF 07/06/19 17:15 Squamous Epi Cells Auto 2 /HPF 07/06/19 17:15 Urine Mucus (Auto) OCC /LPF 07/06/19 17:15 Urine Ascorbic Acid 40 (NEGATIVE) H 07/06/19 17:15 07/06/19 14:59 Troponin I < 0.012 NT-Pro-B Natriuret Pep 90 Impressions: Chest X-Ray 07/06/19 00:00 IMPRESSION: Right basilar patchy consolidation. Endotracheal tube tip overlies the lower 3rd of the trachea approximately 2 cm above the level of the sofya. NG tube is present with side port overlying the body of the stomach. Chest X-Ray 07/06/19 14:18 IMPRESSION: COPD. NO ACUTE RADIOGRAPHIC FINDING IN THE CHEST. Tibia/Fibula X-Ray 07/06/19 14:19 IMPRESSION: No evidence of osteomyelitis. Chest X-Ray 07/09/19 00:00 IMPRESSION: Pulmonary edema superimposed on end-stage obstructive lung disease. Guidance Fluoroscopy 07/14/19 00:00 IMPRESSION: Successful placement of a 5 Somal[place] double lumen PICC via the left brachial vein utilizing fluoroscopic and sonographic guidance. Interventional Vascular Procedure 07/14/19 00:00 IMPRESSION: Successful placement of a 5 Somali double lumen PICC via the left brachial vein utilizing fluoroscopic and sonographic guidance. PICC Line Insertion 07/14/19 00:00 IMPRESSION: Successful placement of a 5 Somali double lumen PICC via the left brachial vein utilizing fluoroscopic and sonographic guidance. Plan Time Spent: Greater than 30 Minutes Stroke Is this a Stroke Patient?: No Acute Heart Failure - Is this a Heart Failure Patient?: No
[2019-07-17] MEDS: LORAZEPAM 1 MG TABLET PO PRN (22:05)
[2019-07-18] MEDS: IPRATROPIUM/ALBUTEROL 0.5-2.5 MG/3 ML AMPUL NEB SCH ×2 (00:59→09:01)
[2019-07-18] MEDS: GABAPENTIN 100 MG CAPSULE PO SCH (06:38)
[2019-07-18] MEDS: FUROSEMIDE 20 MG TABLET PO SCH (09:53)
[2019-07-18] MEDS: SULFAMETHOXAZOLE/TRIMETHOPRIM 800-160 MG TABLET PO SCH (09:53)
[2019-07-18] MEDS: CEFEPIME HCL 2 GM in DEXTROSE 5%-WATER 50 ML IV SCH (09:53)
[2019-07-18] MEDS: METOPROLOL TARTRATE 25 MG TABLET PO SCH (09:54)
[2019-07-18] MEDS: BUSPIRONE HCL 10 MG TABLET PO SCH (09:54)
[2019-07-18] MEDS: GUAIFENESIN 600 MG TABLET.SA PO SCH (09:54)
[2019-07-18] MEDS: ENOXAPARIN SODIUM INJ 30 MG/0.3 ML DISP.SYRIN SUBCUT SCH (09:54)
[2019-07-18 13:04] VITALS: BP 118/56
== END 2019-07-18 14:21 | disposition home health service (06) | DRG 871 ==
LOC: ER 13:58 → EH 17:07 → ICU 18:35 → 4N 07-07 18:05
PROVIDERS: ADMIT Anesthesiology; ATTEND Anesthesiology
PROC: 5A1935Z Respiratory Ventilation, Less than 24 Consecutive Hours (ICD-10-PCS; principal; 2019-07-06)
PROC: 0BH17EZ Insertion of Endotracheal Airway into Trachea, Via Natural or Artificial Opening (ICD-10-PCS; 2019-07-06)
PROC: 02HV33Z Insertion of Infusion Device into Superior Vena Cava, Percutaneous Approach (ICD-10-PCS; 2019-07-14)
PROC: B5181ZA Fluoroscopy of Superior Vena Cava using Low Osmolar Contrast, Guidance (ICD-10-PCS; 2019-07-14)
PROC: B548ZZA Ultrasonography of Superior Vena Cava, Guidance (ICD-10-PCS; 2019-07-14)
DX: A41.9 Sepsis, unspecified organism (principal); J96.01 Acute respiratory failure with hypoxia; L03.115 Cellulitis of right lower limb; I83.212 Varicose veins of right lower extremity with both ulcer of calf and inflammation; F10.280 Alcohol dependence with alcohol-induced anxiety disorder; L88 Pyoderma gangrenosum; I10 Essential (primary) hypertension; R65.20 Severe sepsis without septic shock; F41.9 Anxiety disorder, unspecified; B96.5 Pseudomonas (aeruginosa) (mallei) (pseudomallei) as the cause of diseases classified elsewhere; B95.62 Methicillin resistant Staphylococcus aureus infection as the cause of diseases classified elsewhere; F41.0 Panic disorder [episodic paroxysmal anxiety]; J43.2 Centrilobular emphysema; E86.0 Dehydration; M79.2 Neuralgia and neuritis, unspecified; Z88.6 Allergy status to analgesic agent; Z88.1 Allergy status to other antibiotic agents; Z88.3 Allergy status to other anti-infective agents; Z87.891 Personal history of nicotine dependence; Z79.899 Other long term (current) drug therapy; Z91.19 Patient's noncompliance with other medical treatment and regimen
CPT/HCPCS: 36415; 36569; 36600; 51702; 71045; 71046; 76937; 77001; 80048; 80053; 81001; 82803; 82962; 83605; 83880; 84478; 84484; 85025; 85027; 87040; 87070; 87077; 87086; 87186; 87205; 93005; 93010; 94002; 94003; 94640; 94660; 94667; 94799; 96361; 96365; 96375; 96376; 99291; A4315; J0692; J1642; J1650; J1940; J1956; J2060; J2185; J2405; J2704; J2920; J2930; J3010; J3370; J3475; J3490; J7030; J7040; J7060; J7512; J7620

== ENCOUNTER 2019-08-01 11:51 | Inpatient (IN) | payer MEDICARE, BC ==
--- NOTE | 2019-08-01 12:53 | ER Document Report ---
ED Medical Screen (RME) - General Chief Complaint: Leg Swelling Stated Complaint: RIGHT LEG PAIN Time Seen by Provider: 08/01/19 12:45 Primary Care Provider: KRYSTYNA URBINA HYDRAULIC BULL RIVETER OPERATOR, HYDRAULIC BULL RIVETER OPERATOR [Primary Care Provider] - Follow up as needed TRAVEL OUTSIDE OF THE [place] IN LAST 30 DAYS: No - HPI Notes: 08/01/19 12:50 68-year-old female presents to the emergency room from the wound care clinic for an infection to her right lower extremity from a venous stasis ulcer, blood cultures grew MRSA and Pseudomonas for the wound culture so they sent her to the emergency room for further evaluation. pt was admitted on 07/06/2019 and discharged on 07/19/2019 [facility] for her right lower extremity wound. Patient has been managed at wound center since that time. Patient did bring her wound culture report along with susceptibility of antibiotics. Denies any chest pain shortness of breath nausea vomiting diarrhea. Denies any fevers or chills patient does have an elevated heart rate of 122 I have greeted and performed a rapid initial assessment of this patient. A comprehensive ED assessment and evaluation of the patient, analysis of test results and completion of the medical decision making process will be conducted by additional ED providers. PHYSICAL EXAMINATION: GENERAL: Well-appearing, well-nourished and in no acute distress. HEAD: Atraumatic, normocephalic. EYES: Pupils equal round extraocular movements intact, conjunctiva are normal. NECK: Normal range of motion CV: s1, s2 regular LUNGS: No respiratory distress Musculoskeletal: Normal range of motion. Bilateral lower extremities with erythema induration swelling with ulceration to right lower extremity NEUROLOGICAL: Normal speech, normal gait. SKIN: Warm, Dry, normal turgor, no rashes or lesions noted. 08/01/19 12:53 - Related Data Allergies/Adverse Reactions: amoxicillin Allergy (Verified 07/06/19 14:16) ciprofloxacin [From Cipro] Allergy (Verified 07/06/19 14:16) Pruritis oxycodone [From Percocet] Adverse Reaction (Verified 07/06/19 14:16) Flushing Past Medical History Pulmonary Medical History: Reports: Hx COPD Neurological Medical History: Denies: Hx Migraine, Hx Seizures Endocrine Medical History: Denies: Hx Diabetes Mellitus Type 1, Hx Diabetes Mellitus Type 2, Hx Hyperthyroidism, Hx Hypothyroidism Renal/ Medical History: Denies: Hx End Stage Renal Disease Malignancy Medical History: Denies: Hx Bone Cancer, Hx Brain Cancer, Hx Breast Cancer, Hx Cervical Cancer, Hx Colorectal Cancer, Hx Leukemia, Hx Liver Cancer, Hx Lung Cancer, Hx Lymphoma, Hx Ovarian Cancer, Hx Pancreatic Cancer, Hx Renal (Kidney) Cancer, Hx Skin Cancer GI Medical History: Denies: Hx Cirrhosis, Hx Crohn's Disease, Hx Diverticulitis, Hx Gastroesophageal Reflux Disease, Hx Hepatitis, Hx Hiatal Hernia, Hx Ulcer ative Colitis Musculoskeltal Medical History: Denies Hx Arthritis, Denies Hx Fibromyalgia, Denies Hx Gout Skin Medical History: Denies Hx Eczema, Denies Hx Psoriasis Psychiatric Medical History: Denies: Hx Attention Deficit Hyperactivity Disorder, Hx Bipolar Disorder, Hx Dementia, Hx Depression, Hx Personality Disorder, Hx Post Traumatic Stress Disorder, Hx Schizoaffective Disorder Infectious Medical History: Denies: Hx C-Diff, Hx Hepatitis, Hx HIV, Hx MRSA, Hx VRE Physical Exam - Vital signs Vitals: Temp Pulse Resp BP Pulse Ox 98.2 F 122 H 18 160/67 H 94 08/01/19 12:30 08/01/19 12:30 08/01/19 12:30 08/01/19 12:30 08/01/19 12:30 Course - Vital Signs Vital signs: Temp Pulse Resp BP Pulse Ox 98.2 F 122 H 18 160/67 H 94 08/01/19 12:30 08/01/19 12:30 08/01/19 12:30 08/01/19 12:30 08/01/19 12:30 Doctor's Discharge - Discharge Referrals: KRYSTYNA URBINA HYDRAULIC BULL RIVETER OPERATOR, HYDRAULIC BULL RIVETER OPERATOR [Primary Care Provider] - Follow up as needed
[2019-08-01 13:48] LABS: ABSOLUTE BASOPHILS # (AUTO) 0.1 10^3/uL (0.0-0.2); ABSOLUTE EOSINOPHILS # (AUTO) 0.2 10^3/uL (0.0-0.6); ABSOLUTE LYMPHOCYTES (AUTO) 0.8 10^3/uL (0.5-4.7); ABSOLUTE MONOCYTES (AUTO) 1.7 10^3/uL (0.1-1.4); ABSOLUTE NEUT (AUTO) 8.8 10^3/uL (1.7-8.2); BASOPHILS % (AUTO) 0.6 % (0-2); HEMATOCRIT 35.3 % (36.0-47.0); HEMOGLOBIN 11.7 g/dL (12.0-15.5); LYMPHOCYTES % (AUTO) 6.8 % (13-45); MEAN CORPUSCULAR HEMOGLOBIN 34.4 pg (27.0-33.4); MEAN CORPUSCULAR HGB CONC 33.3 g/dL (32.0-36.0); MEAN CORPUSCULAR VOLUME 103 fl (80-97); MONOCYTES % (AUTO) 14.6 % (3-13); PLATELET COUNT 438 10^3/uL (150-450); RED BLOOD COUNT 3.42 10^6/uL (3.72-5.28); RED CELL DISTRIBUTION WIDTH 15.1 % (11.5-14.0); TOTAL CELLS COUNTED % (AUTO) 100 %; WHITE BLOOD COUNT 11.5 10^3/uL (4.0-10.5)
[2019-08-01] MEDS ORDERED: CEFTRIAXONE 1 GM/D5W RTU 1 GM/50 ML RTUPB IV ONE (14:00)
[2019-08-01 14:09] LABS: ALBUMIN 3.6 g/dL (3.5-5.0); ALKALINE PHOSPHATASE 79 U/L (38-126); ANION GAP 9 (5-19); ASPARTATE AMINO TRANSFERASE 25 U/L (14-36); BILIRUBIN,DIRECT 0.3 mg/dL (0.0-0.4); BILIRUBIN,TOTAL 0.3 mg/dL (0.2-1.3); BLOOD UREA NITROGEN 16 mg/dL (7-20); CALCIUM 9.9 mg/dL (8.4-10.2); CARBON DIOXIDE 34 mmol/L (22-30); CHLORIDE 100 mmol/L (98-107); GLUCOSE 100 mg/dL (75-110); POTASSIUM 4.1 mmol/L (3.6-5.0); TOTAL PROTEIN 6.9 g/dL (6.3-8.2)
--- NOTE | 2019-08-01 14:33 | ER Document Report ---
ED General - General Chief Complaint: Wound Infection Stated Complaint: RIGHT LEG PAIN Time Seen by Provider: 08/01/19 12:45 TRAVEL OUTSIDE OF THE [place] IN LAST 30 DAYS: No - HPI Notes: 68-year-old female with history of COPD, venous stasis to bilateral legs with ulceration, bilateral lymphedema to the emergency department with with complaints of progressively worsening venous stasis ulcer over the weekend to the right lower leg. She was most recently admitted to the hospital on July 06, for COPD exasperation that required intubation and right leg infection from this venous stasis ulcer. She improved with her COPD over her course of admission and was placed on vancomycin and cefepime for her wound because it grew Pseudomonas and staph aureus. She had a PICC line until July 20 and was receiving 2 g of cefepime through it. She states that she had had some relief of her pain and the wound seemed to be stable until this Wednesday. She states she was seen by wound care nurse and had new meshlike dressing placed to it and after that her leg started to get much worse. She states that her pain is uncontrollable and the wound seems to be getting worse. She states it started to drain a little bit more. She denies any fevers or chills. She states that the swelling and redness to her lower legs have gotten worse. She does not have an ulceration to her left lower extremity but it has started to weep somewhat. She states that she had wound cultures done by her wound care nurse and it grew out Pseudomonas and staph aureus again. She was sent here from wound clinic for further management of these wounds. She also reports feeling short of breath. She states that she feels like this is her normal COPD and anxiety acting up. Patient last ate at 830 this morning. - Related Data Allergies/Adverse Reactions: amoxicillin Allergy (Verified 07/06/19 14:16) ciprofloxacin [From Cipro] Allergy (Verified 07/06/19 14:16) Pruritis oxycodone [From Percocet] Adverse Reaction (Verified 07/06/19 14:16) [place] Home Medications: gabapentin, ibuprofen, pulmicort, albuterol inh Past Medical History - General Information source: Patient, Relative - Significant other - Social History Smoking Status: Former Smoker Chew tobacco use (# tins/day): No Frequency of alcohol use: None Drug Abuse: None Lives with: Spouse/Significant other Family History: Reviewed & Not Pertinent Patient has suicidal ideation: No Patient has homicidal ideation: No Pulmonary Medical History: Reports: Hx COPD Neurological Medical History: Denies: Hx Migraine, Hx Seizures Endocrine Medical History: Denies: Hx Diabetes Mellitus Type 1, Hx Diabetes Mellitus Type 2, Hx Hyperthyroidism, Hx Hypothyroidism Renal/ Medical History: Denies: Hx End Stage Renal Disease Malignancy Medical History: Denies: Hx Bone Cancer, Hx Brain Cancer, Hx Breast Cancer, Hx Cervical Cancer, Hx Colorectal Cancer, Hx Leukemia, Hx Liver Cancer, Hx Lung Cancer, Hx Lymphoma, Hx Ovarian Cancer, Hx Pancreatic Cancer, Hx Renal (Kidney) Cancer, Hx Skin Cancer GI Medical History: Denies: Hx Cirrhosis, Hx Crohn's Disease, Hx Diverticulitis, Hx Gastroesophageal Reflux Disease, Hx Hepatitis, Hx Hiatal Hernia, Hx Ulcerative Colitis Musculoskeletal Medical History: Denies Hx Arthritis, Denies Hx Fibromyalgia, Denies Hx Gout Skin Medical History: Denies Hx Eczema, Denies Hx Psoriasis Psychiatric Medical History: Denies: Hx Attention Deficit Hyperactivity Disorder, Hx Bipolar Disorder, Hx Dementia, Hx Depression, Hx Personality Disorder, Hx Post Traumatic Stress Disorder, Hx Schizoaffective Disorder Infectious Medical History: Denies: Hx C-Diff, Hx Hepatitis, Hx HIV, Hx MRSA, Hx VRE Review of Systems - Review of Systems Constitutional: denies: Chills, Fever EENT: No symptoms reported Cardiovascular: denies: Chest pain, Palpitations, Dyspnea, Syncope, Dizziness, Lightheaded Respiratory: See HPI, Short of breath. denies: Cough Gastrointestinal: denies: Abdominal pain, Diarrhea, Nausea, Vomiting Genitourinary: No symptoms reported Female Genitourinary: No symptoms reported Musculoskeletal: See HPI, Joint pain, Leg swelling Skin: Other - Venous stasis ulcer that is getting worse to the right lower extremity Hematologic/Lymphatic: No symptoms reported Neurological/Psychological: No symptoms reported -: Yes All other systems reviewed and negative Physical Exam - Vital signs Vitals: Temp Pulse Resp BP Pulse Ox 98.2 F 122 H 18 160/67 H 94 08/01/19 12:30 08/01/19 12:30 08/01/19 12:30 08/01/19 12:30 08/01/19 12:30 - General General appearance: Appears well, Alert In distress: None - HEENT Head: Normocephalic, Atraumatic Eyes: Normal Pupils: PERRL Ears: Normal External canal: Normal Tympanic membrane: Normal Sinus: Normal Nasal: Normal Mucous membranes: Normal Pharynx: Normal. No: Potential airway comprom. Neck: Normal, Supple. No: Lymphadenopathy, Meningismus - Respiratory Respiratory status: No respiratory distress. No: Tachypnea Chest status: Nontender. No: Accessory muscle use Breath sounds: Normal. No: Rales, Rhonchi, Wheezing Chest palpation: Normal - Cardiovascular Rhythm: Tachycardia Heart sounds: Normal auscultation Murmur: No - Abdominal Inspection: Normal Distension: No distension Bowel sounds: Normal Tenderness: Nontender Organomegaly: No organomegaly - Back Back: Normal, Nontender - Extremities Notes: To the left lower extremity there is edema and erythema. There is slight weeping of the leg but there is no ulceration. To the right lower extremity there is also edema and erythema that goes up to the level of the upper calf. There is a significant venous stasis ulcer to the ankle and mid calf Course - Re-evaluation Re-evalutation: Discussed patient with Dr. Conteh, ER attending. He agrees with plan for admission for the patient. Spoke with brit Red. He feels like this is a more surgical situation and he would like for me to admit to surgery. Spoke with Dr. Engel, general surgeon. He will come down and evaluate the patient and then we will reconvene. Spoke with Dr. Engel, surgeon. He has seen the patient. He feels like her COPD is too severe for patient to tolerate any sort of surgery. He also states that he would only do minimal debridement on the leg. He feels like the patient is most suited to come in to the hospitalist service. I went and reevaluated the patient she is not wheezing but she does have decreased breath sounds throughout. I ordered a breathing treatment and chest x-ray. Spoke with brit Red. Advised him of my conversation with our surgeon. He states that he will follow-up with her surgeon and come and see the patient. Hospitalist came and saw the patient. He would like to speak further with the surgeon. Hospitalist will call me back once they have a plan for which service the patient will be admitted on. Made my current ER attending, Dr. Mauricio aware of the situation. Hospitalist called me back and stated that her surgeon felt like the patient may need repeat tertiary care because of the severity of her COPD. However is not really known exactly what the severity of her COPD and whether or not anesthesia would feel comfortable taking care of her. I spoke with anesthesiology about the patient and they state that they would be happy to see the patient but would likely need a pulmonology consult. We do not have a pulling unit operator on currently. I then involve Dr. Mauricio, my ER attending. He spoke with the hospitalist as well as the anesthesiologist and as we were having conversations with them we f ound that the surgeon had decided to admit the patient. I called Dr. Engel to clarify and indeed he is planning to admit the patient. He states that the patient has declined transfer at this point. I advised him that I had been having a conversation with anesthesiology and he states he would like for me to place a consult for them. I also advised our anesthesiologist Dr. Eugene that I was putting in the consult. Patient will be admitted to the hospital under surgical service. - Vital Signs Vital signs: Temp Pulse Resp BP Pulse Ox 98.2 F 122 H 23 H 162/71 H 99 08/01/19 12:30 08/01/19 12:30 08/01/19 17:01 08/01/19 17:00 08/01/19 17:01 - Laboratory Result Diagrams: 08/01/19 13:34 08/01/19 13:34 Laboratory results interpreted by me: 08/01/19 08/01/19 13:34 13:34 WBC 11.5 H RBC 3.42 L Hgb 11.7 L Hct 35.3 L MCV 103 H MCH 34.4 H RDW 15.1 H Lymph % (Auto) 6.8 L Harney % (Auto) 14.6 H Absolute Neuts (auto) 8.8 H Absolute Monos (auto) 1.7 H Carbon Dioxide 34 H Creatinine 0.39 L - Diagnostic Test Radiology reviewed: Image reviewed, Reports reviewed Discharge - Discharge Clinical Impression: Infected stasis ulcer of right lower extremity COPD (chronic obstructive pulmonary disease) Qualifiers: COPD type: emphysema Emphysema type: centrilobular Qualified Code(s): J43.2 - Centrilobular emphysema Condition: Stable Disposition: ADMITTED INPATIENT Admitting Provider: Surgicalist - Dr. Engel Unit Admitted: Surgical Floor
[2019-08-01] MEDS ORDERED: MORPHINE SULFATE 10 MG/ML INJ IV ONE ×2 (14:53→15:56)
[2019-08-01] MEDS ORDERED: NORMAL SALINE 1000 ML 1,000 ML IV ONE ×2 (14:54→18:15)
[2019-08-01] MEDS ORDERED: VANCOMYCIN HCL INJ 1000 MG VIAL IV ONE (15:10)
[2019-08-01 15:29] LABS: NT PRO BNP 98 pg/mL (<125)
[2019-08-01 15:33] LABS: TROPONIN I < 0.012 ng/mL
--- NOTE | 2019-08-01 15:54 | RADIOLOGY REPORT (SQ) ---
EXAM DESCRIPTION: TIB FIB BILAT 2 VIEWS COMPLETED DATE/TIME: 08/01/2019 3:34 pm REASON FOR STUDY: wound COMPARISON: None. NUMBER OF VIEWS: Four views. TECHNIQUE: Two radiographic images acquired of the right and left tibia and fibula to include the kn ee and ankle in at least one projection. LIMITATIONS: None. FINDINGS: MINERALIZATION: Normal. BONES: No acute fracture or dislocation. No worrisome bone lesions. SOFT TISSUES: Skin wounds distal right tibia. OTHER: No other significant finding. IMPRESSION: No evidence of osteomyelitis. TECHNICAL DOCUMENTATION: JOB ID: [id number] [employer]- All Rights Reserved Reading location - IP/workstation name: [email or web address]
[2019-08-01] MEDS ORDERED: IPRATROPIUM/ALBUTEROL 0.5-2.5 MG/3 ML AMPUL NEB ONE (16:41)
[2019-08-01 17:02] LABS: APPEARANCE,URINE SLIGHTLY-CLOUDY; BILIRUBIN,URINE NEGATIVE (NEGATIVE); COLOR,URINE YELLOW; GLUCOSE, URINE NEGATIVE (NEGATIVE); KETONES,URINE NEGATIVE (NEGATIVE); LEUKOCYTE ESTERASE,URINE NEGATIVE (NEGATIVE); NITRITE,URINE NEGATIVE (NEGATIVE); PROTEIN,URINE NEGATIVE (NEGATIVE); URINE SPECIFIC GRAVITY 1.011; UROBILINOGEN,URINE NEGATIVE mg/dL (<2.0)
--- NOTE | 2019-08-01 18:01 | PDOC CONSULTATION ---
Consultation Consult Date: 08/01/19 Provider Consulted: DESHAWN HOLCOMB Consult reason:: Evaluate right lower leg ulcers History of Present Illness Admission Date/PCP: KRYSTYNA URBINA NP Patient complains of: Widening right leg wounds and shortness of breath History of Present Illness: MONTEZ GREGG is a 68 year old female with severe COPD presenting with severe dyspnea on exertion. Patient also has a history of severe right leg venous stasis ulcers with superimposed infection growing out MRSA and Pseudomonas in the past. Patient had been treated with long-term antibiotic therapy which was recently discontinued with worsening of her wounds. She has also undergone numerous outpatient debridements. Past Medical History Pulmonary Medical History: Reports: Chronic Obstructive Pulmonary Disease (COPD) Neurological Medical History: Denies: Migraine, Seizures Endocrine Medical History: Denies: Diabetes Mellitus Type 1, Diabetes Mellitus Type 2, Hyperthyroidism, Hypothyroidism Renal/ Medical History: Denies: End Stage Renal Disease Malignancy Medical History: Denies: Bone Cancer, Brain Cancer, Breast Cancer, Cervical Cancer, Colorectal Cancer, Leukemia, Liver Cancer, Lung Cancer, Lymphoma, Ovarian Cancer, [place] creatic Cancer, Renal (Kidney) Cancer, Skin Cancer GI Medical History: Denies: Cirrhosis, Crohn's Disease, Diverticulitis, Gastroesophageal Reflux Disease, Hepatitis, Hiatal Hernia, Ulcerative Colitis Musculoskeltal Medical History: Denies: Arthritis, Fibromyalgia, Gout Skin Medical History: Denies: Eczema, Psoriasis Psychiatric Medical History: Denies: Attention Deficit Hyperactivity Disorder, Bipolar Disorder, Dementia, Depression, Personality Disorder, Post Traumatic Stress Disorder, Schizoaffective Disorder Hematology: Denies: Anemia, Hemophilia, Sickle Cell Disease, Bleeding Tendencies, Heparin Induced Thrombocytopenia, Neutropenia Infectious Medical History: Denies: Clostridium Difficile, HIV, Methicillin-Resistant Staph Aureus, Vancomycin-Resistant Enterococci Past Surgical History Past Surgical History: Reports: Appendectomy, Section - x2, Hysterectomy Social History Lives with: Spouse/Significant other Smoking Status: Former Smoker Electronic Cigarette use?: No Frequency of Alcohol Use: Heavy - Has quit at least in the last month. Hx Recreational Drug Use: No Drugs: None Hx Prescription Drug Abuse: No Family History Family History: Reviewed & Not Pertinent Parental Family History Reviewed: Yes - Heart disease Children Family History Reviewed: Yes Sibling(s) Family History Reviewed.: Yes Medication/Allergy Home Medications: Acetaminophen [Acetaminophen Extra Strength] 1,000 mg PO Q4HP PRN 08/01/19 Budesonide [Pulmicort 90 mcg Flexhaler] 1 puff IH DAILY 08/01/19 Gabapentin [Neurontin 100 mg Capsule] 100 mg PO Q8 08/01/19 Ibuprofen [Motrin 800 mg Tablet] 800 mg PO Q8HP PRN 08/01/19 Allergies/Adverse Reactions: amoxicillin Allergy (Verified 07/06/19 14:16) ciprofloxacin [From Cipro] Allergy (Verified 07/06/19 14:16) Pruritis oxycodone [From Percocet] Adverse Reaction (Verified 07/06/19 14:16) [place] Review of Systems All systems: reviewed and no additional remarkable complaints except as stated Respiratory: PRESENT: cough, dyspnea Neurological: PRESENT: as per HPI Physical Exam Vital Signs: Temp Pulse Resp BP Pulse Ox 98.2 F 122 H 23 H 162/71 H 99 08/01/19 12:30 08/01/19 12:30 08/01/19 17:01 08/01/19 17:00 08/01/19 17:01 Intake & Output 07/31/19 08/01/19 08/02/19 06:59 06:59 06:59 Intake Total 1037 Balance 1037 Weight 56.699 kg General appearance: PRESENT: mild distress - Short of breath Eye exam: PRESENT: conjunctiva pink Respiratory exam: PRESENT: other - Very shallow air movement. Unable to hear breath sounds in either lung clearly Cardiovascular exam: PRESENT: tachycardia Extremities exam: PRESENT: other - Left leg with diffuse swelling and weepiness but no deep-seated ulcers. Right leg with diffuse swelling with erythema with a deep-seated nearly circumferential ulcers that are full-thickness with intervening bridges of skin. Very small amounts of dark tissue. No fluctuance. Generalized weepiness. Neurological exam: PRESENT: alert, awake Psychiatric exam: PRESENT: appropriate affect Results Laboratory Results: 08/01/19 13:34 08/01/19 13:34 08/01/19 08/01/19 08/01/19 13:34 13:34 13:34 WBC 11.5 H RBC 3.42 L Hgb 11.7 L Hct 35.3 L MCV 103 H MCH 34.4 H MCHC 33.3 RDW 15.1 H Plt Count 438 Seg Neutrophils % 76.0 Sodium 142.5 Potassium 4.1 Chloride 100 Carbon Dioxide 34 H Anion Gap 9 BUN 16 Creatinine 0.39 L Est GFR ( Amer) > 60 Glucose 100 Lactic Acid 1.0 Calcium 9.9 Total Bilirubin 0.3 AST 25 Alkaline Phosphatase 79 Total Protein 6.9 Albumin 3.6 Urine Color Urine Appearance Urine pH Ur Specific E[place] Urine Protein Urine Glucose (UA) Urine Ketones Urine Blood Urine Nitrite Ur Leukocyte Esterase Urine WBC (Auto) Urine RBC (Auto) 08/01/19 16:20 WBC RBC Hgb Hct MCV MCH MCHC RDW Plt Count Seg Neutrophils % Sodium Potassium Chloride Carbon Dioxide Anion Gap BUN Creatinine Est GFR ( Amer) Glucose Lactic Acid Calcium Total Bilirubin AST Alkaline Phosphatase Total Protein Albumin Urine Color YELLOW Urine Appearance SLIGHTLY-CLOUDY Urine pH 5.0 Ur Specific [place] 1.011 Urine Protein NEGATIVE Urine Glucose (UA) NEGATIVE Urine Ketones NEGATIVE Urine Blood NEGATIVE Urine Nitrite NEGATIVE Ur Leukocyte Esterase NEGATIVE Urine WBC (Auto) 5 Urine RBC (Auto) 1 08/01/19 13:34 Troponin I < 0.012 NT-Pro-B Natriuret Pep 98 Impressions: Tibia/Fibula X-Ray 08/01/19 15:01 IMPRESSION: No evidence of osteomyelitis. Assessment & Plan - Diagnosis (1) Venous stasis ulcer Qualifiers: Venous stasis ulcer site: other part of lower leg Laterality: right Non- pressure ulcer stage: with fat layer exposed Is this a current diagnosis for this admission?: Yes Plan: Bilateral venous stasis disease with severe right venous stasis ulcers that are full-thickness with significant skin loss nearly circumferentially with a super imposed MRSA and Pseudomonas infection. Prognosis of healing the right leg ulcers is poor. Debridement of the scant amount of necrotic tissue would be of limited benefit to this patient. Recommend admission to medical service for antibiotics to cover Pseudomonas and MRSA. Will do acetic acid dressing changes to her wound. We will try to elevate her leg but she has a tough time elevating her leg due to her shortness of breath. Her COPD is severe and certainly needs treatment.
--- NOTE | 2019-08-01 18:08 | RADIOLOGY REPORT (SQ) ---
EXAM DESCRIPTION: CHEST SINGLE VIEW COMPLETED DATE/TIME: 08/01/2019 5:50 pm REASON FOR STUDY: SOB COMPARISON: Chest films 07/09/2019, 07/06/2019 EXAM PARAMETERS: NUMBER OF VIEWS: One view. TECHNIQUE: Single frontal radiographic view of the chest acquired. RADIATION DOSE: NA LIMITATIONS: None. FINDINGS: LUNGS AND PLEURA: Lungs are hyperinflated and hyperlucent from obstructive disease. Few Wanda lines at both lung bases indicating mild interstitial edema. No pleural effusions. No pneumothorax. MEDIASTINUM AND HILAR STRUCTURES: No masses. Contour normal. HEART AND VASCULAR STRUCTURES: No cardiomegaly BONES: No acute findings. HARDWARE: None in the chest. OTHER: No other significant finding. IMPRESSION: Obstructive lung disease Few Wanda lines at both lung bases worrisome for mild fluid overload or congestive failure TECHNICAL DOCUMENTATION: JOB ID: [id number] [employer]- All Rights Reserved Reading location - IP/workstation name: [email or web address]
[2019-08-01] MEDS ORDERED: KETOROLAC TROMETHAMINE INJ/PF 30 MG/1 ML SDV IV ONE (18:15)
[2019-08-01] MEDS ORDERED: ACETIC ACID 3% SOLN 473 ML TOP SCH (18:30)
--- NOTE | 2019-08-01 18:36 | PDOC CONSULTATION ---
Consultation Consult Date: 08/01/19 Attending physician:: AMBER CHICAS Provider Consulted: STEFFANY LIMON Consult reason:: venous wound RLE, hx of COPD History of Present Illness Admission Date/PCP: KRYSTYNA URBINA NP Patient complains of: right leg pain History of Present Illness: MONTEZ GREGG is a 68 year old female with a history of COPD and lower extremity wounds who presents to the hospital with complaints of worsening pain in her right leg at the site of her venous wounds. Patient has been going to the wound clinic for management of her wound is outpatient. Of note patient was recently admitted to the hospital for COPD exacerbation as well as severe lower extremity venous wounds infection and required IV antibiotics. Wound at that time grew Pseudomonas and she was subsequently discharged to finish off about 3 more days of IV cefepime which she did. Of notes her pain has been getting worse over the past few days and she presents now for evaluation. In the ER, patient was noted to be in a lot of pain from her wound was seen to have wound infection. Recent wound culture from the wound clinic grew MRSA and Pseudom onas. Surgery consulted regarding admission but referring to hospitalist service given patient's history of COPD. Of note, patient states that her breathing has not worsened since discharge and that though she occasionally has SOB especially when she gets anxious, that her level of dyspnea is only very mild and no changes from her typical baseline. Past Medical History Pulmonary Medical History: Reports: Chronic Obstructive Pulmonary Disease (COPD) Neurological Medical History: Denies: Migraine, Seizures Endocrine Medical History: Denies: Diabetes Mellitus Type 1, Diabetes Mellitus Type 2, Hyperthyroidism, Hypothyroidism Renal/ Medical History: Denies: End Stage Renal Disease Malignancy Medical History: Denies: Bone Cancer, Brain Cancer, Breast Cancer, Cervical Cancer, Colorectal Cancer, Leukemia, Liver Cancer, Lung Cancer, Lymphoma, Ovarian Cancer, Pancreatic Cancer, Renal (Kidney) Cancer, Skin Cancer GI Medical History: Denies: Cirrhosis, Crohn's Disease, Diverticulitis, Gastroesophageal Reflux Disease, Hepatitis, Hiatal Hernia, Ulcerative Colitis Musculoskeltal Medical History: Denies: Arthritis, Fibromyalgia, Gout Skin Medical History: Denies: Eczema, Psoriasis Psychiatric Medical History: Denies: Attention Deficit Hyperactivity Disorder, Bipolar Disorder, Dementia, Depression, Personality Disorder, Post Traumatic Stress Disorder, Schizoaffective Disorder Hematology: Denies: Anemia, Hemophilia, Sickle Cell Disease, Bleeding Tendencies, Heparin Induced Thrombocytopenia, Neutropenia Infectious Medical History: Denies: Clostridium Difficile, HIV, Methicillin-Resistant Staph Aureus, Vancomycin-Resistant Enterococci Past Surgical History Past Surgical History: Reports: Appendectomy, Section - x2, Hysterectomy Social History Lives with: Spouse/Significant other Smoking Status: Former Smoker Electronic Cigarette use?: No Frequency of Alcohol Use: Heavy - Has quit at least in the last month. Hx Recreational Drug Use: No Drugs: None Hx Prescription Drug Abuse: No Family History Family History: Hypertension Parental Family History Reviewed: Yes Children Family History Reviewed: NA Sibling(s) Family History Reviewed.: NA Medication/Allergy Home Medications: Acetaminophen [Acetaminophen Extra Strength] 1,000 mg PO Q4HP PRN 08/01/19 Budesonide [Pulmicort 90 mcg Flexhaler] 1 puff IH DAILY 08/01/19 Gabapentin [Neurontin 100 mg Capsule] 100 mg PO Q8 08/01/19 Ibuprofen [Motrin 800 mg Tablet] 800 mg PO Q8HP PRN 08/01/19 Allergies/Adverse Reactions: amoxicillin Allergy (Verified 07/06/19 14:16) ciprofloxacin [From Cipro] Allergy (Verified 07/06/19 14:16) Pruritis oxycodone [From Percocet] Adverse Reaction (Verified 07/06/19 14:16) Flushing Review of Systems Constitutional: PRESENT: fatigue. ABSENT: fever(s) Eyes: ABSENT: visual disturbances Nose, Mouth, and Throat: ABSENT: headache(s) Cardiovascular: ABSENT: chest pain Respiratory: PRESENT: dyspnea - States that her dyspnea is on baseline and has not felt any worsening of shortness of breath.. ABSENT: cough Gastrointestinal: ABSENT: abdominal pain Musculoskeletal: ABSENT: back pain Integumentary: ABSENT: diaphoresis Neurological: ABSENT: confusion Physical Exam Vital Signs: Temp Pulse Resp BP Pulse Ox 98.2 F 122 H 23 H 162/71 H 99 08/01/19 12:30 08/01/19 12:30 08/01/19 17:01 08/01/19 17:00 08/01/19 17:01 Intake & Output 07/31/19 08/01/19 08/02/19 06:59 06:59 06:59 Intake Total 1037 Balance 1037 Weight 56.699 kg General appearance: PRESENT: no acute distress, cooperative Neck exam: ABSENT: JVD Respiratory exam: PRESENT: clear to auscultation sheryl, decreased breath sounds, prolonged expiratory phas, symmetrical, unlabored. ABSENT: rhonchi, tachypnea, wheezes Cardiovascular exam: PRESENT: +S1, +S2, tachycardia. ABSENT: RRR GI/Abdominal exam: PRESENT: soft. ABSENT: rebound, rigid, tenderness Extremities exam: PRESENT: other - Large venous wound in the right lower extremity extending to the bone with purulence Results Laboratory Results: 08/01/19 13:34 08/01/19 13:34 08/01/19 08/01/19 08/01/19 13:34 13:34 13:34 WBC 11.5 H RBC 3.42 L Hgb 11.7 L Hct 35.3 L MCV 103 H MCH 34.4 H MCHC 33.3 RDW 15.1 H Plt Count 438 Seg Neutrophils % 76.0 Sodium 142.5 Potassium 4.1 Chloride 100 Carbon Dioxide 34 H Anion Gap 9 BUN 16 Creatinine 0.39 L Est GFR ( Amer) > 60 Glucose 100 Lactic Acid 1.0 Calcium 9.9 Total Bilirubin 0.3 AST 25 Alkaline Phosphatase 79 Total Protein 6.9 Albumin 3.6 Urine Color Urine Appearance Urine pH Ur Specific [place] Urine Protein Urine Glucose (UA) Urine Ketones Urine Blood Urine Nitrite Ur Leukocyte Esterase Urine WBC (Auto) Urine RBC (Auto) 08/01/19 16:20 WBC RBC Hgb Hct MCV MCH MCHC RDW Plt Count Seg Neutrophils % Sodium Potassium Chloride Carbon Dioxide Anion Gap BUN Creatinine Est GFR ( Amer) Glucose Lactic Acid Calcium Total Bilirubin AST Alkaline Phosphatase Total Protein Albumin Urine Color YELLOW Urine Appearance SLIGHTLY-CLOUDY Urine pH 5.0 Ur Specific [place] 1.011 Urine Protein NEGATIVE Urine Glucose (UA) NEGATIVE Urine Ketones NEGATIVE Urine Blood NEGATIVE Urine Nitrite NEGATIVE Ur Leukocyte Esterase NEGATIVE Urine WBC (Auto) 5 Urine RBC (Auto) 1 08/01/19 13:34 Troponin I < 0.012 NT-Pro-B Natriuret Pep 98 Impressions: Tibia/Fibula X-Ray 08/01/19 15:01 IMPRESSION: No evidence of osteomyelitis. Chest X-Ray 08/01/19 17:38 IMPRESSION: Obstructive lung disease Few Wanda lines at both lung bases worrisome for mild fluid overload or congestive failure Assessment and Plan - Diagnosis (1) Infected open wound Is this a current diagnosis for this admission?: Yes Plan: Patient has a raging infected RLE venous wound involving a very large area in the leg and with noted purulence and pain with leukocytosis Prior wound cx have shown MRSA and Pseudomonas and apparently patient was jiust at the wound clinic outside town and had repeat culture of the wound which showed MRSA and Pseudomonas which has persisted despite receiving IV abx for several days on last admission and even being discharged on IV abx for a few more days. I have discussed with Dr Engel who states that debridement will be only of limited benefit and that Patient's wound will likely require amputation if anesthesia is ok with performing this given underlying COPD and that it may benefit patient being transferred to tertiary facility for possible amputation and where plastic surgery will be available. Of note, patient has significant COPD but it is at baseline and she is not in acute exacerbation, CXR is clear and no active wheezing just chronic decreased breath sounds. Would defer to Surgery regarding need for transfer to tertiary institute or otherwise admitting to Surgicalist service for management of raging RLE venous wound. (2) COPD (chronic obstructive pulmonary disease) Qualifiers: COPD type: emphysema Emphysema type: centrilobular Qualified Code(s): J43.2 - Centrilobular emphysema Is this a current diagnosis for this admission?: Yes Plan: COPD at baseline and not in acute exacerbation. Patient is w/o active wheeze and spo2 on room air was in the low 90s on admi ssion which is ok for COPD. cxr neg C/w prn nebs and ICS (3) Anxiety Is this a current diagnosis for this admission?: Yes - Time Time Spent with patient: 35 or more minutes
--- NOTE | 2019-08-01 18:44 | PDOC H&P ---
History of Present Illness Admission Date/PCP: KRYSTYNA URBINA NP Patient complains of: Shortness of breath and nonhealing right leg wound. History of Present Illness: MONTEZ GREGG is a 68 year old female with severe COPD presenting with severe dyspnea on exertion. Patient also has a history of severe right leg venous stasis ulcers with superimposed infection growing out MRSA and Pseudomonas in the past. Patient had been treated with long-term antibiotic therapy which was recently discontinued with worsening of her wounds. She has also undergone numerous outpatient debridements. Past Medical History Pulmonary Medical History: Reports: Chronic Obstructive Pulmonary Disease (COPD) Neurological Medical History: Denies: Migraine, Seizures Endocrine Medical History: Denies: Diabetes Mellitus Type 1, Diabetes Mellitus Type 2, Hyperthyroidism, Hypothyroidism Renal/ Medical History: Denies: End Stage Renal Disease Malignancy Medical History: Denies: Bone Cancer, Brain Cancer, Breast Cancer, Cervical Cancer, Colorectal Cancer, Leukemia, Liver Cancer, Lung Cancer, Lymphoma, Ovarian Cancer, Pancreatic Cancer, Renal (Kidney) Cancer, Skin Cancer GI Medical History: Denies: Cirrhosis, Crohn's Disease, Diverticulitis, Gastroesophageal Reflux Disease, Hepatitis, Hiatal Hernia, Ulcerative Colitis Musculoskeltal Medical History: Denies: Arthritis, Fibromyalgia, Gout Skin Medical History: Denies: Eczema, Psoriasis Psychiatric Medical History: Denies: Attention Deficit Hyperactivity Disorder, Bipolar Disorder, Dementia, Depression, Personality Disorder, Post Traumatic Stress Disorder, Schizoaff ective Disorder Hematology: Denies: Anemia, Hemophilia, Sickle Cell Disease, Bleeding Tendencies, Heparin Induced Thrombocytopenia, Neutropenia Infectious Medical History: Denies: Clostridium Difficile, HIV, Methicillin-Resistant Staph Aureus, [place] ncomycin-Resistant Enterococci Past Surgical History Past Surgical History: Reports: Appendectomy, Section - x2, Hysterectomy Social History Lives with: Spouse/Significant other Smoking Status: Former Smoker Electronic Cigarette use?: No Frequency of Alcohol Use: Heavy - Has quit at least in the last month. Hx Recreational Drug Use: No Drugs: None Hx Prescription Drug Abuse: No Family History Family History: Reviewed & Not Pertinent Parental Family History Reviewed: Yes Children Family History Reviewed: Yes Sibling(s) Family History Reviewed.: Yes Medication/Allergy Home Medications: Acetaminophen [Acetaminophen Extra Strength] 1,000 mg PO Q4HP PRN 08/01/19 Budesonide [Pulmicort 90 mcg Flexhaler] 1 puff IH DAILY 08/01/19 Gabapentin [Neurontin 100 mg Capsule] 100 mg PO Q8 08/01/19 Ibuprofen [Motrin 800 mg Tablet] 800 mg PO Q8HP PRN 08/01/19 Allergies/Adverse Reactions: amoxicillin Allergy (Verified 07/06/19 14:16) ciprofloxacin [From Cipro] Allergy (Verified 07/06/19 14:16) Pruritis oxycodone [From Percocet] Adverse Reaction (Verified 07/06/19 14:16) Flushing Physical Exam Vital Signs: Temp Pulse Resp BP Pulse Ox 98.2 F 122 H 23 H 162/71 H 99 08/01/19 12:30 08/01/19 12:30 08/01/19 17:01 08/01/19 17:00 08/01/19 17:01 Intake & Output 07/31/19 08/01/19 08/02/19 06:59 06:59 06:59 Intake Total 1037 Balance 1037 Weight 56.699 kg General appearance: PRESENT: mild distress - Short of breath Respiratory exam: PRESENT: other - Minimal breath sounds heard bilaterally. Cardiovascular exam: PRESENT: tachycardia GI/Abdominal exam: PRESENT: other - Soft, nondistended, nontender to palpation. Ventral hernia that is easily reducible. Extremities exam: PRESENT: other - Bilateral lower extremity diffuse edema with skin thickening with weepiness of the left leg. Right leg with much more severe disease with nearly circumferential skin ulcers with full-thickness skin loss with bridging thickened viable skin. Scant amount of dark scattered tissue. Neurological exam: PRESENT: alert, awake Psychiatric exam: PRESENT: appropriate affect Results Laboratory Results: 08/01/19 13:34 08/01/19 13:34 08/01/19 08/01/19 08/01/19 13:34 13:34 13:34 WBC 11.5 H RBC 3.42 L Hgb 11.7 L Hct 35.3 L MCV 103 H MCH 34.4 H MCHC 33.3 RDW 15.1 H Plt Count 438 Seg Neutrophils % 76.0 Sodium 142.5 Potassium 4.1 Chloride 100 Carbon Dioxide 34 H Anion Gap 9 BUN 16 Creatinine 0.39 L Est GFR ( Amer) > 60 Glucose 100 Lactic Acid 1.0 Calcium 9.9 Total Bilirubin 0.3 AST 25 Alkaline Phosphatase 79 Total Protein 6.9 Albumin 3.6 Urine Color Urine Appearance Urine pH Ur Specific [place] Urine Protein Urine Glucose (UA) Urine Ketones Urine Blood Urine Nitrite Ur Leukocyte Esterase Urine WBC (Auto) Urine RBC (Auto) 08/01/19 16:20 WBC RBC Hgb Hct MCV MCH MCHC RDW Plt Count Seg Neutrophils % Sodium Potassium Chloride Carbon Dioxide Anion Gap BUN Creatinine Est GFR ( Amer) Glucose Lactic Acid Calcium Total Bilirubin AST Alkaline Phosphatase Total Protein Albumin Urine Color YELLOW Urine Appearance SLIGHTLY-CLOUDY Urine pH 5.0 Ur Specific [place] 1.011 Urine Protein NEGATIVE Urine Glucose (UA) NEGATIVE Urine Ketones NEGATIVE Urine Blood NEGATIVE Urine Nitrite NEGATIVE Ur Leukocyte Esterase NEGATIVE Urine WBC (Auto) 5 Urine RBC (Auto) 1 08/01/19 13:34 Troponin I < 0.012 NT-Pro-B Natriuret Pep 98 Impressions: Tibia/Fibula X-Ray 08/01/19 15:01 IMPRESSION: No evidence of osteomyelitis. Chest X-Ray 08/01/19 17:38 IMPRESSION: Obstructive lung disease Few Wanda lines at both lung bases worrisome for mild fluid overload or congestive failure Assessment & Plan - Diagnosis (1) Venous stasis ulcer Is this a current diagnosis for this admission?: Yes Plan: Bilateral venous stasis disease with severe right venous stasis ulcers that are full-thickness with significant skin loss nearly circumferentially with a superimposed MRSA and Pseudomonas infection. Prognosis of healing the right leg ulcers is poor. Debridement of the scant amount of necrotic tissue would be of limited benefit to this patient. I had recommended admission to the medical service for IV antibiotics and leg elevation and acetic acid dressing changes along with management of her severe COPD however hospitalist has refused to admit the patient to medicine. He recommended commercial lines manager as a consult. In further discussing this patient with him, with the prognosis being so poor to heal these wounds despite prior admissions and close follow-up at wound care center, patient may benefit from transfer to a tertiary care center with pulmonary expertise and specialty anesthesia expertise along with plastic surgery. I think the only way to heal these wounds would be an extensive debridement with split-thickness skin graft but I think even that would be unlikely to salvage her leg. She may very well need a amputation but I feel that this needs to be done at a tertiary care center in light of her severe pulmonary disease. I have discussed with the patient transfer to a tertiary care center but she is undecided. Therefore I will admit the patient to start the above-mentioned conservative treatments.
[2019-08-01] MEDS ORDERED: NORMAL SALINE 1000 ML 1,000 ML IV PRN (18:55)
[2019-08-01] MEDS: GABAPENTIN 100 MG CAPSULE PO SCH (21:39)
[2019-08-01] MEDS: ENOXAPARIN SODIUM INJ 40 MG/0.4 ML DISP.SYRIN SUBCUT SCH (21:39)
[2019-08-01] MEDS: CEFEPIME 1 GM/D5W RTU 1 GM/50 ML RTUPB IV SCH (21:40)
[2019-08-02] MEDS: MORPHINE SULFATE 10 MG/ML INJ IV PRN ×2 (01:57→06:38)
[2019-08-02] MEDS: GABAPENTIN 100 MG CAPSULE PO SCH ×2 (05:27→14:25)
[2019-08-02] MEDS: IPRATROPIUM/ALBUTEROL 0.5-2.5 MG/3 ML AMPUL NEB PRN ×2 (05:32→15:15)
[2019-08-02] MEDS ORDERED: VANCOMYCIN HCL 1,250 MG in DEXTROSE 5%-WATER 250 ML IV SCH (08:00)
[2019-08-02] MEDS ORDERED: FLUOXETINE HCL 20 MG CAPSULE PO SCH (10:00)
[2019-08-02] MEDS ORDERED: VANCOMYCIN HCL INJ 1000 MG VIAL IV SCH (10:00)
[2019-08-02] MEDS ORDERED: BUDESONIDE IH SCH (10:00)
[2019-08-02] MEDS ORDERED: FLUTICASONE/VILANTEROL 200-25 MCG/DOSE IH SCH (10:00)
[2019-08-02] MEDS ORDERED: BUSPIRONE HCL 10 MG TABLET PO SCH (10:00)
--- NOTE | 2019-08-02 10:14 | PDOC PROGRESS REPORT ---
Subjective Progress Note for:: 08/02/19 Subjective:: This is a 68-year-old female with severe right lower extremity venous stasis ulcers. There is circumferential ulceration, that is full-thickness, to the bone and fascia of the leg. She has grown MRSA and Pseudomonas from the wound. There is devitalized, necrotic tissue present circumferentially on the leg. The patient reports severe pain in the leg. She reports that she cannot wear compression due to the pain in the leg. She denies chest pain, shortness of breath, fevers, chills, nausea, vomiting, orthostasis, dizziness, headache. Reason For Visit: FULL-THICKNESS VENOUS STATIS ULCERS,COPD Physical Exam Vital Signs: Temp Pulse Resp BP Pulse Ox 98.1 F 105 H 15 131/64 H 96 08/02/19 06:00 08/02/19 09:15 08/02/19 09:15 08/02/19 08:01 08/02/19 09:15 Intake & Output 08/01/19 08/02/19 08/03/19 06:59 06:59 06:59 Intake Total 2087 250 Balance 2087 250 Weight 56.699 kg General appearance: PRESENT: mild distress - Right lower extremity pain Head exam: PRESENT: atraumatic, normocephalic Eye exam: PRESENT: PERRLA. ABSENT: scleral icterus Mouth exam: PRESENT: moist, neck supple Neck exam: ABSENT: meningismus, tenderness, thyromegaly, tracheal deviation Respiratory exam: PRESENT: unlabored. ABSENT: chest wall tenderness Cardiovascular exam: ABSENT: tachycardia GI/Abdominal exam: PRESENT: soft. ABSENT: distended, tenderness Rectal exam: PRESENT: deferred Extremities exam: ABSENT: clubbing Neurological exam: PRESENT: alert, awake, oriented to person, oriented to place, oriented to time, oriented to situation, CN II-XII grossly intact. ABSENT: motor sensory deficit Psychiatric exam: PRESENT: agitated, anxious. ABSENT: depressed Focused psych exam: ABSENT: delusional Skin exam: PRESENT: erythema, other - Full-thickness necrosis of the skin of the distal right lower extremity, with with exposed bone and fascia. Of skin remain in the right lower extremity necrotic/nonviable areas. The ulceration is severe and circumferential. Results Laboratory Results: 08/01/19 13:34 08/01/19 13:34 08/01/19 08/01/1920 13:34 13:34 13:34 WBC 11.5 H RBC 3.42 L Hgb 11.7 L Hct 35.3 L MCV 103 H MCH 34.4 H MCHC 33.3 RDW 15.1 H Plt Count 438 Seg Neutrophils % 76.0 Sodium 142.5 Potassium 4.1 Chloride 100 Carbon Dioxide 34 H Anion Gap 9 BUN 16 Creatinine 0.39 L Est GFR ( Amer) > 60 Glucose 100 Lactic Acid 1.0 Calcium 9.9 Total Bilirubin 0.3 AST 25 Alkaline Phosphatase 79 Total Protein 6.9 Albumin 3.6 Urine Color Urine Appearance Urine pH Ur Specific [place] Urine Protein Urine Glucose (UA) Urine Ketones Urine Blood Urine Nitrite Ur Leukocyte Esterase Urine WBC (Auto) Urine RBC (Auto) 08/01/19 16:20 WBC RBC Hgb Hct MCV MCH MCHC RDW Plt Count Seg Neutrophils % Sodium Potassium Chloride Carbon Dioxide Anion Gap BUN Creatinine Est GFR ( Amer) Glucose Lactic Acid Calcium Total Bilirubin AST Alkaline Phosphatase Total Protein Albumin Urine Color YELLOW Urine Appearance SLIGHTLY-CLOUDY Urine pH 5.0 Ur Specific [place] 1.011 Urine Protein NEGATIVE Urine Glucose (UA) NEGATIVE Urine Ketones NEGATIVE Urine Blood NEGATIVE Urine Nitrite NEGATIVE Ur Leukocyte Esterase NEGATIVE Urine WBC (Auto) 5 Urine RBC (Auto) 1 08/01/19 13:34 Troponin I < 0.012 NT-Pro-B Natriuret Pep 98 Impressions: Tibia/Fibula X-Ray 08/01/19 15:01 IMPRESSION: No evidence of osteomyelitis. Chest X-Ray 08/01/19 17:38 IMPRESSION: Obstructive lung disease Few Wanda lines at both lung bases worrisome for mild fluid overload or congestive failure Assessment & Plan - Diagnosis (1) Venous stasis ulcer Qualifiers: Venous stasis ulcer site: other part of lower leg Laterality: right Non-p ressure ulcer stage: with fat layer exposed Is this a current diagnosis for this admission?: Yes - Time Time Spent with patient: Less than 15 minutes - Plan Summary Plan Summary: This is a 68-year-old female with severe, circumferential venous stasis ulcers of the right lower extremity. They are full-thickness, with areas of ongoing infection/necrosis. Unfortunately, at this institution we do not have vascular surgery or reconstructive plastic surgery. The only intervention that I can offer her is amputation, which would likely be at the level above the knee. The patient is not willing to accept this. The patient has requested transfer to a tertiary care facility for evaluation by vascular and plastic surgery. This is reasonable. I will attempt to facilitate this if possible. I have spoken with the hospital in [facility] [place], and they have refused to accept her in transfer. I have also spoken with [facility] in [facility]. They will discuss the case with a physician and call me back.
[2019-08-02] MEDS: CEFEPIME 1 GM/D5W RTU 1 GM/50 ML RTUPB IV SCH (10:24)
[2019-08-02] MEDS: ENOXAPARIN SODIUM INJ 40 MG/0.4 ML DISP.SYRIN SUBCUT SCH (10:24)
--- NOTE | 2019-08-02 14:19 | Progress Note ---
Provider Note Provider Note: This is a 68-year-old female with severe venous stasis ulcers to the right lower extremity. I have discussed the case with a Dr. Isidro Lopez at [facility]. He has agreed to accept the patient in transfer, as soon as a bed is available. I have relayed this information to the patient. The patient was set to have a PICC line placed today, however she has refused PICC line placement. We will continue with medical therapy until transfer is possible. Continue intravenous antibiotics and pain medication. Continue with lower extremity elevation for now.
--- NOTE | 2019-08-02 14:24 | EKG REPORT ---
SEVERITY:- ABNORMAL ECG - SINUS TACHYCARDIA : Confirmed by: Rivas Schwartz 02-Aug-2019 14:23:57
--- NOTE | 2019-08-02 15:59 | PDOC PROGRESS REPORT ---
Subjective Progress Note for:: 08/02/19 Subjective:: Patient seen and evaluated by me this morning. Patient endorsed 1 peroxisomal of shortness of breath when she felt anxious. Says she felt better after the breathing treatment and that it had resolved at the time of my encounter. Denies any chest pain, fever or chills. States that pain in her leg is still present but more tolerable. Reason For Visit: FULL-THICKNESS VENOUS STATIS ULCERS,COPD Physical Exam Vital Signs: Temp Pulse Resp BP Pulse Ox 98.1 F 105 H 15 131/64 H 96 08/02/19 06:00 08/02/19 09:15 08/02/19 09:15 08/02/19 08:01 08/02/19 09:15 Intake & Output 08/01/19 08/02/19 08/03/19 06:59 06:59 06:59 Intake Total 2087 300 Balance 2087 300 Weight 56.699 kg General appearance: PRESENT: no acute distress, cooperative Neck exam: ABSENT: JVD Respiratory exam: PRESENT: clear to auscultation sheryl, decreased breath sounds, unlabored. ABSENT: tachypnea, wheezes Cardiovascular exam: PRESENT: +S1, +S2, tachycardia. ABSENT: irregular rhythm GI/Abdominal exam: PRESENT: normal bowel sounds, soft. ABSENT: rebound, rigid, tenderness Musculoskeletal exam: PRESENT: other - Right lower extremity wound and clean dressing. Significant redness surrounding both lower extremities. Neurological exam: PRESENT: alert, awake, oriented to person, oriented to place, oriented to time Results Laboratory Results: 08/01/19 13:34 08/01/19 13:34 08/01/19 16:20 Urine Color YELLOW Urine Appearance SLIGHTLY-CLOUDY Urine pH 5.0 Ur Specific [place] 1.011 Urine Protein NEGATIVE Urine Glucose (UA) NEGATIVE Urine Ketones NEGATIVE Urine Blood NEGATIVE Urine Nitrite NEGATIVE Ur Leukocyte Esterase NEGATIVE Urine WBC (Auto) 5 Urine RBC (Auto) 1 08/01/19 13:34 Troponin I < 0.012 NT-Pro-B Natriuret Pep 98 Impressions: Tibia/Fibula X-Ray 08/01/19 15:01 IMPRESSION: No evidence of osteomyelitis. Chest X-Ray 08/01/19 17:38 IMPRESSION: Obstructive lung disease Few Wanda lines at both lung bases worrisome for mild fluid overload or congestive failure Assessment and Plan - Diagnosis (1) Infected open wound Is this a current diagnosis for this admission?: Yes Plan: As history of MRSA and Pseudomonas on prior wound culture Surgery planning on transfer to [facility] for evaluation by vascular and plastic surgery. Agree with antibiotic regimen of vancomycin and cefepime for MRSA and Pseudomonas coverage (2) COPD (chronic obstructive pulmonary disease) Qualifiers: COPD type: emphysema Emphysema type: centrilobular Qualified Code(s): J43.2 - Centrilobular emphysema Is this a current diagnosis for this admission?: Yes Plan: COPD at baseline and not in acute exacerbation. Patient is w/o active wheeze and spo2 on room air was in the low 90s on admission which is ok for COPD. cxr neg C/w prn nebs and Breo Ellipta (3) Anxiety Is this a current diagnosis for this admission?: Yes Plan: Patient's is agreeable to having her antianxiety medications resumed. I have dose resumed patient's buspirone and fluoxetine which she was discharged with on last admission. - Plan Summary Summary: I will continue to follow - Time Time Spent with patient: 15-24 minutes
--- NOTE | 2019-08-02 16:37 | PDOC DISCHARGE SUMMARY ---
General - Admit/Disc Date/PCP Admission Date/Primary Care Provider: 08/01/19 18:55 KRYSTYNA URBINA NP Discharge Date: 08/02/19 - Discharge Diagnosis Final Diagnosis: Severe venous stasis ulcers. Large amount of tissue loss of the right lower extremity. - Assessment Summary: This is a 68-year-old female admitted with severe venous stasis ulcers, with a large amount of skin necrosis and exposed bone/muscle. Patient has evidence of ongoing infection and necrosis. She has severe venous stasis, and intolerance to compression. Patient has been seen by wound care clinics in [place] and [place] as an outpatient. Patient was admitted for intravenous antibiotics and possible debridement. The patient has severe tissue loss in the right lower extremity. I do not believe that general surgery has any intervention to offer her, aside from amputation. The patient has vehemently refused amputation. I believe the patient would benefit from a vascular surgery and plastic surgery evaluation to manage the wound and plan for future interventions. I personally spoke with Dr. Isidro Lopez at [facility] who has accepted the patient in transfer. The patient now has a bed, and will be transferred. Further treatment and care per [facility]. - Additional Information Resuscitation Status: Full Code Discharge Diet: As Tolerated Discharge Activity: Balance Activity w/Rest Referrals: KRYSTYNA URBINA NP, COMIC WRITER [Primary Care Provider] - Follow up as needed Home Medications: Acetaminophen [Acetaminophen Extra Strength] 1,000 mg PO Q4HP PRN 08/01/19 Budesonide [Pulmicort 90 mcg Flexhaler] 1 puff IH DAILY 08/01/19 Ibuprofen [Motrin 800 mg Tablet] 800 mg PO Q8HP PRN 08/01/19 Vancomycin HCl [Vancocin Inj 1000 mg Vial] 1,250 mg IV DAILY@0800 vial 08/02/19 History of Present Illiness History of Present Illness: MONTEZ GREGG is a 68 year old female Physical Exam Vital Signs: Temp Pulse Resp BP Pulse Ox 98.1 F 105 H 15 131/64 H 96 08/02/19 06:00 08/02/19 09:15 08/02/19 09:15 08/02/19 08:01 08/02/19 09:15 Intake & Output 08/01/19 08/02/19 08/03/19 06:59 06:59 06:59 Intake Total 2087 300 Balance 2087 300 Weight 56.699 kg Results Laboratory Results: WBC 11.5 10^3/uL (4.0-10.5) H 08/01/19 13:34 RBC 3.42 10^6/uL (3.72-5.28) L 08/01/19 13:34 Hgb 11.7 g/dL (12.0-15.5) L 08/01/19 13:34 Hct 35.3 % (36.0-47.0) L 08/01/19 13:34 MCV 103 fl (80-97) H 08/01/19 13:34 MCH 34.4 pg (27.0-33.4) H 08/01/19 13:34 MCHC 33.3 g/dL (32.0-36.0) 08/01/19 13:34 RDW 15.1 % (11.5-14.0) H 08/01/19 13:34 Plt Count 438 10^3/uL (150-450) 08/01/19 13:34 Lymph % (Auto) 6.8 % (13-45) L 08/01/19 13:34 [place] % (Auto) 14.6 % (3-13) H 08/01/19 13:34 Eos % (Auto) 2.0 % (0-6) 08/01/19 13:34 Baso % (Auto) 0.6 % (0-2) 08/01/19 13:34 Absolute Neuts (auto) 8.8 10^3/uL (1.7-8.2) H 08/01/19 13:34 Absolute Lymphs (auto) 0.8 10^3/uL (0.5-4.7) 08/01/19 13:34 Absolute Monos (auto) 1.7 10^3/uL (0.1-1.4) H 08/01/19 13:34 Absolute Eos (auto) 0.2 10^3/uL (0.0-0.6) 08/01/19 13:34 Absolute Basos (auto) 0.1 10^3/uL (0.0-0.2) 08/01/19 13:34 Seg Neutrophils % 76.0 % (42-78) 08/01/19 13:34 Sodium 142.5 mmol/L (137-145) 08/01/19 13:34 Potassium 4.1 mmol/L (3.6-5.0) 08/01/19 13:34 Chloride 100 mmol/L (98-107) 08/01/19 13:34 Carbon Dioxide 34 mmol/L (22-30) H 08/01/19 13:34 Anion Gap 9 (5-19) 08/01/19 13:34 BUN 16 mg/dL (7-20) 08/01/19 13:34 Creatinine 0.39 mg/dL (0.52-1.25) L 08/01/19 13:34 Est GFR ( Amer) > 60 (>60) 08/01/19 13:34 Est GFR (MDRD) Non-Af > 60 (>60) 08/01/19 13:34 Glucose 100 mg/dL (75-110) 08/01/19 13:34 Lactic Acid 1.0 mmol/L (0.7-2.1) 08/01/19 13:34 Calcium 9.9 mg/dL (8.4-10.2) 08/01/19 13:34 Total Bilirubin 0.3 mg/dL (0.2-1.3) 08/01/19 13:34 Direct Bilirubin 0.3 mg/dL (0.0-0.4) 08/01/19 13:34 Neonat Total Bilirubin Not Reportable 08/01/19 13:34 Neonat Direct Bilirubin Not Reportable 08/01/19 13:34 Neonat Indirect Bili Not Reportable 08/01/19 13:34 AST 25 U/L (14-36) 08/01/19 13:34 ALT 19 U/L (<35) 08/01/19 13:34 Alkaline Phosphatase 79 U/L (38-126) 08/01/19 13:34 Troponin I < 0.012 ng/mL 08/01/19 13:34 NT-Pro-B Natriuret Pep 98 pg/mL (<125) 08/01/19 13:34 Total Protein 6.9 g/dL (6.3-8.2) 08/01/19 13:34 Albumin 3.6 g/dL (3.5-5.0) 08/01/19 13:34 Urine Color YELLOW 08/01/19 16:20 Urine Appearance SLIGHTLY-CLOUDY 08/01/19 16:20 Urine pH 5.0 (5.0-9.0) 08/01/19 16:20 Ur Specific [place] 1.011 08/01/19 16:20 Urine Protein NEGATIVE mg/dL (NEGATIVE) 08/01/19 16:20 Urine Glucose (UA) NEGATIVE mg/dL (NEGATIVE) 08/01/19 16:20 Urine Ketones NEGATIVE mg/dL (NEGATIVE) 08/01/19 16:20 Urine Blood NEGATIVE (NEGATIVE) 08/01/19 16:20 Urine Nitrite NEGATIVE (NEGATIVE) 08/01/19 16:20 Urine Bilirubin NEGATIVE (NEGATIVE) 08/01/19 16:20 Urine Urobilinogen NEGATIVE mg/dL (<2.0) 08/01/19 16:20 Ur Leukocyte Esterase NEGATIVE (NEGATIVE) 08/01/19 16:20 Urine WBC (Auto) 5 /HPF 08/01/19 16:20 Urine RBC (Auto) 1 /HPF 08/01/19 16:20 U Hyaline Cast (Auto) 1 /LPF 08/01/19 16:20 Squamous Epi Cells Auto <1 /HPF 08/01/19 16:20 Urine Mucus (Auto) RARE /LPF 08/01/19 16:20 Urine Ascorbic Acid NEGATIVE (NEGATIVE) 08/01/19 16:20 08/01/19 13:34 Troponin I < 0.012 NT-Pro-B Natriuret Pep 98 Impressions: Tibia/Fibula X-Ray 08/01/19 15:01 IMPRESSION: No evidence of osteomyelitis. Chest X-Ray 08/01/19 17:38 IMPRESSION: Obstructive lung disease Few Wanda lines at both lung bases worrisome for mild fluid overload or congestive failure
[2019-08-02 17:36] VITALS: BP 144/55
--- NOTE | 2019-08-02 20:40 | RADIOLOGY REPORT (SQ) ---
EXAM DESCRIPTION: US EXTREMITY VEINS BILATERAL COMPLETED DATE/TME: 08/01/2019 12:49 CLINICAL HISTORY: 68 years, Female, BLE with erythema, swelling COMPARISON: None. TECHNIQUE: Axial 2-D grayscale images of both lower extremities were acquired. Doppler was utilized. LIMITATIONS: None. FINDINGS: Bilateral common femoral, superficial femoral, femoral, popliteal, posterior tibial, peroneal, greater saphenous, and small saphenous veins demonstrate normal compressibility, phasicity, and augmentation. Limited assessment of the superficial soft tissues reveals mild soft tissue swelling about the bilateral calfs. IMPRESSION: No evidence of deep or superficial venous thrombosis within either lower extremity. copyright 2010 [employer]- All Rights Reserved
[2019-08-03] MEDS ORDERED: FLUOXETINE HCL 20 MG/5 ML UDCUP PO SCH (10:00)
== END 2019-08-02 21:15 | disposition short-term general hospital (02) | DRG 300 ==
LOC: ER 11:51 → EH 18:55 → 5 08-02 16:40
PROVIDERS: ADMIT Surgery; ATTEND Surgery
DX: I83.019 Varicose veins of right lower extremity with ulcer of unspecified site (principal); L97.912 Non-pressure chronic ulcer of unspecified part of right lower leg with fat layer exposed; L97.929 Non-pressure chronic ulcer of unspecified part of left lower leg with unspecified severity; I87.8 Other specified disorders of veins; J43.2 Centrilobular emphysema; Z86.14 Personal history of Methicillin resistant Staphylococcus aureus infection
CPT/HCPCS: 36415; 71045; 80053; 81001; 83605; 83880; 84484; 85025; 87040; 93005; 93010; 93970; 96365; 99285; J0692; J0696; J1650; J1885; J2270; J3370; J3490; J7030; J7060; J7620

== ENCOUNTER 2020-07-03 21:20 | Inpatient (IN) | payer MEDICARE, BC ==
[2020-07-03] MEDS ORDERED: IPRATROPIUM/ALBUTEROL 0.5-2.5 MG/3 ML AMPUL NEB ONE ×2 (21:35)
[2020-07-03] MEDS ORDERED: NORMAL SALINE 1000 ML 1,000 ML IV ONE (21:44)
[2020-07-03 21:56] LABS: ABSOLUTE BASOPHILS # (AUTO) 0.2 10^3/uL (0.0-0.2); ABSOLUTE EOSINOPHILS # (AUTO) 0.2 10^3/uL (0.0-0.6); ABSOLUTE LYMPHOCYTES (AUTO) 2.7 10^3/uL (0.5-4.7); ABSOLUTE MONOCYTES (AUTO) 1.3 10^3/uL (0.1-1.4); ABSOLUTE NEUT (AUTO) 9.2 10^3/uL (1.7-8.2); BASOPHILS % (AUTO) 1.3 % (0-2); EOSINOPHILS % (AUTO) 1.2 % (0-6); HEMATOCRIT 39.8 % (36.0-47.0); HEMOGLOBIN 13.2 g/dL (12.0-15.5); LYMPHOCYTES % (AUTO) 19.9 % (13-45); MEAN CORPUSCULAR HEMOGLOBIN 33.3 pg (27.0-33.4); MEAN CORPUSCULAR HGB CONC 33.3 g/dL (32.0-36.0); MEAN CORPUSCULAR VOLUME 100 fl (80-97); MONOCYTES % (AUTO) 9.7 % (3-13); PLATELET COUNT 422 10^3/uL (150-450); RED BLOOD COUNT 3.97 10^6/uL (3.72-5.28); RED CELL DISTRIBUTION WIDTH 13.9 % (11.5-14.0); SEGMENTED NEUTROPHILS % (AUTO) 67.9 % (42-78); TOTAL CELLS COUNTED % (AUTO) 100 %; WHITE BLOOD COUNT 13.5 10^3/uL (4.0-10.5)
--- NOTE | 2020-07-03 22:11 | RADIOLOGY REPORT (SQ) ---
EXAM DESCRIPTION: XR CHEST 1 VIEW COMPLETED DATE/TME: 07/03/2020 21:46 CLINICAL HISTORY: 69 years, Female, respiratory distress COMPARISON: Chest x-ray 08/01/2019 TECHNIQUE: Upright portable chest x-ray FINDINGS: Borderline heart size. Mildly ectatic aorta. No suspicious mediastinal widening. Advanced underlying emphysema. Acute bilateral mostly lower lobe groundglass infiltrates in additional pleural effusions. IMPRESSION: 1. Underlying emphysema. 2. Suspected superimposed pulmonary edema. Infection less likely but not excluded.
[2020-07-03 22:28] LABS: ALBUMIN 3.9 g/dL (3.5-5.0); ALKALINE PHOSPHATASE 153 U/L (38-126); ANION GAP 7 (5-19); ASPARTATE AMINO TRANSFERASE 46 U/L (14-36); BILIRUBIN,DIRECT 0.1 mg/dL (0.0-0.4); BILIRUBIN,TOTAL 0.3 mg/dL (0.2-1.3); BLOOD UREA NITROGEN 17 mg/dL (7-20); CALCIUM 8.5 mg/dL (8.4-10.2); CARBON DIOXIDE 28 mmol/L (22-30); CHLORIDE 91 mmol/L (98-107); CREATINE KINASE 99 U/L (30-135); GLUCOSE 342 mg/dL (75-110); POTASSIUM 4.9 mmol/L (3.6-5.0); TOTAL PROTEIN 7.2 g/dL (6.3-8.2)
--- NOTE | 2020-07-04 00:08 | ER Document Report ---
ED Respiratory Problem - General Chief Complaint: Respiratory Distress Stated Complaint: COPD EXACERBATION Time Seen by Provider: 07/03/20 21:33 TRAVEL OUTSIDE OF THE [place] IN LAST 30 DAYS: No - HPI Notes: Patient is a 69-year-old female with a past medical history of COPD and right lower extremity venous ulcer status post debridement who presents with respiratory distress. Patient was in respiratory distress throughout the day according to her . When EMS arrived, she was in significant distress. They gave her IV Solu-Medrol and then the patient pulled out her IV. They placed an IO in her left lower extremity. They gave her 2 nebulizer treatments. Patient was placed on BiPAP immediately upon arrival. She was tachypneic and in significant distress. History is limited due to patient presentation. - Related Data Allergies/Adverse Reactions: amoxicillin Allergy (Verified 07/06/19 14:16) ciprofloxacin [From Cipro] Allergy (Verified 07/06/19 14:16) Pruritis oxycodone [From Percocet] Adverse Reaction (Verified 07/06/19 14:16) [place] Past Medical History - General Information source: Patient, Relative, Emergency Med Personnel - Social History Smoking Status: Former Smoker Chew tobacco use (# tins/day): No Frequency of alcohol use: None Family History: Hypertension Patient has homicidal ideation: No Pulmonary Medical History: Reports: Hx COPD Neurological Medical History: Denies: Hx Migraine, Hx Seizures Endocrine Medical History: Denies: Hx Diabetes Mellitus Type 1, Hx Diabetes Mellitus Type 2, Hx Hyperthyroidism, Hx Hypothyroidism Renal/ Medical History: Denies: Hx End Stage Renal Disease Malignancy Medical History: Denies: Hx Bone Cancer, Hx Brain Cancer, Hx Breast Cancer, Hx Cervical Cancer, Hx Colorectal Cancer, Hx Leukemia, Hx Liver Cancer, Hx Lung Cancer, Hx Lymphoma, Hx Ovarian Cancer, Hx Pancreatic Cancer, Hx Renal (Kidney) Cancer, Hx Skin Cancer GI Medical History: Denies: Hx Cirrhosis, Hx Crohn's Disease, Hx Diverticulitis, Hx Gastroesophageal Reflux Disease, Hx Hepatitis, Hx Hiatal Hernia, Hx Ulcerative Colitis Musculoskeletal Medical History: Denies Hx Arthritis, Denies Hx Fibromyalgia, Denies Hx Gout Skin Medical History: Denies Hx Eczema, Denies Hx Psoriasis Psychiatric Medical History: Denies: Hx Attention Deficit Hyperactivity Disorder, Hx Bipolar Disorder, Hx Dementia, Hx Depression, Hx Personality Disorder, Hx Post Traumatic Stress Disorder, Hx Schizoaffective Disorder Infectious Medical History: Denies: Hx C-Diff, Hx Hepatitis, Hx HIV, Hx MRSA, Hx VRE Past Surgical History: Reports: Hx Appendectomy, Hx Section - x2, Hx Hysterectomy Review of Systems - Review of Systems Notes: CONSTITUTIONAL: No fever RESPIRATORY: Wheezing and shortness of breath. -: Yes ROS unobtainable due to patient's medical condition Physical Exam - Vital signs Vitals: Resp BP Pulse Ox 26 H 188/152 H 84 L 07/03/20 21:20 07/03/20 21:20 07/03/20 21:20 - General In distress: Severe Notes: VITAL SIGNS: Tachycardic. GENERAL: In acute respiratory distress. HEAD: Normal with no signs of head trauma. EYES: Conjunctiva normal, no discharge. EARS: Hearing grossly intact. NOSE: Normal. NECK: Normal range of motion CHEST: Diminished lung sounds bilaterally. Wheezing present. CARDIAC: Regular rate and rhythm. S1 and S2, without murmurs, gallops, or rubs. VASCULAR: No Edema. ABDOMEN: Normal and soft with no tenderness MUSCULOSKELETAL: No edema. IO in the left lower extremity. NEUROLOGICAL: Oriented to name. PSYCHIATRIC: Unable to assess. Course - Re-evaluation Re-evalutation: 07/04/20 00:08 Patient was in significant distress upon arrival. I did consider intubation but patient has improved on BiPAP. She is now resting comfortably. I am awaiting a rapid Covid test. Patient refused ABG after first attempt. I will reorder her VBG instead. We were able to titrate down her BiPAP and her oxygen requirements. She is doing much better. Her Covid test was negative. I did cover her with Rocephin and azithromycin as her x-ray was concerning for possible developing pneumonia. Patient will be admitted to the hospitalist. 07/04/20 00:19 07/04/20 05:30 - Vital Signs Vital signs: Temp Pulse Resp BP Pulse Ox 99.1 F 15 105/74 100 07/04/20 04:31 07/04/20 04:31 07/04/20 04:31 07/04/20 04:31 - Laboratory Results Result Diagrams: 07/03/20 21:30 07/03/20 21:30 Laboratory Results Interpreted: 07/03/20 07/03/20 07/03/20 21:30 21:30 21:30 WBC 13.5 H MCV 100 H Absolute Neuts (auto) 9.2 H Sodium 126.3 L Chloride 91 L Glucose 342 H AST 46 H Alkaline Phosphatase 153 H NT-Pro-B Natriuret Pep 294 H Critical Laboratory Results Reviewed: No Critical Results - Radiology Results Critical Radiology Results Reviewed: No Critical Results - EKG Interpretation by Me EKG shows normal: Sinus rhythm Rate: Tachycardia Rhythm: NSR When compared to previous EKG there are: Previous EKG unavailable Additional EKG results interpreted by me: 07/04/20 00:20 Sinus tachycardia at a rate of 135. No acute ST changes. No previous EKG immediately available for comparison. QTc 438. Critical Care Note - Critical Care Note Total time excluding time spent on procedures (mins): 60 Comments: Upon my evaluation, this patient had a high probability of imminent or life- threatening deterioration due to acute respiratory distress, which required my direct attention, dimension, and personal management. I have personally provided 60 minutes of critical care time. Time includes review of laboratory data, radiology results, discussion with consultants, and monitoring for potential decompensation. Interventions were performed as documented above. Discharge - Discharge Clinical Impression: COPD exacerbation Acute respiratory failure Qualifiers: Respiratory failure complication: unspecified whether with hypoxia or hypercapnia Qualified Code(s): J96.00 - Acute respiratory failure, unspecified whether with hypoxia or hypercapnia Community acquired pneumonia Qualifiers: Laterality: unspecified laterality Qualified Code(s): J18.9 - Pneumonia, unspecified organism Condition: Serious Disposition: ADMITTED INPATIENT [facility]
[2020-07-04] MEDS ORDERED: AZITHROMYCIN INJ 500 MG VIAL IV ONE (03:19)
[2020-07-04] MEDS ORDERED: CEFTRIAXONE 1 GM/D5W RTU 1 GM/50 ML RTUPB IV ONE (03:21)
[2020-07-04] MEDS ORDERED: PROMETHAZINE HCL INJ 25 MG/1 ML VIAL IV PRN (04:36)
[2020-07-04] MEDS ORDERED: ACETAMINOPHEN 325 MG TABLET PO PRN (04:36)
--- NOTE | 2020-07-04 05:03 | PDOC H&P ---
History of Present Illness Admission Date/PCP: 07/04/20 04:06 Patient complains of: shortness of breath History of Present Illness: MONTEZ GREGG is a 69 year old female with history of COPD and venous stasis ulcers status post multiple surgeries in the past now presents with 1 day duration of acute worsening of shortness of breath. Patient states that she has been using albuterol inhaler multiple times in the past few days has not been helpful. Patient also reports that she has been having bilateral leg swelling and orthopnea stating that she sleeps at night on a recliner due to worsening of shortness of breath when lying down. She also bilateral leg swelling for more than a year. When patient was evaluated she was in respiratory distress and she was given Solu-Medrol, breathing treatment and was placed on a BiPAP. Patient was reported to be very agitated and removed her IV lines during transfer and intraosseous line was obtained by EMS in route to the hospital. After arrival patient was continued on a BiPAP and settings were changed from FiO2 of 100% to 60 and she continued to do well. She also reported interval improvement after receiving steroid and breathing treatment. She denies any fever, chills, nausea, vomiting, chest pain, palpitation, dizziness, or any change in her bowel or urinary habit. Past Medical History Pulmonary Medical History: Reports: Chronic Obstructive Pulmonary Disease (COPD) Neurological Medical History: Denies: Migraine, Seizures Endocrine Medical History: Denies: Diabetes Mellitus Type 1, Diabetes Mellitus Type 2, Hyperthyroidism, Hypothyroidism Renal/ Medical History: Denies: End Stage Renal Disease Malignancy Medical History: Denies: Bone Cancer, Brain Cancer, Breast Cancer, Cervical Cancer, Colorectal Cancer, Leukemia, Liver Cancer, Lung Cancer, Lymphoma, Ovarian Cancer, Pancreatic Cancer, Renal (Kidney) Cancer, Skin Cancer GI Medical History: Denies: Cirrhosis, Crohn's Disease, Diverticulitis, Gastroesophageal Reflux Disease, Hepatitis, Hiatal Hernia, Ulcerative Colitis Musculoskeltal Medical History: Denies: Arthritis, Fibromyalgia, Gout Skin Medical History: Denies: Eczema, Psoriasis Psychiatric Medical History: Denies: Attention Deficit Hyperactivity Disorder, Bipolar Disorder, Dementia, Depression, Personality Disorder, Post Traumatic Stress Disorder, Schizoaffective Disorder Hematology: Denies: Anemia, Hemophilia, Sickle Cell Disease, Bleeding Tendencies, Heparin Induced Thrombocytopenia, Neutropenia Infectious Medical History: Denies: Clostridium Difficile, HIV, Methicillin-Resistant Staph Aureus, Vancomycin-Resistant Enterococci Past Surgical History Past Surgical History: Reports: Appendectomy, Section - x2, Hysterectomy Social History Information Source: Patient Lives with: Family Smoking Status: Former Smoker Electronic Cigarette use?: No Frequency of Alcohol Use: Heavy - Has quit at least in the last month. Hx Recreational Drug Use: No Drugs: None Hx Prescription Drug Abuse: No - Advance Directive Resuscitation Status: Full Code Family History Family History: Hypertension Parental Family History Reviewed: Yes Children Family History Reviewed: Yes Sibling(s) Family History Reviewed.: Yes Medication/Allergy Home Medications: Acetaminophen [Acetaminophen Extra Strength] 1,000 mg PO Q4HP PRN 08/01/19 Budesonide [Pulmicort 90 mcg Flexhaler] 1 puff IH DAILY 08/01/19 Ibuprofen [Motrin 800 mg Tablet] 800 mg PO Q8HP PRN 08/01/19 Vancomycin HCl [Vancocin Inj 1000 mg Vial] 1,250 mg IV DAILY@0800 vial 08/02/19 Allergies/Adverse Reactions: amoxicillin Allergy (Verified 07/06/19 14:16) ciprofloxacin [From Cipro] Allergy (Verified 07/06/19 14:16) Pruritis oxycodone [From Percocet] Adverse Reaction (Verified 07/06/19 14:16) Flushing Review of Systems Constitutional: ABSENT: chills, fever(s), headache(s), weight gain, weight loss Eyes: ABSENT: visual disturbances Ears: ABSENT: hearing changes Nose, Mouth, and Throat: ABSENT: headache(s), mouth pain, sore throat Cardiovascular: PRESENT: as per HPI, dyspnea on exertion, edema, orthropnea. ABSENT: chest pain, palpitations Respiratory: PRESENT: as per HPI Gastrointestinal: ABSENT: abdominal pain, constipation, diarrhea, hematemesis, hematochezia, nausea, vomiting Genitourinary: ABSENT: dysuria, hematuria Musculoskeletal: ABSENT: joint swelling Integumentary: ABSENT: rash, wounds Neurological: ABSENT: abnormal gait, abnormal speech, confusion, dizziness, focal weakness, syncope Psychiatric: ABSENT: anxiety, depression, homidical ideation, suicidal ideation Endocrine: ABSENT: cold intolerance, heat intolerance, polydipsia, polyuria Hematologic/Lymphatic: ABSENT: easy bleeding, easy bruising Physical Exam Vital Signs: Temp Pulse Resp BP Pulse Ox 99.1 F 15 105/74 100 07/04/20 04:31 07/04/20 04:31 07/04/20 04:31 07/04/20 04:31 Intake & Output 07/02/20 07/03/20 07/04/20 06:59 06:59 06:59 Intake Total 1000 Balance 1000 Weight 68.6 kg Additional comments: GENERAL APPEARANCE: Alert and oriented x3, breathing comfortably on BiPAP HEENT: Normocephalic and atraumatic. No scleral icterus. Moist oral mucosa NECK: Supple. No lymphadenopathy or tenderness. No carotid bruit. No JVD CHEST: Symmetric. Nontender to palpation. LUNGS: good air entry bilaterally. Has wheezing bilaterally HEART: Regular rate and rhythm with normal S1 and S2. No murmurs, gallops, or rubs. ABDOMEN: soft, active bowel sounds, no direct or rebound tenderness. No organomegaly detected. EXTREMITIES: No cyanosis, clubbing. Has bilateral lower extremity edema. MUSCULOSKELETAL: There is deformity at the right lower extremity around her ankle due to surgery for venous stasis ulcers PSYCHIATRIC: Recent and remote memory is intact. Appropriate mood and affect. SKIN: Warm, dry, and well perfused. No lesions or rashes are noted. NEUROLOGIC: No focal sensory or motor deficits are noted. Results Laboratory Results: 07/03/20 21:30 07/03/20 21:30 07/03/20 07/03/20 07/04/20 21:30 21:30 04:13 WBC 13.5 H RBC 3.97 Hgb 13.2 Hct 39.8 MCV 100 H MCH 33.3 MCHC 33.3 RDW 13.9 Plt Count 422 Seg Neutrophils % 67.9 VBG pH Cancelled VBG pCO2 Cancelled VBG HCO3 Cancelled VBG Base Excess Cancelled Sodium 126.3 L Potassium 4.9 Chloride 91 L Carbon Dioxide 28 Anion Gap 7 BUN 17 Creatinine 0.56 Est GFR ( Amer) > 60 Glucose 342 H Calcium 8.5 Total Bilirubin 0.3 AST 46 H Alkaline Phosphatase 153 H Total Protein 7.2 Albumin 3.9 07/03/20 07/03/20 07/03/20 21:30 21:30 21:30 Creatine Kinase 99 Troponin I 0.030 NT-Pro-B Natriuret Pep 294 H Impressions: Chest X-Ray 07/03/20 21:36 IMPRESSION: 1. Underlying emphysema. 2. Suspected superimposed pulmonary edema. Infection less likely but not excluded. Assessment and Plan - Diagnosis (1) Acute respiratory failure with hypoxia Is this a current diagnosis for this admission?: Yes Plan: Patient presents in acute respiratory distress With slight improvement of symptoms after being given steroids, breathing treatment by EMS Chest x-ray shows underlying emphysematous change and possible pulmonary edema COVID-19 test was negative Obtain venous blood gas Continue Solu-Medrol, breathing treatment with DuoNeb Placed her on ceftriaxone and azithromycin Currently on BiPAP with a setting of IPAP 12, EPAP 6, FiO2 of 60% We will continue up titrating down and try to wean her off of BiPAP and transition to intranasal oxygen (2) COPD exacerbation Is this a current diagnosis for this admission?: Yes Plan: Patient with a known history of COPD, Presents with acute respiratory distress Physical exam was significant for wheezing Continue Solu-Medrol, DuoNeb, antibiotic Currently on BiPAP Follow-up with [facility] (3) New onset of congestive heart failure Is this a current diagnosis for this admission?: Yes Plan: Patient reports longstanding bilateral lower extremity swelling which is partly attributed to venous stasis She also has a history of orthopnea and x-ray shows some features of pulmonary vascular congestion in addition to emphysematous changes No JVD was detected on physical exam BNP was borderline elevated echocardiogram pending (4) Hyponatremia Is this a current diagnosis for this admission?: Yes Plan: Serum sodium was 126, corrected for hyperglycemia is 130 We will continue gentle hydration Monitor electrolytes (5) Venous stasis ulcer Qualifiers: Venous stasis ulcer site: other part of lower leg Laterality: right Non- pressure ulcer stage: with fat layer exposed Is this a current diagnosis for this admission?: Yes Plan: Patient multiple surgeries on the right lower extremity Currently has no clear sign of infection Elevate legs, may consider compression stockings (6) Type 2 diabetes mellitus with hyperglycemia Is this a current diagnosis for this admission?: Yes Plan: Serum sodium was 342 on presentation Steroid use may be contributing to hyperglycemia Placed patient on diabetic diet On sliding scale insulin, hypoglycemia protocol and Accu-Cheks - Time Time Spent with patient: 35 or more minutes Total Critical Time (Minutes): 45 Medications reviewed and adjusted accordingly: Yes Anticipated Discharge Disposition: Home, Self Care Anticipated Discharge Timeframe: within 72 hours - Inpatient Certification Based on my medical assessment, after consideration of the patient's comorbidities, presenting symptoms, or acuity I expect that the services needed warrant INPATIENT care.: Yes I certify that my determination is in accordance with my understanding of Medicare's requirements for reasonable and necessary INPATIENT services [42 CFR 412.3e].: Yes Medical Necessity: Significant Comorbidiites Make Outpatient Treatment Too Risky, Need Close Monitoring Due to Risk of Patient Decompensation, Need for IV Antibiotics, Risk of Complication if Not Cared For in Hospital Post Hospital Care: D/C or Transfer Summary
[2020-07-04] MEDS: METHYLPREDNISOLONE INJ 40 MG/1 ML SDV IV SCH ×2 (06:17→17:35)
[2020-07-04 07:04] LABS: HEMATOCRIT 35.9 % (36.0-47.0); HEMOGLOBIN 12.1 g/dL (12.0-15.5); MEAN CORPUSCULAR HGB CONC 33.6 g/dL (32.0-36.0); MEAN CORPUSCULAR VOLUME 98 fl (80-97); PLATELET COUNT 302 10^3/uL (150-450); RED BLOOD COUNT 3.65 10^6/uL (3.72-5.28); RED CELL DISTRIBUTION WIDTH 13.5 % (11.5-14.0); WHITE BLOOD COUNT 16.1 10^3/uL (4.0-10.5)
[2020-07-04 07:04] LABS: VENOUS BLOOD BASE EXCESS -0.4 mmol/L; VENOUS BLOOD HCO3 25.9 mmol/L (20-32); VENOUS BLOOD PCO2 49.4 mmHg (35-63); VENOUS BLOOD PH 7.34 (7.30-7.42)
[2020-07-04 07:23] LABS: ANION GAP 11 (5-19); BLOOD UREA NITROGEN 17 mg/dL (7-20); CARBON DIOXIDE 24 mmol/L (22-30); CHLORIDE 94 mmol/L (98-107); GLUCOSE 146 mg/dL (75-110); POTASSIUM 5.6 mmol/L (3.6-5.0)
[2020-07-04] MEDS: IPRATROPIUM/ALBUTEROL 0.5-2.5 MG/3 ML AMPUL NEB SCH ×3 (07:39→21:11)
[2020-07-04 08:42] LABS: ABSOLUTE MONOCYTES # (MANUAL) 0.3 10^3/uL (0.1-1.4); BASOPHILS % (MANUAL) 0 % (0-2); EOSINOPHILS % (MANUAL) 0 % (0-6); LYMPHOCYTES % (MANUAL) 0 % (13-45); MONOCYTES % (MANUAL) 2 % (3-13); SEGMENTED NEUTROPHILS % (MAN) 98 % (42-78); TOTAL CELLS COUNTED 100
[2020-07-04 08:43] LABS: PLATELET COMMENT ADEQUATE; RBC MORPHOLOGY COMMENT NORMO-CYTIC/CHROMIC
[2020-07-04] MEDS ORDERED: GLUCAGON,HUMAN RECOMB 1 MG INJ IM PRN (09:46)
[2020-07-04] MEDS ORDERED: DEXTROSE 50%-WATER 25 GM/50 ML DISP.SYRIN IV PRN ×2 (09:46)
[2020-07-04] MEDS ORDERED: DEXTROSE 40% GEL 15 GM TUBE PO PRN ×2 (09:46)
--- NOTE | 2020-07-04 11:44 | XCELERA REPORT ---
[address] [address] Transthoracic Echocardiogram Report Name: MONTEZ GREGG Age: 69 yrs Gender: Female : 1950 Patient Status: Inpatient Patient Location: [place] [address]^A Study Date: 07/04/2020 09:03 AM History: CHF Height: 62 in Weight: 151 lb BSA: 1.7 m2 Procedure: A complete two-dimensional transthoracic echocardiogram was performed (2D, M-mode, spectral and color flow Doppler). The study was technically adequate with some images being suboptimal in quality. Reason For Study: Stable congestive heart failure Previous Evaluation: No previous studies were available. History: CHF. Ordering Physician: RADHA LORENZ Performed By: Anne Nick Interpretation Summary Left ventricular systolic function is low normal. The Ejection Fraction estimate is 50-55% The right ventricle is normal in size and function. There is a trace amount of mitral regurgitation There is no aortic valve stenosis There is a trace amount of tricuspid regurgitation There is mild pulmonary hypertension by echo There is no pericardial effusion. MMode/2D Measurements & Calculations RVDd: 1.9 cm LVIDd: 4.0 cm FS: 28.2 % Ao root diam: 2.4 cm IVSd: 0.93 cm LVIDs: 2.9 cm EDV(Teich): Ao root area: LVPWd: 0.91 cm 68.8 ml 4.6 cm2 ESV(Teich): 31.0 ml EF(Teich): 55.0 % EDV(MOD-sp4): SV(MOD-sp4): 50.6 ml 25.5 ml ESV(MOD-sp4): 25.1 ml EF(MOD-sp4): 50.4 % Doppler Measurements & Calculations MV E max wilma: MV dec slope: Ao V2 max: LV V1 max P.3 cm/sec 146.1 cm/sec 6.5 mmHg MV A max wilma: 970.2 cm/sec2 Ao max PG: LV V1 mean P.7 cm/sec MV dec time: 8.5 mmHg 3.1 mmHg 0.09 sec MV E/A: 0.61 Ao V2 mean: LV V1 max: 104.7 cm/sec 127.2 cm/sec Ao mean PG: LV V1 mean: 4.9 mmHg 81.4 cm/sec Ao V2 VTI: 26.3 cm LV V1 VTI: 21.4 cm PA V2 max: TR max wilma: 91.6 cm/sec 283.1 cm/sec PA max P.4 mmHg TR max P.1 mmHg Left Ventricle The left ventricle is normal in size. There is borderline concentric left ventricular hypertrophy. Left ventricular systolic function is low normal. The Ejection Fraction estimate is 50-55%. Doppler measurements suggest impaired left ventricular relaxation, which is associated with grade I/IV or mild diastolic dysfunction. Regional wall motion abnormalities cannot be excluded due to limited visualization. Right Ventricle The right ventricle is normal in size and function. Atria The right atrium is normal. The left atrial size is normal. The interatrial septum is intact with no evidence for an atrial septal defect. Mitral Valve The mitral valve leaflets appear thickened, but open well. There is no evidence of mitral valve prolapse. There is no mitral valve stenosis. There is a trace amount of mitral regurgitation. Aortic Valve The aortic valve is not well visualized secondary to technical limitations. The aortic valve opens well. There is no aortic valve stenosis. No aortic regurgitation is present. Tricuspid Valve The tricuspid valve is normal in structure and function. There is no tricuspid stenosis. There is a trace amount of tricuspid regurgitation. Right ventricular systolic pressure is estimated to be elevated at 30-40mmHg. There is mild pulmonary hypertension by echo. Pulmonic Valve The pulmonic valve is not well visualized. There is no pulmonic valvular stenosis. There is a trace or physiologic amount of pulmonic regurgitation. Great Vessels The aortic root is normal size. The inferior vena cava was not well visualized. Effusions There is no pericardial effusion. : RADHA LORENZ Anil
--- NOTE | 2020-07-04 11:50 | EKG REPORT ---
SEVERITY:- ABNORMAL ECG - SINUS TACHYCARDIA PROBABLE LEFT ATRIAL ABNORMALITY LEFT AXIS DEVIATION CONSIDER ANTEROSEPTAL INFARCT REPOL ABNRM SUGGESTS ISCHEMIA, LATERAL LEADS : Confirmed by: Lazaro Lewis MD 04-Jul-2020 11:49:41
[2020-07-04] MEDS: ENOXAPARIN SODIUM INJ 40 MG/0.4 ML DISP.SYRIN SUBCUT SCH (12:23)
[2020-07-04] MEDS: FAMOTIDINE 20 MG TABLET PO SCH ×2 (12:23→22:20)
[2020-07-04] MEDS: INSULIN LISPRO 100 UNIT/ML 3 ML VIAL SUBCUT SCH ×3 (12:24→22:07)
--- NOTE | 2020-07-04 12:27 | Progress Note ---
Provider Note Provider Note: Patient seen and evaluated by me. Please see H&P by overnight physician for full details of admission. Briefly, patient admitted for severe COPD exacerbation requiring BiPAP treatment. Patient gradually improving with nebulizer treatments and steroids. She reports using albuterol rescue inhaler approximately every 4 hours every single day for the past several months in addition to her Pulmicort daily. We will switch her to Trelegy instead. Likely she would greatly benefit from a long-acting beta agonist.
[2020-07-04] MEDS: FLUTICASONE/UMECLIDIN/VILANTER 100-62.5-25 MCG/DOSE IH SCH (16:18)
[2020-07-04] MEDS: CEFTRIAXONE 1 GM/D5W RTU 1 GM/50 ML RTUPB IV SCH (23:20)
[2020-07-05] MEDS: AZITHROMYCIN 500 MG in DEXTROSE 5%-WATER 250 ML IV SCH ×2 (01:07→21:09)
[2020-07-05] MEDS: IPRATROPIUM/ALBUTEROL 0.5-2.5 MG/3 ML AMPUL NEB SCH ×4 (02:20→20:55)
[2020-07-05] MEDS: METHYLPREDNISOLONE INJ 40 MG/1 ML SDV IV SCH ×2 (06:38→18:11)
[2020-07-05] MEDS: ENOXAPARIN SODIUM INJ 40 MG/0.4 ML DISP.SYRIN SUBCUT SCH (09:13)
[2020-07-05] MEDS: FAMOTIDINE 20 MG TABLET PO SCH ×2 (09:13→21:08)
[2020-07-05] MEDS: FLUTICASONE/UMECLIDIN/VILANTER 100-62.5-25 MCG/DOSE IH SCH (09:14)
[2020-07-05 12:08] LABS: HEMATOCRIT 34.1 % (36.0-47.0); HEMOGLOBIN 11.5 g/dL (12.0-15.5); MEAN CORPUSCULAR HEMOGLOBIN 33.1 pg (27.0-33.4); MEAN CORPUSCULAR HGB CONC 33.8 g/dL (32.0-36.0); MEAN CORPUSCULAR VOLUME 98 fl (80-97); PLATELET COUNT 262 10^3/uL (150-450); RED BLOOD COUNT 3.49 10^6/uL (3.72-5.28); RED CELL DISTRIBUTION WIDTH 13.6 % (11.5-14.0); WHITE BLOOD COUNT 14.3 10^3/uL (4.0-10.5)
[2020-07-05 12:32] LABS: ABSOLUTE LYMPHOCYTES# (MANUAL) 0.7 10^3/uL (0.5-4.7); ABSOLUTE MONOCYTES # (MANUAL) 0.6 10^3/uL (0.1-1.4); BASOPHILS % (MANUAL) 0 % (0-2); EOSINOPHILS % (MANUAL) 0 % (0-6); LYMPHOCYTES % (MANUAL) 4 % (13-45); MONOCYTES % (MANUAL) 4 % (3-13); SEGMENTED NEUTROPHILS % (MAN) 91 % (42-78); TOTAL CELLS COUNTED 100
[2020-07-05 12:34] LABS: ANION GAP 10 (5-19); BLOOD UREA NITROGEN 15 mg/dL (7-20); CARBON DIOXIDE 24 mmol/L (22-30); CHLORIDE 93 mmol/L (98-107); GLUCOSE 137 mg/dL (75-110); PLATELET COMMENT ADEQUATE; POLYCHROMASIA SLIGHT; POTASSIUM 5.2 mmol/L (3.6-5.0)
[2020-07-05] MEDS: INSULIN LISPRO 100 UNIT/ML 3 ML VIAL SUBCUT SCH ×3 (18:07→21:10)
[2020-07-05] MEDS ORDERED: ALBUTEROL SULFATE HFA (90 MCG/PUFF) 8 GM MDI (1 MDI/ER DISP) IH PRN (19:15)
--- NOTE | 2020-07-05 19:29 | PDOC PROGRESS REPORT ---
Subjective Subjective:: Per Previous Physician: "MONTEZ GREGG is a 69 year old female with history of COPD and venous stasis ulcers status post multiple surgeries in the past now presents with 1 day duration of acute worsening of shortness of breath. Patient states that she has been using albuterol inhaler multiple times in the past few days has not been helpful. Patient also reports that she has been having bilateral leg swelling and orthopnea stating that she sleeps at night on a recliner due to worsening of shortness of breath when lying down. She also bilateral leg swelling for more than a year. When patient was evaluated she was in respiratory distress and she was given Solu-Medrol, breathing treatment and was placed on a BiPAP. Patient was reported to be very agitated and removed her IV lines during transfer and intraosseous line was obtained by EMS in route to the hospital. After arrival patient was continued on a BiPAP and settings were changed from FiO2 of 100% to 60 and she continued to do well. She also reported interval improvement after receiving steroid and breathing treatment. She denies any fever, chills, nausea, vomiting, chest pain, palpitation, dizziness, or any change in her bowel or urinary habit." 07/04/2020 Patient seen and evaluated by me. Please see H&P by overnight physician for full details of admission. Briefly, patient admitted for severe COPD exacerbation requiring BiPAP treatmen t. Patient gradually improving with nebulizer treatments and steroids. She reports using albuterol rescue inhaler approximately every 4 hours every single day for the past several months in addition to her Pulmicort daily. We will switch her to Trelegy instead. Likely she would greatly benefit from a long- acting beta agonist. 07/05/2020 Patient is feeling much better today and is now off BiPAP and we are weaning supplemental oxygen as able. We have switched her to Trelegy inhaler and this s eems to be doing very well for her. She must have follow-up with a revenue stamp cutter and PCP at discharge. She is continued on steroids. Echocardiogram showed stage I diastolic CHF which is chronic. Blood cultures are negative. She still has persistently elevated potassium and worsening hyponatremia. Her blood pressure is also notably elevated and I have started her on nifedipine. Most likely, her SSRI is causing hyponatremia and I have stopped this. It is also possible she has SIADH from underlying lung cancer although CTPA last year did not show any masses or PE. She may benefit from a follow-up CT chest in the future if this does not improve after holding SSRI. I will start her on sodium chloride tablets as well. It is possible she has adrenal insufficiency possibly from hypoaldosteronism and I have checked an Bjorn/renin ratio as well as an a.m. cortisol. All this will need further work- up. Reason For Visit: ACUTE HYPOXIC AND HYPERCAPNIC RESPIRATORY FAILURE, Physical Exam Vital Signs: Temp Pulse Resp BP Pulse Ox 98.0 F 108 H 17 193/81 H 93 07/05/20 16:40 07/05/20 16:40 07/05/20 16:40 07/05/20 16:40 07/05/20 16:40 Intake & Output 07/04/20 07/05/20 07/06/20 06:59 06:59 06:59 Intake Total 1050 410 476 Output Total 1375 775 Balance 1050 -965 -299 Weight 68.6 kg 70.9 kg Exam: General appearance: PRESENT: no acute distress, well-developed, well-nourished, frail-appearing elderly white female, anxious Head exam: PRESENT: atraumatic, normocephalic Eye exam: PRESENT: conjunctiva pink. ABSENT: scleral icterus Mouth exam: PRESENT: moist Respiratory exam: PRESENT: clear to auscultation sheryl. ABSENT: rales, rhonchi, wheezes Cardiovascular exam: PRESENT: RRR. ABSENT: diastolic murmur, rubs, systolic murmur GI/Abdominal exam: PRESENT: normal bowel sounds, soft. ABSENT: distended, guarding, mass, organolmegaly, rebound, tenderness Neurological exam: PRESENT: alert, awake, oriented to person, oriented to place, oriented to time, oriented to situation Psychiatric exam: PRESENT: appropriate affect, normal mood Skin exam: PRESENT: dry, intact, warm Results Laboratory Results: 07/05/20 11:36 07/05/20 11:36 07/05/20 07/05/20 11:36 11:36 WBC 14.3 H RBC 3.49 L Hgb 11.5 L Hct 34.1 L MCV 98 H MCH 33.1 MCHC 33.8 RDW 13.6 Plt Count 262 Seg Neutrophils % Not Reportable Sodium 126.8 L Potassium 5.2 H Chloride 93 L Carbon Dioxide 24 Anion Gap 10 BUN 15 Creatinine 0.35 L Est GFR ( Amer) > 60 Glucose 137 H Calcium 9.0 07/03/20 07/03/20 07/03/20 21:30 21:30 21:30 Creatine Kinase 99 Troponin I 0.030 NT-Pro-B Natriuret Pep 294 H 07/04/20 06:41 Creatine Kinase Troponin I 0.677 NT-Pro-B Natriuret Pep Impressions: Chest X-Ray 07/03/20 21:36 IMPRESSION: 1. Underlying emphysema. 2. Suspected superimposed pulmonary edema. Infection less likely but not excluded. Assessment and Plan - Diagnosis (1) Hyperkalemia Is this a current diagnosis for this admission?: Yes (2) Acute respiratory failure Qualifiers: Respiratory failure complication: unspecified whether with hypoxia or hypercapnia Qualified Code(s): J96.00 - Acute respiratory failure, unspecified whether with hypoxia or hypercapnia Is this a current diagnosis for this admission?: Yes (3) Acute respiratory failure with hypoxia Is this a current diagnosis for this admission?: Yes (4) COPD exacerbation Is this a current diagnosis for this admission?: Yes (5) Community acquired pneumonia Qualifiers: Laterality: unspecified laterality Qualified Code(s): J18.9 - Pneumonia, unspecified organism Is this a current diagnosis for this admission?: Yes (6) New onset of congestive heart failure Is this a current diagnosis for this admission?: Yes (7) Type 2 diabetes mellitus with hyperglycemia Is this a current diagnosis for this admission?: Yes (8) COPD (chronic obstructive pulmonary disease) Qualifiers: COPD type: emphysema Emphysema type: centrilobular Qualified Code(s): J43.2 - Centrilobular emphysema Is this a current diagnosis for this admission?: Yes (9) Hyponatremia Is this a current diagnosis for this admission?: Yes - Plan Summary Summary: (1) Acute respiratory failure with hypoxia Is this a current diagnosis for this admission?: Yes Plan: Per Previous Physician: "Patient presents in acute respiratory distress With slight improvement of symptoms after being given steroids, breathing treatment by EMS Chest x-ray shows underlying emphysematous change and possible pulmonary edema COVID-19 test was negative Obtain venous blood gas Continue Solu-Medrol, breathing treatment with DuoNeb Placed her on ceftriaxone and azithromycin Currently on BiPAP with a setting of IPAP 12, EPAP 6, FiO2 of 60% We will continue up titrating down and try to wean her off of BiPAP and transition to intranasal oxygen" Slowly resolving to baseline -acute COPD exacerbation -Supplemental O2 to maintain sat of 89-94% -duonebs -steroids -abx indicated only if concomitant pneumonia is also suspected -bronchial hygiene -consider pumonary rehab referral at [place] -no smoking (2) COPD exacerbation Is this a current diagnosis for this admission?: Yes Plan: Per Previous Physician: "Patient with a known history of COPD, Presents with acute respiratory distress Physical exam was significant for wheezing Continue Solu-Medrol, DuoNeb, antibiotic Currently on BiPAP Follow-up with [facility]" Replaced Pulmicort with trilogypatient states she was using albuterol rescue inhaler every 4 hours every single day for many weeks Needs follow-up with pulmonology (3) New onset of congestive heart failure Is this a current diagnosis for this admission?: Yes Plan: Per Previous Physician: "Patient reports longstanding bilateral lower extremity swelling which is partly attributed to venous stasis She also has a history of orthopnea and x-ray shows some features of pulmonary vascular congestion in addition to emphysematous changes No JVD was detected on physical exam BNP was borderline elevated echocardiogram pending" Echo showed good EF, mild diastolic dysfunction, normal systolic function (4) Hyponatremia Is this a current diagnosis for this admission?: Yes Plan: Per Previous Physician: "Serum sodium was 126, corrected for hyperglycemia is 130 We will continue gentle hydration Monitor electrolytes" Unclear etiology Possible due to SSRI, with this drug Start on sodium bicarbonate Possible SIADH due to underlying lung cancer, may need follow-up CT scan although previous CT did not show masses Possible hypoaldosteronism which is also causing hyperkalemia, renal/Bjorn ratio in a.m. cortisol ordered (5) Venous stasis ulcer Qualifiers: Venous stasis ulcer site: other part of lower leg Laterality: right Non- pressure ulcer stage: with fat layer exposed Is this a current diagnosis for this admission?: Yes Plan: Per Previous Physician: "Patient multiple surgeries on the right lower extremity Currently has no clear sign of infection Elevate legs, may consider compression stockings" Legs appear healed to baseline (6) Type 2 diabetes mellitus with hyperglycemia Is this a current diagnosis for this admission?: Yes Plan: Per Previous Physician: "Serum sodium was 342 on presentation Steroid use may be contributing to hyperglycemia Placed patient on diabetic diet On sliding scale insulin, hypoglycemia protocol and Accu-Cheks" - Time Time Spent with patient: 35 or more minutes Medications reviewed and adjusted accordingly: Yes Anticipated Discharge Disposition: Home, Self Care Anticipated Discharge Timeframe: within 48 hours - Inpatient Certification Based on my medical assessment, after consideration of the patient's comorbidities, presenting symptoms, or acuity I expect that the services needed warrant INPATIENT care.: Yes I certify that my determination is in accordance with my understanding of Medicare's requirements for reasonable and necessary INPATIENT services [42 CFR 412.3e].: Yes Medical Necessity: Significant Comorbidiites Make Outpatient Treatment Too Risky, Need Close Monitoring Due to Risk of Patient Decompensation, Need for Nebulizer Therapy and Monitoring of Response, Risk of Complication if Not Cared For in Hospital, Risk of Diagnosis Which Will Require Inpatient Eval/Care/Monitoring
[2020-07-05] MEDS ORDERED: NIFEDIPINE 30 MG TAB.ER.24 PO ONE (20:00)
[2020-07-05] MEDS: CEFTRIAXONE 1 GM/D5W RTU 1 GM/50 ML RTUPB IV SCH (21:08)
[2020-07-05] MEDS: SODIUM BICARBONATE 650 MG TABLET PO SCH (21:08)
[2020-07-06] MEDS: IPRATROPIUM/ALBUTEROL 0.5-2.5 MG/3 ML AMPUL NEB SCH ×4 (01:58→19:34)
[2020-07-06 04:43] LABS: ABSOLUTE LYMPHOCYTES (AUTO) 1.2 10^3/uL (0.5-4.7); ABSOLUTE NEUT (AUTO) 10.4 10^3/uL (1.7-8.2); BASOPHILS % (AUTO) 0.2 % (0-2); HEMATOCRIT 32.4 % (36.0-47.0); HEMOGLOBIN 10.9 g/dL (12.0-15.5); LYMPHOCYTES % (AUTO) 9.3 % (13-45); MEAN CORPUSCULAR HEMOGLOBIN 32.6 pg (27.0-33.4); MEAN CORPUSCULAR HGB CONC 33.6 g/dL (32.0-36.0); MEAN CORPUSCULAR VOLUME 97 fl (80-97); PLATELET COUNT 277 10^3/uL (150-450); RED BLOOD COUNT 3.35 10^6/uL (3.72-5.28); RED CELL DISTRIBUTION WIDTH 13.5 % (11.5-14.0); SEGMENTED NEUTROPHILS % (AUTO) 82.5 % (42-78); TOTAL CELLS COUNTED % (AUTO) 100 %; WHITE BLOOD COUNT 12.6 10^3/uL (4.0-10.5)
[2020-07-06 05:08] LABS: ANION GAP 6 (5-19); BLOOD UREA NITROGEN 14 mg/dL (7-20); CALCIUM 8.7 mg/dL (8.4-10.2); CARBON DIOXIDE 28 mmol/L (22-30); CHLORIDE 89 mmol/L (98-107); GLUCOSE 126 mg/dL (75-110); POTASSIUM 4.4 mmol/L (3.6-5.0)
[2020-07-06] MEDS: METHYLPREDNISOLONE INJ 40 MG/1 ML SDV IV SCH ×2 (06:38→17:42)
[2020-07-06] MEDS ORDERED: ALBUTEROL SULFATE HFA (90 MCG/PUFF) 8 GM MDI IH PRN (08:03)
[2020-07-06] MEDS: INSULIN LISPRO 100 UNIT/ML 3 ML VIAL SUBCUT SCH ×2 (08:19→12:09)
[2020-07-06] MEDS ORDERED: FLUOXETINE HCL 10 MG PO SCH (10:00)
[2020-07-06] MEDS ORDERED: BUDESONIDE 90 MCG IH SCH (10:00)
[2020-07-06] MEDS ORDERED: NIFEDIPINE 30 MG TAB.ER.24 PO SCH (10:00)
[2020-07-06] MEDS: FAMOTIDINE 20 MG TABLET PO SCH ×2 (10:08→22:31)
[2020-07-06] MEDS: SODIUM BICARBONATE 650 MG TABLET PO SCH ×2 (10:09→22:31)
[2020-07-06] MEDS: ENOXAPARIN SODIUM INJ 40 MG/0.4 ML DISP.SYRIN SUBCUT SCH (10:09)
[2020-07-06] MEDS: FUROSEMIDE INJ/PF 40 MG/4 ML SDV IV SCH ×2 (10:14→16:25)
[2020-07-06] MEDS: FLUTICASONE/UMECLIDIN/VILANTER 100-62.5-25 MCG/DOSE IH SCH (10:20)
--- NOTE | 2020-07-06 20:35 | PDOC PROGRESS REPORT ---
Subjective Date:: 07/06/20 Subjective:: NAEO. Breathing improved. Reason For Visit: ACUTE HYPOXIC AND HYPERCAPNIC RESPIRATORY FAILURE, Physical Exam Vital Signs: Temp Pulse Resp BP Pulse Ox 98.2 F 109 H 16 138/79 H 91 L 07/06/20 16:23 07/06/20 19:36 07/06/20 19:36 07/06/20 16:23 07/06/20 19:36 Intake & Output 07/05/20 07/06/20 07/07/20 06:59 06:59 06:59 Intake Total 660 1296 536 Output Total 1371 3359 8347 Balance -819 -967 -5285 Weight 70.9 kg 69.1 kg General appearance: PRESENT: no acute distress, cooperative Eye exam: ABSENT: scleral icterus Mouth exam: PRESENT: moist Throat exam: ABSENT: post pharyngeal erythema Neck exam: PRESENT: JVD Respiratory exam: PRESENT: crackles, tachypnea Cardiovascular exam: PRESENT: RRR GI/Abdominal exam: PRESENT: normal bowel sounds, soft. ABSENT: tenderness Gentrourinary exam: PRESENT: indwelling catheter Extremities exam: PRESENT: +2 edema Neurological exam: PRESENT: alert, awake, oriented to person, oriented to place, oriented to time, oriented to situation Psychiatric exam: PRESENT: appropriate affect Skin exam: ABSENT: jaundice Results Laboratory Results: 07/06/20 04:07 07/06/20 04:07 07/06/20 07/06/20 04:07 04:07 WBC 12.6 H RBC 3.35 L Hgb 10.9 L Hct 32.4 L MCV 97 MCH 32.6 MCHC 33.6 RDW 13.5 Plt Count 277 Seg Neutrophils % 82.5 H Sodium 123.1 L Potassium 4.4 Chloride 89 L Carbon Dioxide 28 Anion Gap 6 BUN 14 Creatinine 0.34 L Est GFR ( Amer) > 60 Glucose 126 H Calcium 8.7 07/03/20 07/03/20 07/03/20 21:30 21:30 21:30 Creatine Kinase 99 Troponin I 0.030 NT-Pro-B Natriuret Pep 294 H 07/04/20 06:41 Creatine Kinase Troponin I 0.677 NT-Pro-B Natriuret Pep Impressions: Chest X-Ray 07/03/20 21:36 IMPRESSION: 1. Underlying emphysema. 2. Suspected superimposed pulmonary edema. Infection less likely but not excluded. Assessment and Plan - Diagnosis (1) Acute respiratory failure with hypoxia Is this a current diagnosis for this admission?: Yes (2) COPD exacerbation Is this a current diagnosis for this admission?: Yes (3) Community acquired pneumonia Qualifiers: Laterality: unspecified laterality Qualified Code(s): J18.9 - Pneumonia, unspecified organism Is this a current diagnosis for this admission?: Yes (4) New onset of congestive heart failure Is this a current diagnosis for this admission?: Yes (5) Bilateral leg ulcer Is this a current diagnosis for this admission?: Yes (6) Hyponatremia Is this a current diagnosis for this admission?: Yes (7) Generalized weakness Is this a current diagnosis for this admission?: Yes (8) Frequent falls Is this a current diagnosis for this admission?: Yes - Plan Summary Summary: MONTEZ GREGG is a 69 year old female with history of COPD who presented with progressively worsening of SOB, CORDERO, BLE edema and orthopnea. On presentation, she was in respiratory distress and was given Solu-Medrol, breathing treatment and was placed on BiPAP. Patient was reported to be very agitated and removed her IV lines during transfer and intraosseous line was obtained by EMS in route to the hospital. After arrival patient was continued on BiPAP and settings were changed from FiO2 of 100% to 60 and she continued to do well. She also reported interval improvement after receiving steroid and breathing treatments. She denies any fever, chills, nausea, vomiting, chest pain, palpitation, dizziness, or any change in her bowel or urinary habit. Acute respiratory failure with hypoxia: improving -Chest x-ray showed emphysematous change and pulmonary edema -COVID-19 test was negative -acute COPD exacerbation -Supplemental O2 to maintain sat of 89-94% -duonebs -steroids -abx indicated only if concomitant pneumonia is also suspected -bronchial hygiene -consider pumonary rehab referral at [place] -no smoking COPD exacerbation -Continue Solu-Medrol, DuoNeb, antibiotic Replaced Pulmicort with trilogypatient states she was using albuterol rescue inhaler every 4 hours every single day for many weeks Needs follow-up with pulmonology New onset of congestive heart failure -TTE showed good EF, mild diastolic dysfunction, normal systolic function -Mccarthy catheter placed for strict I/O, will need to remove soon Hypervolemic Hyponatremia -anticipate improvement with diuresis RLE s/p multiple prior surgeries and a skin graft - elevate legs Generalized Weakness -OOB to chair daily -PT -fall precautions - Time Time Spent with patient: 35 or more minutes Anticipated Discharge Disposition: Home with Home Health Anticipated Discharge Timeframe: within 48 hours
[2020-07-06] MEDS: CEFTRIAXONE 1 GM/D5W RTU 1 GM/50 ML RTUPB IV SCH (22:13)
[2020-07-06] MEDS: AZITHROMYCIN 500 MG in DEXTROSE 5%-WATER 250 ML IV SCH (22:45)
[2020-07-07] MEDS: IPRATROPIUM/ALBUTEROL 0.5-2.5 MG/3 ML AMPUL NEB SCH ×4 (01:48→21:00)
[2020-07-07] MEDS: METHYLPREDNISOLONE INJ 40 MG/1 ML SDV IV SCH (05:00)
[2020-07-07 05:02] LABS: ABSOLUTE BASOPHILS # (AUTO) 0.1 10^3/uL (0.0-0.2); ABSOLUTE LYMPHOCYTES (AUTO) 1.2 10^3/uL (0.5-4.7); ABSOLUTE MONOCYTES (AUTO) 1.5 10^3/uL (0.1-1.4); ABSOLUTE NEUT (AUTO) 10.9 10^3/uL (1.7-8.2); BASOPHILS % (AUTO) 0.8 % (0-2); HEMATOCRIT 33.9 % (36.0-47.0); HEMOGLOBIN 11.5 g/dL (12.0-15.5); LYMPHOCYTES % (AUTO) 8.9 % (13-45); MEAN CORPUSCULAR HEMOGLOBIN 32.7 pg (27.0-33.4); MEAN CORPUSCULAR HGB CONC 33.8 g/dL (32.0-36.0); MEAN CORPUSCULAR VOLUME 97 fl (80-97); MONOCYTES % (AUTO) 10.7 % (3-13); PLATELET COUNT 345 10^3/uL (150-450); RED BLOOD COUNT 3.51 10^6/uL (3.72-5.28); RED CELL DISTRIBUTION WIDTH 13.4 % (11.5-14.0); SEGMENTED NEUTROPHILS % (AUTO) 79.6 % (42-78); TOTAL CELLS COUNTED % (AUTO) 100 %; WHITE BLOOD COUNT 13.7 10^3/uL (4.0-10.5)
[2020-07-07 05:24] LABS: ANION GAP 8 (5-19); BLOOD UREA NITROGEN 20 mg/dL (7-20); CARBON DIOXIDE 30 mmol/L (22-30); CHLORIDE 88 mmol/L (98-107); GLUCOSE 121 mg/dL (75-110); POTASSIUM 4.5 mmol/L (3.6-5.0)
[2020-07-07] MEDS: SODIUM BICARBONATE 650 MG TABLET PO SCH ×2 (10:09→21:48)
[2020-07-07] MEDS: AMLODIPINE BESYLATE 10 MG TABLET PO SCH (10:09)
[2020-07-07] MEDS: PREDNISONE 20 MG TABLET PO SCH (10:09)
[2020-07-07] MEDS: FUROSEMIDE 40 MG TABLET PO SCH (10:09)
[2020-07-07] MEDS: ENOXAPARIN SODIUM INJ 40 MG/0.4 ML DISP.SYRIN SUBCUT SCH (10:10)
[2020-07-07] MEDS: FLUTICASONE/UMECLIDIN/VILANTER 100-62.5-25 MCG/DOSE IH SCH (10:11)
[2020-07-07] MEDS ORDERED: METOLAZONE 2.5 MG TABLET PO ONE (10:30)
--- NOTE | 2020-07-07 19:19 | PDOC PROGRESS REPORT ---
Subjective Date:: 07/07/20 Subjective:: NAEO. Breathing is improving and she has been weaned off O2, although she still becomes very SOB with minimal exertion. Reason For Visit: ACUTE HYPOXIC AND HYPERCAPNIC RESPIRATORY FAILURE, Physical Exam Vital Signs: Temp Pulse Resp BP Pulse Ox 97.4 F 100 16 146/77 H 98 07/07/20 12:08 07/07/20 15:00 07/07/20 15:00 07/07/20 12:08 07/07/20 15:00 Intake & Output 07/06/20 07/07/20 07/08/20 06:59 06:59 06:59 Intake Total 1296 836 Output Total 7107 3092 Balance -658 -4443 Weight 69.1 kg 69.1 kg General appearance: PRESENT: no acute distress, cooperative Eye exam: ABSENT: scleral icterus Mouth exam: PRESENT: moist Throat exam: ABSENT: post pharyngeal erythema Neck exam: PRESENT: JVD Respiratory exam: PRESENT: crackles, rhonchi, tachypnea, wheezes Cardiovascular exam: PRESENT: tachycardia GI/Abdominal exam: PRESENT: normal bowel sounds, soft. ABSENT: tenderness Rectal exam: PRESENT: deferred Extremities exam: PRESENT: +1 edema Neurological exam: PRESENT: alert, awake, oriented to person, oriented to place, oriented to time, oriented to situation Psychiatric exam: PRESENT: appropriate affect Skin exam: ABSENT: jaundice, rash Results Laboratory Results: 07/07/20 04:31 07/07/20 04:31 07/07/20 07/07/20 04:31 04:31 WBC 13.7 H RBC 3.51 L Hgb 11.5 L Hct 33.9 L MCV 97 MCH 32.7 MCHC 33.8 RDW 13.4 Plt Count 345 Seg Neutrophils % 79.6 H Sodium 126.2 L Potassium 4.5 Chloride 88 L Carbon Dioxide 30 Anion Gap 8 BUN 20 Creatinine 0.37 L Est GFR ( Amer) > 60 Glucose 121 H Calcium 9.0 Magnesium 1.8 07/03/20 07/03/20 07/03/20 21:30 21:30 21:30 Creatine Kinase 99 Troponin I 0.030 NT-Pro-B Natriuret Pep 294 H 07/04/20 06:41 Creatine Kinase Troponin I 0.677 NT-Pro-B Natriuret Pep Impressions: Chest X-Ray 07/03/20 21:36 IMPRESSION: 1. Underlying emphysema. 2. Suspected superimposed pulmonary edema. Infection less likely but not excluded. Assessment and Plan - Diagnosis (1) Acute respiratory failure with hypoxia Is this a current diagnosis for this admission?: Yes (2) COPD exacerbation Is this a current diagnosis for this admission?: Yes (3) Community acquired pneumonia Qualifiers: Laterality: unspecified laterality Qualified Code(s): J18.9 - Pneumonia, unspecified organism Is this a current diagnosis for this admission?: Yes (4) New onset of congestive heart failure Is this a current diagnosis for this admission?: Yes (5) Bilateral leg ulcer Is this a current diagnosis for this admission?: Yes (6) Hyponatremia Is this a current diagnosis for this admission?: Yes (7) Generalized weakness Is this a current diagnosis for this admission?: Yes (8) Frequent falls Is this a current diagnosis for this admission?: Yes - Plan Summary Summary: MONTEZ GREGG is a 69 year old female with history of COPD who presented with progressively worsening of SOB, CORDERO, BLE edema and orthopnea. On presentation, she was in respiratory distress and was given Solu-Medrol, breathing treatment and was placed on BiPAP. Patient was reported to be very agitated and removed her IV lines during transfer and intraosseous line was obtained by EMS in route to the hospital. After arrival patient was continued on BiPAP and settings were changed from FiO2 of 100% to 60% and she continued to do well. She also reported interval improvement after receiving steroid and breathing treatments. She denies any fever, chills, nausea, vomiting, chest pain, palpitation, dizziness, or any change in her bowel or urinary habit. Acute respiratory failure with hypoxia: improving. She is now saturating well on RA, although she feels subjectively very SOB when minimal exertion, even just talking. Will perform ambulatory saturation tomorrow with PT to figure out if she needs home oxygen therapy. -Chest x-ray showed emphysematous change and pulmonary edema -COVID-19 test was negative -duonemarisabel -smoking cessation counseling provided COPD exacerbation -steroids x5 days (07/04 to 07/08) -ceftriaxone x5 days (07/03 to 07/08) -Continue DuoNebs (patient requests Rx on discharge) Replaced Pulmicort with Trelegy inhaler as patient states she was using albuterol rescue inhaler every 4 hours every single day for many weeks -she will need outpatient follow-up with pulmonology on discharge Acute Diastolic CHF: new diagnosis this admission. -TTE showed good EF, mild diastolic dysfunction -continue diuresis with Lasix 40 mg PO daily now that she has lost IV access -received a single dose of metolazone 2.5 mg PO on 07/07 -Mccarthy catheter placed for strict I/O on admission, will DC today -daily weight -low sodium diet -heart failure education -she will need outpatient cardiology follow up on discharge Hypervolemic Hyponatremia: sodium is improving with diuresis -recheck BMP tomorrow Leukocytosis: improving. Likely due to steroid use this admission as she remains on antibiotic therapy. -recheck CBC tomorrow RLE s/p multiple prior surgeries and a skin graft -elevate legs Generalized Weakness -OOB to chair daily -PT daily -fall precautions Dispo: likely discharge home with tomorrow - Time Time Spent with patient: 35 or more minutes Anticipated Discharge Disposition: Home with Home Health Anticipated Discharge Timeframe: within 24 hours
[2020-07-07] MEDS ORDERED: CEFTRIAXONE 1 GM/D5W RTU 1 GM/50 ML RTUPB IV SCH (19:30)
[2020-07-07] MEDS ORDERED: CEFPODOXIME 200 MG TABLET PO ONE (23:05)
[2020-07-07] MEDS: CEFPODOXIME 200 MG TABLET PO SCH (23:15)
[2020-07-08] MEDS: IPRATROPIUM/ALBUTEROL 0.5-2.5 MG/3 ML AMPUL NEB SCH ×3 (01:47→13:14)
[2020-07-08 05:46] LABS: HEMATOCRIT 36.8 % (36.0-47.0); HEMOGLOBIN 12.4 g/dL (12.0-15.5); MEAN CORPUSCULAR HEMOGLOBIN 32.6 pg (27.0-33.4); MEAN CORPUSCULAR HGB CONC 33.7 g/dL (32.0-36.0); MEAN CORPUSCULAR VOLUME 97 fl (80-97); PLATELET COUNT 379 10^3/uL (150-450); RED BLOOD COUNT 3.81 10^6/uL (3.72-5.28); RED CELL DISTRIBUTION WIDTH 13.5 % (11.5-14.0); WHITE BLOOD COUNT 16.3 10^3/uL (4.0-10.5)
[2020-07-08 06:04] LABS: ANION GAP 12 (5-19); BLOOD UREA NITROGEN 23 mg/dL (7-20); CALCIUM 9.2 mg/dL (8.4-10.2); CARBON DIOXIDE 27 mmol/L (22-30); CHLORIDE 88 mmol/L (98-107); GLUCOSE 90 mg/dL (75-110); POTASSIUM 3.7 mmol/L (3.6-5.0)
[2020-07-08 06:22] LABS: ABSOLUTE LYMPHOCYTES# (MANUAL) 4.9 10^3/uL (0.5-4.7); ABSOLUTE MONOCYTES # (MANUAL) 1.8 10^3/uL (0.1-1.4); ANISOCYTOSIS SLIGHT; BASOPHILS % (MANUAL) 0 % (0-2); EOSINOPHILS % (MANUAL) 0 % (0-6); LYMPHOCYTES % (MANUAL) 28 % (13-45); MONOCYTES % (MANUAL) 11 % (3-13); PLATELET COMMENT ADEQUATE; POLYCHROMASIA SLIGHT; SEGMENTED NEUTROPHILS % (MAN) 59 % (42-78); TOTAL CELLS COUNTED 100
[2020-07-08] MEDS: ENOXAPARIN SODIUM INJ 40 MG/0.4 ML DISP.SYRIN SUBCUT SCH (10:20)
[2020-07-08] MEDS: SODIUM BICARBONATE 650 MG TABLET PO SCH (10:20)
[2020-07-08] MEDS: FUROSEMIDE 40 MG TABLET PO SCH (10:20)
[2020-07-08] MEDS: AMLODIPINE BESYLATE 10 MG TABLET PO SCH (10:20)
[2020-07-08] MEDS: CEFPODOXIME 200 MG TABLET PO SCH (10:20)
[2020-07-08] MEDS: FLUTICASONE/UMECLIDIN/VILANTER 100-62.5-25 MCG/DOSE IH SCH (10:21)
[2020-07-08] MEDS: PREDNISONE 20 MG TABLET PO SCH (10:21)
[2020-07-08 13:12] VITALS: BP 144/76
--- NOTE | 2020-07-09 17:10 | PDOC DISCHARGE SUMMARY ---
Impression - Admit/DC Date/PCP Admission Date/Primary Care Provider: 07/04/20 04:06 Discharge Date: 07/08/20 - Assessment Summary: MONTEZ GREGG is a 69 year old female with history of COPD who presented with progressively worsening of SOB, CORDERO, BLE edema and orthopnea. On presentation, she was in respiratory distress and was given Solu-Medrol, breathing treatment and was placed on BiPAP. Patient was reported to be very agitated and removed her IV lines during transfer and intraosseous line was obtained by EMS in route to the hospital. After arrival patient was continued on BiPAP and settings were changed from FiO2 of 100% to 60% and she continued to do well. She also reported interval improvement after receiving steroid and breathing treatments. She denies any fever, chills, nausea, vomiting, chest pain, palpitation, dizziness, or any change in her bowel or urinary habit. Acute respiratory failure with hypoxia: improving. She is now saturating well on RA, although she feels subjectively very SOB when minimal exertion, even just talking. Will perform ambulatory saturation tomorrow with PT to figure out if she needs home oxygen therapy. -Chest x-ray showed emphysematous change and pulmonary edema -COVID-19 test was negative -duonebs -smoking cessation counseling provided COPD exacerbation -steroids x5 days (07/04 to 07/08) -ceftriaxone x5 days (07/03 to 07/08) -Continue DuoNebs (patient requests Rx on discharge) Replaced Pulmicort with Trelegy inhaler as patient states she was using albuterol rescue inhaler every 4 hours every single day for many weeks -she will need outpatient follow-up with pulmonology on discharge Acute Diastolic CHF: new diagnosis this admission. -TTE showed good EF, mild diastolic dysfunction -continue diuresis with Lasix 40 mg PO daily now that she has lost IV access -received a single dose of metolazone 2.5 mg PO on 07/07 -Mccarthy catheter placed for strict I/O on admission, will DC today -daily weight -low sodium diet -heart failure education -she will need outpatient cardiology follow up on discharge Hypervolemic Hyponatremia: sodium is improving with diuresis -recheck BMP tomorrow Leukocytosis: improving. Likely due to steroid use this admission as she remains on antibiotic therapy. -recheck CBC tomorrow RLE s/p multiple prior surgeries and a skin graft -elevate legs Generalized Weakness -OOB to chair daily -PT daily -fall precautions Dispo: likely discharge home with HH tomorrow - Additional Information Resuscitation Status: Full Code Discharge Diet: Regular Discharge Activity: Activity As Tolerated, Balance Activity w/Rest, Weigh Daily Referrals: [facility] [Provider Group] - 07/19/20 9:45 am MEET TRUONG MD [ACTIVE STAFF] - 07/17/20 3:00 pm Prescriptions: Ipratropium/Albuterol Sulfate [Duoneb 3 ml Ampul] 3 ml NEB RTQ6 5 Days #20 vial.neb Furosemide [Lasix 40 mg Tablet] 40 mg PO DAILY 7 Days #7 tablet Amlodipine Besylate [Norvasc 10 mg Tablet] 10 mg PO DAILY 30 Days #30 tablet Fluticasone/Umeclidin/Vilanter [Trelegy 100-62.5-25 Mcg Ellipta 14 Dose/Dpi] 14 inh IH DAILY #1 inhaler Home Medications: Albuterol Sulfate [Proair HFA Inhalation Aerosol 8.5 gm MDI] 2 puff IH Q4HP PRN 07/04/20 Fluoxetine HCl 10 mg PO DAILY 07/04/20 Fluticasone/Umeclidin/Vilanter [Trelegy 100-62.5-25 Mcg Ellipta 14 Dose/Dpi] 14 inh IH DAILY #1 inhaler 07/06/20 Amlodipine Besylate [Norvasc 10 mg Tablet] 10 mg PO DAILY 30 Days #30 tablet 07/08/20 Furosemide [Lasix 40 mg Tablet] 40 mg PO DAILY 7 Days #7 tablet 07/08/20 Ipratropium/Albuterol Sulfate [Duoneb 3 ml Ampul] 3 ml NEB RTQ6 5 Days #20 vial.neb 07/08/20 History of Present Illiness History of Present Illness: MONTEZ GREGG is a 69 year old female, with history of COPD and venous stasis ulcers status post multiple surgeries in the past now presents with 1 day duration of acute worsening of shortness of breath. Patient states that she has been using albuterol inhaler multiple times in the past few days has not been helpful. Patient also reports that she has been having bilateral leg swelling and orthopnea stating that she sleeps at night on a recliner due to worsening of shortness of breath when lying down. She also bilateral leg swelling for more than a year. When patient was evaluated she was in respiratory distress and she was given Solu-Medrol, breathing treatment and was placed on a BiPAP. Patient was reported to be very agitated and removed her IV lines during transfer and intraosseous line was obtained by EMS in route to the hospital. After arrival patient was continued on a BiPAP and settings were changed from FiO2 of 100% to 60 and she continued to do well. She also reported interval improvement after receiving steroid and breathing treatment. She denies any fever, chills, nausea, vomiting, chest pain, palpitation, dizziness, or any change in her bowel or urinary habit. Hospital Course Hospital Course: MONTEZ GREGG is a 69 year old female with history of COPD who presented with progressively worsening of SOB, CORDERO, BLE edema and orthopnea. On presentation, she was in respiratory distress and was given Solu-Medrol, breathing treatment and was placed on BiPAP. Patient was reported to be very agitated and removed her IV lines during transfer and intraosseous line was obtained by EMS in route to the hospital. After arrival patient was continued on BiPAP and settings were changed from FiO2 of 100% to 60% and she continued to do well. She also reported interval improvement after receiving steroid and breathing treatments. She denies any fever, chills, nausea, vomiting, chest pain, palpitation, dizziness, or any change in her bowel or urinary habit. She improved with steroids, abx and duonebs. She did not require any home O2 and was discharged on Trelegy, duoneb and 7 days of lasix. Physical Exam Vital Signs: Temp Pulse Resp BP Pulse Ox 98.0 F 111 H 14 144/76 H 91 L 07/08/20 13:10 07/08/20 14:00 07/08/20 13:14 07/08/20 13:10 07/08/20 13:14 Intake & Output 07/08/20 07/09/20 07/10/20 06:59 06:59 06:59 Intake Total 720 Output Total 600 Balance 120 Weight 68.6 kg General appearance: PRESENT: no acute distress, cooperative Head exam: PRESENT: atraumatic, normocephalic Eye exam: PRESENT: EOMI, PERRLA Mouth exam: PRESENT: moist Neck exam: PRESENT: full ROM Respiratory exam: PRESENT: decreased breath sounds, symmetrical, unlabored Cardiovascular exam: PRESENT: RRR, +S1, +S2 GI/Abdominal exam: PRESENT: normal bowel sounds, soft. ABSENT: rebound, tenderness Extremities exam: PRESENT: full ROM Musculoskeletal exam: PRESENT: full ROM Neurological exam: PRESENT: alert, awake, oriented to person, oriented to place, oriented to time, oriented to situation Psychiatric exam: PRESENT: normal mood Skin exam: PRESENT: normal color Results Laboratory Results: WBC 16.3 10^3/uL (4.0-10.5) H 07/08/20 05:03 RBC 3.81 10^6/uL (3.72-5.28) 07/08/20 05:03 Hgb 12.4 g/dL (12.0-15.5) 07/08/20 05:03 Hct 36.8 % (36.0-47.0) 07/08/20 05:03 MCV 97 fl (80-97) 07/08/20 05:03 MCH 32.6 pg (27.0-33.4) 07/08/20 05:03 MCHC 33.7 g/dL (32.0-36.0) 07/08/20 05:03 RDW 13.5 % (11.5-14.0) 07/08/20 05:03 Plt Count 379 10^3/uL (150-450) 07/08/20 05:03 Lymph % (Auto) Not Reportable 07/08/20 05:03 [place] % (Auto) Not Reportable 07/08/20 05:03 Eos % (Auto) Not Reportable 07/08/20 05:03 Baso % (Auto) Not Reportable 07/08/20 05:03 Absolute Neuts (auto) Not Reportable 07/08/20 05:03 Absolute Lymphs (auto) Not Reportable 07/08/20 05:03 Absolute Monos (auto) Not Reportable 07/08/20 05:03 Absolute Eos (auto) Not Reportable 07/08/20 05:03 Absolute Basos (auto) Not Reportable 07/08/20 05:03 Total Counted 100 07/08/20 05:03 Seg Neutrophils % Not Reportable 07/08/20 05:03 Seg Neuts % (Manual) 59 % (42-78) 07/08/20 05:03 Lymphocytes % (Manual) 28 % (13-45) 07/08/20 05:03 Atypical Lymphs % 2 % (0) 07/08/20 05:03 Monocytes % (Manual) 11 % (3-13) 07/08/20 05:03 Eosinophils % (Manual) 0 % (0-6) 07/08/20 05:03 Basophils % (Manual) 0 % (0-2) 07/08/20 05:03 Abs Neuts (Manual) 9.6 10^3/uL (1.7-8.2) H 07/08/20 05:03 Abs Lymphs (Manual) 4.9 10^3/uL (0.5-4.7) H 07/08/20 05:03 Abs Monocytes (Manual) 1.8 10^3/uL (0.1-1.4) H 07/08/20 05:03 Absolute Eos (Manual) 0.0 10^3/uL (0.0-0.6) 07/08/20 05:03 Abs Basophils (Manual) 0.0 10^3/uL (0.0-0.2) 07/08/20 05:03 Platelet Comment ADEQUATE 07/08/20 05:03 Polychromasia SLIGHT 07/08/20 05:03 Basophilic Stippling PRESENT 07/05/20 11:36 Anisocytosis SLIGHT 07/08/20 05:03 RBC Morph Comment NORMO-CYTIC/CHROMIC 07/04/20 06:41 VBG pH 7.34 (7.30-7.42) 07/04/20 06:51 VBG pCO2 49.4 mmHg (35-63) 07/04/20 06:51 VBG HCO3 25.9 mmol/L (20-32) 07/04/20 06:51 VBG Base Excess -0.4 mmol/L 07/04/20 06:51 Sodium 127.2 mmol/L (137-145) L 07/08/20 05:03 Potassium 3.7 mmol/L (3.6-5.0) 07/08/20 05:03 Chloride 88 mmol/L (98-107) L 07/08/20 05:03 Carbon Dioxide 27 mmol/L (22-30) 07/08/20 05:03 Anion Gap 12 (5-19) 07/08/20 05:03 BUN 23 mg/dL (7-20) H 07/08/20 05:03 Creatinine 0.36 mg/dL (0.52-1.25) L 07/08/20 05:03 Est GFR ( Amer) > 60 (>60) 07/08/20 05:03 Est GFR (MDRD) Non-Af > 60 (>60) 07/08/20 05:03 Glucose 90 mg/dL (75-110) 07/08/20 05:03 POC Glucose 109 mg/dL (70-110) 07/07/20 12:09 Hemoglobin A1c % 4.7 % (4.7-6.0) 07/04/20 06:41 Calcium 9.2 mg/dL (8.4-10.2) 07/08/20 05:03 Magnesium 1.8 mg/dL (1.6-2.3) 07/07/20 04:31 Total Bilirubin 0.3 mg/dL (0.2-1.3) 07/03/20 21:30 Direct Bilirubin 0.1 mg/dL (0.0-0.4) 07/03/20 21:30 Neonat Total Bilirubin Not Reportable 07/03/20 21:30 Neonat Direct Bilirubin Not Reportable 07/03/20 21:30 Neonat Indirect Bili Not Reportable 07/03/20 21:30 AST 46 U/L (14-36) H 07/03/20 21:30 ALT 22 U/L (<35) 07/03/20 21:30 Alkaline Phosphatase 153 U/L (38-126) H 07/03/20 21:30 Creatine Kinase 99 U/L (30-135) 07/03/20 21:30 Troponin I 0.677 ng/mL 07/04/20 06:41 NT-Pro-B Natriuret Pep 294 pg/mL (<125) H 07/03/20 21:30 Total Protein 7.2 g/dL (6.3-8.2) 07/03/20 21:30 Albumin 3.9 g/dL (3.5-5.0) 07/03/20 21:30 Cortisol AM Sample 29.80 ug/dL (4.46-22.7) H 07/06/20 04:07 COVID-19 Source Cancelled 07/03/20 22:43 COVID-19 ([place]) Cancelled 07/03/20 22:43 Influenza A (RT-PCR) NEGATIVE (NEGATIVE) 07/03/20 22:43 Influenza B (RT-PCR) NEGATIVE (NEGATIVE) 07/03/20 22:43 RSV (RT-PCR) NEGATIVE (NEGATIVE) 07/03/20 22:43 SARS-CoV-2 Rap RNA(RT-PCR) NEGATIVE (NEGATIVE) 07/03/20 22:43 07/03/20 07/03/20 07/04/20 21:30 21:30 06:41 Troponin I 0.030 0.677 NT-Pro-B Natriuret Pep 294 H Impressions: Chest X-Ray 07/03/20 21:36 IMPRESSION: 1. Underlying emphysema. 2. Suspected superimposed pulmonary edema. Infection less likely but not excluded. Plan Plan of Treatment: continue Trelegy and Duoneb at home ff.up with PCP. Time Spent: Less than 30 Minutes Stroke Is this a Stroke Patient?: No Acute Heart Failure Is this a Heart Failure Patient?: No
[2020-07-14 13:07] LABS: ALDOSTERONE RENIN RATIO 2 19.8 (0.0-30.0); RENIN ACTIVITY 0.262 ng/mL/hr (0.167-5.38)
== END 2020-07-08 15:00 | disposition home health service (06) | DRG 189 ==
LOC: ER 21:20 → EH 07-04 04:06 → 3S 07-04 15:42 → 5 07-04 22:59
PROVIDERS: ADMIT Student in an Organized Health Care Education/Training Program; ATTEND Internal Medicine
PROC: 5A09457 Assistance with Respiratory Ventilation, 24-96 Consecutive Hours, Continuous Positive Airway Pressure (ICD-10-PCS; 2020-07-03)
PROC: B24BZZZ Ultrasonography of Heart with Aorta (ICD-10-PCS; principal; 2020-07-04)
DX: J96.01 Acute respiratory failure with hypoxia (principal); I50.31 Acute diastolic (congestive) heart failure; J18.9 Pneumonia, unspecified organism; E87.1 Hypo-osmolality and hyponatremia; L97.812 Non-pressure chronic ulcer of other part of right lower leg with fat layer exposed; J43.2 Centrilobular emphysema; I83.018 Varicose veins of right lower extremity with ulcer other part of lower leg; E87.5 Hyperkalemia; E11.65 Type 2 diabetes mellitus with hyperglycemia; F17.200 Nicotine dependence, unspecified, uncomplicated; Z90.49 Acquired absence of other specified parts of digestive tract; Z82.49 Family history of ischemic heart disease and other diseases of the circulatory system; Z88.0 Allergy status to penicillin; Z88.1 Allergy status to other antibiotic agents; Z20.822 Contact with and (suspected) exposure to COVID-19; Z79.51 Long term (current) use of inhaled steroids; Z71.6 Tobacco abuse counseling; T38.0X5A Adverse effect of glucocorticoids and synthetic analogues, initial encounter; D72.829 Elevated white blood cell count, unspecified; Z91.81 History of falling
CPT/HCPCS: 36415; 71045; 80048; 80053; 82088; 82533; 82550; 82803; 82962; 83036; 83735; 83880; 84244; 84484; 85025; 87040; 87635; 93005; 93010; 93306; 94640; 94660; 94799; 96361; 96374; 99285; 0241U; C9803; J0456; J0696; J1650; J1940; J2920; J3490; J7030; J7060; J7512